=== PATIENT | female | born 1970 | race Caucasian/White ===

== ENCOUNTER 2019-11-29 13:25 | Outpatient (REF) | payer MEDICAID, SELFPAY ==
--- NOTE | 2019-11-29 | XR_ITS ---
EXAMINATION: XR LUMBAR SPINE, 5 VIEWS CLINICAL INFORMATION: Low back pain COMPARISON: None TECHNIQUE: 5 views of the lumbar spine FINDINGS: Moderate to severe degenerative disc disease at L5-S1. Normal alignment and lumbar lordosis. No fracture. No spondylolysis or spondylolisthesis. Mild degenerative disc disease is noted at the lower thoracic spine. IMPRESSION: Moderate to severe L5-S1 degenerative disc disease. Normal alignment. No fracture.
[2019-11-29 14:23] LABS: MANUAL DIFF FLAG NO
[2019-11-29 14:28] LABS: Basophils Percent Auto 0.5 % (0-2); Eosinophils Absolute Auto 0.1 X10*3/uL (0.0-0.4); Eosinophils Percent Auto 2.5 % (0-4); Hematocrit 39.8 % (37-47); Hemoglobin 13.4 g/dl (12.0-16.0); Imm Gran Abs Auto 0.01 X10*3/uL (0.00-0.03); Imm Gran Pct Auto 0.2 % (0.0-0.4); Lymphocytes Absolute Auto 1.7 X10*3/uL (1.2-4.9); Lymphocytes Percent Auto 30.6 % (20-40); Mean Corpuscular HGB Conc 33.7 g/dl (31.0-35.0); Mean Corpuscular Hemoglobin 28.5 pg (27.0-33.0); Mean Corpuscular Volume 84.7 fL (80-98); Mean Platelet Volume 10.5 fL (9.4-12.3); Monocytes Absolute Auto 0.4 X10*3/uL (0.1-1.2); Monocytes Percent Auto 6.7 % (2-11); Neutrophils Absolute Auto 3.4 X10*3/uL (2.0-8.3); Neutrophils Percent Auto 59.5 % (45-73); Platelet Count 208 X10*3/uL (160-400); Red Cell Distribution Width 14.5 % (11.0-16.0); White Blood Count 5.7 X10*3/uL (4.8-10.8)
[2019-11-29 14:57] LABS: Alanine Aminotransferase 14 U/L (0-31); Albumin Level 4.8 g/dL (3.5-5.0); Alkaline Phosphatase 59 U/L (39-117); Anion Gap 12 (12-20); Aspartate Amino Transferase 16 U/L (5-31); Bilirubin Direct < 0.2 mg/dL (0.0-0.5); Bilirubin Total 0.4 mg/dL (0.0-1.0); Blood Urea Nitrogen 9 mg/dL (9-16); Calcium 9.4 mg/dL (8.4-10.2); Carbon Dioxide 29 mmol/L (22-29); Chloride 104 mmol/L (96-108); Cholesterol 321 mg/dL; Estimated Glomerular Filt Rate > 60; Glucose Fasting 89 mg/dL (60-99); HDL Cholesterol 61 mg/dL; LDL Cholesterol Calculated 244 mg/dl; Potassium 3.7 mmol/l (3.3-5.1); Sodium 141 mmol/L (135-145); Total Protein 7.9 g/dL (6.5-8.0); Triglycerides 81 mg/dL
[2019-11-29 15:00] LABS: Estimated Average Glucose 103 mg/dL; Hemoglobin A1c % 5.2 %
[2019-11-29 15:22] LABS: Free T4 (Free Thyroxine) 1.04 ng/dL (0.71-1.85); Thyroid Stimulating Hormone 0.72 mIU/mL (0.32-4.0)
[2019-11-30 09:01] LABS: Syphilis Screen Nonreactive (Nonreactive)
[2019-11-30 11:27] LABS: HIV AB/AG Nonreactive (Nonreactive); HIV Num 1 0.17 S/CO (0.00-0.99)
[2019-11-30 11:36] LABS: Alpha Fetoprotein 2.8 ng/mL
== END 2019-11-29 13:26 | disposition home or self-care (01) ==
LOC: HO.LAB 13:25
PROVIDERS: PCP Family Medicine; Referring Provider Emergency Medicine; Visit Provider Family Medicine
DX: M54.5 Low back pain (principal); M51.37 Other intervertebral disc degeneration, lumbosacral region; M51.34 Other intervertebral disc degeneration, thoracic region; Z00.00 Encounter for general adult medical examination without abnormal findings; F11.99 Opioid use, unspecified with unspecified opioid-induced disorder; E78.5 Hyperlipidemia, unspecified; F32.9 Major depressive disorder, single episode, unspecified; K76.0 Fatty (change of) liver, not elsewhere classified
CPT/HCPCS: 36415; 72110; 80048; 80061; 80076; 82105; 82306; 83036; 84439; 84443; 85025; 86780; 87389

== ENCOUNTER 2019-12-11 12:50 | Inpatient (IN) | payer MEDICAID, SELFPAY ==
[2019-12-11] VITALS (10 sets, daily range): BP systolic 119–154; BP diastolic 64–88; PULSE 66–87; RESP 14–72; TEMP 37.1–37.7; O2SAT 88–99; BMI 36.6
--- NOTE | 2019-12-11 13:30 | ED.GENADULT ---
HPI - General Adult General Chief complaint: General Medical Stated complaint: POS FOR COVID 19 NOT FEELING WELL Time Seen by Provider: 12/11/19 13:17 Source: patient Mode of arrival: ambulatory Limitations: no limitations History of Present Illness HPI narrative: 49-year-old female here with weakness, dizziness with position changes and diarrhea for the last 2 days. She has also had chills with subjective fevers. No body aches, cough, vomiting. She is feeling nauseous. She was tested for COVID last week and found out today she is positive. Onset (ago): day(s) Related Data Allergies Allergy/AdvReac Type Severity Reaction Status Date / Time No Known Allergies Allergy Unverified 11/15/19 16:01 [No Known Allergies*] Review of Systems Review of Systems: Yes all other systems are reviewed and are negative Constitutional: Constitutional: Reports no additional constitutional complaints, Denies body ache(s), Reports chills, Reports fever(s) ( Subjective), Denies headache(s) and Reports weakness ( generalized) Eyes: Eyes: Reports no additional eye complaints and Denies change in vision ENT: Reports system reviewed and no additional complaints, except as documented, Reports dizziness ( with position changes), Denies headache(s), Denies nasal congestion, Denies nasal discharge and Denies neck pain Cardiovascular: Cardiovascular: Reports no additional cardiovascular complaints, Denies chest pain, Denies leg edema and Denies dyspnea Respiratory: Respiratory: Reports no additional respiratory complaints, Denies cough and Denies dyspnea Gastrointestinal: Gastrointestinal: Reports no additional gastrointestinal complaints, Denies abdominal pain, Reports diarrhea, Reports nausea and Denies vomiting Genitourinary: Genitourinary: Reports no additional female genitourinary complaints and Denies urinary incontinence Musculoskeletal: Musculoskeletal: Reports no additional musculoskeletal complaints, Denies back pain, Denies arthralgias, Denies joint swelling, Denies neck pain, Denies numbness and Denies tingling Integumentary/Breasts: Skin/Breast: Reports system reviewed and no additional complaints, except as docu and Denies rash Neurologic: Reports system reviewed and no additional complaints, except as documented, Denies Abnormal speech present, Reports dizziness ( with position changes), Denies headache(s), Denies numbness, Denies tingling and Reports weakness ( generalized) [facility] Past Medical History Attestation statement: The following information was validated with the patient. Source: nursing notes reviewed Medical History COVID-19 Social History Social History Alcohol intake: never Smoking Status: Never smoker Use of substances other than those prescribed or required for medical reasons: No Advance Directives: No Advance Directives Information Provided: No Physical Exam Vital Signs: Vital Signs: Vital Signs Temp Pulse Resp BP Pulse Ox 12/11/19 16:58 75 18 139/74 92 12/11/19 16:01 99.5 F 73 18 130/88 94 12/11/19 14:16 72 H 154/75 H 96 12/11/19 13:15 98.8 F 78 20 144/87 H 99 Body Mass Index 36.6 Const: General: cooperative, healthy appearing, comfortable and no acute distress Orientation/consciousness: patient oriented x3 Limitations: no limitations HENMT: Head: Yes normal to inspection Ears: hearing grossly normal bilaterally General nose exam: Normal external nose present Face and sinus: Yes normal facial exam Mouth: Normal oral and palatal mucosa present Throat: Yes posterior oropharynx normal Eyes: General: appearance normal, both eyes and all related structures Pupils: Equal, round and reactive pupils present Neck: Neck: Yes normal visual inspection Chest: Chest palpation & inspection: normal inspection of the chest Resp: Effort & Inspection: normal respiratory effort Auscultation: clear to auscultation bilaterally Cardio: Rate: regular rate Rhythm: regular rhythm Peripheral pulses: Peripheral pulses 2+ throughout GI: Inspection: Yes normal to inspection Palpation (GI): Soft to palpation and nontender Auscultation: normal bowel sounds Back/Spine/Pelvis: Thoracic/Lumbar Spine: thoracic and lumbar spine normal to inspection Skin: General skin exam: no rashes or lesions noted Neuro: General: patient oriented x3, no focal motor deficits and normal sensation to monofilament Cranial nerves: Yes Equal, round and reactive pupils present Cognition (Neuro): normal cognition Speech: No Abnormal speech present Gait exam (Neuro): Normal gait present Motor exam (neuro): 5/5 motor strength present throughout Extrem: General: Yes normal to inspection Course Course Course Narrative: patient here with complaints of feeling dizzy with position changes, generalized weakness, diarrhea and nausea with few days of subjective fevers and chills in the setting of a diagnosis COVID-19 today. On arrival well-appearing with stable vital signs. No focal abdominal pain. Will check labs, CXR and give normal saline bolus antiemetic and reassess. 0-Delay in labs. Labs reviewed now which show mild hypokalemia. Plan for K CLOR replacement. NSB and antiemetic being given now. Medical Decision Making MDM Narrative Medical decision making narrative: Considered electrolyte abnormality, dehydration, viral syndrome Lab Data Lab results reviewed: Yes I reviewed the patient's lab results. Result diagrams: 12/11/19 14:14 12/11/19 14:14 Labs: Lab Results 12/11/19 12/11/19 12/11/19 Range/Units 14:14 14:14 14:14 WBC 3.6 L (4.8-10.8) X10*3/uL RBC 4.38 (4.20-5.50) X10*6/uL Hgb 12.1 (12.0-16.0) g/dl Hct 37.0 (37-47) % MCV 84.5 (80-98) fL MCH 27.6 (27.0-33.0) pg MCHC 32.7 (31.0-35.0) g/dl RDW 14.3 (11.0-16.0) % Plt Count 147 L D (160-400) X10*3/uL MPV 10.6 (9.4-12.3) fL Immature Gran % (Auto) 0.6 H (0.0-0.4) % Neut % (Auto) 70.1 (45-73) % Lymph % (Auto) 22.8 (20-40) % [place] % (Auto) 6.2 (2-11) % Eos % (Auto) 0.0 (0-4) % Baso % (Auto) 0.3 (0-2) % Lymph # (Auto) 0.8 L (1.2-4.9) X10*3/uL [place] # (Auto) 0.2 (0.1-1.2) X10*3/uL Eos # (Auto) 0.0 (0.0-0.4) X10*3/uL Baso # (Auto) 0.0 (0.0-0.2) X10*3/uL Abs Immat Gran (auto) 0.02 (0.00-0.03) X10*3/uL Absolute Neuts (auto) 2.5 (2.0-8.3) X10*3/uL Absolute Nucleated RBC 0.000 (0.0-0.012) X10*3/uL Nucleated RBC % (auto) 0.0 (0.0-0.2) /100WBC Hold Blue Top SEE NOTE Sodium 140 (135-145) mmol/L Potassium 3.0 L (3.3-5.1) mmol/l Chloride 99 (96-108) mmol/L Carbon Dioxide 32 H (22-29) mmol/L Anion Gap 12 (12-20) BUN 9 (9-16) mg/dL Creatinine 0.78 (0.5-1.4) mg/dL Estim Creat Clear Calc 93.3 Estimated GFR > 60 Random Glucose 96 (60-115) mg/dL Calcium 8.2 L (8.4-10.2) mg/dL Magnesium 1.5 L (1.6-2.6) mg/dL Total Bilirubin 0.5 (0.0-1.0) mg/dL Direct Bilirubin 0.2 (0.0-0.5) mg/dL AST 68 H (5-31) U/L ALT 98 H (0-31) U/L Alkaline Phosphatase 51 (39-117) U/L Total Protein 6.8 (6.5-8.0) g/dL Albumin 3.9 (3.5-5.0) g/dL Discharge Plan Discharge Clinical Impression: COVID-19 Patient Disposition: Home, Self-Care Instructions: COVID-19 (Coronavirus Disease 2019) (ED)
--- NOTE | 2019-12-11 16:02 | PC.NURSE ---
First contact with patient. skin pwd. c/o headache, body aches, sob, change in taste/smell, diarrhea. ls slightly course RLL. [employer] AWAITING LAB RESULTS
[2019-12-11 16:13] LABS: MANUAL DIFF FLAG NO
[2019-12-11 16:14] LABS: Basophils Percent Auto 0.3 % (0-2); Hemoglobin 12.1 g/dl (12.0-16.0); Imm Gran Abs Auto 0.02 X10*3/uL (0.00-0.03); Imm Gran Pct Auto 0.6 % (0.0-0.4); Lymphocytes Absolute Auto 0.8 X10*3/uL (1.2-4.9); Lymphocytes Percent Auto 22.8 % (20-40); Mean Corpuscular HGB Conc 32.7 g/dl (31.0-35.0); Mean Corpuscular Hemoglobin 27.6 pg (27.0-33.0); Mean Corpuscular Volume 84.5 fL (80-98); Mean Platelet Volume 10.6 fL (9.4-12.3); Monocytes Absolute Auto 0.2 X10*3/uL (0.1-1.2); Monocytes Percent Auto 6.2 % (2-11); Neutrophils Absolute Auto 2.5 X10*3/uL (2.0-8.3); Neutrophils Percent Auto 70.1 % (45-73); Platelet Count 147 X10*3/uL (160-400); Red Blood Count 4.38 X10*6/uL (4.20-5.50); Red Cell Distribution Width 14.3 % (11.0-16.0); White Blood Count 3.6 X10*3/uL (4.8-10.8)
[2019-12-11 16:33] LABS: Alanine Aminotransferase 98 U/L (0-31); Albumin Level 3.9 g/dL (3.5-5.0); Alkaline Phosphatase 51 U/L (39-117); Anion Gap 12 (12-20); Aspartate Amino Transferase 68 U/L (5-31); Bilirubin Direct 0.2 mg/dL (0.0-0.5); Bilirubin Total 0.5 mg/dL (0.0-1.0); Blood Urea Nitrogen 9 mg/dL (9-16); Calcium 8.2 mg/dL (8.4-10.2); Carbon Dioxide 32 mmol/L (22-29); Chloride 99 mmol/L (96-108); Creatinine Clr Calc Pharmacy 93.3; Estimated Glomerular Filt Rate > 60; Glucose Random 96 mg/dL (60-115); Magnesium 1.5 mg/dL (1.6-2.6); Sodium 140 mmol/L (135-145); Total Protein 6.8 g/dL (6.5-8.0)
--- NOTE | 2019-12-11 16:52 | XR_ITS ---
EXAMINATION: XR CHEST CLINICAL INFORMATION: Hypoxia. COVID infection COMPARISON: 01/03/2011 TECHNIQUE: Frontal view of the chest was obtained. FINDINGS: Lung volumes are low. There are patchy ill-defined interstitial and airspace opacities bilaterally consistent with viral pneumonitis. No dense lobar consolidation. Normal heart size. No pleural effusion or pneumothorax. Normal pulmonary vascularity. IMPRESSION: Multifocal patchy ill-defined interstitial and airspace opacities are seen, consistent with viral pneumonitis. No dense lobar focal consolidation.
[2019-12-11] MEDS: Potassium Chloride ER 20 MEQ TAB.ER.PRT 60 MEQ PO (16:56)
[2019-12-11] MEDS: ondansetron HCL 4 MG/2 ML VIAL IVPUSH (16:56)
[2019-12-11] MEDS: 0.9 % Sodium Chloride 1,000 ML 999 ML IV (16:56)
--- NOTE | 2019-12-11 17:55 | PC.NURSE ---
Pt desat to 88% w/ mild exertion. pt c/o headache, provider aware. 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
[2019-12-11] MEDS: Acetaminophen 325 MG TABLET 650 MG PO (18:03)
[2019-12-11] MEDS: Magnesium Sulfate/H2O 2 GM/50 ML PIGGYBACK IV (18:03)
--- NOTE | 2019-12-11 19:22 | P.HPIM_ITS ---
History of Present Illness Date of Service: 12/11/19 <Raquel Guevara NP - Last Filed: 12/11/19 19:41> Chief Complaint: Shortness of breath <Raquel Guevara NP - Last Filed: 12/11/19 19:41> 49-year-old woman presenting to the ER with complaints of worsening shortness of breath and body aches. She reports approximately 1 week ago she was helping 2 people out with moving. She found out that they had tested positive for coronavirus. She reported soon after that she began to develop symptoms including body aches, fever and cough. She reports that she went to the urgent care clinic to get tested in received a result today that was positive. She reports that she continued to feel unwell decided to come to the ER to be evaluated. She was noted to be hypoxic initially with oxygen saturation of 80% on room air. Chest x-ray in the ER showed multifocal patchy ill-defined interstitial and airspace opacities. She was noted to have low- grade fever of 100. other abnormal labs include potassium of 3.0, magnesium 1.5, AST 68, ALT 98. she was given a dose of Zofran, 1 L of IV fluid, oral potassium, Tylenol, IV magnesium. She will be admitted for further management and treatment of COVID pneumonia. <Raquel Guevara NP - Last Filed: 12/11/19 19:41> Review of Systems Review of Systems: Reports recent fever, chills respiratory see HPI cardiovascular no chest pain, edema gastrointestinal reported nausea, no diarrhea. genitourinary denies any dysuria frequency or hematuria musculoskeletal Reported body aches neuropsych denies any weakness or seizures all other systems reviewed are negative <Raquel Guevara NP - Last Filed: 12/11/19 19:41> Constitutional: Constitutional: Denies headache(s) and Reports weakness ( gen eralized) <Raquel Guevara NP - Last Filed: 12/11/19 19:41> ENT: Reports dizziness ( with position changes) and Denies headache(s) <Raquel Guevara NP - Last Filed: 12/11/19 19:41> Musculoskeletal: Musculoskeletal: Denies numbness and Denies tingling <Raquel Guevara NP - Last Filed: 12/11/19 19:41> Neurologic: Reports system reviewed and no additional complaints, except as documented, Denies Abnormal speech present, Reports dizziness ( with position changes), Denies headache(s), Denies numbness, Denies tingling and Reports weakn ess ( generalized) <Raquel Guevara NP - Last Filed: 12/11/19 19:41> [facility] Medical History: Medical History (Updated 12/21/19 @ 08:55 by Aurelio Fox MD) Depression NAFL (nonalcoholic fatty liver) Transaminitis <Raquel Guevara NP - Last Filed: 12/11/19 19:41> Pertinent family history: denies cardiac disease <Raquel Guevara NP - Last Filed: 12/11/19 19:41> Surgical History: Surgical History H/O tubal ligation H/O: hysterectomy History of endometrial ablation History of salpingectomy Hx laparoscopic cholecystectomy Previous section <Raquel Guevara NP - Last Filed: 12/11/19 19:41> Social History: Social History Household Members: Children Housing: Apartment Alcohol intake: never Smoking Status: Never smoker service: No Current occupational status: employed <Raquel Guevara NP - Last Filed: 12/11/19 19:41> Meds Allergies/Adverse reactions: Allergies Allergy/AdvReac Type Severity Reaction Status Date / Time No Known Allergies Allergy Unverified 11/15/19 16:01 [No Known Allergies*] <Raquel Guevara NP - Last Filed: 12/11/19 19:41> Home medications: Home Medications Medication Instructions Recorded Confirmed Type baclofen 10 mg PO TID PRN 12/11/19 12/11/19 History bupropion HCl 300 mg PO QAM 12/11/19 12/11/19 History cholecalciferol (vitamin D3) 50 mcg PO DAILY 12/11/19 12/11/19 History [Vitamin D3] fluticasone propionate 2 spray INTRANASAL DAILY PRN 12/11/19 12/11/19 History hydrochlorothiazide 25 mg PO DAILY 12/11/19 12/11/19 History loratadine 10 mg PO DAILY PRN 12/11/19 12/11/19 History naproxen 500 mg PO BID PRN 12/11/19 12/11/19 History omeprazole 20 mg PO BID 12/11/19 12/11/19 History polyethylene glycol 3350 [Miralax] 17 g PO DAILY PRN 12/11/19 12/11/19 History sertraline 150 mg PO DAILY 12/11/19 12/11/19 History zolpidem [Ambien] 10 mg PO BEDTIME PRN 12/11/19 12/11/19 History <Raquel Guevara NP - Last Filed: 12/11/19 19:41> Physical Exam Vital Signs and Narrative: Vital Signs: Last Vital Signs Temp 100 F 12/11/19 18:59 Pulse 75 12/11/19 18:59 Resp 20 12/11/19 18:59 BP 119/65 12/11/19 18:59 Pulse Ox 98 12/11/19 18:59 Body Mass Index 36.6 <Raquel Guevara NP - Last Filed: 12/11/19 19:41> Appearing tired, pale head is normocephalic atraumatic eyes pupils are PERRLA sclera is anicteric mouth throat mucous membranes are intact and moist neck is supple no lymphadenopathy, no JVD noted lung sounds normal expansion heart regular rate rhythm, clear S1, S2 abdomen nontender neuro patient is alert x3, no focal deficits <Raquel Guevara NP - Last Filed: 12/11/19 19:41> Neuro: Speech: No Abnormal speech present <Raquel Guevara NP - Last Filed: 12/11/19 19:41> Results Labs Labs: Laboratory Tests 12/11/19 12/11/19 12/11/19 14:14 14:14 14:14 WBC 3.6 L RBC 4.38 Hgb 12.1 Hct 37.0 MCV 84.5 MCH 27.6 MCHC 32.7 RDW 14.3 Plt Count 147 L D MPV 10.6 Immature Gran % (Auto) 0.6 H Neut % (Auto) 70.1 Lymph % (Auto) 22.8 [place] % (Auto) 6.2 Eos % (Auto) 0.0 Baso % (Auto) 0.3 Lymph # (Auto) 0.8 L [place] # (Auto) 0.2 Eos # (Auto) 0.0 Baso # (Auto) 0.0 Abs Immat Gran (auto) 0.02 Absolute Neuts (auto) 2.5 Absolute Nucleated RBC 0.000 Nucleated RBC % (auto) 0.0 Hold Blue Top SEE NOTE Sodium 140 Potassium 3.0 L Chloride 99 Carbon Dioxide 32 H Anion Gap 12 BUN 9 Creatinine 0.78 Estim Creat Clear Calc 93.3 Estimated GFR > 60 Random Glucose 96 Calcium 8.2 L Magnesium 1.5 L Total Bilirubin 0.5 Direct Bilirubin 0.2 AST 68 H ALT 98 H Alkaline Phosphatase 51 Total Protein 6.8 Albumin 3.9 <Raquel Guevara NP - Last Filed: 12/11/19 19:41> Assessment and Plan (1) COVID-19: Status: Acute <Raquel Guevara NP - Last Filed: 12/11/19 19:41> (2) Acute respiratory failure with hypoxia: Problem details: She is well into COVID illness and may have antibodies already She may have post COVID MISC-A or opportunistic infection but may just end of COVID <Raquel Guevara NP - Last Filed: 12/11/19 19:41> Status: Acute <Raquel Guevara NP - Last Filed: 12/11/19 19:41> (3) Hypokalemia: Status: Resolved <Raquel Guevara NP - Last Filed: 12/11/19 19:41> (4) Hypomagnesemia: Status: Resolved <Raquel Guevara NP - Last Filed: 12/11/19 19:41> (5) Transaminitis: 49-year-old woman admitted with acute respiratory failure with hypoxia related to COVID-19 pneumonia. Acute respiratory failure with hypoxia. Will treat COVID symptoms. Monitor closely for worsening of respiratory status , consider transfer to higher level of care if significant deterioration in respiratory status noted. COVID-19. Previous positive test from urgent care at [facility]. Will treat with dexamethasone 6 mg for 6 days. Consider Remdesivir, ID consultation, supplemental oxygen, Rocephin, azithromycin, place on isolation. COVID labs pending. Hypokalemia. Repleted in the ER. Follow BMP closely. Hypomagnesemia. Repleted in the ER. Follow magnesium tomorrow. Transaminitis. May be related to infection. Recheck LFTs in the morning. DVT prophylaxis with Lovenox Discussed with Dr. Ibrahim Full code <Raquel Guevara NP - Last Filed: 12/11/19 19:41>
[2019-12-11 19:28] LABS: Lactic Acid 0.7 mmol/L (0.5-2.0)
[2019-12-11 19:32] LABS: Lactate Dehydrogenase 316 U/L (122-220)
[2019-12-11 19:52] LABS: Procalcitonin 0.07 ng/mL
[2019-12-11 19:55] LABS: Ferritin 156 ng/mL (10-250)
[2019-12-11 20:19] LABS: SARS COV2 PCR INHOUSE POSITIVE (Negative)
[2019-12-11] MEDS: dexAMETHasone 6 MG TABLET PO (23:14)
--- NOTE | 2019-12-11 23:35 | PC.NURSE ---
RN TO RN WITH MODESTO
[2019-12-12 01:02] VITALS: BP 156/89; PULSE 80; RESP 19; TEMP 36.2; O2SAT 98
[2019-12-12] MEDS: cefTRIAXone sodium 1 GM in 0.9 % Sodium Chloride 50 ML IV (02:31)
[2019-12-12] MEDS: Enoxaparin Sodium 40 MG/0.4 ML SYRINGE SUBCUT (02:32)
[2019-12-12] MEDS: 0.9 % Sodium Chloride Flush 3 ML SYRINGE IVFLUSH ×4 (02:33→23:40)
[2019-12-12] MEDS: Azithromycin 500 MG in 0.9 % Sodium Chloride 250 ML 250 MG IV (03:08)
[2019-12-12] MEDS: Acetaminophen 325 MG TABLET 650 MG PO ×3 (03:09→21:17)
[2019-12-12 03:26] VITALS: BP 140/77; PULSE 66; RESP 19; TEMP 35.9; O2SAT 100
[2019-12-12 06:50] LABS: Hematocrit 37.2 % (37-47); Lymphocytes Absolute Auto 0.7 X10*3/uL (1.2-4.9); Lymphocytes Percent Auto 18.7 % (20-40); MANUAL DIFF FLAG SCAN; Mean Corpuscular HGB Conc 32.3 g/dl (31.0-35.0); Mean Corpuscular Hemoglobin 27.5 pg (27.0-33.0); Mean Corpuscular Volume 85.1 fL (80-98); Monocytes Absolute Auto 0.2 X10*3/uL (0.1-1.2); Monocytes Percent Auto 4.9 % (2-11); Neutrophils Absolute Auto 2.7 X10*3/uL (2.0-8.3); Neutrophils Percent Auto 76.4 % (45-73); Platelet Count 154 X10*3/uL (160-400); Red Blood Count 4.37 X10*6/uL (4.20-5.50); Red Cell Distribution Width 14.5 % (11.0-16.0); SCAN SMEAR FLAG 1; White Blood Count 3.5 X10*3/uL (4.8-10.8)
[2019-12-12 06:57] LABS: Alanine Aminotransferase 98 U/L (0-31); Albumin Level 3.8 g/dL (3.5-5.0); Alkaline Phosphatase 54 U/L (39-117); Anion Gap 11 (12-20); Aspartate Amino Transferase 75 U/L (5-31); Bilirubin Direct 0.2 mg/dL (0.0-0.5); Bilirubin Total 0.5 mg/dL (0.0-1.0); Blood Urea Nitrogen 8 mg/dL (9-16); Calcium 8.1 mg/dL (8.4-10.2); Carbon Dioxide 31 mmol/L (22-29); Chloride 104 mmol/L (96-108); Creatinine Clr Calc Pharmacy 101.2; Estimated Glomerular Filt Rate > 60; Glucose Random 138 mg/dL (60-115); Potassium 3.9 mmol/l (3.3-5.1); Sodium 142 mmol/L (135-145); Total Protein 6.8 g/dL (6.5-8.0)
[2019-12-12 07:39] VITALS: BP 130/73; PULSE 69; RESP 18; TEMP 36.7; O2SAT 99
[2019-12-12 07:50] LABS: SLIDE REVIEW VERIFIED
[2019-12-12] MEDS: dexAMETHasone 6 MG TABLET PO (08:34)
--- NOTE | 2019-12-12 09:26 | MHC.CM.PN ---
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 Does not have a HCP and declines filling one out today. Discussed discharge plan, home no services. Family will provide transport but may also need assistance. CM will continue to follow patient for discharge needs.
--- NOTE | 2019-12-12 09:33 | MHC.CDI.CONC ---
CDI Concurrent Query Service Date: 12/12/19 Documentation Clarification: Please clarify if you are treating a probable/suspected/likely or confirmed: Viral Sepsis due to Covid-19 Pneumonia with Acute respiratory failure with hypoxia POA Covid-19 Pneumonia Please specify if known PLEASE DO NOT DELETE/MODIFY EXISTING CONTENT Additional information is needed in order to code to the highest accuracy and appropriate Severity of Illness (SOI). Please clarify the information noted below in your progress notes and discharge summary. Risk Factors/Clinical Indicators/Treatments Subjective fevers, chills, nausea, diarrhea, weakness, positive covid 19 test results. Temp 100.0 HR 140 RR 20 WBC 3.5 Azithromycin, Rocephin, Oxygen, IV fluids, placed in Isolation. Cxr - Viral pneumonia. ID Consult requested. CDS: Dyan Rausch [facility], CDIS Contact Number: [phone] Please Review the information above and exercise your independent professional judgment in responding to the query. If you concur, pleas document in the PROGRESS NOTES and DISCHARGE SUMMARY. If you do not agree with the query, please document in the query above. THIS QUERY IS PART OF THE PERMANENT MEDICAL RECORD
[2019-12-12 12:00] VITALS: BP 120/68; PULSE 62; RESP 20; TEMP 37.2; O2SAT 95
--- NOTE | 2019-12-12 13:14 | HO.PM.IMPN ---
Subjective Subjective Date of Service: 12/12/19 Interval History: Seen in follow up for covid related resp failure. Overall still doesn't feel better Review of Systems Card: no chest pain resp: feel sob GI: No n/v Physical Exam Vital Signs: Vital Signs: Vital Signs Temp Pulse Resp BP Pulse Ox 12/12/19 12:00 98.9 F 62 20 120/68 95 12/12/19 07:39 98.0 F 69 18 130/73 99 12/12/19 03:26 96.7 F L 66 19 140/77 H 100 12/12/19 01:02 97.2 F 80 19 156/89 H 98 12/11/19 23:15 99.3 F 75 18 138/64 98 12/11/19 21:28 99.6 F 72 20 146/83 H 98 12/11/19 19:53 66 14 126/68 98 12/11/19 18:59 100 F 75 20 119/65 98 12/11/19 18:06 98.7 F 87 20 135/75 95 12/11/19 17:54 88 L 12/11/19 16:58 75 18 139/74 92 12/11/19 16:01 99.5 F 73 18 130/88 94 12/11/19 14:16 72 H 154/75 H 96 12/11/19 13:15 98.8 F 78 20 144/87 H 99 Body Mass Index 36.6 Appearing tired, pale head is normocephalic atraumatic eyes pupils are PERRLA sclera is anicteric mouth throat mucous membranes are intact and moist neck is supple no lymphadenopathy, no JVD noted lung sounds normal expansion heart regular rate rhythm, clear S1, S2 abdomen nontender neuro patient is alert x3, no focal deficits Objective Data Current Medications Generic Name Dose Route Start Last Admin Trade Name Freq PRN Reason Stop Dose Admin Acetaminophen 650 mg 12/12/19 01:45 12/12/19 10:14 Acetaminophen 325 Mg Tablet PO 650 mg Q6H PRN Administration Pain, Mild (Pain Scale 1-3) Dexamethasone 6 mg 12/11/19 19:20 12/12/19 08:34 Dexamethasone 6 Mg Tablet PO 6 mg DAILY ADRIANA Administration Enoxaparin Sodium 40 mg 12/12/19 01:45 12/12/19 02:32 Enoxaparin Sodium 40 Mg/0.4 Ml Syringe SUBCUT 40 mg Q24H ADRIANA Administration Azithromycin 500 mg/ Sodium 250 mls @ 250 mls/hr 12/12/19 02:00 12/12/19 06:41 Chloride IV Infused Q24H ADRIANA Infusion Ceftriaxone Sodium 1 gm/ 50 mls @ 100 mls/hr 12/12/19 03:00 12/12/19 07:18 Sodium Chloride IV Infused Q24H ADRIANA Infusion Ondansetron HCl 4 mg 12/12/19 01:45 Ondansetron Hcl 4 Mg/2 Ml Vial IVPUSH Q8H PRN Nausea and Vomiting Pharmacy Consult 1 each 12/11/19 18:12 Consult Rx Perform Med Rec MISCELLANE ONCE PRN Consult order Sodium Chloride 3 ml 12/12/19 01:45 12/12/19 08:35 0.9 % Sodium Chloride Flush 3 Ml Syringe IVFLUSH 3 ml QSHIFT ADRIANA Administration Labs CBC & Chem 7: 12/12/19 06:02 12/12/19 06:02 Assessment and Plan (1) COVID-19: Status: Acute (2) Acute respiratory failure with hypoxia: Status: Acute (3) Hypokalemia: Status: Acute (4) Hypomagnesemia: Status: Acute (5) Transaminitis: Status: Acute Assessment and Plan: 49-year-old woman admitted with acute respiratory failure with hypoxia related to COVID-19 pneumonia. Acute respiratory failure with hypoxia. Will treat COVID symptoms. Monitor closely for worsening of respiratory status , consider transfer to higher level of care if significant deterioration in respiratory status noted. COVID-19. Previous positive test from urgent care at [facility]. Will treat with dexamethasone 6 mg for 6 days. Consider Remdesivir, ID consultation, supplemental oxygen, Rocephin, azithromycin, place on isolation. COVID labs pending. Hypokalemia. corrected Hypomagnesemia. corrected, now 2 Transaminitis. May be related to infection. Recheck LFTs in the morning.
[2019-12-12 14:06] VITALS: BMI 36.6
[2019-12-12 15:35] VITALS: BP 149/68; PULSE 63; RESP 18; TEMP 36.2; O2SAT 100
[2019-12-12 19:57] VITALS: BP 140/71; PULSE 67; RESP 18; TEMP 36.1; O2SAT 99
--- NOTE | 2019-12-12 21:07 | P.CNID_ITS ---
History of Present Illness Data of Consult Service Date: 12/12/19 [facility] Primary Care Provider: DO MARCI Rodriguez Reason for consult: shortness of breath She presents to hospital with shortness of breath She is on 3 liters oxygen now and had low grade temperature on admission She started with symptoms of cough and fatigue on 11/29 On 12/03 she was tested positive for SARS-2 Review of Systems Constitutional: Constitutional: Denies headache(s) and Reports weakness ( generalized) ENT: Reports dizziness ( with position changes) and Denies headache(s) Musculoskeletal: Musculoskeletal: Denies numbness and Denies tingling Neurologic: Reports system reviewed and no additional complaints, except as documented, Denies Abnormal speech present, Reports dizziness ( with position changes), Denies headache(s), Denies numbness, Denies tingling and Reports weakness ( generalized) PMFSH Past Medical History Medical History Depression Surgical History Surgical History H/O tubal ligation H/O: hysterectomy History of endometrial ablation History of salpingectomy Hx laparoscopic cholecystectomy Previous section Social History Social History Household Members: Children Housing: Apartment Do you presently have visiting nurse or other home services: No Alcohol intake: never Smoking Status: Never smoker Use of substances other than those prescribed or required for medical reasons: No Currently Displaying Signs/Symptoms of Drug Intoxication Withdrawal: No Any prior treatment program specific to substance use: No Have you been hit, kicked, punched, or otherwise hurt by someone within the past year? If so, by whom?: No Do you feel safe in your current relationship?: No Current Relationship Is there a partner from a previous relationship who is making you feel unsafe now?: No Are you made to feel afraid or neglected: No Advance Directives: No Advance Directives Information Provided: No Do you have thoughts of harming others: None Do you have a plan to hurt others: No Plan Recently lost weight without trying: No service: No Current occupational status: employed Meds Allergies Allergy/AdvReac Type Severity Reaction Status Date / Time No Known Allergies Allergy Unverified 11/15/19 16:01 [No Known Allergies*] Home Medications Medication Instructions Recorded Confirmed Type baclofen 10 mg PO TID PRN 12/11/19 12/11/19 History bupropion HCl 300 mg PO QAM 12/11/19 12/11/19 History cholecalciferol (vitamin D3) 50 mcg PO DAILY 12/11/19 12/11/19 History [Vitamin D3] fluticasone propionate 2 spray INTRANASAL DAILY PRN 12/11/19 12/11/19 History hydrochlorothiazide 25 mg PO DAILY 12/11/19 12/11/19 History loratadine 10 mg PO DAILY PRN 12/11/19 12/11/19 History naproxen 500 mg PO BID PRN 12/11/19 12/11/19 History omeprazole 20 mg PO BID 12/11/19 12/11/19 History polyethylene glycol 3350 [Miralax] 17 g PO DAILY PRN 12/11/19 12/11/19 History sertraline 150 mg PO DAILY 12/11/19 12/11/19 History vitamin E 180 unit PO 12/11/19 History zolpidem [Ambien] 10 mg PO BEDTIME PRN 12/11/19 12/11/19 History Physical Exam Vital Signs: Vital Signs: Vital Signs Temp Pulse Resp BP Pulse Ox 12/12/19 19:57 97 F 67 18 140/71 H 99 12/12/19 15:35 97.2 F 63 18 149/68 H 100 12/12/19 12:00 98.9 F 62 20 120/68 95 12/12/19 07:39 98.0 F 69 18 130/73 99 12/12/19 03:26 96.7 F L 66 19 140/77 H 100 12/12/19 01:02 97.2 F 80 19 156/89 H 98 12/11/19 23:15 99.3 F 75 18 138/64 98 12/11/19 21:28 99.6 F 72 20 146/83 H 98 Body Mass Index 36.6 Const: General: anxious and ill appearing Orientation/consciousness: oriented to person, oriented to place and oriented to time HENMT: Head: Yes normal to inspection Throat: Yes posterior oropharynx normal Resp: Effort & Inspection: normal respiratory effort and able to speak in complete sentences Cardio: Rate: regular rate Rhythm: regular rhythm GI: Inspection: Yes normal to inspection Skin: General skin exam: no rashes or lesions noted Neuro: General: oriented to person, oriented to place and oriented to time Speech: No Abnormal speech present Extrem: General: Yes normal to inspection Assessment and Plan (1) Acute respiratory failure with hypoxia: Problem details: She is well into COVID illness and may have antibodies already She may have post COVID MISC-A or opportunistic infection but may just end of COVID Status: Acute Check antibodies,may indicate if positive resolved COVID and possible a typical pneumonia Dexamethasone daily,6 mg IV and then po 8 mg finish 10 days (2) COVID-19: Status: Acute Results Labs CBC & Chem 7: 12/12/19 06:02 12/12/19 06:02 Labs: Short CBC 12/12/19 Range/Units 06:02 WBC 3.5 L (4.8-10.8) X10*3/uL Hgb 12.0 (12.0-16.0) g/dl Hct 37.2 (37-47) % Plt Count 154 L (160-400) X10*3/uL BMP 12/12/19 06:02 Sodium 142 Potassium 3.9 D Chloride 104 Carbon Dioxide 31 H BUN 8 L Creatinine 0.72 Calcium 8.1 L Liver Function 12/12/19 Range/Units 06:02 Total Bilirubin 0.5 (0.0-1.0) mg/dL Direct Bilirubin 0.2 (0.0-0.5) mg/dL AST 75 H (5-31) U/L ALT 98 H (0-31) U/L Alkaline Phosphatase 54 (39-117) U/L Albumin 3.8 (3.5-5.0) g/dL
[2019-12-13] VITALS: BP 146/87; PULSE 58; RESP 20; TEMP 36.7; O2SAT 98
[2019-12-13] MEDS: Enoxaparin Sodium 40 MG/0.4 ML SYRINGE SUBCUT (02:27)
[2019-12-13] MEDS: cefTRIAXone sodium 1 GM in 0.9 % Sodium Chloride 50 ML IV (02:29)
[2019-12-13] MEDS: Azithromycin 500 MG in 0.9 % Sodium Chloride 250 ML 250 MG IV (02:30)
[2019-12-13 04:00] VITALS: BP 142/88; PULSE 60; RESP 18; TEMP 36.7; O2SAT 98
[2019-12-13 07:52] VITALS: BP 144/80; PULSE 69; RESP 18; TEMP 36.4; O2SAT 95
[2019-12-13] MEDS: dexAMETHasone 6 MG TABLET PO (07:54)
[2019-12-13] MEDS: 0.9 % Sodium Chloride Flush 3 ML SYRINGE IVFLUSH ×2 (07:54→15:10)
[2019-12-13 09:00] VITALS: O2SAT 93
[2019-12-13 11:02] VITALS: BP 135/87; PULSE 66; RESP 16; TEMP 36.5; O2SAT 96
--- NOTE | 2019-12-13 15:02 | P.DS_ITS ---
DS: Providers Provider Date of admission: 12/11/19 22:48 Primary care physician: Vera Da Silva DO Consults: 12/12/19 01:45 Consult to Physician Routine Consulting Provider: Jo Salinas Reason for consultation: COVID-19, HYPOXIA Has provider been notified: No DS: Diagnosis Discharge Diagnosis (1) Acute respiratory failure with hypoxia: Status: Acute Problem details: She is well into COVID illness and may have antibodies already She may have post COVID MISC-A or opportunistic infection but may just end of COVID (2) COVID-19: Status: Acute DS: Summary Hospital Course Hospital Course: 49 year female with presented with SOB. Her syptoms started with cough, sob and fatigue around 11/29. She tested positive for tenorio virus on 12/03 and manged as outpatient. She presented on 12/10 and found to have infiltrate on CXR consistent with viral PNA and she was hypoxic. She was admitted and treated with IV Ceftriaxone, Azithro and Dexamethasone. Over the course of hospitalization she has improved. She has been weaned off oxygen. She is afebrile. Oxygen saturation is maintained post ambulation. She will be discharged with Azithromycin and Dexamethasone for total of 10 days. She need isolation for Time Spent with Patient Time attestation: Total time spent providing and/or coordinating discharge services: Physical Exam Vital Signs: Vital Signs: Vital Signs Temp Pulse Resp BP Pulse Ox 12/13/19 11:02 97.7 F 66 16 135/87 96 12/13/19 09:00 93 12/13/19 07:52 97.6 F 69 18 144/80 H 95 12/13/19 04:00 98.1 F 60 18 142/88 H 98 12/13/19 00:00 98.0 F 58 20 146/87 H 98 12/12/19 19:57 97 F 67 18 140/71 H 99 12/12/19 15:35 97.2 F 63 18 149/68 H 100 Body Mass Index 36.6 DS: Data Data Completed and Pending Labs on day of discharge: Labs from last 24 hours 12/12/19 21:22 SARS-CoV-2 IgG Ab Pending Discharge Plan Discharge Patient Disposition: Home, Self-Care Referrals: Vera Da Silva DO [Primary Care Provider] - Discharge Medications: New azithromycin 500 mg tablet 500 mg PO DAILY 3 Days Qty: 5 RF: 0 dexamethasone 6 mg Tablet 6 mg PO DAILY Qty: 7 RF: 0 Continued loratadine 10 mg Tablet 10 mg PO DAILY PRN (Reason: Allergy Symptoms) RF: 0 cholecalciferol (vitamin D3) [Vitamin D3] 50 mcg (2,000 unit) Tablet 50 mcg PO DAILY RF: 0 fluticasone propionate 50 mcg/actuation [place],Suspension 2 spray INTRANASAL DAILY PRN (Reason: Congestion) RF: 0 naproxen 500 mg Tablet 500 mg PO BID PRN (Reason: Pain (Scale Score 1-3)) RF: 0 polyethylene glycol 3350 [Miralax] 17 gram/dose Powder 17 g PO DAILY PRN (Reason: Constipation) RF: 0 baclofen 10 mg Tablet 10 mg PO TID PRN (Reason: Muscle Spasm) RF: 0 hydrochlorothiazide 25 mg Tablet 25 mg PO DAILY RF: 0 zolpidem [Ambien] 10 mg Tablet 10 mg PO BEDTIME PRN (Reason: Sleep) RF: 0 vitamin E 100 unit Tablet 180 unit PO RF: 0 omeprazole 20 mg Capsule,Delayed Release(Dr/Ec) 20 mg PO BID RF: 0 sertraline 100 mg Tablet 150 mg PO DAILY RF: 0 bupropion HCl 300 mg Tablet Extended Release 24 Hr 300 mg PO QAM RF: 0 Discharge Orders: Discharge Order (Routine); Ordered 12/13/19 Ordered By: Sammy Llanes Activity on Discharge: As tolerated Patient Instructions: COVID-19 (Coronavirus Disease 2019) (ED) Discharge Date/Time: 12/13/19 17:48 Visit Report Forms: Patient Portal Discharge page Care Plan Goals: Resolution of all covid symptoms Health Concerns: complications of covid 19 Plan of Treatment: Take Dexamathasone and Azithromycin as recommended and follow up with your Doctor in a week. Follow up with your Doctor in a week, call for appointment call 911 or come to hospital if your symptoms gert worse. CDC Guidelines for home isolation: - Stay away from others - Limit contact with pets and animals: If you must care for a pet, wash your hands before and after interacting with them - Wear a mask if you are sick - Cover your mouth and nose with a tissue when you cough or sneeze. Dispose of tissues in a lined trash can and wash your hands immediately with soap and water for at least 20 seconds. If soap and water are not available, clean hands with alcohol-based hand railroad shop inspector that contains at least 60% alcohol. - Clean your hands often with soap and water for at least 20 seconds - Avoid touching your eyes, nose and mouth with unwashed hands - Do not share dishes, drinking glasses, cups, eating utensils, towels, or bedding with other people in your home. After using these items, wash them thoroughly with soap and water or put in the outside contractor sales. - Clean high-touch surfaces in your isolation area ( sick room and bathroom) every day; let a caregiver clean and disinfect high-touch surfaces in other areas of the home. Clean the area or item with soap and water or another detergent if it is dirty. Then, use a household disinfectant. Seek medical attention, but call first: - Seek medical care right away if your illness is worsening (for example, if you have difficulty breathing). - Call your doctor before going in: Before going to the doctor's office or emergency room, call ahead and tell them your symptoms. They will tell you what to do. - If possible, put on a facemask before you enter the building. If you can't put on a facemask, try to keep a safe distance from other people (at least 6 feet away). This will help protect the people in the office or waiting room. - Follow care instructions from your healthcare provider and local health department: Your local health authorities will give instructions on checking your symptoms and reporting information. Emergency warning signs for COVID-19: - Difficulty breathing or shortness of breath - Persistent pain or pressure in the chest - New confusion or inability to arouse - Bluish lips or face Additional Instructions: - []
--- NOTE | 2019-12-13 15:10 | MHC.CM.PN ---
DC to Home no services, Friend providing transportation
[2019-12-13 15:22] LABS: SARS COV2 IgG Positive (Negative)
[2019-12-13 15:47] VITALS: BP 166/83; PULSE 60; RESP 18; TEMP 36; O2SAT 96
== END 2019-12-13 17:48 | disposition home or self-care (01) | DRG 137 ==
LOC: HO.ED 22:47 → HO.IMC 23:16
PROVIDERS: Internal Medicine; Nurse Practitioner Acute Care; Nurse Practitioner Family; Admitting Provider Internal Medicine; Emergency Provider Emergency Medicine; PCP Family Medicine; Visit Provider Internal Medicine
DX: U07.1 COVID-19 (principal); J96.01 Acute respiratory failure with hypoxia; J12.89 Other viral pneumonia; F32.9 Major depressive disorder, single episode, unspecified; E87.6 Hypokalemia; E83.42 Hypomagnesemia; R74.01 Elevation of levels of liver transaminase levels; Z79.1 Long term (current) use of non-steroidal anti-inflammatories (NSAID); Z79.51 Long term (current) use of inhaled steroids; Z79.899 Other long term (current) drug therapy
CPT/HCPCS: 36415; 71045; 80048; 80076; 82728; 83605; 83615; 83735; 84145; 85025; 86769; 87635; 96361; 96374; 99284; 99285; J1650; J2405; J3475; J8540

== ENCOUNTER 2020-03-14 10:11 | Outpatient (REF) | payer MEDICAID, SELFPAY ==
--- NOTE | 2020-03-14 10:17 | MM_ITS ---
EXAMINATION: MM SCREENING DIGITAL BREAST TOMOSYNTHESIS, BILATERAL CLINICAL INFORMATION: Screening. Asymptomatic. The lifetime risk of breast cancer based on the Tyrer-Cuzick Model is 7%. COMPARISON: Mammography: 05/18/2018, 03/18/2017, 07/23/2015 TECHNIQUE: Digital breast tomosynthesis is performed in both the craniocaudal and mediolateral oblique views along with computer-aided detection (CAD). Synthesized 2D images are generated from the tomosynthesis. FINDINGS: There are scattered areas of fibroglandular density (ACR BI-RADS breast composition Category b). Scattered bilateral asymmetries are stable from prior exams. There is no interval mass or architectural abnormality or abnormal calcifications. The axilla and skin contours are unremarkable. MM/MM tomosynthesis screening BI IMPRESSION: No significant changes from prior exams. ASSESSMENT: BI-RADS 2: Benign RECOMMENDATION: Routine annual mammography screening. This patient's information was entered into a reminder system with a target due date for their next mammogram.
== END 2020-03-14 10:12 | disposition home or self-care (01) ==
LOC: HO.MAMMO 10:11
PROVIDERS: Visit Provider Family Medicine
DX: Z12.31 Encounter for screening mammogram for malignant neoplasm of breast (principal)
CPT/HCPCS: 77063; 77067

== ENCOUNTER 2020-03-21 09:50 | Outpatient (REF) | payer MEDICAID, SELFPAY ==
[2020-03-22 11:45] LABS: BV Int Neg Control Negative (Negative); BV Int Pos Control Positive (Positive)
[2020-03-26 07:38] LABS: HPV mRNA E6/E7 Detected (Not Detected)
[2020-04-02 10:26] LABS: HPV 16 RNA NOT DETECTED
== END 2020-03-21 09:51 | disposition home or self-care (01) ==
LOC: HO.LAB 09:50
PROVIDERS: PCP Family Medicine; Visit Provider Obstetrics & Gynecology
DX: Z01.419 Encounter for gynecological examination (general) (routine) without abnormal findings (principal); N89.8 Other specified noninflammatory disorders of vagina; Z12.11 Encounter for screening for malignant neoplasm of colon; Z20.2 Contact with and (suspected) exposure to infections with a predominantly sexual mode of transmission
CPT/HCPCS: 36415; 87480; 87510; 87624; 87625; 87660; 88141; 88142

== ENCOUNTER 2020-04-09 13:09 | Outpatient (REF) | payer MEDICAID, SELFPAY ==
[2020-04-09 14:13] LABS: MANUAL DIFF FLAG NO
[2020-04-09 14:23] LABS: Estimated Average Glucose 103 mg/dL; Hemoglobin A1c % 5.2 %
[2020-04-09 14:31] LABS: Basophils Percent Auto 0.5 % (0-2); Eosinophils Percent Auto 0.3 % (0-4); Hematocrit 39.1 % (37-47); Hemoglobin 12.7 g/dl (12.0-16.0); Imm Gran Abs Auto 0.01 X10*3/uL (0.00-0.03); Imm Gran Pct Auto 0.2 % (0.0-0.4); Lymphocytes Absolute Auto 1.7 X10*3/uL (1.2-4.9); Lymphocytes Percent Auto 29.8 % (20-40); Mean Corpuscular HGB Conc 32.5 g/dl (31.0-35.0); Mean Corpuscular Hemoglobin 27.5 pg (27.0-33.0); Mean Corpuscular Volume 84.8 fL (80-98); Mean Platelet Volume 10.1 fL (9.4-12.3); Monocytes Absolute Auto 0.3 X10*3/uL (0.1-1.2); Monocytes Percent Auto 5.7 % (2-11); Neutrophils Absolute Auto 3.6 X10*3/uL (2.0-8.3); Neutrophils Percent Auto 63.5 % (45-73); Platelet Count 240 X10*3/uL (160-400); Red Blood Count 4.61 X10*6/uL (4.20-5.50); Red Cell Distribution Width 13.6 % (11.0-16.0); White Blood Count 5.7 X10*3/uL (4.8-10.8)
[2020-04-09 14:40] LABS: Alanine Aminotransferase 36 U/L (0-31); Albumin Level 4.2 g/dL (3.5-5.0); Alkaline Phosphatase 56 U/L (39-117); Anion Gap 14 (12-20); Aspartate Amino Transferase 28 U/L (5-31); Bilirubin Direct < 0.2 mg/dL (0.0-0.5); Bilirubin Total 0.4 mg/dL (0.0-1.0); Blood Urea Nitrogen 16 mg/dL (9-16); Calcium 9.8 mg/dL (8.4-10.2); Carbon Dioxide 28 mmol/L (22-29); Chloride 103 mmol/L (96-108); Cholesterol 292 mg/dL; Estimated Glomerular Filt Rate > 60; Glucose Random 78 mg/dL (60-115); HDL Cholesterol 62 mg/dL; LDL Cholesterol Calculated 192 mg/dl; Potassium 4.2 mmol/L (3.3-5.1); Sodium 141 mmol/L (135-145); Total Protein 7.4 g/dL (6.5-8.0); Triglycerides 190 mg/dL
[2020-04-09 14:59] LABS: Syphilis Screen Nonreactive (Nonreactive)
[2020-04-09 15:02] LABS: Free T4 (Free Thyroxine) 0.93 ng/dL (0.71-1.85); Thyroid Stimulating Hormone 0.81 uIU/mL (0.32-4.0)
[2020-04-10 04:08] LABS: HIV AB/AG Nonreactive (Nonreactive); HIV Num 1 0.18 S/CO (0.00-0.99); ~HepC Num1 0.15 S/CO (0.00-0.79); ~Hepatitis C Antibody Nonreactive (Nonreactive)
[2020-04-10 12:27] LABS: Alpha Fetoprotein 3.2 ng/mL
== END 2020-04-09 13:10 | disposition home or self-care (01) ==
LOC: HO.LAB 13:09
PROVIDERS: PCP Family Medicine; Visit Provider Family Medicine
DX: R87.612 Low grade squamous intraepithelial lesion on cytologic smear of cervix (LGSIL) (principal); R87.810 Cervical high risk human papillomavirus (HPV) DNA test positive; E78.5 Hyperlipidemia, unspecified; K76.0 Fatty (change of) liver, not elsewhere classified
CPT/HCPCS: 36415; 57454; 80048; 80061; 80076; 82105; 82306; 83036; 84439; 84443; 85025; 86780; 86803; 87389; 88341; 88342

== ENCOUNTER 2020-04-09 15:24 | Outpatient (REF) | payer MEDICAID, SELFPAY | END 2020-04-09 15:25 | disposition home or self-care (01) | LOC: HO.LNP 15:24 | PROVIDERS: Visit Provider Obstetrics & Gynecology | DX: R87.612 Low grade squamous intraepithelial lesion on cytologic smear of cervix (LGSIL) (principal); R87.810 Cervical high risk human papillomavirus (HPV) DNA test positive | CPT/HCPCS: 88300; 88305; 88341; 88342; 88360 ==

== ENCOUNTER 2020-04-16 10:05 | Outpatient (REF) | payer MEDICAID, SELFPAY ==
--- NOTE | 2020-04-16 10:30 | EMG_ITS ---
HISTORY OF PRESENT ILLNESS: This is a 49-year-old woman with a 9-month history of bilateral upper extremity pain and numbness with the left being worse than the right. She has a history of depression and hypertension and GERD. CURRENT MEDICATIONS: Include bupropion, Seroquel, Ambien p.r.n., omeprazole, vitamin D and E, and blood pressure medicine. PHYSICAL EXAMINATION: On examination, she is alert and oriented with normal intellectual functions. Cranial nerves II through XII are normal. Muscle tone and strength are normal in all 4 extremities. Deep tendon reflexes symmetrical, 2+. Plantar response are flexor. IMPRESSION: Rule out carpal tunnel syndrome. Nerve conduction EMG study: Normal motor and sensory nerve conduction velocities of the upper extremities. Normal EMG of the C5-T1 innervated muscles bilaterally. MD MANN El/QAMAR / [id number]
== END 2020-04-16 10:06 | disposition home or self-care (01) ==
LOC: HO.NEURO 10:05
PROVIDERS: PCP Family Medicine; Visit Provider Family Medicine
DX: R20.0 Anesthesia of skin (principal)
CPT/HCPCS: 95885; 95913

== ENCOUNTER → 2020-05-02 11:41 | Outpatient (BNVA) | payer MEDICAID, SELFPAY | PROVIDERS: PCP Family Medicine; Visit Provider Obstetrics & Gynecology ==

== ENCOUNTER → 2020-05-12 09:16 | Outpatient (BNVA) | payer MEDICAID, SELFPAY | PROVIDERS: PCP Family Medicine; Visit Provider Internal Medicine Gastroenterology ==

== ENCOUNTER → 2020-07-09 10:12 | Outpatient (BNVA) | payer MEDICAID, SELFPAY | PROVIDERS: PCP Family Medicine; Referring Provider Family Medicine; Visit Provider Student in an Organized Health Care Education/Training Program | DX: M25.522 Pain in left elbow (principal) | CPT/HCPCS: 99212 ==

== ENCOUNTER 2020-07-16 10:30 | Outpatient (REF) | payer MEDICAID, SELFPAY ==
--- NOTE | ~2020-07-16 | XR_ITS ---
EXAMINATION: XR CERVICAL SPINE CLINICAL INFORMATION: Pain cervical spine COMPARISON: None TECHNIQUE: The cervical spine is imaged in 5 views: AP, odontoid, lateral, and bilateral oblique. FINDINGS: The vertebral bodies are normal in height and there is normal cervical lordosis. There is borderline leftward tilting on the frontal view. The odontoid appears intact. There is no cervical vertebral compression, spondylolisthesis, or destructive process. No prevertebral soft tissue swelling. There are degenerative disc changes at C6-C7 with disc narrowing and vertebral spurring. Anterior vertebral spurring also present at C4-C5 without disc narrowing. There is no cervical rib. Oblique views show no osseous narrowing of the neural foramina. XR/XR cervical spine min 6V IMPRESSION: 1. Degenerative disc changes C6-C7. 2. Anterior spurring C4-C5 without disc narrowing. 3. No vertebral compression or spondylolisthesis.
--- NOTE | ~2020-07-16 | CT_ITS ---
EXAMINATION: CT HEAD WITHOUT CONTRAST CLINICAL INFORMATION: 50-year-old with forgetfulness COMPARISON: None TECHNIQUE: Contiguous axial CT imaging of the brain was performed from the skull base to vertex without intravenous administration of contrast. This CT examination was performed using dose optimization techniques as appropriate, variously including the following: *Automated exposure control *Adjustment of mA and/or kV according to patient size (this includes techniques or standardized protocols for targeted exams where dose is matched to indication/reason for exam; i.e. extremities or head) *Use of iterative reconstruction technique DLP: 807.00 mGy-cm FINDINGS: The brain is normal in morphology and attenuation. Norris-white matter interface appears well maintained. No extra-axial fluid collections, hemorrhage, space-occupying process or mass effect. The ventricles are normal in size. There is no abnormal attenuation within the brain parenchyma. The osseous structures and soft tissues are normal. The mastoid air cells and visualized portions of the paranasal sinuses are well aerated. CT/CT head/brain wo con IMPRESSION: Normal noncontrast CT of the brain.
--- NOTE | ~2020-07-16 | XR_ITS ---
EXAMINATION: XR WRIST, LEFT CLINICAL INFORMATION: Pain. COMPARISON: Radiographs left hand 11/14/2018 TECHNIQUE: The left wrist is imaged in 4 views including a navicular view. FINDINGS: There is no acute or healing fracture, dislocation, or destructive process. The ulnar variance is neutral. There is no joint narrowing or erosive change or chondrocalcinosis. Bony mineralization appears normal. Visualized soft tissues are unremarkable. XR/XR wrist LT w scaphoid IMPRESSION: Normal study.
== END 2020-07-16 10:31 | disposition home or self-care (01) ==
LOC: HO.CT 10:30
PROVIDERS: PCP Family Medicine; Visit Provider Family Medicine
DX: M79.602 Pain in left arm (principal); R41.3 Other amnesia; R68.89 Other general symptoms and signs; M54.2 Cervicalgia
CPT/HCPCS: 70450; 72052; 73110

== ENCOUNTER 2020-09-16 13:44 | Outpatient (REF) | payer MEDICAID, SELFPAY ==
--- NOTE | ~2020-09-16 | XR_ITS ---
EXAMINATION: XR ELBOW, LEFT XR FOREARM, LEFT CLINICAL INFORMATION: Left elbow and left forearm pain. COMPARISON: Left wrist radiographs dated 07/16/2020. TECHNIQUE: AP, oblique, and lateral views of the left elbow. AP and lateral views of the left forearm. FINDINGS: Left Elbow: No acute fracture or dislocation. No joint space narrowing or marginal osteophytes. No osseous erosion. No abnormal soft tissue calcification. No significant joint effusion. Left Forearm: No acute fracture or dislocation. No joint space narrowing or marginal osteophytes. No osseous erosion. No abnormal soft tissue calcification. XR/XR forearm LT 2V IMPRESSION: Left Elbow: Unremarkable examination. Left Forearm: Unremarkable examination.
--- NOTE | ~2020-09-16 | XR_ITS ---
EXAMINATION: XR ELBOW, LEFT XR FOREARM, LEFT CLINICAL INFORMATION: Left elbow and left forearm pain. COMPARISON: Left wrist radiographs dated 07/16/2020. TECHNIQUE: AP, oblique, and lateral views of the left elbow. AP and lateral views of the left forearm. FINDINGS: Left Elbow: No acute fracture or dislocation. No joint space narrowing or marginal osteophytes. No osseous erosion. No abnormal soft tissue calcification. No significant joint effusion. Left Forearm: No acute fracture or dislocation. No joint space narrowing or marginal osteophytes. No osseous erosion. No abnormal soft tissue calcification. XR/XR elbow LT 2V IMPRESSION: Left Elbow: Unremarkable examination. Left Forearm: Unremarkable examination.
== END 2020-09-16 13:45 | disposition home or self-care (01) ==
LOC: HO.XRAY 13:44
PROVIDERS: Absent Provider Family Medicine; PCP Family Medicine; Visit Provider Nurse Practitioner Family
DX: M25.522 Pain in left elbow (principal); M79.602 Pain in left arm
CPT/HCPCS: 73070; 73090

== ENCOUNTER 2020-10-07 11:30 | Outpatient (RCR) | payer MEDICAID, SELFPAY ==
--- NOTE | 2020-08-28 14:20 | MHC.OT.OEV ---
[address] [phone] F: [phone] Occupational Therapy Evaluation Diagnosis: LEFT ELBOW PAIN Date of Onset: 03/31/20 Attending Provider: Cammy Reeves Prescribed Treatment: EVAL AND TREAT History of Current Condition: MISBAH REPORTS ABOUT A FOUR TO FIVE MONTH HISTORY OF PAIN IN HER LEFT ELBOW. THE PAIN RADIATES DOWN HER ARM INTO THE HAND. SHE REPORTS [facility] PAIN WELL. 04/16/20 Nerve conduction EMG study: Normal motor and sensory nerve conduction velocities of the upper extremities. Normal EMG of the C5-T1 innervated muscles bilaterally. 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 Sleep: MODERATE DIFFICULTIES SLEEPING ON LEFT SIDE Driving: NOT CURRENTLY DRIVING Vision: Balance: Pain Assessment Pain Score: 7-10/10 Pain Scale Used: Numeric (0 - 10) Pain Location and Description: LEFT LATERAL ELBOW MCP AND IPs LEFT > RIGHT HAND Aggravating Factors: GRIPPING, TWISTING, CARRYING HEAVY OBJECTS Alleviating Factors: USING ICE, TEMPORARY RELIEF WITH USE OF BENGAY CREAM, OCCASIONAL USE OF TYLENOL/ IBUPROPHEN SOME RELIEF WITH NEWLY PURCHASED CFB YET INCONSISTENT WITH WEARING Skin and Soft Tissue Assessment Skin and Soft Tissue: Swelling Comments: MILD LEFT ELBOW EDEMA Sensory Assessment Comments: REPORTS PARASTHESIA IN B/L HANDS UPON WAKING IN AM Dexterity Assessment Dexterity: WFL Comments: DENIES DIFFICULTIES WITH FINE MOTOR TASKS FOR ADLs OR IADLs Special Tests Comments: (+) COZENS TEST AROM(PROM) Strength Elbow Flexion: L 135 Extension: L 0 Pronation: Supination: Comments: Flexion: Extension: Pronation: Supination: Comments: Digits Index MCP: PIP: DIP: Long MCP: PIP: DIP: Ring MCP: PIP: DIP: Small MCP: PIP: DIP: Comments: Gross Grasp: L 15, R 40 Lateral Pinch: L 6, R 15 Two-Point Pinch: L 5, R 8 Three-Jaw Shar: L 5, R 10 Comments: PAIN WITH ELBOW EXT TESTING Patient Education Primary Language: Taiwanese Bench Worker Binding Required: No Current Knowledge: Understands information with skills for self-management Teaching Method: Demonstration Handouts Verbal Education Needs Identified on Evaluation: ADL's Disease Information Equipment Use Exercise Pain Safety How did patient/family demonstrate learning? Patient demonstrates Patient verbalizes Barriers to Learning: None Readiness for Learning: Accepting Who was educated? Patient Comments: Plan of Care Assessment: MISBAH PRESENTS TO OT WITH A FOUR TO FIVE MONTH HISTORY OF LEFT LATERAL ELBOW PAIN. SHE WAS ENCOURAGED TO PURCHASE A CFB FROM HER REFERRING DOCTOR, AND REPORTS INCONSISTENT WEAR AND MINIMAL IMPROVEMENTS. Pt IS REPORTING DIFFICULTIES WITH OPENING TIGHT JARS, TURNING DOOR KNOBS AND CARRYING A GALLON OF MILK OR HEAVIER OBJECTS. A 50% LIMITATION IS REPORTED PER THE QUICK DASH ASSESSMENT. SHE WOULD CONTINUE TO BENEFIT FROM SKILLED OT TO ACHIEVE OPTIMAL FUNCTIONAL LEVEL AND IMPROVE QOL. STG Duration: 2 WEEKS Short Term Goals: IND HEP IND ORTHOSIS WEAR IND JOINT PROTECTION STRATEGIES IND USE OF HEAT/ ICE REPORT <4/10 PAIN WITH LIGHT IADLs LTG Duration: 4 WEEKS Correction Goals: QUICK DASH <35% IND SELF MANAGEMENT OF OA AND CTS SYMPTOMS L GRASP > 25 POUNDS TOLERATE LIFTING >10 POUNDS WITH <2/10 PAIN Frequency and Duration: The patient will be seen 2X/WEEK FOR 4 WEEKS Treatment Plan: Therapeutic Exercise Therapeutic Activity Home Exercise Program Splinting Neuro Re-ed Patient Education Desensitization/Sensory Re-ed Edema Control ADL Training Ultrasound NMES Iontophoresis Paraffin Fluidotherapy MHP Cold Packs Joint Mobilization Soft Tissue Mobilization Kinesiotaping Electronically Signed By: MARILY CHOI/Eduardo Reviewed/agree with student documentation: N/A Therapist: Please sign and return to therapist, Thank you for your referral.
--- NOTE | 2020-10-22 08:00 | MHC.OT.DC ---
[address] [phone] F: [phone] Occupational Therapy Discharge Note Provider: Cammy Reeves Diagnosis: LEFT ELBOW PAIN Date of Evaluation: 08/28/20 Date of Discharge: 10/22/20 Treatments to Date: 6 Cancellations to Date: 2 Discharge Status: Improved Function Independent with HEP Patient Elected to Stop Recommend MD Follow-up Discharge Summary: MS MONTALVO WAS SEEN AND TREATED FOR OT SERVICES 1X/WEEK DUE TO DIFFICULTIES WITH TRANSPORTATION. SHE CONTINUED TO REPORT MODERATE TO HIGH PAIN TO THE LATERAL ASPECT OF HER LEFT ELBOW. SHE WAS PROVIDED WITH A COUNTERFORCE BRACE AND WAS INCONSISTENT WITH USE. EXTENSIVE EDUCATION WAS PROVIDED ON JOINT PROTECTION AND ACTIVITY MODIFICATION FOR IADLs AT HOME. SHE WAS IND WITH HER HEP. PATIENT ELECTED TO DISCONTINUE OUTPATIENT OT SERVICES. WOULD RECOMMEND ADDITIONAL F/U WITH MD AT THIS. Electronically Signed By: MINOO DIAZ OTR/L Reviewed/agree with student documentation: N/A Therapist: Please Sign and return to therapist, thank you for your referral.
== END 2020-10-22 08:00 | disposition home or self-care (01) ==
LOC: HO.OT 11:30
PROVIDERS: PCP Family Medicine; Visit Provider Student in an Organized Health Care Education/Training Program
DX: M25.522 Pain in left elbow (principal)
CPT/HCPCS: 29125; 97033; 97035; 97110; 97140; 97166; 97760

== ENCOUNTER → 2020-11-17 13:55 | Outpatient (BNVA) | payer MEDICAID, SELFPAY | PROVIDERS: PCP Family Medicine; Visit Provider Internal Medicine Gastroenterology | DX: K21.9 Gastro-esophageal reflux disease without esophagitis (principal); K76.0 Fatty (change of) liver, not elsewhere classified; Z79.899 Other long term (current) drug therapy | CPT/HCPCS: 99212 ==

== ENCOUNTER 2021-03-05 10:20 | Outpatient (REF) | payer MEDICAID, SELFPAY ==
--- NOTE | ~2021-03-05 | US_ITS ---
EXAMINATION: US ABDOMEN COMPLETE CLINICAL INFORMATION: Fatty liver. COMPARISON: Ultrasound abdomen 10/03/2017 and 05/14/2015. X-ray abdomen KUB 01/29/2011. TECHNIQUE: Real-time imaging of the abdominal viscera. FINDINGS: PANCREAS: Normal. ABDOMINAL AORTA: The proximal, mid, and distal segments are normal in caliber. INFERIOR VENA CAVA: Visualized portions are normal. LIVER: The liver is normal in size. The liver contour is normal. There is diffuse increased liver parenchymal echogenicity, consistent with hepatic steatosis. No focal hepatic lesion. There is no intrahepatic biliary duct dilatation seen. With color Doppler imaging, normal hepatopetal flow within the main portal vein is demonstrated. GALLBLADDER: Surgically absent. COMMON BILE DUCT: Normal in caliber measuring 0.3 cm in diameter. RIGHT KIDNEY: Normal. No hydronephrosis. No renal calculi or focal parenchymal lesions. The kidney measures 10.1 cm in maximum dimension. LEFT KIDNEY: Normal. No hydronephrosis. No renal calculi or focal parenchymal lesions. The kidney measures 10.0 cm in maximum dimension. SPLEEN: Normal. The spleen measures 9.3 cm in maximum dimension. FREE FLUID: None. US/US abdomen complete IMPRESSION: 1. Diffuse hepatic steatosis. 2. Status post cholecystectomy. 3. Otherwise unremarkable exam.
== END 2021-03-05 10:21 | disposition home or self-care (01) ==
LOC: HO.US 10:20
PROVIDERS: Visit Provider Family Medicine
DX: K76.0 Fatty (change of) liver, not elsewhere classified (principal); Z90.49 Acquired absence of other specified parts of digestive tract
CPT/HCPCS: 76700

== ENCOUNTER 2021-03-23 10:00 | Outpatient (REF) | payer MEDICAID, SELFPAY ==
[2021-03-23 14:10] LABS: CT PCR NOT DETECTED (Not Detect.); NG PCR NOT DETECTED (Not Detect.)
[2021-03-26 22:02] LABS: HPV 16 RNA NOT DETECTED (NOT DETECTED); HPV mRNA E6/E7 rflx Detected (Not Detected)
== END 2021-03-23 10:01 | disposition home or self-care (01) ==
LOC: HO.LAB 10:00
PROVIDERS: PCP Family Medicine; Visit Provider Advanced Practice Midwife
DX: Z01.419 Encounter for gynecological examination (general) (routine) without abnormal findings (principal); N87.0 Mild cervical dysplasia; R23.2 Flushing; E66.01 Morbid (severe) obesity due to excess calories; Z11.3 Encounter for screening for infections with a predominantly sexual mode of transmission; Z11.8 Encounter for screening for other infectious and parasitic diseases; Z11.51 Encounter for screening for human papillomavirus (HPV); Z68.41 Body mass index [BMI] 40.0-44.9, adult; Z98.51 Tubal ligation status; Z90.79 Acquired absence of other genital organ(s)
CPT/HCPCS: 87491; 87591; 87624; 87625; 88142

== ENCOUNTER 2021-03-24 10:28 | Outpatient (REF) | payer MEDICAID, SELFPAY ==
--- NOTE | ~2021-03-24 | MM_ITS ---
EXAMINATION: MM SCREENING DIGITAL BREAST TOMOSYNTHESIS, BILATERAL CLINICAL INFORMATION: Screening. Asymptomatic. The lifetime risk of breast cancer based on the Tyrer-Cuzick Model is 7%. COMPARISON: Mammography: 03/14/2020, 05/18/2018, 08/16/2017 TECHNIQUE: Digital breast tomosynthesis is performed in both the craniocaudal and mediolateral oblique views along with computer-aided detection (CAD). Synthesized 2D images are generated from the tomosynthesis. Additional right CC and right MLO views are obtained. FINDINGS: There are scattered areas of fibroglandular density (ACR BI-RADS breast composition Category b). There are no significant masses, abnormal calcifications, or other abnormalities. Scattered minor parenchymal asymmetries are stable from prior studies. There are no significant interval changes. No developing density or architectural abnormality. MM/MM tomosynthesis screening BI IMPRESSION: No mammographic evidence of malignancy. ASSESSMENT: BI-RADS 2: Benign RECOMMENDATION: Routine annual mammography screening. This patient's information was entered into a reminder system with a target due date for their next mammogram.
== END 2021-03-24 10:29 | disposition home or self-care (01) ==
LOC: HO.MAMMO 10:28
PROVIDERS: PCP Family Medicine; Visit Provider Family Medicine
DX: Z12.31 Encounter for screening mammogram for malignant neoplasm of breast (principal)
CPT/HCPCS: 77063; 77067

== ENCOUNTER 2021-04-30 11:15 | Outpatient (REF) | payer MEDICAID, SELFPAY | END 2021-04-30 11:16 | disposition home or self-care (01) | LOC: HO.LAB 11:15 | PROVIDERS: Visit Provider Obstetrics & Gynecology | DX: N87.0 Mild cervical dysplasia (principal) | CPT/HCPCS: 57454; 88305 ==

== ENCOUNTER → 2021-05-15 13:28 | Outpatient (BNVA) | payer MEDICAID, SELFPAY | PROVIDERS: Visit Provider Obstetrics & Gynecology | DX: N87.0 Mild cervical dysplasia (principal) | CPT/HCPCS: Q3014 ==

== ENCOUNTER → 2021-06-09 10:19 | Outpatient (BNVA) | payer MEDICAID, SELFPAY | PROVIDERS: PCP Family Medicine; Visit Provider Obstetrics & Gynecology | DX: Z01.818 Encounter for other preprocedural examination (principal); N87.0 Mild cervical dysplasia | CPT/HCPCS: 99212 ==

== ENCOUNTER → 2021-07-06 09:36 | Outpatient (BNVA) | payer MEDICAID, SELFPAY | PROVIDERS: Visit Provider Obstetrics & Gynecology | DX: N87.0 Mild cervical dysplasia (principal) | CPT/HCPCS: 99212 ==

== ENCOUNTER 2021-07-10 08:58 | Day surgery (SDC) | payer MEDICAID, SELFPAY ==
--- NOTE | 2021-07-09 09:20 | HO.ANESPROP2 ---
Documented by User: Airadne Basurto NP 07/09/21 09:22 HPI - Anesthesia Eval Consult details Narrative: 51yo F for Cone LEEP with ECC [facility] Active Problems Active Problems: All Active Problems (Updated 06/05/21 @ 15:11 by Jada Almanzar RN) Acute respiratory failure with hypoxia (Acute) COVID-19 (Acute) GERD (gastroesophageal reflux disease) (Acute) Colon cancer screening (Acute) Left elbow pain (Acute) LGSIL on Pap smear of cervix (Acute) Cervical intraepithelial neoplasia grade 1 (Acute) NAFL (nonalcoholic fatty liver) (Acute) Past Medical History Medical History Depression Morbid obesity with BMI of 40.0-44.9, adult NAFL (nonalcoholic fatty liver) Personal history of COVID-19 Transaminitis Family History Family History Maternal Grandmother Bone cancer Surgical History Surgical History H/O tubal ligation History of endometrial ablation History of salpingectomy Hx laparoscopic cholecystectomy Previous section Social History Social History Household Members: Children Housing: Apartment Do you presently have visiting nurse or other home services: No Alcohol intake: never Patient Tobacco Use Status: Never used Tobacco Are you DNR?: No Advance Directives: No Advance Directives Information Provided: Yes Recently lost weight without trying: No Patient : No service: No Current occupational status: unemployed Meds Allergies Allergy/AdvReac Type Severity Reaction Status Date / Time No Known Allergies Allergy Verified 06/08/21 11:48 [No Known Allergies*] Home Medications Medication Instructions Recorded Confirmed Last Taken Type baclofen 10 mg tablet 10 mg PO TID PRN 12/11/19 06/08/21 Unknown History bupropion HCl 300 mg 24 hr tablet, 300 mg PO QAM 12/11/19 06/08/21 Unknown History extended release cholecalciferol (vitamin D3) 50 50 mcg PO DAILY 12/11/19 06/08/21 Unknown History mcg (2,000 unit) tablet (Vitamin D3) fluticasone propionate 50 2 spray INTRANASAL DAILY PRN 12/11/19 06/08/21 Unknown History mcg/actuation nasal spray,suspension hydrochlorothiazide 25 mg tablet 25 mg PO DAILY 12/11/19 06/08/21 Unknown History loratadine 10 mg tablet 10 mg PO DAILY PRN 12/11/19 06/08/21 Unknown History naproxen 500 mg tablet 500 mg PO BID PRN 12/11/19 06/08/21 Unknown History polyethylene glycol 3350 17 17 g PO DAILY PRN 12/11/19 06/08/21 Unknown History gram/dose oral powder (Miralax) sertraline 100 mg tablet 150 mg PO DAILY 12/11/19 06/08/21 Unknown History zolpidem 10 mg tablet (Ambien) 10 mg PO BEDTIME PRN 12/11/19 06/08/21 Unknown History atorvastatin 10 mg tablet 10 mg PO DAILY 05/12/20 06/08/21 Unknown History Exam Exam Date and Time: July 09, 2021 0920 Assessment and Plan Assessment Anesthesia Assessment: Chart Reviewed Documented by User: Deanna Silveira MD 07/10/21 10:26 [facility] Past Medical History Medical History Depression Morbid obesity with BMI of 40.0-44.9, adult NAFL (nonalcoholic fatty liver) Personal history of COVID-19 Transaminitis Family History Family History Maternal Grandmother Bone cancer Family history of problems with anesthesia: No Surgical History Surgical History H/O tubal ligation History of endometrial ablation History of salpingectomy Hx laparoscopic cholecystectomy Previous section History of Problems with Anesthesia: No Social History Social History Household Members: Children Housing: Apartment Do you presently have visiting nurse or other home services: No Alcohol intake: never Patient Tobacco Use Status: Never used Tobacco Are you DNR?: No Advance Directives: No Advance Directives Information Provided: Yes Recently lost weight without trying: No Patient : No service: No Current occupational status: unemployed Meds Allergies Allergy/AdvReac Type Severity Reaction Status Date / Time No Known Allergies Allergy Verified 06/08/21 11:48 [No Known Allergies*] Home Medications Medication Instructions Recorded Confirmed Last Taken Type baclofen 10 mg tablet 10 mg PO TID PRN 12/11/19 06/08/21 Unknown History bupropion HCl 300 mg 24 hr tablet, 300 mg PO QAM 12/11/19 06/08/21 Unknown History extended release cholecalciferol (vitamin D3) 50 50 mcg PO DAILY 12/11/19 06/08/21 Unknown History mcg (2,000 unit) tablet (Vitamin D3) fluticasone propionate 50 2 spray INTRANASAL DAILY PRN 12/11/19 06/08/21 Unknown History mcg/actuation nasal spray,suspension hydrochlorothiazide 25 mg tablet 25 mg PO DAILY 12/11/19 06/08/21 Unknown History loratadine 10 mg tablet 10 mg PO DAILY PRN 12/11/19 06/08/21 Unknown History naproxen 500 mg tablet 500 mg PO BID PRN 12/11/19 06/08/21 Unknown History polyethylene glycol 3350 17 17 g PO DAILY PRN 12/11/19 06/08/21 Unknown History gram/dose oral powder (Miralax) sertraline 100 mg tablet 150 mg PO DAILY 12/11/19 06/08/21 Unknown History zolpidem 10 mg tablet (Ambien) 10 mg PO BEDTIME PRN 12/11/19 06/08/21 Unknown History atorvastatin 10 mg tablet 10 mg PO DAILY 05/12/20 06/08/21 Unknown History Exam Airway Mallampati Class: II TM Dist: >3cm Neck ROM: Full Assessment and Plan Assessment Anesthesia Assessment: Anesthesia Plan Discussed Final Anesthetic Review Family History of Problems with Anesthesia: No History of Problems with Anesthesia: No NPO: Yes ASA Class: III Final Preanesthetic Review: No Changes in Pt Med Stat, Meds/Allgs Chart Reviewed, Consent Obtained/Reviewed and Anes Risks/Benef Reviewed Patient Risk: Intermediate Procedure Risk: Low Anesthetic Plan Anesthetic Plan: GA Disposition: Standard PACU
[2021-07-10 06:57] VITALS: BMI 40.2
[2021-07-10 09:13] VITALS: BP 141/77; PULSE 77; RESP 17; TEMP 36.2; O2SAT 98
[2021-07-10 09:25] LABS: UPreg QC Valid YES; Urine Pregnancy NEGATIVE (NEGATIVE)
[2021-07-10] MEDS: Lactated Ringers 1,000 ML 100 ML IVCONT (09:32)
--- NOTE | 2021-07-10 10:19 | MHC.SHP ---
Pre-Procedural Eval Section A Date of Service: 07/10/21 The patient is an INPATIENT: No Changes since office visit: No Cold of Flu in the past 2 weeks, No New Medical Problems, No Changes in Medication and No Patient answered all questions The History & Physical has been completed within 30 days and I have reviewed it.: Yes Section B Chief Complaint: Mild cervical dysplasia Allergies: Allergies Allergy/AdvReac Type Severity Reaction Status Date / Time No Known Allergies Allergy Verified 06/08/21 11:48 [No Known Allergies*] Plan Diagnosis/Plan: Unchanged I have reviewed the history and physical and performed a pertinent physical examination on my patient. No changes have occurred unless specified.
--- NOTE | 2021-07-10 11:51 | PM.OP ---
Brief Operative Note Date of Service: 07/10/21 Pre-op diagnosis: Persistent LUIS 1 with positive ECC Post-op diagnosis: same Procedure: LEEP CONE with post CONE ECC Surgeon: Yaron Das MD Anesthesia: local and other (Paracervical block) Was an Astronautical Engineer used for this Procedure?: No Estimated blood loss (mL): 0 Pathology: other (Ant+post Cerv lip, Endocx, Post cone ECC) Condition: stable Disposition: other (Home)
--- NOTE | 2021-07-10 11:52 | W.PM.OPN ---
Operative Note Operative Note Date of Service: 07/10/21 Narrative: Preop diagnosis: Persistent LUIS 1 with + ECC Operation: LEEP Cone with post cone ECC Post op diagnosis: same Anesthesia: paracervical block/MAC Complications: none Pathology: Anterior and Posterior cervical lip with endocervix & post cone ECC QBL: minimal Procedure: The patient was put in the dorsal lithotomy position, was prepped and draped in the usual sterile fashion. A sterile speculum was inserted inside the patient vagina. Using Lugol solution the cervix with Dyed with Lugol solution to identifiy the abnormal demarcating line. 10 cc of Marcaine 0.5% with epinephrine were given at 2,4 , 8, and 10 o'clock. Using a medium-size loop wire, the anterior cervical lip was excised followed by the posterior cervical lip and endocervix, post cone ECC was done afterwards. Hemostasis was assured using cautery and Monsel solution. All instruments were taken out of the patient's vaginal cavity. the patient tolerated the procedure well and was discharged home with the following instructions: call if temperature is above 100.4, vaginal bleeding, abdominal pain or nausea or vomiting. Follow-up in the office in 2 weeks for postop visit
[2021-07-10 12:05] VITALS: BP 131/70; PULSE 92; RESP 16; TEMP 36.3; O2SAT 92
[2021-07-10 12:10] VITALS: BP 125/73; PULSE 82; RESP 16; O2SAT 95
[2021-07-10 12:15] VITALS: BP 128/72; PULSE 78; RESP 16; O2SAT 96
[2021-07-10 12:20] VITALS: BP 119/73; PULSE 78; RESP 16; TEMP 36.1; O2SAT 94
[2021-07-10 12:35] VITALS: BP 125/74; PULSE 74; RESP 16; TEMP 36.6; O2SAT 95
== END 2021-07-10 13:46 | disposition home or self-care (01) ==
PROVIDERS: Visit Provider Obstetrics & Gynecology
PROC: 0UBC7ZZ Excision of Cervix, Via Natural or Artificial Opening (ICD-10-PCS; CPT 57522; principal; 2021-07-10 12:20)
DX: N87.0 Mild cervical dysplasia (principal); Z98.51 Tubal ligation status; F32.9 Major depressive disorder, single episode, unspecified; K76.0 Fatty (change of) liver, not elsewhere classified; R74.01 Elevation of levels of liver transaminase levels; E66.01 Morbid (severe) obesity due to excess calories; Z68.41 Body mass index [BMI] 40.0-44.9, adult; Z86.16 Personal history of COVID-19
CPT/HCPCS: 57522; 81025; 88305; 88307; J1100; J2250; J2405; J3010

== ENCOUNTER → 2021-07-23 13:30 | Outpatient (BNVA) | payer MEDICAID, SELFPAY | PROVIDERS: Visit Provider Obstetrics & Gynecology | DX: Z13.89 Encounter for screening for other disorder (principal) ==

== ENCOUNTER → 2021-11-10 11:11 | Outpatient (REF) | payer MEDICAID, SELFPAY | LOC: HO.SL 11:11 | PROVIDERS: PCP Family Medicine; Visit Provider Family Medicine | DX: G47.30 Sleep apnea, unspecified (principal); R06.83 Snoring | CPT/HCPCS: 95806 ==

== ENCOUNTER 2022-05-07 12:12 | Outpatient (REF) | payer MEDICAID, SELFPAY ==
--- NOTE | ~2022-05-07 | MM_ITS ---
EXAMINATION: MM SCREENING DIGITAL BREAST TOMOSYNTHESIS, BILATERAL CLINICAL INFORMATION: Screening. Asymptomatic. The lifetime risk of breast cancer based on the Tyrer-Cuzick Model is 6%. COMPARISON: Mammography: 03/24/2021, 03/14/2020, 05/18/2018 TECHNIQUE: Digital breast tomosynthesis is performed in both the craniocaudal and mediolateral oblique views along with computer-aided detection (CAD). Synthesized 2D images are generated from the tomosynthesis. Additional right MLO view is provided. FINDINGS: There are scattered areas of fibroglandular density (ACR BI-RADS breast composition Category b). There are scattered stable minor bilateral asymmetries similar to prior studies. No developing density or architectural abnormality. There are no significant masses, abnormal calcifications, or other abnormalities. The axilla and skin contours are unremarkable. MM/MM tomosynthesis screening BI IMPRESSION: No mammographic evidence of malignancy. ASSESSMENT: BI-RADS 2: Benign RECOMMENDATION: Routine annual mammography screening. This patient's information was entered into a reminder system with a target due date for their next mammogram.
== END 2022-05-07 12:13 | disposition home or self-care (01) ==
LOC: HO.MAMMO 12:12
PROVIDERS: PCP Family Medicine; Visit Provider Family Medicine
DX: Z12.31 Encounter for screening mammogram for malignant neoplasm of breast (principal)
CPT/HCPCS: 77063; 77067

== ENCOUNTER 2022-05-25 10:12 | Outpatient (REF) | payer MEDICAID, SELFPAY ==
[2022-05-28 09:28] LABS: HPV mRNA E6/E7 rflx Not Detected (Not Detected)
== END 2022-05-25 10:13 | disposition home or self-care (01) ==
LOC: HO.LNP 10:12
PROVIDERS: PCP Family Medicine; Visit Provider Obstetrics & Gynecology
DX: Z01.419 Encounter for gynecological examination (general) (routine) without abnormal findings (principal); Z11.51 Encounter for screening for human papillomavirus (HPV)
CPT/HCPCS: 87624; 88142

== ENCOUNTER 2022-08-13 14:18 | Outpatient (REF) | payer MEDICAID, SELFPAY ==
--- NOTE | ~2022-08-13 | XR_ITS ---
EXAMINATION: XR LUMBOSACRAL SPINE CLINICAL INFORMATION: Low back pain COMPARISON: November 2020 TECHNIQUE: Three views of the lumbosacral spine. FINDINGS: There is lumbarization of S1 vertebral body with L5-S1 disc space narrowing stable since previous study. There is marginal spurring. There is grade 1 anterior listhesis of L3 over L4. XR/XR lumbar spine 2-3V IMPRESSION: Mild degenerative changes with grade 1 anterolisthesis of L3 over L4.
== END 2022-08-13 14:19 | disposition home or self-care (01) ==
LOC: HO.HHCX 14:18
PROVIDERS: Visit Provider Nurse Practitioner Primary Care
DX: M54.42 Lumbago with sciatica, left side (principal)
CPT/HCPCS: 72100

== ENCOUNTER 2022-08-30 09:54 | Day surgery (SDC) | payer MEDICAID, SELFPAY ==
[2022-06-29 12:52] VITALS: BMI 41.9
--- NOTE | 2022-07-01 08:53 | HO.ANESPROP2 ---
HPI - Anesthesia Eval Consult details Narrative: 52yo F for Upper Endoscopy and Colonoscopy [facility] Active Problems Active Problems: All Active Problems (Updated 06/29/22 @ 12:54 by Jada Almanzar, RN) Acute respiratory failure with hypoxia (Acute) COVID-19 (Acute) GERD (gastroesophageal reflux disease) (Acute) Colon cancer screening (Acute) Left elbow pain (Acute) LGSIL on Pap smear of cervix (Acute) Well woman exam (Acute) NAFL (nonalcoholic fatty liver) (Acute) Past Medical History Medical History (Updated 06/29/22 @ 12:54 by Jada Almanzar, RN) Cervical intraepithelial neoplasia grade 1 Depression Fatty liver GERD (gastroesophageal reflux disease) Morbid obesity with BMI of 40.0-44.9, adult NAFL (nonalcoholic fatty liver) Personal history of COVID-19 Spasm of muscle of lower back Transaminitis Family History Family History Maternal Grandmother Bone cancer Family history of problems with anesthesia: No Surgical History Surgical History (Updated 06/29/22 @ 12:49 by Jada Almanzar RN) H/O tubal ligation History of endometrial ablation History of loop electrical excision procedure (LEEP) History of salpingectomy Hx laparoscopic cholecystectomy Previous section History of Problems with Anesthesia: No Social History Social History Household Members: Children Housing: Apartment Do you presently have visiting nurse or other home services: No Alcohol intake: never Patient Tobacco Use Status: Never used Tobacco service: No Current occupational status: unemployed Meds Allergies Allergy/AdvReac Type Severity Reaction Status Date / Time No Known Allergies Allergy Verified 06/29/22 12:49 [No Known Allergies*] Home Medications Medication Instructions Recorded Confirmed Last Taken Type baclofen 10 mg tablet 10 mg PO TID PRN Muscle Spasm 12/11/19 06/29/22 Unknown History bupropion HCl 300 mg 24 hr tablet, 300 mg PO QAM 12/11/19 06/29/22 Unknown History extended release cholecalciferol (vitamin D3) 50 50 mcg PO DAILY 12/11/19 06/29/22 Unknown History mcg (2,000 unit) tablet (Vitamin D3) fluticasone propionate 50 2 spray intranasal DAILY PRN 12/11/19 06/29/22 Unknown History mcg/actuation nasal Congestion spray,suspension hydrochlorothiazide 25 mg tablet 25 mg PO DAILY 12/11/19 06/29/22 Unknown History loratadine 10 mg tablet 10 mg PO DAILY PRN Allergy Symptoms 12/11/19 06/29/22 Unknown History naproxen 500 mg tablet 500 mg PO BID PRN Pain (Scale 12/11/19 06/29/22 Unknown History Score 1-3) sertraline 100 mg tablet 150 mg PO DAILY 12/11/19 06/29/22 Unknown History zolpidem 10 mg tablet (Ambien) 10 mg PO BEDTIME PRN Sleep 12/11/19 11/19/21 Unknown History atorvastatin 10 mg tablet 10 mg PO DAILY 05/12/20 06/29/22 Unknown History Exam Exam Date and Time: July 01, 2022 0853 Height,Weight and Vital Signs: Height 5 ft 2 in Weight 103.873 kg Assessment and Plan Assessment Anesthesia Assessment: Chart Reviewed Final Anesthetic Review Family History of Problems with Anesthesia: No History of Problems with Anesthesia: No
--- NOTE | 2022-08-27 09:10 | P.CONAN_ITS ---
Documented by User: Ariadne Basurto NP 08/27/22 09:10 HPI - Anesthesia Eval Consult details Narrative: 52yo F for Upper Endoscopy and Colonoscopy [facility] Active Problems Active Problems: All Active Problems (Updated 06/29/22 @ 12:54 by Jada Almanzar RN) Acute respiratory failure with hypoxia (Acute) COVID-19 (Acute) GERD (gastroesophageal reflux disease) (Acute) Colon cancer screening (Acute) Left elbow pain (Acute) LGSIL on Pap smear of cervix (Acute) Well woman exam (Acute) NAFL (nonalcoholic fatty liver) (Acute) Past Medical History Medical History Cervical intraepithelial neoplasia grade 1 Depression Fatty liver GERD (gastroesophageal reflux disease) Morbid obesity with BMI of 40.0-44.9, adult NAFL (nonalcoholic fatty liver) Personal history of COVID-19 Spasm of muscle of lower back Transaminitis Family History Family History Maternal Grandmother Bone cancer Family history of problems with anesthesia: No Surgical History Surgical History H/O tubal ligation History of endometrial ablation History of loop electrical excision procedure (LEEP) History of salpingectomy Hx laparoscopic cholecystectomy Previous section History of Problems with Anesthesia: No Social History Social History Household Members: Children Housing: Apartment Do you presently have visiting nurse or other home services: No Alcohol intake: never Patient Tobacco Use Status: Never used Tobacco Are you DNR?: No Advance Directives: No Advance Directives Information Provided: Yes service: No Current occupational status: unemployed Meds Allergies Allergy/AdvReac Type Severity Reaction Status Date / Time No Known Allergies Allergy Verified 06/29/22 12:49 [No Known Allergies*] Home Medications Medication Instructions Recorded Confirmed Last Taken Type bupropion HCl 300 mg 24 hr tablet, 300 mg PO QAM 12/11/19 06/29/22 08/30/22 History extended release cholecalciferol (vitamin D3) 50 50 mcg PO DAILY 12/11/19 06/29/22 Unknown History mcg (2,000 unit) tablet (Vitamin D3) fluticasone propionate 50 2 spray intranasal DAILY PRN 12/11/19 06/29/22 Unknown History mcg/actuation nasal Congestion spray,suspension hydrochlorothiazide 25 mg tablet 25 mg PO DAILY 12/11/19 06/29/22 08/30/22 History loratadine 10 mg tablet 10 mg PO DAILY PRN Allergy Symptoms 12/11/19 06/29/22 Unknown History sertraline 100 mg tablet 150 mg PO DAILY 12/11/19 06/29/22 08/30/22 History zolpidem 10 mg tablet (Ambien) 10 mg PO BEDTIME PRN Sleep 12/11/19 11/19/21 Unknown History atorvastatin 10 mg tablet 10 mg PO DAILY 05/12/20 06/29/22 Unknown History Exam Exam Date and Time: August 27, 2022 0910 Height,Weight and Vital Signs: Height 5 ft 2 in Weight 103.873 kg Assessment and Plan Assessment Anesthesia Assessment: Chart Reviewed Final Anesthetic Review Family History of Problems with Anesthesia: No History of Problems with Anesthesia: No Documented by User: Pauline Solomon MD 08/30/22 10:56 [facility] Past Medical History Medical History Cervical intraepithelial neoplasia grade 1 Depression Fatty liver GERD (gastroesophageal reflux disease) Morbid obesity with BMI of 40.0-44.9, adult NAFL (nonalcoholic fatty liver) Personal history of COVID-19 Spasm of muscle of lower back Transaminitis Family History Family History Maternal Grandmother Bone cancer Surgical History Surgical History H/O tubal ligation History of endometrial ablation History of loop electrical excision procedure (LEEP) History of salpingectomy Hx laparoscopic cholecystectomy Previous section Social History Social History Household Members: Children Housing: Apartment Do you presently have visiting nurse or other home services: No Alcohol intake: never Patient Tobacco Use Status: Never used Tobacco Are you DNR?: No Advance Directives: No Advance Directives Information Provided: Yes service: No Current occupational status: unemployed Meds Allergies Allergy/AdvReac Type Severity Reaction Status Date / Time No Known Allergies Allergy Verified 06/29/22 12:49 [No Known Allergies*] Home Medications Medication Instructions Recorded Confirmed Last Taken Type bupropion HCl 300 mg 24 hr tablet, 300 mg PO QAM 12/11/19 06/29/22 08/30/22 History extended release cholecalciferol (vitamin D3) 50 50 mcg PO DAILY 12/11/19 06/29/22 Unknown History mcg (2,000 unit) tablet (Vitamin D3) fluticasone propionate 50 2 spray intranasal DAILY PRN 12/11/19 06/29/22 Unknown History mcg/actuation nasal Congestion spray,suspension hydrochlorothiazide 25 mg tablet 25 mg PO DAILY 12/11/19 06/29/22 08/30/22 History loratadine 10 mg tablet 10 mg PO DAILY PRN Allergy Symptoms 12/11/19 06/29/22 Unknown History sertraline 100 mg tablet 150 mg PO DAILY 12/11/19 06/29/22 08/30/22 History zolpidem 10 mg tablet (Ambien) 10 mg PO BEDTIME PRN Sleep 12/11/19 11/19/21 Unknown History atorvastatin 10 mg tablet 10 mg PO DAILY 05/12/20 06/29/22 Unknown History Exam Airway Mallampati Class: II TM Dist: >3cm Neck ROM: Full Heart: rrr Lungs: cta Assessment and Plan Assessment Anesthesia Assessment: Anesthesia Plan Discussed Final Anesthetic Review NPO: Yes ASA Class: I and II Final Preanesthetic Review: No Changes in Pt Med Stat, Meds/Allgs Chart Reviewed, Consent Obtained/Reviewed, Anes Risks/Benef Reviewed and DNR Form (If Appl.) Patient Risk: Low Procedure Risk: Low Anesthetic Plan Anesthetic Plan: MAC: Disposition: Standard PACU
[2022-08-30 09:56] VITALS: BP 141/82; PULSE 79; RESP 20; TEMP 36.3; O2SAT 97
--- NOTE | 2022-08-30 10:07 | MHC.SHP ---
Pre-Procedural Eval Section A Date of Service: 08/30/22 The patient is an INPATIENT: No The History & Physical has been completed within 30 days and I have reviewed it.: No Section B Chief Complaint: Fatty (change of) liver,screening,reflux disease Relevant Family History (Specify if Yes): No Relevant Social History: None Present Medications: see Short Stay Collaborative assessment Medical History: Significant History (Depression Morbid obesity with BMI of 40.0-44.9, adult NAFL (nonalcoholic fatty liver) Personal history of COVID-19 Transaminitis) History of Previous Operations: Relevant previous surgery/procedure and date(s) (H/O tubal ligation History of endometrial ablation History of salpingectomy Hx laparoscopic cholecystectomy Previous section) Allergies: Allergies Allergy/AdvReac Type Severity Reaction Status Date / Time No Known Allergies Allergy Verified 06/29/22 12:49 [No Known Allergies*] Review of Systems Sugical H&P ROS: Negative: Constitution, Cardiovascular, Respiratory and Gastrointestinal Exam Surgical H&P Exam: Normal: Heart, Normal: Lungs, Normal: Extremities and Normal: Abdomen Plan Diagnosis/Plan: Unchanged I have reviewed the history and physical and performed a pertinent physical examination on my patient. No changes have occurred unless specified. Time Spent With Patient Time: Total time managing care of this patient today ____ minutes.
--- NOTE | 2022-08-30 10:58 | W.PM.OPN ---
Operative Note Operative Note Date of Service: 08/30/22 Narrative: FLEXIBLE TRANSORAL UPPER GASTROINTESTINAL ENDOSCOPY WITH BIOPSIES AND COLONOSCOPY TILL CECUM WITH SNARE POLYPECTOMY, SUBMUCOSAL INJECTION AND HEMOCLIP PLACEMENT Pre-op diagnosis: Screening (1st colonoscopy), GERD, upper abdominal pain Post-op diagnosis: Gastritis, gastric antral nodules, ? Endoscopist:? Aurelio Fox MD Anesthesia:?MAC UPPER ENDOSCOPY Consent: Indications for the procedure and potential complications of bleeding, perforation, reaction to medications and missed diagnosis were discussed with the patient and informed consent was obtained. Instrument: Olympus GIF H 190 mid size upper endoscope Monitoring: Vital signs and clinical assessment, continuous EKG monitoring, Pulse oximetry, Carbon Dioxide monitoring and blood pressure monitoring were done throughout the procedure. Procedure: The patient was placed in the left lateral decubitis position and pre-procedure medications were administered and a bite block was placed. The endoscope was inserted into the mouth and advanced under direct vision to the third part of duodenum. A careful inspection was made as the upper endoscope was withdrawn including a retroflexed examination of the proximal stomach; Findings and interventions are described below. Findings: Esophagus: GE junction at 36 cms. No esophagitis or Pike's. Stomach: Moderate gastric antral erythema. Biopsies were obtained. Multiple 5 to 8 mm benign appearing nodules in the antrum with central erosions - biopsied. Grade 2 flap valve on retroflexed examination of the cardia. Duodenum: Normal bulb and descending duodenum. Biopsies were obtained from 3rd part of duodenum to check for celiac sprue. Intervention: Biopsies as noted above COLONOSCOPY PROCEDURE NOTE Consent: Indications for the procedure and potential complications of bleeding, perforation, reaction to medications and missed diagnosis were discussed with the patient and informed consent was obtained. Instrument: Olympus PCF H 190 L variable stiffness pediatric colonoscope Monitoring: Vital signs and clinical assessment, intermittent blood pressure monitoring, continuous EKG monitoring, Pulse oximetry and Carbon Dioxide monitoring were done throughout the procedure. Colon withdrawl time was 35 minutes. Procedure: The patient was placed in the left lateral decubitis position and pre-procedure medications were administered. After a digital rectal examination of the ano-rectum, the video colonoscope was inserted into the rectum and advanced through the colon to the cecum. The colonoscope was slowly withdrawn in a retrograde panoramic fashion and the colon mucosa was carefully examined including a retroflexed view of the rectum. Findings and interventions are described below. Procedure Difficulty: : Without difficulty Findings: Terminal Ileum: Not evaluated Cecum: Normal Ascending Colon: A 2.5 cms sessile polyp in the distal AC - removed with a hot snare. A 2 cms flat polyp in the distal AC at 80 cms. Polyp was raised with 6 cc of Eleview and removed with a hot snare. Polypectomy site was closed with 2 hemoclips and marked by Merle Ink Transverse Colon: Normal Descending Colon: Moderate diverticulosis Sigmoid Colon: A 2 cms sessile polyp - removed with a hot snare. A 2.5 cms sessile polyp - removed with a hot snare. Moderate diverticulosis Rectum: Normal Ano-rectum: Moderate internal hemorrhoids Colon preparation: Good after copious irrigation Impression and Post Procedure Diagnosis: Endoscopy Findings: STOMACH: Moderate gastric antral erythema. Biopsies were obtained. Multiple 5 to 8 mm benign appearing nodules in the antrum with central erosions - biopsied. DUODENUM: Normal - biopsied to check for celiac sprue Colonoscopy Findings: Four medium to large sized polyps removed Moderate diverticulosis seen in the left colon Moderate hemorrhoids on retroflexed exam. Plan: Await pathology results Patient has an appointment on 10/14/22 in the GI Clinic with Aurelio Fox M.D. Repeat Colonoscopy interval based on path results - in 2 years if polyps are adenomatous and 10 years if polyps are hyperplastic. Above findings were reviewed with the patient and colon polyps and diverticulosis handouts were given in the discharge area
[2022-08-30 12:10] VITALS: BP 114/64; PULSE 84; RESP 17; TEMP 36.3; O2SAT 97
[2022-08-30 12:24] VITALS: BP 133/83; PULSE 73; RESP 20; TEMP 36.6; O2SAT 97
== END 2022-08-30 12:48 | disposition home or self-care (01) ==
PROVIDERS: PCP Family Medicine; Visit Provider Internal Medicine Gastroenterology
PROC: (CPT 45385; principal; 2022-08-30 11:30)
DX: Z12.11 Encounter for screening for malignant neoplasm of colon (principal); D12.2 Benign neoplasm of ascending colon; D12.5 Benign neoplasm of sigmoid colon; K63.5 Polyp of colon; K57.30 Diverticulosis of large intestine without perforation or abscess without bleeding; K64.8 Other hemorrhoids; K21.9 Gastro-esophageal reflux disease without esophagitis; K29.70 Gastritis, unspecified, without bleeding; K31.89 Other diseases of stomach and duodenum; K76.0 Fatty (change of) liver, not elsewhere classified; Z79.899 Other long term (current) drug therapy
CPT/HCPCS: 45385; 45381; 43239; 88305; 88342; J2250

== ENCOUNTER 2023-01-06 11:59 | Outpatient (AMB) | payer MEDICAID, SELFPAY ==
--- NOTE | 2023-01-06 12:01 | A.OFFVIS_ITS ---
Vital Signs 01/06/23 12:04 Height 5 ft 2 in Weight 213 lb BMI 39.0 BP 120/64 Blood Pressure Location Lt brachial Position Sitting Pulse 78 Intake Visit Reasons: S/P double; Dr. Fox Intake Note: Patient follow up fpr EGD/Colonoscopy results. Patient cc: abdominal bloating on and off, acid reflex, between diarrhea and constipation. Web Architect Required: No Accompanied by: Self / Same As Patient Allergies No Known Allergies [No Known Allergies*] Allergy (Verified 06/01/23 09:25) Medication List - Last Reconciled 01/06/23 by Aurelio Fox MD atorvastatin 10 mg PO DAILY bupropion HCl 300 mg PO QAM cholecalciferol (vitamin D3) (Vitamin D3) 50 mcg PO DAILY fluticasone propionate 50 mcg/actuation 2 sprays intranasal DAILY PRN hydrochlorothiazide 25 mg PO DAILY loratadine 10 mg PO DAILY PRN miscellaneous medical supply 1 ea miscellaneous DAILY omeprazole 20 mg PO BID 30 days sertraline 150 mg PO DAILY zolpidem (Ambien) 10 mg PO BEDTIME PRN HPI HPI S/P double; Dr. Fox: Details: GI CLINIC VISIT FOR THIS 52-YEAR-OLD FEMALE FOR FU of GERD, UPPER ABDOMINAL PAIN, CONSTIPATION, FATTY LIVER RELATED TO OBESITY ? CHRONIC ILLNESSES:?OBESITY, CONSTIPATION, FATTY LIVER, GERD, Vitamin D deficiency, Spasm of muscle of lower back ?[facility] REVIEWED. 02/13/2019 NORMAL CBC WITH PLATELET OF 221, ESR 29, NORMAL CHEM PANEL WITH NORMAL LFTS, HEPATITIS A AND B SEROLOGIES REVEALED IMMUNITY TO HEPATITIS A ? AND B. HEPATITIS C ANTIBODY WAS NEGATIVE, CORAL SCREEN WAS POSITIVE IN A TITER OF 1 IN 160 IN A HOMOGENEOUS PATTERN ? (patient has an appointment with rheumatology in February 2019) ?IMAGING STUDIES:?02/2021 ABD US SHOWED: 1. Diffuse hepatic steatosis. 2. Status post cholecystectomy. 3. Otherwise unremarkable exam. ENDOSCOPIC STUDIES: 08/2022 EGD AND COLON SHOWED: STOMACH: Moderate gastric antral erythema. Biopsies were obtained. Multiple 5 to 8 mm benign appearing nodules in the antrum with central erosions - biopsied. DUODENUM: Normal - biopsied to check for celiac sprue Colonoscopy Findings: Four medium to large sized polyps removed Moderate diverticulosis seen in the left colon Moderate hemorrhoids on retroflexed exam. Plan: Repeat Colonoscopy interval based on path results - in 2 years if polyps are adenomatous and 10 years if polyps are hyperplas ?TODAY'S VISIT Patient cc: abdominal bloating on and off, acid reflex, between diarrhea and constipation. EGD and colon results were reviewed. Noted some lower abdominal pain for a few days after the procedure Notes intermittent bloating associated with certain foods - sliced pepperoni, pasta with spaghetti sauce PAST VISIT: Doing OK - taking one day at a time Scheduled to see her PCP - has arthritis and numbness in her hands GERD well controlled with medications Had COVID vaccine in June and July 2020. ? ? ? Has recovered from COVID pneumonia. ? Still feels a little tired (COVID infection in 12/17) ? ? ? has memory problems. ? Feeling better than she was ? Lab results reviewed. ? Heartburn well controlled. ? Weighs 210 LBS - lost wt when she had COVID and regained it back. ? Prefers to wait till she is 52 to have a colonoscopy. ? Taking Omeprazole daily ? Has not noted recurrent abd pain. ? Has been waking up with acid reflux associated with coughing and denies choking or SOB. ? Hurts to walk and had cortisone shots in the past. ? Taking Senna 2 tablets a day with adequate relief of constipation. ? Woke up with episodes of acid reflux with burning of throat and coughing - 3 episodes over the past month. ? Had a couple of episodes of waking up with upper abdominal pain which do not last very long - two episodes. ? Not eating before bedtime - usually eats dinner at 4:30 or 5 pm, goes to bed at 1 am. ? Does not eat at night time. ? Taking Senna daily for Constipation is ok and having a BM daily to every other day. ? Patient denies black stools or rectal bleeding ? Only takes Omeprazole prn since end of May and was advised to resume taking it daily ? WEighs 213 lbs - going up and down with her weight. ? Having back pain and pain in her feet (due to bunions). ? Has not been able to see the foot doctor due to lack of transportation ? Left hand hurting due to CTS. ? Having her tubes tied on 10/18/19 at [facility] ?PAST GI HISTORY BY REVIEW OF MEDICAL RECORDS: ?PATIENT WAS SEEN BY RHEUMATOLOGY ON 03/20/2019: ? Discussed with patient that at this time, I do not see any evidence of an autoimmune disease causing her symptoms. There may be some component of underlying fibromyalgia causing some of her symptoms. Regardless, will continue to monitor patient on a yearly basis for her positive CORAL. She will follow-up with me in 1 year. ?Pt was seen by the Shell Trim Operator in 02/2017: ? Assessments ? 1. Severe obesity - E66.01 (Primary), BMI at 35.91 on 12/29/17 ? Pt has nutrition related knowledge deficit concerning food portions and its relationship to obesity evidenced BMI at 35.91 on 12/29/17. ? Est kcal needs as per [place] [employer] Jeor: 1581 (40% carb, 30% fat, 30% prot) ? Est fluid needs as per 25 ml/k ml/d. ? Treatment ? 1. Severe obesity ? Clinical Notes: Pt was educated on food portion sizes. ? 1600 katie meal plan was provided and discussed for now ? Dec on empty katie foods/empty katie beverages ? goal wt loss 1-2 lbs/wk ? f/u topic: exercise, discuss simple vs complex carbs ? Length of education: spent 60 min > 90% of the time educating patient. ? Follow Up ? 1 Month (Reason: obesity PFSH Medical History Spasm of muscle of lower back Fatty liver GERD (gastroesophageal reflux disease) Personal history of COVID-19 Cervical intraepithelial neoplasia grade 1 Morbid obesity with BMI of 40.0-44.9, adult NAFL (nonalcoholic fatty liver) Depression Transaminitis Surgical History History of esophagogastroduodenoscopy (EGD) Hx of colonoscopy History of loop electrical excision procedure (LEEP) History of salpingectomy History of endometrial ablation Hx laparoscopic cholecystectomy H/O tubal ligation Previous section Family History Maternal Grandmother Bone cancer Social History Household Members: Children Housing: Apartment Do you presently have visiting nurse or other home services: No Alcohol intake: never Patient Tobacco Use Status: Never used Tobacco service: No Current occupational status: unemployed Female Reproductive History Menstrual Age of Menarche: 15 Review of Systems Const All systems reviewed & are unremarkable except as noted in HPI and below Physical Exam Vital Signs: Last Vital Signs Pulse 78 01/06/23 12:04 BP 120/64 01/06/23 12:04 BMI result Body Mass Index 39.0 Const General: healthy appearing and no acute distress Nutritional Appearance: obese Orientation/consciousness: patient oriented x3 Limitations: no limitations HEENT Head: Yes normal to inspection Ears: hearing grossly normal bilaterally Eyes Sclerae: sclerae normal Pupils: Equal, round and reactive pupils present Neck Neck: Yes normal visual inspection Chest Chest palpation & inspection: normal inspection of the chest Resp Effort & Inspection: normal respiratory effort Auscultation: clear to auscultation bilaterally Cardio Palpation: normal PMI Rate: regular rate Rhythm: regular rhythm Heart sounds: S1 normal heart sound present, S2 normal heart sound present and no murmurs GI Palpation (GI): Soft to palpation, nontender and No hepatosplenomegaly present Auscultation: normal bowel sounds Rectal Exam - Female: deferred Skin General skin exam: no rashes or lesions noted Neuro General: patient oriented x3, gait normal and moves all extremities Cranial nerves: Yes Equal, round and reactive pupils present Psych Appearance: grossly normal Mental Status: mental status grossly normal Assessment & Plan Assessment & Plan (1) GERD (gastroesophageal reflux disease): Comment: Continue omeprazole 20 mg twice daily Code(s): K21.9 - Gastro-esophageal reflux disease without esophagitis Category: Medical (2) NAFL (nonalcoholic fatty liver): Comment: OK to stop Vitamin E if LFTs are normal Code(s): K76.0 - Fatty (change of) liver, not elsewhere classified Category: Medical (3) History of colon polyps: Comment: 08/2022 colonoscopy showed: Four medium to large sized polyps removed (3 were adenomatous, one polyp was hyperplastic) Moderate diverticulosis seen in the left colon Moderate hemorrhoids on retroflexed exam. Plan: Repeat Colonoscopy interval based on path results - in 2 years (due 08/2024) Code(s): Z86.010 - Personal history of colonic polyps Category: Medical Plan 52 YF with OBESITY, CONSTIPATION, FATTY LIVER, GERD, Vitamin D deficiency, Spasm of muscle of lower back seen for FU of GERD, upper abdominal pain, constipation and fatty liver. Abd pain is possibly related to gas and constipation. Patient was advised to continue to monitor her symptoms and contact my office if she noted an increase in frequency or intensity of abdominal pain. Patient was advised to continue omeprazole to 20 mg twice daily for GERD. Colon cancer screening was discussed with the patient.? She denies known family history of colon polyps or colon cancer. 08/2022 EGD and colonoscopy were performed and findings as noted above. Follow-up appointment in 6 months Coding Level of Care Code Est Pt Level 4 (31320) Diagnoses GERD (gastroesophageal reflux disease) K21.9 NAFL (nonalcoholic fatty liver) K76.0 History of colon polyps Z86.010 Time Spent (min) 17
[2023-01-06 12:04] VITALS: BP 120/64; PULSE 78; BMI 39.0
== END 2023-01-06 12:28 | disposition home or self-care (01) ==
PROVIDERS: Visit Provider Internal Medicine Gastroenterology
DX: K21.9 Gastro-esophageal reflux disease without esophagitis (principal); K76.0 Fatty (change of) liver, not elsewhere classified; Z86.010 Personal history of colon polyps
CPT/HCPCS: 99499

== ENCOUNTER → 2023-01-06 11:59 | Outpatient (BNVA) | payer MEDICAID, SELFPAY | PROVIDERS: Visit Provider Internal Medicine Gastroenterology ==

== ENCOUNTER 2023-01-14 10:46 | Outpatient (REF) | payer MEDICAID, SELFPAY ==
[2023-01-14 13:44] LABS: MANUAL DIFF FLAG NO
[2023-01-14 13:48] LABS: Basophils Percent Auto 0.8 % (0-2); Eosinophils Absolute Auto 0.1 X10*3/uL (0.0-0.4); Eosinophils Percent Auto 1.3 % (0-4); Hematocrit 41.5 % (37.0-47.0); Hemoglobin 13.7 g/dl (12.0-16.0); Imm Gran Abs Auto 0.01 X10*3/uL (0.00-0.03); Imm Gran Pct Auto 0.2 % (0.0-0.4); Lymphocytes Absolute Auto 2.1 X10*3/uL (1.2-4.9); Lymphocytes Percent Auto 39.2 % (20-40); Mean Corpuscular Hemoglobin 29.4 pg (27.0-33.0); Mean Corpuscular Volume 89.1 fL (80.0-98.0); Mean Platelet Volume 10.9 fL (9.4-12.3); Monocytes Absolute Auto 0.3 X10*3/uL (0.1-1.2); Monocytes Percent Auto 5.6 % (2-11); Neutrophils Absolute Auto 2.8 x10*3/uL (2.0-8.3); Neutrophils Percent Auto 52.9 % (45-73); Platelet Count 198 X10*3/uL (160-400); Red Blood Count 4.66 X10*6/uL (4.20-5.50); Red Cell Distribution Width 13.6 % (11.0-16.0); White Blood Count 5.3 X10*3/uL (4.8-10.8)
[2023-01-14 14:07] LABS: Alanine Aminotransferase 20 U/L (0-31); Albumin Level 4.5 g/dL (3.5-5.0); Alkaline Phosphatase 57 U/L (39-117); Anion Gap 10 (12-20); Aspartate Amino Transferase 18 U/L (5-31); Bilirubin Direct 0.2 mg/dL (0.0-0.5); Bilirubin Total 0.4 mg/dL (0.0-1.0); Blood Urea Nitrogen 14 mg/dL (9-16); Calcium 9.8 mg/dL (8.4-10.2); Carbon Dioxide 30 mmol/L (22-29); Chloride 106 mmol/L (96-108); Cholesterol 229 mg/dL (<200); Estimated Glomerular Filt Rate > 60; Glucose Random 97 mg/dL (60-115); HDL Cholesterol 64 mg/dL (>40); LDL Cholesterol Calculated 133 mg/dL (<100); Potassium 3.4 mmol/L (3.3-5.1); Sodium 143 mmol/L (135-145); Total Protein 7.9 g/dL (6.5-8.0); Triglycerides 160 mg/dL (<150)
[2023-01-14 14:15] LABS: Estimated Average Glucose 100 mg/dL; Hemoglobin A1c % 5.1 % (<6.0)
[2023-01-14 14:21] LABS: Syphilis Screen Nonreactive (Nonreactive)
[2023-01-14 14:22] LABS: Free T4 (Free Thyroxine) 0.98 ng/dL (0.71-1.85); Thyroid Stimulating Hormone 1.33 uIU/mL (0.32-4.0); Vitamin D 25-OH Total 54.5 ng/mL (>30)
[2023-01-14 16:31] LABS: CT PCR NOT DETECTED (Not Detect.); NG PCR NOT DETECTED (Not Detect.)
[2023-01-15 03:32] LABS: HIV AB/AG Nonreactive (Nonreactive); HIV Num 1 0.05 S/CO (0.00-0.99)
[2023-01-15 03:33] LABS: HBS Num1 262.25 mIU/mL (0-7.99); HBsAGNum1 0.26 S/CO (0.00-0.99); Hepatitis B Surface Antigen Negative (Negative); ~HepC Num1 0.13 S/CO (0.00-0.79); ~Hepatitis B Surface Antibody REACTIVE (Nonreactive); ~Hepatitis C Antibody Nonreactive (Nonreactive)
== END 2023-01-14 10:47 | disposition home or self-care (01) ==
LOC: HO.HHCL 10:46
PROVIDERS: Visit Provider Family Medicine
DX: Z11.4 Encounter for screening for human immunodeficiency virus [HIV] (principal); Z11.3 Encounter for screening for infections with a predominantly sexual mode of transmission; I10 Essential (primary) hypertension; K76.0 Fatty (change of) liver, not elsewhere classified
CPT/HCPCS: 0353U; 36415; 80048; 80061; 80076; 82105; 82306; 83036; 84439; 84443; 85025; 86706; 86780; 86803; 87340; 87389

== ENCOUNTER 2023-05-13 11:56 | Outpatient (REF) | payer MEDICAID, SELFPAY | END 2023-05-13 11:57 | disposition home or self-care (01) | LOC: HO.MAMMO 11:56 | PROVIDERS: PCP Family Medicine; Visit Provider Family Medicine | DX: Z12.31 Encounter for screening mammogram for malignant neoplasm of breast (principal) | CPT/HCPCS: 77063; 77067 ==

== ENCOUNTER → 2023-05-13 12:45 | Outpatient (BNV) | payer MEDICAID, SELFPAY | PROVIDERS: PCP Family Medicine; Visit Provider Radiology Diagnostic Radiology | DX: Z12.31 Encounter for screening mammogram for malignant neoplasm of breast (principal) | CPT/HCPCS: 77063; 77067 ==

== ENCOUNTER 2023-06-01 09:06 | Outpatient (AMB) | payer MEDICAID, SELFPAY ==
--- NOTE | 2023-06-01 09:16 | MHC.OFFVIS ---
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 No complaints. Last Pap/HPV was negative in 05/20 Last Mammogram was done in 05/21, the results are still pending Last Colonoscopy was done in 09/19, the recommendation was to repeat in 2 years [facility] Medical History Spasm of muscle of lower back Fatty liver GERD (gastroesophageal reflux disease) Personal history of COVID-19 Cervical intraepithelial neoplasia grade 1 Morbid obesity with BMI of 40.0-44.9, adult NAFL (nonalcoholic fatty liver) Depression Transaminitis Surgical History History of esophagogastroduodenoscopy (EGD) Hx of colonoscopy History of loop electrical excision procedure (LEEP) History of salpingectomy History of endometrial ablation Hx laparoscopic cholecystectomy H/O tubal ligation Previous section Family History Maternal Grandmother Bone cancer Social History Household Members: Children Housing: Apartment Do you presently have visiting nurse or other home services: No Alcohol intake: never Patient Tobacco Use Status: Never used Tobacco service: No Current occupational status: unemployed Female Reproductive History Menstrual Age of Menarche: 15 Menopause type: natural Total pregnancies: 2 Full term: 2 Number of Living Children: 2 Date of last pap smear: 05/25/22 Date of Mammogram: 05/13/23 Review of Systems Const All systems reviewed & are unremarkable except as noted in HPI and below Card Reports as per HPI Resp Reports as per HPI GI Reports as per HPI and Reports no additional complaints Reports as per HPI Physical Exam Vital Signs: Last Vital Signs BP 122/70 06/01/23 09:17 BMI result Body Mass Index 38.6 Const General: cooperative, healthy appearing and comfortable Chest Chest palpation & inspection: normal inspection of the chest and normal palpation of entire chest wall Breast/axilla inspection: normal inspection of the breasts and normal inspection of the axillae Breast/axilla palpation: normal palpation of the breasts, normal palpation of the axillae and no axillary lymphadenopathy Resp Effort & Inspection: normal respiratory effort Auscultation: clear to auscultation bilaterally Percussion: percussion normal Cardio Palpation: normal PMI Rate: regular rate Rhythm: regular rhythm Heart sounds: no murmurs and no rubs Peripheral pulses: Peripheral pulses 2+ throughout GI Inspection: Yes normal to inspection Palpation (GI): Soft to palpation, nontender, no guarding, not rigid and No hepatosplenomegaly present Percussion: Yes normal to percussion Auscultation: normal bowel sounds Rectal Exam - Female: deferred General: Yes bladder normal to palpation External Female Exam: No lesion Speculum Exam - Vagina: normal appearance of the vagina, normal palpation, normal vaginal discharge and not erythematous Speculum Exam - Cervix: normal appearance of the cervix and normal palpation Bimanual exam- vagina & uterus: normal bimanual exam, normal palpation, uterine size normal, bladder normal to palpation, consistency normal and normal palpation Bimanual Exam- Adnexa, other: normal adnexae, no masses and no tenderness Assessment & Plan Assessment & Plan (1) Well woman exam: Code(s): Z01.419 - Encounter for gynecological examination (general) (routine) without abnormal findings Plan: Co testing not indicated this year. Counseled the patient about the recommended dietary allowance of 1200 mg of Calcium & 600 IU of vitamin D. Instructions given to patient to schedule next screening Mammogram in 05/22. The patient was instructed to perform monthly self-breast exams and schedule annual exam in a year. All questions answered and the patient verbalized understanding. Coding Level of Care Code Est Pt Prev Care 40-64y(33923) Diagnoses Well woman exam Z01.419
[2023-06-01 09:17] VITALS: BP 122/70; BMI 38.6
== END 2023-06-01 09:43 | disposition home or self-care (01) ==
PROVIDERS: Visit Provider Obstetrics & Gynecology
DX: Z01.419 Encounter for gynecological examination (general) (routine) without abnormal findings (principal)
CPT/HCPCS: 99396

== ENCOUNTER → 2023-06-01 09:06 | Outpatient (BNVA) | payer MEDICAID, SELFPAY | PROVIDERS: Visit Provider Obstetrics & Gynecology | DX: Z01.419 Encounter for gynecological examination (general) (routine) without abnormal findings (principal); Z78.0 Asymptomatic menopausal state; Z90.79 Acquired absence of other genital organ(s); Z98.51 Tubal ligation status | CPT/HCPCS: 99396 ==

== ENCOUNTER 2023-08-16 09:59 | Outpatient (REF) | payer MEDICAID, SELFPAY ==
--- NOTE | 2023-08-16 10:03 | EMG_ITS ---
STUDY: EMG nerve conduction study. Bilateral median and ulnar motor and sensory studies were obtained. Bilateral radial sensory study was obtained and paraspinal muscles were tested with a needle. IMPRESSION: Mild right median neuropathy across carpal tunnel. Otherwise no significant abnormality noted. MD MARIA Gutierrez/QAMAR / [phone]
== END 2023-08-16 10:00 | disposition home or self-care (01) ==
LOC: HO.NEURO 09:59
PROVIDERS: PCP Family Medicine; Visit Provider Family Medicine
DX: R20.0 Anesthesia of skin (principal)
CPT/HCPCS: 95886; 95911

== ENCOUNTER 2024-01-02 12:10 | Outpatient (REF) | payer MEDICAID, SELFPAY ==
[2024-01-02 13:49] LABS: Mean Corpuscular HGB Conc 33.3 g/dl (31.0-35.0); Mean Corpuscular Volume 86.9 fL (80.0-98.0); Mean Platelet Volume 10.5 fL (9.4-12.3); Platelet Count 180 X10*3/uL (160-400); Red Blood Count 4.49 X10*6/uL (4.20-5.50); Red Cell Distribution Width 12.8 % (11.0-16.0); White Blood Count 5.1 X10*3/uL (4.8-10.8)
[2024-01-02 13:55] LABS: Estimated Average Glucose 103 mg/dL; Hemoglobin A1C 110.3707 umol/L; Hemoglobin A1c % 5.2 % (<6.0); Total Hemoglobin (HGBA1C) 3278.6256 umol/L
[2024-01-02 14:31] LABS: Alanine Aminotransferase 22 U/L (0-31); Albumin Level 4.5 g/dL (3.5-5.0); Alkaline Phosphatase 59 U/L (39-117); Anion Gap 14 (12-20); Aspartate Amino Transferase 28 U/L (5-31); Bilirubin Direct 0.2 mg/dL (0.0-0.5); Bilirubin Total 0.6 mg/dL (0.0-1.0); Blood Urea Nitrogen 17 mg/dL (9-16); Calcium 10.2 mg/dL (8.4-10.2); Carbon Dioxide 30 mmol/L (22-29); Chloride 101 mmol/L (96-108); Cholesterol 188 mg/dL (<200); Estimated Glomerular Filt Rate > 60; Glucose Random 84 mg/dL (60-115); HDL Cholesterol 60 mg/dL (>40); LDL Cholesterol Calculated 110 mg/dL (<100); Potassium 3.4 mmol/L (3.3-5.1); Sodium 142 mmol/L (135-145); Total Protein 7.7 g/dL (6.5-8.0); Triglycerides 90 mg/dL (<150)
[2024-01-02 14:46] LABS: Free T4 (Free Thyroxine) 1.33 ng/dL (0.71-1.85); Thyroid Stimulating Hormone 0.76 uIU/mL (0.32-4.0); Vitamin D 25-OH Total 51.3 ng/mL (>30)
[2024-01-02 15:33] LABS: Creatinine Urine 175.63 mg/dL; Microalbumin Urine < 5.0 mg/L
[2024-01-02 17:21] LABS: CT PCR NOT DETECTED (Not Detect.); NG PCR NOT DETECTED (Not Detect.)
[2024-01-03 03:56] LABS: HIV AB/AG Nonreactive (Nonreactive); HIV Num 1 0.06 S/CO (0.00-0.99); ~HepC Num1 0.14 S/CO (0.00-0.79); ~Hepatitis C Antibody Nonreactive (Nonreactive)
[2024-01-04 11:04] LABS: Alpha Fetoprotein 2.5 ng/mL
[2024-01-04 13:13] LABS: RPR Rapid Plasma Reagin NON-REACTIVE (NON-REACTIVE)
== END 2024-01-02 12:11 | disposition home or self-care (01) ==
LOC: HO.HHCL 12:10
PROVIDERS: Visit Provider Family Medicine
DX: Z00.00 Encounter for general adult medical examination without abnormal findings (principal); I10 Essential (primary) hypertension; E78.49 Other hyperlipidemia; K76.0 Fatty (change of) liver, not elsewhere classified; F32.A Depression, unspecified; M25.50 Pain in unspecified joint; R20.0 Anesthesia of skin; M65.4 Radial styloid tenosynovitis [de Quervain]
CPT/HCPCS: 80048; 80061; 80076; 82043; 82105; 82306; 82570; 83036; 84439; 84443; 85027; 86592; 86803; 87389; 87491; 87591

== ENCOUNTER 2024-03-01 10:48 | Outpatient (AMB) | payer MEDICAID, SELFPAY ==
--- NOTE | 2024-03-01 10:59 | MHC.OFFVIS ---
Vital Signs 03/01/24 11:00 Height 5 ft 2 in Weight 221 lb BMI 40.4 BP 124/58 L Blood Pressure Location Lt brachial Position Sitting Pulse 73 Intake Visit Reasons: 6 month follow up GERD Intake Note: Patient yearly follow up for GERD. Patient cc: abdominal bloating and denies any other GI issues. Driver Guard Required: No Accompanied by: Self / Same As Patient Allergies No Known Allergies [No Known Allergies*] Allergy (Verified 03/01/24 10:59) Medication List - Last Reconciled 03/01/24 by Aurelio Fox MD atorvastatin 10 mg PO DAILY bupropion HCl XL 300 mg PO QAM cholecalciferol (vitamin D3) (Vitamin D3) 50 mcg PO DAILY fluticasone propionate 50 mcg/actuation 2 sprays intranasal DAILY PRN hydrochlorothiazide 25 mg PO DAILY loratadine 10 mg PO DAILY PRN miscellaneous medical supply 1 ea miscellaneous DAILY omeprazole 20 mg PO BID 30 days sertraline 150 mg PO DAILY zolpidem (Ambien) 10 mg PO BEDTIME PRN HPI HPI 6 month follow up GERD: Details: GI CLINIC VISIT FOR THIS 53-YEAR-OLD FEMALE FOR FU of GERD, UPPER ABDOMINAL PAIN, CONSTIPATION, FATTY LIVER RELATED TO OBESITY ?CHRONIC ILLNESSES:?OBESITY, CONSTIPATION, FATTY LIVER, GERD, Vitamin D deficiency, Spasm of muscle of lower back ?TODAY'S VISIT Patient cc: abdominal bloating on and off, Had some bloating after Thanksgiving which has resolved Holidays were quite Doing PT for pain in her joints. Has CTS and fibromyalgia PAST VISIT: EGD and colon results were reviewed. Noted some lower abdominal pain for a few days after the procedure Notes intermittent bloating associated with certain foods - sliced pepperoni, pasta with spaghetti sauce Doing OK - taking one day at a time Scheduled to see her PCP - has arthritis and numbness in her hands GERD well controlled with medications Had COVID vaccine in June and July 2020. ? ? ? Has recovered from COVID pneumonia. ? Still feels a little tired (COVID infection in 12/17) ? ? ? has memory problems. ? Feeling better than she was ? Lab results reviewed. ? Heartburn well controlled. ? Weighs 210 LBS - lost wt when she had COVID and regained it back. ? Prefers to wait till she is 52 to have a colonoscopy. ? Taking Omeprazole daily ? Has not noted recurrent abd pain. ? Has been waking up with acid reflux associated with coughing and denies choking or SOB. ? Hurts to walk and had cortisone shots in the past. ? Taking Senna 2 tablets a day with adequate relief of constipation. ? Woke up with episodes of acid reflux with burning of throat and coughing - 3 episodes over the past month. ? Had a couple of episodes of waking up with upper abdominal pain which do not last very long - two episodes. ? Not eating before bedtime - usually eats dinner at 4:30 or 5 pm, goes to bed at 1 am. ? Does not eat at night time. ? Taking Senna daily for Constipation is ok and having a BM daily to every other day. ? Patient denies black stools or rectal bleeding ? Only takes Omeprazole prn since end of May and was advised to resume taking it daily ? WEighs 213 lbs - going up and down with her weight. ? Having back pain and pain in her feet (due to bunions). ? Has not been able to see the foot doctor due to lack of transportation ? Left hand hurting due to CTS. ? Having her tubes tied on 10/18/19 at [facility] IN [facility]:?MAR, 2021 REVIEWED. 02/13/2019 NORMAL CBC WITH PLATELET OF 221, ESR 29, NORMAL CHEM PANEL WITH NORMAL LFTS, HEPATITIS A AND B SEROLOGIES REVEALED IMMUNITY TO HEPATITIS A ? AND B. HEPATITIS C ANTIBODY WAS NEGATIVE, CORAL SCREEN WAS POSITIVE IN A TITER OF 1 IN 160 IN A HOMOGENEOUS PATTERN ? (patient has an appointment with rheumatology in February 2019) ?IMAGING STUDIES:?02/2021 ABD US SHOWED: 1. Diffuse hepatic steatosis. 2. Status post cholecystectomy. 3. Otherwise unremarkable exam. ENDOSCOPIC STUDIES: 08/2022 EGD AND COLON SHOWED: STOMACH: Moderate gastric antral erythema. Biopsies were obtained. Multiple 5 to 8 mm benign appearing nodules in the antrum with central erosions - biopsied. DUODENUM: Normal - biopsied to check for celiac sprue Colonoscopy Findings: Four medium to large sized polyps removed Moderate diverticulosis seen in the left colon Moderate hemorrhoids on retroflexed exam. Plan: Repeat Colonoscopy interval based on path results - in 2 years if polyps are adenomatous and 10 years if polyps are hyperplastic ?PAST GI HISTORY BY REVIEW OF MEDICAL RECORDS: ?PATIENT WAS SEEN BY RHEUMATOLOGY ON 03/20/2019: ? Discussed with patient that at this time, I do not see any evidence of an autoimmune disease causing her symptoms. There may be some component of underlying fibromyalgia causing some of her symptoms. Regardless, will continue to monitor patient on a yearly basis for her positive CORLA. She will follow-up with me in 1 year. ?Pt was seen by the [facility] in 02/2017: ? Assessments ? 1. Severe obesity - E66.01 (Primary), BMI at 35.91 on 12/29/17 ? Pt has nutrition related knowledge deficit concerning food portions and its relationship to obesity evidenced BMI at 35.91 on 12/29/17. ? Est kcal needs as per [place] [address] Jeor: 1581 (40% carb, 30% fat, 30% prot) ? Est fluid needs as per 25 ml/k ml/d. ? Treatment ? 1. Severe obesity ? Clinical Notes: Pt was educated on food portion sizes. ? 1600 katie meal plan was provided and discussed for now ? Dec on empty katie foods/empty katie beverages ? goal wt loss 1-2 lbs/wk ? f/u topic: exercise, discuss simple vs complex carbs ? Length of education: spent 60 min > 90% of the time educating patient. ? Follow Up ? 1 Month (Reason: obesity PFSH Medical History Spasm of muscle of lower back Fatty liver GERD (gastroesophageal reflux disease) Personal history of COVID-19 Cervical intraepithelial neoplasia grade 1 Morbid obesity with BMI of 40.0-44.9, adult NAFL (nonalcoholic fatty liver) Depression Transaminitis Surgical History History of esophagogastroduodenoscopy (EGD) Hx of colonoscopy History of loop electrical excision procedure (LEEP) History of salpingectomy History of endometrial ablation Hx laparoscopic cholecystectomy H/O tubal ligation Previous section Family History Maternal Grandmother Bone cancer Social History Household Members: Children Housing: Apartment Do you presently have visiting nurse or other home services: No Alcohol intake: never Patient Tobacco Use Status: Never used Tobacco service: No Current occupational status: unemployed Female Reproductive History Menstrual Age of Menarche: 15 Review of Systems Const Denies fever(s), Denies headache(s) and Denies weight loss Eyes Denies eye discharge and Denies irritation ENT Reports Normal hearing present, Denies dysphagia, Denies dizziness and Denies headache(s) Card Denies chest pain, Denies leg edema and Denies dyspnea on exertion Resp Denies cough, Denies dyspnea on exertion and Denies wheezing GI Denies abdominal pain, Denies change in bowel habits, Reports constipation (Intermittent constipation), Denies dysphagia and Denies heartburn Denies difficulty voiding and Denies dysuria Musc Denies back pain, Reports arthralgias and Reports other (Arthritis) Skin/Breast Denies pruritus, Denies rash and Denies jaundice Neuro Reports Normal hearing present, Denies Abnormal speech present, Denies dizziness, Denies headache(s) and Denies seizure-like activity Psych Reports anxiety, Reports depression and Denies panic attacks Endo Denies cold intolerance, Denies flushing and Denies heat intolerance Gene/Lymph Denies easy bleeding and Denies easy bruising Aller/Immun Denies wheezing Physical Exam Vital Signs: Last Vital Signs Pulse 73 03/01/24 11:00 BP 124/58 L 03/01/24 11:00 BMI result Body Mass Index 40.4 Const General: no acute distress Nutritional Appearance: obese Orientation/consciousness: patient oriented x3 Limitations: no limitations HEENT Head: Yes normal to inspection Ears: hearing grossly normal bilaterally Mouth: Normal oral and palatal mucosa present Eyes Sclerae: sclerae normal Pupils: Equal, round and reactive pupils present Neck Neck: Yes normal visual inspection Chest Chest palpation & inspection: normal inspection of the chest Resp Effort & Inspection: normal respiratory effort Auscultation: clear to auscultation bilaterally Cardio Palpation: normal PMI Rate: regular rate Rhythm: regular rhythm Heart sounds: S1 normal heart sound present, S2 normal heart sound present and no murmurs GI Palpation (GI): Soft to palpation, nontender and No hepatosplenomegaly present Auscultation: normal bowel sounds Rectal Exam - Female: deferred Skin General skin exam: no rashes or lesions noted Neuro General: patient oriented x3, gait normal and moves all extremities Cranial nerves: Yes Equal, round and reactive pupils present and Yes Normal hearing present Speech: No Abnormal speech present Psych Appearance: grossly normal Mental Status: mental status grossly normal Assessment & Plan Assessment & Plan (1) NAFL (nonalcoholic fatty liver): Comment: OK to stop Vitamin E if LFTs are normal Code(s): K76.0 - Fatty (change of) liver, not elsewhere classified Category: Medical (2) GERD (gastroesophageal reflux disease): Comment: Continue omeprazole 20 mg twice daily Code(s): K21.9 - Gastro-esophageal reflux disease without esophagitis Category: Medical (3) History of colon polyps: Comment: 08/2022 colonoscopy showed: Four medium to large sized polyps removed (3 were adenomatous, one polyp was hyperplastic) Moderate diverticulosis seen in the left colon Moderate hemorrhoids on retroflexed exam. Plan: Repeat Colonoscopy interval based on path results - in 2 years (due 08/2024) Code(s): Z86.010 - Personal history of colon polyps Category: Medical Plan 53 YF with obesity, constipation, fatty liver, GERD, Vitamin D deficiency, Spasm of muscle of lower back seen for FU of GERD, upper abdominal pain, constipation and fatty liver. Abd pain is possibly related to gas and constipation. Patient was advised to continue to monitor her symptoms and contact my office if she noted an increase in frequency or intensity of abdominal pain. Patient was advised to continue omeprazole to 20 mg twice daily for GERD. Colon cancer screening was discussed with the patient.? She denies known family history of colon polyps or colon cancer. 08/2022 EGD and colonoscopy were performed and findings as noted above. 03/01/24 Had some bloating after Thanksgiving which has resolved Patient advised to schedule a colonoscopy for surveillance for colon polyps (due August,) Follow-up appointment in 6 month Medications: New bisacodyl (Dulcolax (bisacodyl)) Take 2 tablets daily at 12 pm starting 5 days before colonoscopy appointment 10 mg (2 x 5 mg) PO ONCE 5 days 10 tabs 0RF Colon prep polyethylene glycol 3350 (Miralax) Mix Miralax with 64 oz(8 cups) of Crystal light. Take 2 tablets of Dulcolax qt 12 pm. Wait to have your 1st bowel movement, then begin drinking Miralax. Drink a glass of Miralax every 10-15 minutes until you are finished. You will drink at least another 4 cups of clear liquid of your choice over the next 2 hours. Please drink as many clear liquids as possible You may have clear liquids up to four hours before your procedure 17 grams PO DAILY 1 day 238 grams 0RF Colon prep Coding Level of Care Code Est Pt Level 4 (64096) Diagnoses NAFL (nonalcoholic fatty liver) K76.0 GERD (gastroesophageal reflux disease) K21.9 History of colon polyps Z86.010 Time Spent (min) 23
[2024-03-01 11:00] VITALS: BP 124/58; PULSE 73; BMI 40.4
== END 2024-03-01 12:41 | disposition home or self-care (01) ==
PROVIDERS: PCP Family Medicine; Visit Provider Internal Medicine Gastroenterology
DX: K76.0 Fatty (change of) liver, not elsewhere classified (principal); K21.9 Gastro-esophageal reflux disease without esophagitis; Z86.0100 Personal history of colon polyps, unspecified
CPT/HCPCS: 99214

== ENCOUNTER → 2024-03-01 10:48 | Outpatient (BNVA) | payer MEDICAID, SELFPAY | PROVIDERS: PCP Family Medicine; Visit Provider Internal Medicine Gastroenterology | DX: K21.9 Gastro-esophageal reflux disease without esophagitis (principal); K76.0 Fatty (change of) liver, not elsewhere classified; Z86.0100 Personal history of colon polyps, unspecified | CPT/HCPCS: 99212 ==

== ENCOUNTER 2024-03-01 12:32 | Outpatient (RCR) | payer MEDICAID, SELFPAY ==
--- NOTE | 2024-02-01 14:45 | MHC.OT.EP ---
[address] [phone] Occupational Therapy Plan of Care Patient Name: Nelly Paredes Date of Evaluation: 02/01/24 Diagnosis: B hand numbness and pain Pain Location: volar side of B hands and digits Pain Score: 7 Pain Scale Used: Numeric (0 - 10) Aggravating Factors: Alleviating Factors: night bracing ; prescription Tylenol, naproxen Assessment: Pt is a 53 yr old R hand dominant female who reports pain and numbness in B hand and all 5 digits. She reports the pain has been going on for over 5 yrs. she has history of carpal tunnel sx, OA, and Fibromyalgia. She reports having a x-ray over a yr ago which was negative for fractures but positive for OA. She also reports an EMG last July which was positive for R mild CTS. She does wear braces to bed at night which she reports help, but not a great deal. She is currently not working but is applying for disability. She lives w/ her 19 yr. old son in an apartment in [place]. She has been referred to skilled OT therapy to address her pain and increase the strength and functional use of her B hands. 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 Thank you once again for your referral.
== END 2024-03-01 13:33 | disposition home or self-care (01) ==
LOC: HO.OT 12:32
PROVIDERS: PCP Family Medicine; Visit Provider Family Medicine
DX: R20.0 Anesthesia of skin (principal)
CPT/HCPCS: 29130; 97018; 97035; 97110; 97140; 97166; 97535; 97760

== ENCOUNTER 2024-03-13 12:30 | Outpatient (AMB) | payer MEDICAID, SELFPAY ==
[2024-03-13 12:55] VITALS: BP 120/72; PULSE 80; O2SAT 97; BMI 41.0
--- NOTE | 2024-03-13 12:55 | MHC.OFFVIS ---
Vital Signs 03/13/24 12:55 Height 5 ft 2 in Weight 224 lb 2 oz BMI 41.0 BP 120/72 Blood Pressure Location Lt brachial Position Sitting Pulse 80 Pulse Source Pulse Oximeter Pulse Oximetry (%) 97 Oxygen Delivery Method Room Air Intake Visit Reasons: CTS/MR RECIEVED Intake Note: Patient presents for follow up on arthritis and carpal tunnel syndrome. Allergies No Known Allergies [No Known Allergies*] Allergy (Verified 03/13/24 13:26) HPI HPI CTS/MR RECIEVED: Details: She is on naproxen 500mg BID. Completed PT for elbow and hand pain. Intermittent paresthesia in hands. Left hand paraesthesia is worse than right hand. She has received benefit with cortisone injection for carpal tunnel left side in the past. Cortisone injection for left do Quervain's tenosynovitis resolved pain initially but it has reoccurred. Chronic back pain with right radiculopathy>left radiculopathy with numbness in toes, self-limited. Started November 2023. No fall or trauma. Movement aggravates pain. Rest relieves pain. [facility] Medical History Spasm of muscle of lower back Fatty liver GERD (gastroesophageal reflux disease) Personal history of COVID-19 Cervical intraepithelial neoplasia grade 1 Morbid obesity with BMI of 40.0-44.9, adult NAFL (nonalcoholic fatty liver) Depression Transaminitis Surgical History History of esophagogastroduodenoscopy (EGD) Hx of colonoscopy History of loop electrical excision procedure (LEEP) History of salpingectomy History of endometrial ablation Hx laparoscopic cholecystectomy H/O tubal ligation Previous section Family History Maternal Grandmother Bone cancer Social History Household Members: Children Housing: Apartment Do you presently have visiting nurse or other home services: No Alcohol intake: never Patient Tobacco Use Status: Never used Tobacco service: No Current occupational status: unemployed Female Reproductive History Menstrual Age of Menarche: 15 Review of Systems Const All systems reviewed & are unremarkable except as noted in HPI and below Physical Exam Vital Signs: Last Vital Signs Pulse 80 03/13/24 12:55 BP 120/72 01/14/25 12:55 Pulse Ox 97 03/13/24 12:55 Oxygen Delivery Method Room Air 03/13/24 12:55 BMI result Body Mass Index 41.0 Const Other: General: Comfortable Skin: No lesions seen MSK: Tender to palpate lumbar spinous process and left paraspinal muscles. Negative straight leg raising test. Good lumbar flexion. Tender 1st extensor compartment of left wrists. She has hyperpigmentation (circular area) along 1st extensor compartment of wrists. Positive Lawrence test. No synovitis. Good range of motion of wrists and hands. 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 Office Procedures AMB Joint Injection/Aspiration Joint Injection/Aspiration Details: Left carpal tunnel Prep: site was prepped using aseptic technique Injected: 20 mg of, Kenalog, with 0.5 mL of and 1% plain lidocaine Procedure: The patient tolerated the procedure well. Postprocedure protocol was discussed with patient. CPT code carpal tunnel CPT code carpal tunnel Coding Additional procedure code (CPT) needed (52185) Office Meds lidocaine (PF) 10 mg/mL (1 %) injection solution Performing Provider: Moreno Freeman MD Performing Location[place] [facility] Administered by: Moreno Freeman MD on 03/13/24 14:07 Dose Route Admin Location Dispensed Lot Number Expiration Date [facility] [place] Billing Services Manager 5 mg Infiltration 2 mL [id number] [facility] Kenalog 40 mg/mL suspension for injection Performing Provider: Moreno Freeman MD Performing Location: [facility] Administered by: Moreno Freeman MD on 03/13/24 14:07 Dose Route Admin Location Dispensed Lot Number Expiration Date [facility] [place] Billing Services Manager 20 mg Tendon Sheath Inj. 1 mL AP [id number] [employer] Assessment & Plan Assessment & Plan (1) Carpal tunnel syndrome: Comment: Clinical diagnosis left side with confirmed right carpal tunnel syndrome on recent EMG 08/18/2023. She has greater symptoms on the left side compared to the right. In the past she has received 2 cortisone injection to the left carpal tunnel 01/17/2022 and 06/17/2022 with benefit. She has had reoccurrence of symptoms. I will treat clinical symptoms with cortisone injection. We discussed considering surgical opinion due to recurrence of symptoms. 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 Code(s): G56.00 - Carpal tunnel syndrome, unspecified upper limb Category: Medical Qualifiers: Laterality: bilateral Qualified Code(s): G56.03 - Carpal tunnel syndrome, bilateral upper limbs Plan: Patient received cortisone injection left carpal tunnel this visit Hand surgery referral placed We discussed the importance of regular exercise routine. I recommended daily exercises learned from occupational therapy to improve hand strength. Return to clinic in 3 months (2) De Quervain's tenosynovitis, left: Comment: Recurrent symptoms. She received cortisone injection 12/17/2022 and 05/18/2023 with initial benefit. She has also has hypopigmentation due to steroid injection side effect. I recommend considering surgical opinion. Code(s): M65.4 - Radial styloid tenosynovitis [de Quervain] Category: Medical Plan: Hand surgery referral placed Return to clinic in 3 months (3) Low back pain: Comment: With bilateral radiculopathy. Paraspinal muscle strain is contributing to her back pain but it would not explain radicular symptoms. 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: Comment: Chronic NSAID Code(s): Z79.899 - Other termite control technician (current) drug therapy Category: Medical Plan: See above Orders: Orders Alanine Aminotransferase Today Z79.899 - Other shelter (current) drug therapy Aspartate Amino Transferase Today Z79.899 - Other termite control technician (current) drug therapy XR lumbar spine 2-3V Today M54.50 - Low back pain, unspecified AMB Joint Injection/Aspiration Today G56.00 - Carpal tunnel syndrome, unspecified upper limb Creatinine Today Z79.899 - Other termite control technician (current) drug therapy PT Evaluation and Treatment Today M54.50 - Low back pain, unspecified Referrals Hand Surgery Referral G56.00 - Carpal tunnel syndrome, unspecified upper limb, M65.4 - Radial styloid tenosynovitis [de Quervain] Medications: New meloxicam Replace naproxen 15 mg PO DAILY 30 tabs 2RF Coding Level of Care Code Est Pt Level 4 (85873) Complex EM visit Add On G2211 Diagnoses Bilateral carpal tunnel syndrome G56.03 Laterality: bilateral De Quervain's tenosynovitis, left M65.4 Low back pain M54.50 Other shelter (current) drug therapy Z79.899
== END 2024-03-13 14:09 | disposition home or self-care (01) ==
PROVIDERS: PCP Family Medicine; Visit Provider Internal Medicine Rheumatology
DX: G56.03 Carpal tunnel syndrome, bilateral upper limbs (principal); M65.4 Radial styloid tenosynovitis [de Quervain]; M54.50 Low back pain, unspecified; Z79.899 Other long term (current) drug therapy; G56.00 Carpal tunnel syndrome, unspecified upper limb
CPT/HCPCS: 99214

== ENCOUNTER → 2024-03-13 12:30 | Outpatient (BNVA) | payer MEDICAID, SELFPAY | PROVIDERS: PCP Family Medicine; Visit Provider Internal Medicine Rheumatology | DX: G56.03 Carpal tunnel syndrome, bilateral upper limbs (principal); M65.4 Radial styloid tenosynovitis [de Quervain]; M54.50 Low back pain, unspecified; Z79.899 Other long term (current) drug therapy | CPT/HCPCS: 99212; J2003; J3300 ==

== ENCOUNTER 2024-04-13 12:28 | Outpatient (AMB) | payer MEDICAID, SELFPAY ==
--- NOTE | 2024-04-13 12:46 | A.OFFVIS_ITS ---
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 Patient reports ongoing numbness for a few years. She states she has just been dealing with it and getting cortisone injections. She said they usually help however her symptoms return once this wears off. She says she had a reaction to her last injection and pointed to a white spot on the radial aspect of the left wrist. She reports she has numbness and tingling in her 1st and 2nd left digits and occasionally her 3rd digit catches and locks on her. Reports difficulty with pinching, gripping, grasping. She takes meloxicam for pain however it gives her mild relief. 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 Patient also complains of significant radial sided left wrist pain, for which she has received injections in the past, to minimal effect. Patient reports ongoing numbness for a few years. She states she has just been dealing with it and getting cortisone injections. She said they usually help however her symptoms return once this wears off. She says she had a reaction to her last injection and pointed to a white spot on the radial aspect of the left wrist. She reports she has numbness and tingling in her 1st and 2nd left digits and occasionally her 3rd digit catches and locks on her. Reports difficulty with pinching, gripping, grasping. She takes meloxicam for pain however it gives her mild rel ief. EMG on 08/16/23 [facility] Medical History Spasm of muscle of lower back Fatty liver GERD (gastroesophageal reflux disease) Personal history of COVID-19 Cervical intraepithelial neoplasia grade 1 Morbid obesity with BMI of 40.0-44.9, adult NAFL (nonalcoholic fatty liver) Depression Transaminitis Surgical History History of esophagogastroduodenoscopy (EGD) Hx of colonoscopy History of loop electrical excision procedure (LEEP) History of salpingectomy History of endometrial ablation Hx laparoscopic cholecystectomy H/O tubal ligation Previous section Family History Maternal Grandmother Bone cancer Social History Household Members: Children Housing: Apartment Do you presently have visiting nurse or other home services: No Alcohol intake: never Patient Tobacco Use Status: Never used Tobacco service: No Current occupational status: unemployed Female Reproductive History Menstrual Age of Menarche: 15 Review of Systems Const All systems reviewed & are unremarkable except as noted in HPI and below Physical Exam Extrem Other: Neuro: Diminished sensation in the median nerve distribution of the left hand in the office today Normal sensation of the tips of all other digits bilateral hands No thenar or intrinsic wasting. Good APB muscle firing and good finger cross. Vascular: Capillary refill brisk. ROM: Patient can make a fist and extend all their digits. Pain: Positive Lawrence test on the left Significant tenderness to palpation of the radial styloid of the left hand noted Skin: No lacerations or abrasions noted. General: No ecchymosis. No erythema or evidence of infection. Results Reviewed Results Reviewed: IMPRESSION: Mild right median neuropathy across carpal tunnel. Otherwise no significant abnormality noted. MD MARIA Gutierrez/QAMAR Assessment & Plan Assessment & Plan (1) Carpal tunnel syndrome: Comment: Clinical diagnosis left side with confirmed right carpal tunnel syndrome on recent EMG 08/18/2023. She has greater symptoms on the left side compared to the right. In the past she has received 2 cortisone injection to the left carpal tunnel 01/17/2022 and 06/17/2022 with benefit. She has had reoccurrence of symptoms. I will treat clinical symptoms with cortisone injection. We discussed considering surgical opinion due to recurrence of symptoms. 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 Code(s): G56.00 - Carpal tunnel syndrome, unspecified upper limb Category: Medical Qualifiers: Laterality: bilateral Qualified Code(s): G56.03 - Carpal tunnel syndrome, bilateral upper limbs (2) De Quervain's tenosynovitis, left: Comment: Recurrent symptoms. She received cortisone injection 12/17/2022 and 05/18/2023 with initial benefit. She has also has hypopigmentation due to steroid injection side effect. I recommend considering surgical opinion. Code(s): M65.4 - Radial styloid tenosynovitis [de Quervain] Category: Medical Plan 1. Left carpal tunnel syndrome 2. De Quervain tenosynovitis, left I educated the patient about the condition. I discussed both operative and nonoperative treatment options. The patient would like to proceed with surgery. The risks and benefits of operative treatment were discussed with the patient and the patient wishes to proceed with surgery. These risks include, but are not limited to, risk of damage to blood vessels, nerves, tendons, infection, recurrence, incomplete relief of preoperative symptoms, persistent pain, possible need for further surgery, and the risks associated with regional blocks and/or anesthesia. Plan is to take the patient to the operating room at some point in the next few weeks for the following procedures: 1. Left carpal tunnel release under local anesthesia 2. Left 1st dorsal compartment release under local anesthesia All of the preoperative paperwork including the consent was discussed today. All of the patient's questions were answered in the clinic today. The patient understands that they will be in contact with our surgical supervisor to discuss scheduling their procedure. Patient denies diabetes, blood thinners, asthma, heart issues, lung issues, kidney issues, or current smoking. Coding Level of Care Code New Pt Level 4 (76633) Diagnoses Bilateral carpal tunnel syndrome G56.03 Laterality: bilateral De Quervain's tenosynovitis, left M65.4
--- OUTSIDE RECORDS SUMMARY | 2024-04-13 12:55 | XMS_ITS | Clinical Summary ---
Author Organization [employer] Address [address] [place] [address] [address] [place] [address] Care Team Providers Care Supervisor Machine Workers Name Role Phone RekhaGeorgetteVera Primary Care Provider Allergies No known active allergies Medications buPROPion XL (Wellbutrin XL) 300 MG 24 hr tablet Take 300 mg by mouth in the morning. 06/11/19 23 Active sertraline (Zoloft) 100 MG tablet Take 200 mg by mouth in the morning. 08/03/19 23 Active zolpidem (Ambien) 10 MG tablet Take 10 mg by mouth if needed at bedtime. 06/15/19 23 Active atorvastatin (Lipitor) 20 MG tablet Take 1 tablet (20 mg) by mouth Once per day. 90 tablet 3 06/22/19 24 2024 Active fluticasone (Flonase) 50 MCG/ACT nasal sprayIndication s:Seasonal allergic rhinitis, unspecified trigger SPRAY 2 SPRAYS INTO EACH NOSTRIL EVERY DAY 48 mL 1 10/04/19 24 Active cholecalciferol (Vitamin D-3) 50 MCG (1999 UT) tablet TAKE 1 TABLET BY MOUTH EVERY DAY 90 tablet 1 11/07/19 24 Active naproxen (Naprosyn) 500 MG tabletIndicatio ns:Acute left-sided low back pain with left-sided sciatica TAKE 1 TABLET BY MOUTH TWICE A DAY FOR 7 DAYS THEN NEEDED FOR PAIN.TAKE WITH FOOD 60 tablet 11/08/19 24 Active hydroCHLOROthia zide (HYDRODiuril) 25 MG tabletIndicatio ns:Essential hypertension TAKE 1 TABLET BY MOUTH EVERY DAY IN THE MORNING 90 tablet 1 11/22/19 Active omeprazole (PriLOSEC) [address] capsule TAKE 1 CAPSULE BY MOUTH BEFORE BREAKFAST AND BEFORE EVENING MEAL 180 capsule 1 02/01/20 Active Senna-Time 8.6 MG tablet TAKE 2 TABLETS BY MOUTH EVERY DAY NEEDED FOR CONSTIPATION 180 tablet 1 04/11/19 Active Senna-Time 8.6 MG tablet TAKE 2 TABLETS BY MOUTH EVERY DAY NEEDED FOR CONSTIPATION 180 tablet 1 11/07/19 24 2024 Discontinued Active Problems Problem Noted Date Diagnosed Date Carpal tunnel syndrome 01/02/2024 De Quervain's tenosynovitis, left 06/24/2023 Depressive disorder 06/22/2023 Assessment & Plan (06/22/2023 2:25 PM EDT): -she denies any SI/HI -she has the number for crisis and contacts for safety -cont current med regimen as per psychiatry, encouraged d/w psychiatry re: tx with cymbalta -f/u with therapist and psychiatrist as scheduled Polyarthralgia 06/22/2023 Assessment & Plan (06/22/2023 2:26 PM EDT): Probable FM -hand XR nml OCT 2018 -foot XR with mild DJD OCT 2018 -CORAL positive with mildly elevated ESR -strongly encouraged trial acupuncture -f/u with rheum as scheduled, due JUL 2023 Healthcare maintenance 06/22/2023 History of abnormal cervical Pap smear 3 12/30/2022 History of COVID-19 08/20/2022 Fatty liver 08/20/2022 Essential hypertension 08/20/2022 Assessment & Plan (06/22/2023 2:09 PM EDT): BP controlled -cont HCTZ daily -Cr/GFR nml DEC 2022 and urine microalbumin nml OCT 2021 -optho eval next mos Chronic gastroesophageal reflux disease 08/19/19 16 Vitamin D deficiency 08/19/2015 Hyperlipidemia 05/13/2015 Assessment & Plan (06/22/2023 2:11 PM EDT): Slight bump in LDL DEC 2022 -increase lipitor to 20mg nightly BMI 40.0-44.9, adult 05/13/2015 Resolved Problems Problem Noted Date Diagnosed Date Resolved Date Acute respiratory failure with hypoxia 12/30/202212/30/2022 COVID-19 12/30/2022 12/30/2022 12/30/2022 Left elbow pain 12/30/2022 12/30/2022 12/30/2022 Fatty Liver 12/30/2022 12/30/2022 01/02/2024 Assessment & Plan (06/22/2023 2:25 PM EDT): -abd US with echogenic liver, no focal lesion FEB 2021 -LFTs and AFP wnl DEC 2022 -Hep A/B immune -cont Vit E daily as per GI -f/u with GI as scheduled, review next visit Well woman exam 12/30/2022 12/30/2022 12/30/2022 Steatosis of liver 05/13/2015 3 Encounters Date Type Department Care Team Description 04/09/[address] [facility] [address] [place] [address] Vera Da Silva DO 02/01/[address] [facility] [address] [place] [address] Vera Da Silva DO from Last 3 Months Immunizations Name Administration Dates Next Due Hep A, Adult 12/09/2016,08/19/2015 Hep B, adult 01/14/2010,09/12/2009,11/13/2007 Influenza injectable quadriv alent preservative free 12/10/2022,11/20/2021,01/02/2021,2019,12/12/2018,02/08/2018,12/09/2016 Influenza, IIV3, injectable 01/14/2010 Influenza, Split (incl. juventino fied surface antigen) 11/10/2011 Influenza, seasonal, injecta ble, preservative free 11/25/2023 Pneumococcal Conjugate PCV 20 12/30/2022 TD (adult), 2 Lf tetanus tox oid, preservative free, adsorbed 02/05/2021,11/13/2007 Tdap 07/01/2023,01/14/2010,01/13/2009 Varicella 11/13/2007 Zoster, Recombinant 09/30/2023,07/01/2023 Social History Tobacco Use Types Packs/Day Years Used Date Smoking Tobacco: Never Passive Smoke Exposure: Never Smokeless Tobacco: Never Tobacco Cessation:Counseling Given: Not Answered Alcohol Use Standard Drinks/Week Comments Not Currently 0 (1 standard drink = 0.6 oz pur e alcohol) Depression Answer Date Recorded Patient Health Questionnaire-9 Score 11 01/02/2024 Patient Health Questionnaire-9 Score 11 01/02/2024 Last PHQ-9: Questionnaire Data Not on file 1 03/03/2023 Housing Stability Answer Date Recorded What is your housing situation today? I have [place] 12/30/[address] you li ve. Do you have problems with any of the following? None of the above 12/30/2022 Food Insecurity Answer Date Recorded Within the past 12 months, y ou worried that your food would run out before you got money to buy more: Never True 12/30/2022 Within the past 12 months,th e food you bought just didn't last and you didn't have enough money to get more: Never True 03/2022 Transportation Answer Date Recorded In the past 12 months, has l ack of transportation kept you from medical appts, meetings, work or from getting things needed for daily living? No 12/30/2022 Utilities Answer Date Recorded In the past 12 months, has t he electric, gas, oil or water company threatened to shut off services in your home? No 12/30/2022 Depression Answer Date Recorded Patient Health Questionnaire-2 Score 4 01/02/2024 Internet Access Answer Date Recorded Internet Access Q1 Yes 12/22/2023 Internet Access Q2 Not on file 12/22/2023 Comments Unknown Sex and Gender Information Value Date Recorded Sex Assigned at Female 12/28/2021 10:18 AM EDT Legal Sex Female 10:18 AM EDT Gender Identity Female 12/28/2021 10:18 AM EDT Sexual Orientation Straight 12/28/2021 10 :18 AM EDT Last Filed Vital Signs Vital Sign Reading Time Taken Comments Blood Pressure 129/79 01/02/2024 11:09 AM EST Pulse 77 01/02/2024 11:09 AM EST Temperature 35.9 ??C (96.6 ??F) 01/02/2024 11:[address] Respiratory Rate 18 01/02/2024 11:09 AM EST Oxygen Saturation 98% 06/22/2023 11:25 AM EDT Inhaled Oxygen Concentration - - Weight 99.8 kg (220 lb) 01/02/2024 11:09 AM EST Height 154.9 cm (5' 1 ) 01/02/2024 11:09 AM EST Body Mass Index 41.57 01/02/2024 11:09 AM EST Plan of Treatment Health Maintenance Due Date Last Done Comments CT Colonography 1972 FIT DNA/Cologuard 1972 FIT 1972 FOBT 1972 Sigmoidoscopy 1972 Alcohol/Substance Use Screening 1984 Family Planning (PISQ) 1987 Cervical Cancer Screening 05/26/2023 HPV/Cotest 05/26/2023 05/25/2022, 03/01, 03/23/2021, Additional history exists Pap Smear 05/26/2023 05/25/2022, 03/23/2021 SDOH Screening 06/13/2024 06/14/2023 Depression Monitoring (PHQ-9) 07/01/2024 01/02/2024, 01/02/2024 Colonoscopy 08/30/2024 08/30/2022 Colorectal Cancer Screening 08/30/2024 Depression Screening 01/01/2025 01/02/2024, 01/02/20 Tobacco Screening 01/01/2025 01/02/2024 Mammogram 05/12/2025 05/13/2023, 04/28, 05/07/2022, Additional history exists Lipid Panel 01/01/2029 01/02/2024, 12/29, 11/20/2021, Additional history exists DTaP/Tdap/Td Vaccines (5 - Td or Tdap) 06/30/2033 07/01/2023, 02/05/2021, 01/14/2010, Additional history exists RSV Patients and Patients Aged 60 years or older (1 - 1-dose 75+ series) 2047 Hepatitis B Vaccines Completed 01/14/2010, 09/12/2009, 11/13/2007 Hepatitis A Vaccines Completed 12/09/2016, 08/19/19 16 Pneumococcal Vaccine: 50+ Years Completed 12/30/2022 Zoster Vaccines Completed 09/30/2023, 07/01/2023 COVID-19 Vaccine Completed 11/25/2023, , 12/31/2021, Additional history exists Influenza Vaccine Completed 11/25/2023, , 11/20/2021, Additional history exists HIV Screening Completed 01/02/2024, 12/29, 11/20/2021, Additional history exists Hepatitis C Screening Completed 01/02/2024 , 01/14/2023, 11/20/2021, Additional history exists HIB Vaccines Aged Out No longer eligi ble based on patient's age to complete this topic HPV Vaccines Aged Out No longer eligi ble based on patient's age to complete this topic IPV Vaccines Aged Out No longer eligi ble based on patient's age to complete this topic Meningococcal Vaccine Aged Out No renny aryan eligible based on patient's age to complete this topic RSV under 20 months Aged Out No longe r eligible based on patient's age to complete this topic Rotavirus Vaccines Aged Out No longer eligible based on patient's age to complete this topic Procedures Procedure Name Priority Date/Time Associated Diagnosis Comments HEPATITIS C AB W/REFL TO HCV RNA, QN, PCR Routine 01/02/2024 12:15 PM EST Essential hypertension Other hyperlipidemia Fatty liver Depressive disorder Polyarthralgia Bilateral hand numbness Healthcare maintenance HIV 1/2 ANTIGEN/ANTIBODY, FOURTH GENERATION W/RFL Routine 01/02/2024 12:15 PM EST Essential hypertension Other hyperlipidemia Fatty liver Depressive disorder Polyarthralgia Bilateral hand numbness Healthcare maintenance LIPID PANEL, STANDARD Routine 01/02/2024 12:15 PM EST Essential hypertension Other hyperlipidemia Fatty liver Depressive disorder Polyarthralgia Bilateral hand numbness Healthcare maintenance BI MAMMOGRAM SCREENING TOMOSYNTHESIS BILATERAL Routine 05/13/2023 12:40 PM EDT HM COLONOSCOPY Routine 08/30/2022 HPV MRNA E6/E7 REFLEX TO HPV 16, 18/45 Routine 05/25/2022 11:12 AM EDT PAP SMEAR Routine 05/25/2022 11:12 AM EDT from Last 3 Months or Most Recently Relevant to Health Maintenance Results * Hepatitis C Antibody with Reflex to HCV, RNA, Quantitative, Real-Time PCR (01/02/2024 12:15 PM EST) Hepatitis C Antibody Nonreactive Nonreactive [facility] Comment:Antibodies to HCV no t detected; does not exclude early acuteHCV infection. Blood Venous blood specimen / Unknown 01/02/2024 12:15 PM EST 01/02/2024 1:31 PM EST Vera Da Silva DO LAB BLOOD ORDERABLES Final R esult [facility] [address] [place] [phone] * HIV-1/2 Antigen and Antibodies, Fourth Generation, with Reflexes (01/02/2024 12:15 PM EST) HIV AB/AG Nonreactive Nonreactive [facility] Comment:HIV-1 p24 Ag and/or HIV-1/HIV-2 Ab not detected.A test result that is nonreactive does not exclude thepossibility of exposure to or infection with HIV-1 and/orHIV-2. Nonreactive results in this assay for individualswith prior exposure to HIV-1 and/or HIV-2 may be due toantigen and antibody levels that are below the limit ofdetection of this assay.The [employer] HIV Ag/Ab Combo assay result andsupplemental assay results should be interpreted inconjunction with the patient's clinical presentation,history and other laboratory results. If the results areinconsistent with clinical evidence, additional testing issuggested to confirm the result. Blood Venous blood specimen / Unknown 01/02/2024 12:15 PM EST 01/02/2024 1:31 PM EST Vera Da Silva DO LAB BLOOD ORDERABLES Final R esult Performing Organization Address City/[facility]/ZIP Co de Phone Number [facility] [address] [place] [address] [phone] * (ABNORMAL) Lipid Panel, Standard (01/02/2024 12:15 PM EST) Triglycerides 90 <150 mg/dL [facility] Comment:Desirable Triglyceri de: less than 150 mg/dLBorderline High Triglyceride 150-199 mg/dLHigh Triglyceride: 200-499 mg/dLVery High Triglyceride: greater than or equal to 5OO mg/dL Cholesterol 188 <200 mg/dL [facility] Comment:Desirable Cholestero l: less than 200 mg/dLBorderline High Cholesterol: 200-239 mg/dLHigh Cholesterol: greater than 239 mg/dL LDL Cholesterol Calculated 110(H) <100 mg/dL [facility] Comment:Desirable LDL: less than 100 mg/dLNear Optimal/Above Optimal LDL: 110- 129 mg/dLBorderline High LDL: 130-159 mg/dLHigh LDL: 160-189 mg/dLVery High LDL: greater than or equal to 190 mg/dL HDL Cholesterol 60 >40 mg/dL [facility] Comment:Desirable HDL: great er than 40 mg/dL Note: This HDL assay may give artificially low results in patients with liver disease. Blood Venous blood specimen / Unknown 01/02/2024 12:15 PM EST 01/02/2024 1:31 PM EST Vera Da Silva DO LAB BLOOD ORDERABLES Final R esult Performing Organization Address City/[facility]/ZIP Co de Phone Number [facility] [address] [place] [phone] * BI Mammogram Screening Tomosynthesis Bilateral (05/13/2023 12:40 PM EDT) Anatomical Region Laterality Modality Breast Bilateral Mammography 05/13/2023 12:4 0 PM EDT Narrative 06/04/2023 3:01 PM EDT ? [facility] ? [address] ?[place] [address] ? Mammography Report ? Signed ? Patient: Woodis,Nelly ?MR#: [id number] ? : 1970 ?Acct:[id number] ? Age/Sex: 53 / F ?ADM Date: 05/13/23 ? Loc: HO.MAMMO ? Attending Dr: Vera Da Silva DO ? Ordering Physician: Vera Da Silva DO ?Results: 1N ?? egative ? Date of Service: 05/13/23 ?Follow Up: 1 Year From Orig ?? inal Mammogram ? Procedure(s): MM tomosynthesis screening BI ?? Accession Number(s): [id number] ? cc: Vera Da Silva DO ? EXAMINATION: ?? MM SCREENING DIGITAL BREAST TOMOSYNTHESIS, BILATERAL ? CLINICAL INFORMATION: ? Screening. Asymptomatic. ? COMPARISON: ?? Mammography: This study is compared with prior exams dating back to ?? 2019. ? TECHNIQUE: ?? Digital breast tomosynthesis is performed in both the craniocaudal and ?? mediolateral oblique views along with computer-aided detection (CAD). ?? Synthesized 2D images are generated from the tomosynthesis. ? FINDINGS: ?? There are scattered areas of fibroglandular density (ACR BI-RADS breast ?? composition Category b). ? There are no significant masses, abnormal calcifications, or other ?? abnormalities. ? MM/MM tomosynthesis screening BI ?? IMPRESSION: ?? No mammographic evidence of malignancy. ? ASSESSMENT: ? BI-RADS BI-RADS 1 - Negative ? RECOMMENDATION: ?? Routine annual mammography screening. ? 1 year F/U ? This examination should not preclude the clinical evaluation of a ?? suspicious palpable abnormality. ? This patient's information was entered into a reminder system with a ?? target due date for their next mammogram. ? Dictated By: ?Aicha Mcnair MD ? Signed By: ?<Electronically signed by Aicha Mcnair MD in OV> ? 06/04/23 145 ? DD/ 1240 ? TD/TT: ? Educational Sign Language Interpreter: ? Procedure Note Jyo Love - 06/04/2023 [facility] [address] [place], [place] [address] Mammography Report Signed Patient: Olga Paredes#: [id number] : 1970Acct:[id number] Age/Sex: 53 / FADM Date: 05/13/23 Loc: HO.MAMMO Attending Dr: Vera Da Silva DO Ordering Physician: Vera Da Silvaults: 1N egative Date of Service: 05/13/23Follow Up: 1 Year From Orig inal Mammogram Procedure(s): MM tomosynthesis screening BI Accession Number(s): [id number] cc: Vera Da Silva DO EXAMINATION: MM SCREENING DIGITAL BREAST TOMOSYNTHESIS, BILATERAL CLINICAL INFORMATION: Screening. Asymptomatic. COMPARISON: Mammography: This study is compared with prior exams dating back to 2019. TECHNIQUE: Digital breast tomosynthesis is performed in both the craniocaudal and mediolateral oblique views along with computer-aided detection (CAD). Synthesized 2D images are generated from the tomosynthesis. FINDINGS: There are scattered areas of fibroglandular density (ACR BI-RADS breast composition Category b). There are no significant masses, abnormal calcifications, or other abnormalities. MM/MM tomosynthesis screening BI IMPRESSION: No mammographic evidence of malignancy. ASSESSMENT: BI-RADS BI-RADS 1 - Negative RECOMMENDATION: Routine annual mammography screening. 1 year F/U This examination should not preclude the clinical evaluation of a suspicious palpable abnormality. This patient's information was entered into a reminder system with a target due date for their next mammogram. Dictated By: Aicha Mcnair MD Signed By: <Electronically signed by Aicha Mcnair MD in OV> 06/04/23 1457 DD/ 1240 TD/TT: Educational Sign Language Interpreter: Vera Da Silva DO IMG BI PROCEDURES Final Resu lt * Hm Colonoscopy (08/30/2022) Colonoscopy Normal Normal Narrative Yadi Jinny - 08/30/2022 Recommended a 2 year follow up ( HM[facility] ) Historical Provider HEALTH MAINTENANCE Final Result * HPV mRNA E6/E7 w/Reflex to HPV Genotypes 16, 18/45 (05/25/2022 11:12 AM EDT) HPV nRNA E6/E7 Not Detected Not Detected [facility] Comment:Methodology: Transcr iption-Mediated AmplificationThis assay detects E6/E7 viral messenger RNA (mRNA) from 14high-risk HPV types (16,18,31,33,35,39,45,51,52,56,58,59,66,68).Cervical sources are required for HPV testing.If a vaginal source from a patient who has had atotal hysterectomy with removal of cervix wassubmitted, please contact the testing laboratoryfor alternative testing options.For additional information, please refer [email or web address]/[email or web address](This link if provided for information/educational purposes only.)THIS TEST WAS PERFORMED AT:[facility] [place] [phone] NG MD HPV mRNA E6/E7 TNP [facility] HPV 16 RNA TNP [facility] HPV 18/45 RNA TNP [facility] 05/25/2022 11:1 2 AM EDT 05/25/2022 4:30 PM EDT us [facility] External Provider LAB CYT OLOGY ORDERABLES Final Result [facility] [address] [place] [phone] * Pap Smear (05/25/2022 11:12 AM EDT) 05/25/2022 11:1 2 AM EDT 05/25/2022 4:30 PM EDT Narrative [facility] - 06/07/2022 7:16 AM EDT ----- ------- Name: [place] Paredes ? Age/Sex: 52/F ? : 1970 Unit#: [id number] ?? Attend Dr: Yaron Das MD ?Re05/25/22 ?Status: DEP REF ? Location: HO.LNP ?Disch: ? ----- ------- SPEC : [id number] ? RECD: 05/25/221630 ? STATUS: ??SOUT ? REQ NUM: [id number] ? KEKE: 05/25/22-1112 ? SUBM DR: Yaron Das MD ? ENTERED: ??05/25/22-1715 ?SP TYPE: Pap Smr ?OTHR DR: Vera Da Silva DO ? ORDERED: ??Pap Smear ? Interpretation ?? Satisfactory for evaluation. ?? Negative for intraepithelial lesion or malignancy. ? HPV mRNA E6/E7: ?NOT DETECTED ? This assay detects E6/E7 viral messenger RNA (mRNA) from 14 high-risk HPV types (16, 18, ?? 31, 33, 35, 39, 45, 51, 52, 56, 58, 59, 66, 68) ? HPV testing performed by [facility], [place], [place]. ??See reference laboratory ?? portion of the EMR for entire report. ?Clinical Information LMP: PM Previous PAP test: 2021, Abnormal Other history: CIN1, HPV+ ? Material Received ?? ThinPrep-Cervical Copies To: ?? Vera Da Silva DO ?? [address] ?? [place] [address] ? Yaron Das MD ?? [address] [place] [facility] ?? [place] [address] ?? [phone] ----- ------- Signed (signature on file) Caroline Vipin Lyle 06/07/22715 ? ----- ------- ? END OF REPORT ? [facility] External Provider LAB [facility] ORDERABLES Final Result [facility] [address] [facility] [place] [phone] from Last 3 Months or Most Recently Relevant to Health Maintenance [facility] Care Teams Supervisor Machine Workers Relationship Specialty Start Date End Date Vera Da Silva DO [address] [place] [phone] PCP - General Family Medicine 02/28/18
--- OUTSIDE RECORDS SUMMARY | 2024-04-13 12:55 | XMS_ITS | Encounter Summary ---
Author Organization [employer] Address [address] [place] [address] [address] [place] [address] Care Team Providers Care Dope Pourer Name Role Phone Vera Da Silva DO Primary Care Provider [phone] Encounter Details Date Type Department Care Team ([facility] st Contact Info) Description 03/19/2022 Orders Only [facility] [address] [place] [address] Vera Spangler LPN Social History Tobacco Use Types Packs/Day Years Used Date Smoking Tobacco: Never Assessed Comments Unknown Sex and Gender Information Value Date Recorded Sex Assigned at Female 12/28/2021 10:18 AM EDT Legal Sex Female 10:18 AM EDT Gender Identity Female 12/28/2021 10:18 AM EDT Sexual Orientation Straight 12/28/2021 10 :18 AM EDT documented as of this encounter Plan of Treatment Not on file documented as of this encounter Visit Diagnoses Not on filedocumented in this encounter Care Teams Dope Pourer Relationship Specialty Start Date End Date Vera Da Silva DO [address] [place] [address] PCP - General Family Medicine 02/28/18 documented as of this encounter
--- OUTSIDE RECORDS SUMMARY | 2024-04-13 12:55 | XMS_ITS | Encounter Summary ---
Author Organization [employer] Address [address] [place] [address] [address] [place] [address] Care Team Providers Care Sales And Marketing Associate Name Role Phone Vera Da Silva DO Primary Care Provider [phone] Reason for Visit * Reason Comments Med Refill Encounter Details Date Type Department Care Team (Late st Contact Info) Description 09/09/2022 Refill [facility] [address] [place] [address] Akilah Brannon, ANP [address] [place] [address] Acute left-sided low back pain with left-sided sciatica Social History Tobacco Use Types Packs/Day Years Used Date Smoking Tobacco: Never Passive Smoke Exposure: Never Smokeless Tobacco: Never Alcohol Use Standard Drinks/Week Comments Not Currently 0 (1 standard drink = 0.6 oz pur e alcohol) Depression Answer Date Recorded Patient Health Questionnaire-9 Score 13 08/20/2022 Depression Answer Date Recorded Patient Health Questionnaire-2 Score 2 08/20/2022 Comments Unknown Sex and Gender Information Value Date Recorded Sex Assigned at Female 12/28/2021 10:18 AM EDT Legal Sex Female 10:18 AM EDT Gender Identity Female 12/28/2021 10:18 AM EDT Sexual Orientation Straight 12/28/2021 10 :18 AM EDT COVID-19 Exposure Response Date Recorded In the last 10 days, have yo u been in contact with someone who was confirmed or suspected to have Coronavirus/COVID-19? No / Unsure 08/13/2022 9:22 AM EDT documented as of this encounter Plan of Treatment Not on file documented as of this encounter Visit Diagnoses Diagnosis Acute left-sided low back pain with left-sided sciatica documented in this encounter Additional Health Concerns Assessment Noted Time PHQ-9 Depression Total Score: 13 023 11:13 AM EDT documented as of this encounter Care Teams Sales And Marketing Associate Relationship Specialty Start Date End Date Vera Da Silva DO [address] [place] [address] PCP - General Family Medicine 02/28/18 documented as of this encounter
--- OUTSIDE RECORDS SUMMARY | 2024-04-13 12:55 | XMS_ITS | Encounter Summary ---
Author Organization [employer] Address [address] [place] [address] 7 [place] [address] Care Team Providers Care Neurology Stroke Physician Name Role Phone Vera Da Silva DO Primary Care Provider +1- [phone] Encounter Details Date Type Department Care Team ([facility] st Contact Info) Description 09/21/[address] [facility] MEDICINE 230 [place], [place] [phone] Vera Da Silva DO 230 [place] [address] Social History Tobacco Use Types Packs/Day Years [...] on file documented as of this encounter Procedures Procedure Name Priority Date/Time Associated Diagnosis Comments COLONOSCOPY Routine 08/30/2022 documented in this encounter Results * Colonoscopy (08/30/2022) Colonoscopy Normal Normal Narrative Jinny Grullon - 08/30/2022 Recommended a 2 year follow up ( [facility] ) us Historical Provider MD HEALTH MAINTENANCE Final Result documented in this encounter Visit Diagnoses Not on filedocumented in this encounter Additional Health Concerns Assessment Noted Time PHQ-9 Depression Total Score: 13 023 11:13 AM EDT documented as of this encounter Care Teams Neurology Stroke Physician Relationship Specialty Start Date End Date Vera Da Silva DO [address] [place] [address] PCP - General Family Medicine 02/28/18 documented as of this encounter
--- OUTSIDE RECORDS SUMMARY | 2024-04-13 12:55 | XMS_ITS | Encounter Summary ---
Author Organization [employer] Address [address] [place] [address] 7t [place] [address] Care Team Providers Care Picture Framer Name Role Phone Vera Da Silva DO Primary Care Provider +1- [phone] Encounter Details Date Type Department Care Team (Latest Contact Info) Description 05/16/2018 Abstract [facility] Dental, Provider, DDS Social History Tobacco Use Types Packs/Day Years [...] on filedocumented in this encounter Care Teams Picture Framer Relationship Specialty Start Date End Date Vera Da Silva DO [address] [place] [address] PCP - General Family Medicine 02/28/18 documented as of this encounter
--- OUTSIDE RECORDS SUMMARY | 2024-04-13 12:55 | XMS_ITS | Encounter Summary ---
Author Organization [employer] Address [address] [facility] 7 [place] [address] Care Team Providers Care Demo Event Specialist Name Role Phone Vera Da Silva DO Primary Care Provider +1 [phone] Reason for Visit * Reason Onset Date Comments Appointment Request 04/22/2023 Encounter Details Date Type Department Care Team ([facility] st Contact Info) Description 04/22/[address] [facility] MEDICINE 230 [place], [place] [phone] Vera Da Silva DO 230 [place] [address] Appointment Request Social History Tobacco Use Types Packs/Day Years Used Date Smoking Tobacco: Never Passive Smoke Exposure: Never Smokeless Tobacco: Never Alcohol Use Standard Drinks/Week Comments Not Currently 0 (1 standard drink = 0.6 oz pur e alcohol) Depression Answer Date Recorded Patient Health Questionnaire-9 Score 13 08/20/2022 Housing Stability Answer Date Recorded What is [...] AM EDT documented as of this encounter Miscellaneous Notes * Telephone Encounter - Vinay Noonan - 04/22/2023 2:24 PM EST Tc from pt requesting an appt with PCP. Newsc[employer] Producer tried booking due to recall but Dr. Da Silva Scheduled not available. Please contact pt @ [phone] documented in this encounter Plan of Treatment Not on file documented as of this encounter Visit Diagnoses Not on filedocumented in this encounter Additional Health Concerns Assessment Noted Time PHQ-9 Depression Total Score: 13 023 11:13 AM EDT documented as of this encounter Care Teams Demo Event Specialist Relationship Specialty Start Date End Date Vera Da Silva DO 230 [place] [address] PCP - General Family Medicine 02/28/18 documented as of this encounter
--- OUTSIDE RECORDS SUMMARY | 2024-04-13 12:55 | XMS_ITS | Encounter Summary ---
Author Organization [employer] Address [address] [place] [address] 7t [place] [address] Care Team Providers Care Epic Cupid Analyst Name Role Phone Rekha Vera Primary Care Provider +1 [phone] Encounter Details Date Type Department Care Team ([facility] st Contact Info) Description 12/03/2022 Abstract [facility] MEDICINE 230 [place], [place] [phone] Jinny Grullon Social History Tobacco Use Types Packs/Day Years [...] Procedure Name Priority Date/Time Associated Diagnosis Comments BIOPSY CERVIX Routine 07/10/2021 COLPOSCOPY Routine 04/30/2021 HM PAP/HPV Routine 03/23/2021 COLPOSCOPY Routine 04/09/2020 documented in this encounter Results * Biopsy cervix (07/10/2021) Historical Provider IN CLINIC/BEDSIDE ORDERAB LES Final Result * Colposcopy (04/30/2021) [facility] Provider IN CLINIC/BEDSIDE ORDERAB LES Final Result * (ABNORMAL) Hm Pap Smear (03/23/2021) Pap Epithelial cell abnormality(A ) Negative for intraephithelial lesion or malignancy, Other Comment:LSIL HPV Detected Result [facility] Provider HEALTH MAINTENANCE Final Result * Colposcopy (04/09/2020) Result [facility] Provider IN CLINIC/BEDSIDE ORDERAB LES Final Result documented in this encounter Visit Diagnoses Not on filedocumented in this encounter Additional Health Concerns Assessment Noted Time PHQ-9 Depression Total Score: 13 023 11:13 AM EDT documented as of this encounter Care Teams Epic Cupid Analyst Relationship Specialty Start Date End Date Vera Da Silva DO 230 [place] [address] PCP - General Family Medicine 02/28/18 documented as of this encounter
--- OUTSIDE RECORDS SUMMARY | 2024-04-13 12:55 | XMS_ITS | Encounter Summary ---
Author Organization [employer] Address [address] [place] [address] 7 [place] [address] Care Team Providers Care Dance Hall Host/Hostess Name Role Phone Vera Da Silva DO Primary Care Provider +[phone] Reason for Visit * Reason Comments Med Refill Encounter Details Date Type Department Care Team (Late st Contact Info) Description 04/09/2024 Refill [facility] MEDICINE 230 [place], [place] [phone] Vera Da Silva DO 230 [place], [place] [phone] Social History Tobacco Use Types Packs/Day Years [...] Assessment Noted Time PHQ-9 Depression Total Score: 11 024 11:12 AM EST documented as of this encounter Care Teams Dance Hall Host/Hostess Relationship Specialty Start Date End Date Vera Da Silva DO [address] [place] [address] PCP - General Family Medicine 02/28/18 documented as of this encounter
== END 2024-04-13 13:21 | disposition home or self-care (01) ==
PROVIDERS: PCP Family Medicine
DX: G56.03 Carpal tunnel syndrome, bilateral upper limbs (principal); M65.4 Radial styloid tenosynovitis [de Quervain]
CPT/HCPCS: 99204

== ENCOUNTER → 2024-04-13 12:28 | Outpatient (BNVA) | payer MEDICAID, SELFPAY | PROVIDERS: PCP Family Medicine | DX: G56.03 Carpal tunnel syndrome, bilateral upper limbs (principal); M65.4 Radial styloid tenosynovitis [de Quervain] | CPT/HCPCS: 99212 ==

== ENCOUNTER 2024-04-23 09:28 | Outpatient (REF) | payer MEDICAID, SELFPAY ==
--- NOTE | ~2024-04-23 | XR_ITS ---
EXAMINATION: XR LUMBOSACRAL SPINE CLINICAL INFORMATION: M54.50 - Low back pain, unspecified COMPARISON: August 13, 2022. TECHNIQUE: Three views of the lumbosacral spine. FINDINGS: Absent ribs at T12 versus sacralization vertebra. Labeled nonrib T12. Grade 1 anterolisthesis at L3-4.. Endplate sclerosis and marginal osteophyte formation at the sacralized vertebra, L5-S1. Vascular clips right upper quadrant abdomen. 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 Spondylosis L5-S1. Grade 1 anterolisthesis L3-4. Electronically signed by: Braydon Cazares MD 04/24/2024 11:23 AM DAYANARA
--- OUTSIDE RECORDS SUMMARY | 2024-04-23 10:16 | XMS_ITS | Encounter Summary ---
Author Organization [employer] Address [address] [place] [address] 7 [place] [address] Care Team Providers Care Ball Sorter Name Role Phone Vera Da Silva DO Primary Care Provider +1- [phone] Encounter Details Date Type Department Care Team ([facility] st Contact Info) Description 09/21/2022 Abstract [facility] MEDICINE 230 [place], [place] [phone] Vera Da Silva DO 230 [place] [address] Social History Tobacco Use Types Packs/Day Years [...] documented as of this encounter Care Teams Ball Sorter Relationship Specialty Start Date End Date Vera Da Silva DO [address] [place] [address] PCP - General Family Medicine 02/28/18 documented as of this encounter
--- OUTSIDE RECORDS SUMMARY | 2024-04-23 10:16 | XMS_ITS | Encounter Summary ---
Author Organization [employer] Address [address] [place] [address] 7t [place] [address] Care Team Providers Care Medical Billing Service Name Role Phone Vera Da Silva DO Primary Care Provider [phone]- [phone] Encounter Details Date Type Department Care Team ([facility] st Contact Info) Description 03/19/2022 Orders Only [facility] [address] [place] [address] Vera Spangler LPN Social History Tobacco Use [...] on filedocumented in this encounter Care Teams Medical Billing Service Relationship Specialty Start Date End Date Vera Da Silva DO 230 [place] [address] PCP - General Family Medicine 02/28/18 documented as of this encounter
--- OUTSIDE RECORDS SUMMARY | 2024-04-23 10:16 | XMS_ITS | Encounter Summary ---
Author Organization [employer] Address [address] [facility] 7 [place] [address] Care Team Providers Care Feather Sawyer Name Role Phone Vera Da Silva DO Primary Care Provider +[phone] Reason for Visit * Reason Onset Date Comments Appointment Request 04/22/2023 Encounter Details Date Type Department Care Team ([facility] st Contact Info) Description 04/22/2023 Telephone [facility] MEDICINE 230 [place], [place] [phone] Vera Da Silva DO 230 [place] [address] Appointment Request Social History Tobacco Use Types [...] from pt requesting an appt with PCP. Cake Icer tried booking due to recall but Dr. Da Silva Scheduled not available. Please contact pt @ [phone] documented in this encounter Plan of Treatment Not on file documented as of this encounter Visit Diagnoses Not on filedocumented in this encounter Additional Health Concerns Assessment Noted Time PHQ-9 Depression Total Score: 13 023 11:13 AM EDT documented as of this encounter Care Teams Feather Sawyer Relationship Specialty Start Date End Date Vera Da Silva DO 230 [place] [address] PCP - General Family Medicine 02/28/18 documented as of this encounter
--- OUTSIDE RECORDS SUMMARY | 2024-04-23 10:16 | XMS_ITS | Encounter Summary ---
Author Organization [employer] Address [address] [place] [address] 7t [place] [address] Care Team Providers Care Appeals Board Referee Name Role Phone Rekha Vera Primary Care Provider +1 [phone] Encounter Details Date Type Department Care Team ([facility] st Contact Info) Description 12/03/2022 Abstract [facility] MEDICINE 230 [place], [place] [phone] Jinny Grullon Social History Tobacco Use Types [...] ORDERAB LES Final Result * Colposcopy (04/30/2021) [facility] Provider IN CLINIC/BEDSIDE ORDERAB LES Final Result * (ABNORMAL) Hm Pap Smear (03/23/2021) Pap Epithelial cell abnormality(A ) Negative for intraephithelial lesion or malignancy, Other Comment:LSIL HPV Detected Result [facility] Provider HEALTH MAINTENANCE Final Result * Colposcopy (04/09/2020) Result [facility] Provider IN CLINIC/BEDSIDE ORDERAB LES Final Result documented in this encounter Visit Diagnoses Not on filedocumented in this encounter Additional Health Concerns Assessment Noted Time PHQ-9 Depression Total Score: 13 023 11:13 AM EDT documented as of this encounter Care Teams Appeals Board Referee Relationship Specialty Start Date End Date Vera Da Silva DO 230 [place] [address] PCP - General Family Medicine 02/28/18 documented as of this encounter
--- OUTSIDE RECORDS SUMMARY | 2024-04-23 10:16 | XMS_ITS | Encounter Summary ---
Author Organization [employer] Address [address] [place] [address] 7t [place] [address] Care Team Providers Care Plsql Developer Name Role Phone Vera Da Silva DO Primary Care Provider +1- [phone] Encounter Details Date Type Department Care Team [...] on filedocumented in this encounter Care Teams Plsql Developer Relationship Specialty Start Date End Date Vera Da Silva DO [address] [place] [address] PCP - General Family Medicine 02/28/18 documented as of this encounter
--- OUTSIDE RECORDS SUMMARY | 2024-04-23 10:16 | XMS_ITS | Clinical Summary ---
Author Organization [employer] Address [address] [place] [address] 7t [place] [address] Care Team Providers Care Negative Spotter Name Role Phone RekhaGeorgetteVera Primary Care Provider [...] Type Department Care Team Description 04/09/2024 Refill [facility] MED[facility]INE 230 [place] [address] Vera Da Silva DO 02/01/2024 Refill [facility] [address] [place] [address] Vera Da Silva DO from Last 3 Months Immunizations Name Administration Dates Next Due Hep A, Adult 12/09/2016,08/19/2015 Hep B, adult 01/14/2010,09/12/2009,11/13/2007 Influenza injectable quadriv alent preservative free 12/10/2022,11/20/2021,01/02/2021,2019,12/12/2018,02/08/2018,12/09/2016 Influenza, IIV3, injectable 01/14/2010 Influenza, Split (incl. ujventino fied surface antigen) 11/10/2011 Influenza, seasonal, injecta [...] PM EST) Hepatitis C Antibody Nonreactive Nonreactive [facility] Comment:Antibodies to HCV no t detected; does not exclude early acuteHCV infection. Blood Venous blood specimen / Unknown 01/02/2024 12:15 PM EST 01/02/2024 1:31 PM EST Vera Da Silva DO LAB BLOOD ORDERABLES Final R esult [facility] [address] [place] [phone] * HIV-1/2 Antigen and Antibodies, Fourth Generation, with Reflexes (01/02/2024 12:15 PM EST) HIV AB/AG Nonreactive Nonreactive [facility] Comment:HIV-1 p24 Ag and/or HIV-1/HIV-2 Ab not detected.A test result that is nonreactive does not exclude thepossibility of exposure to or infection with HIV-1 and/orHIV-2. Nonreactive results in this assay for individualswith prior exposure to HIV-1 and/or HIV-2 may be due toantigen and antibody levels that are below the limit ofdetection of this assay.The [employer] HIV Ag/Ab Combo assay result andsupplemental assay results should be interpreted inconjunction with the patient's clinical presentation,history and other laboratory results. If the results areinconsistent with clinical evidence, additional testing issuggested to confirm the result. Blood Venous blood specimen / Unknown 01/02/2024 12:15 PM EST 01/02/2024 1:31 PM EST Vera Da Silva DO LAB BLOOD ORDERABLES Final R esult Performing Organization Address City/[facility]/ZIP Co de Phone Number [facility] [address] [place] [phone] * (ABNORMAL) Lipid Panel, Standard (01/02/2024 12:15 PM EST) Triglycerides 90 <150 mg/dL [facility] Comment:Desirable Triglyceri de: less than 150 mg/dLBorderline High Triglyceride 150-199 mg/dLHigh Triglyceride: 200-499 mg/dLVery High Triglyceride: greater than or equal to 5OO mg/dL Cholesterol 188 <200 mg/dL [facility] Comment:Desirable Cholestero l: less than 200 mg/dLBorderline High Cholesterol: 200-239 mg/dLHigh Cholesterol: greater than 239 mg/dL LDL Cholesterol Calculated 110(H) <100 mg/dL [facility] Comment:Desirable LDL: less than 100 mg/dLNear Optimal/Above Optimal LDL: 110- 129 mg/dLBorderline High LDL: 130-159 mg/dLHigh LDL: 160-189 mg/dLVery High LDL: greater than or equal to 190 mg/dL HDL Cholesterol 60 >40 mg/dL [facility] Comment:Desirable HDL: great er than 40 mg/dL Note: This HDL assay may give artificially low results in patients with liver disease. Blood Venous blood specimen / Unknown 01/02/2024 12:15 PM EST 01/02/2024 1:31 PM EST Vera Da Silva DO LAB BLOOD ORDERABLES Final R esult Performing Organization Address City/[facility]/ZIP Co de Phone Number [facility] [address] [place] [phone] * BI Mammogram Screening Tomosynthesis Bilateral (05/13/2023 12:40 PM EDT) Anatomical Region Laterality Modality Breast Bilateral Mammography 05/13/2023 12:4 0 PM EDT Narrative 06/04/2023 3:01 PM EDT ? [facility] ? [address] ?[place] [address] ? Mammography Report ? Signed ? Patient: Woodis,Nelly ?MR#: [id number] ? : 1970 ?Acct:[id number] ? Age/Sex: 53 / F ?ADM Date: 05/13/23 ? Loc: HO.MAMMO ? Attending Dr: Vera Da Silva DO ? Ordering Physician: Vera Da Silva DO ?Results: 1N ?? egative ? Date of Service: 05/13/23 ?Follow Up: 1 Year From Orig ?? inal Mammogram ? Procedure(s): MM tomosynthesis screening BI ?? Accession Number(s): [id number] ? cc: Vera Da Silva DO ? [...] 145 ? DD/ 1240 ? TD/TT: ? Beekeeper: ? Procedure Note Joy Love - 06/04/2023 [facility] [address] [place], [place] [address] Mammography Report Signed Patient: Olga Paredes#: [id number] : 1970Acct:[id number] Age/Sex: 53 / FADM Date: 05/13/23 Loc: HO.MAMMO Attending Dr: Vera Da Silva DO Ordering Physician: Vera Da Silvaults: 1N egative Date of Service: 05/13/23Follow Up: 1 Year From Orig inal Mammogram Procedure(s): MM tomosynthesis screening BI Accession Number(s): [id number] cc: Vera Da Silva DO EXAMINATION: MM [...] in OV> 06/04/23 1457 DD/ 1240 TD/TT: Beekeeper: Vera Da Silva DO IMG BI PROCEDURES Final Resu lt * Hm Colonoscopy (08/30/2022) Colonoscopy Normal Normal Narrative Yadi Jinny - 08/30/2022 Recommended a 2 year follow up ( [facility] ) Historical Provider HEALTH MAINTENANCE Final Result * HPV mRNA E6/E7 w/Reflex to HPV Genotypes 16, 18/45 (05/25/2022 11:12 AM EDT) HPV nRNA E6/E7 Not Detected Not Detected [facility] Comment:Methodology: Transcr iption-Mediated AmplificationThis assay detects E6/E7 viral messenger RNA (mRNA) from 14high-risk HPV types (16,18,31,33,35,39,45,51,52,56,58,59,66,68).Cervical sources are required for HPV testing.If a vaginal source from a patient who has had atotal hysterectomy with removal of cervix wassubmitted, please contact the testing laboratoryfor alternative testing options.For additional information, please refer tohttp://education.[employer]/faq/ZPW868e4(This link if provided for information/educational purposes only.)THIS TEST WAS PERFORMED AT:[employer] [place] [id number] NG MD HPV mRNA E6/E7 TNP [facility] HPV 16 RNA TNP [facility] HPV 18/45 RNA TNP [facility] 05/25/2022 11:1 2 AM EDT 05/25/2022 4:30 PM EDT us [facility] External Provider LAB CYT OLOGY ORDERABLES Final Result [facility] [address] [place] [address] [phone] * Pap Smear (05/25/2022 11:12 AM EDT) 05/25/2022 11:1 2 AM EDT 05/25/2022 4:30 PM EDT Narrative [facility] - 06/07/2022 7:16 AM EDT ----- ------- Name: Nelly Paredes ? Age/Sex: 52/F ? : 1970 Unit#: [id number] ?? Attend Dr: Yaron Das MD ?Re05/25/22 ?Status: DEP REF ? Location: HO.LNP ?Disch: ? ----- ------- SPEC : [id number] ? RECD: 05/25/221630 ? STATUS: ??SOUT ? REQ NUM: [id number] ? KEKE: 05/25/22-1112 ? SUBM DR: Yaron [...] 66, 68) ? HPV testing performed by [facility], [place], [place]. ??See reference laboratory ?? portion of the EMR for entire report. ?Clinical Information LMP: PM Previous PAP test: 2021, Abnormal Other history: CIN1, HPV+ ? Material Received ?? ThinPrep-Cervical Copies To: ?? Vera Da Silva DO ?? [address] ?? [place] [address] ? Yaron Das MD ?? [address] [facility] [address] [facility] ?? [place] [address] ?? [phone] ----- ------- Signed (signature on file) Caroline Vipin Lyle 06/07/22715 ? ----- ------- ? END OF REPORT ? [facility] External Provider LAB [facility] ORDERABLES Final Result [facility] [address] [facility] [place] [address] [phone] from Last 3 Months or Most Recently Relevant to Health Maintenance [facility] Care Teams Negative Spotter Relationship Specialty Start Date End Date Vera Da Silva DO [address] [place] [address] PCP - General Family Medicine 02/28/18
--- OUTSIDE RECORDS SUMMARY | 2024-04-23 10:16 | XMS_ITS | Encounter Summary ---
Author Organization [employer] Address [address] [place] [address] 7t [place] [address] Care Team Providers Care Wallpaperer Name Role Phone Vera Da Silva DO Primary Care Provider +1 [phone] Reason for Visit * Reason Comments Med Refill Encounter Details Date Type Department Care Team (Late st Contact Info) Description 09/09/2022 Refill [facility] 230 [place] [address] Akilah Brannon, ANP 230 [place] [address] Acute left-sided low back pain with left-sided [...] documented as of this encounter Care Teams Wallpaperer Relationship Specialty Start Date End Date Vera Da Silva DO [address] [place] [address] PCP - General Family Medicine 02/28/18 documented as of this encounter
--- OUTSIDE RECORDS SUMMARY | 2024-04-23 10:16 | XMS_ITS | Encounter Summary ---
Author Organization [employer] Address [address] [place] [address] 7 [place] [address] Care Team Providers Care Knot Picker Cloth Name Role Phone Vera Da Silva DO Primary Care Provider [phone] [phone] Reason for Visit * Reason Comments Med Refill Encounter Details Date Type Department Care Team (Late st Contact Info) Description 04/09/2024 Refill [facility] MEDICINE 230 [place], [place] [phone] Vera Da Silva DO 230 [place], [place] [phone] Social History Tobacco Use Types Packs/Day Years [...] documented as of this encounter Care Teams Knot Picker Cloth Relationship Specialty Start Date End Date Vera Da Silva DO [address] [place] [phone] PCP - General Family Medicine 02/28/18 documented as of this encounter
== END 2024-04-23 09:29 | disposition home or self-care (01) ==
LOC: HO.XRAY 09:28
PROVIDERS: PCP Family Medicine; Visit Provider Internal Medicine Rheumatology
DX: M54.50 Low back pain, unspecified (principal)
CPT/HCPCS: 72100

== ENCOUNTER → 2024-04-23 09:34 | Outpatient (BNV) | payer MEDICAID, SELFPAY | PROVIDERS: PCP Family Medicine; Visit Provider Radiology Diagnostic Radiology | DX: M47.816 Spondylosis without myelopathy or radiculopathy, lumbar region (principal); M43.16 Spondylolisthesis, lumbar region | CPT/HCPCS: 72100 ==

== ENCOUNTER 2024-05-14 11:58 | Outpatient (REF) | payer MEDICAID, SELFPAY ==
[2024-05-14 15:46] LABS: Alanine Aminotransferase 28 U/L (0-31); Aspartate Amino Transferase 28 U/L (5-31); Estimated Glomerular Filt Rate 54
== END 2024-05-14 11:59 | disposition home or self-care (01) ==
LOC: HO.LAB 11:58
PROVIDERS: PCP Family Medicine; Visit Provider Internal Medicine Rheumatology
DX: Z79.899 Other long term (current) drug therapy (principal)
CPT/HCPCS: 36415; 82565; 84450; 84460

== ENCOUNTER 2024-05-28 12:06 | Outpatient (REF) | payer MEDICAID, SELFPAY ==
[2024-05-28 13:24] LABS: Estimated Glomerular Filt Rate 56
--- OUTSIDE RECORDS SUMMARY | 2024-05-28 13:48 | XMS_ITS | Encounter Summary ---
Author Organization [employer] Address [address] [place] [address] 7t [place] [address] Care Team Providers Care Butcher Scullion Name Role Phone Vera Da Silva DO Primary Care Provider [phone] Encounter Details Date Type Department Care Team ([facility] st Contact Info) Description 03/19/2022 Orders Only [facility] MED & PEDS [address] [place] [address] Vera Spangler LPN Social History Tobacco Use [...] on filedocumented in this encounter Care Teams Butcher Scullion Relationship Specialty Start Date End Date Vera Da Silva DO [address] [place] [address] PCP - General Family Medicine 02/28/18 documented as of this encounter
--- OUTSIDE RECORDS SUMMARY | 2024-05-28 13:48 | XMS_ITS | Encounter Summary ---
Author Organization [employer] Address [address] [place] [address] 7 [place] [address] Care Team Providers Care Jewel Stripper Name Role Phone Vera Da Silva DO Primary Care Provider +[phone] Reason for Visit * Reason Comments Med Refill Encounter Details Date Type Department Care Team (Late st Contact Info) Description 05/24/2024 Refill [facility] MEDICINE [address] [place], [place] [phone] Vera Da Silva DO [address] [place], [place] [phone] Social History Tobacco Use Types Packs/Day Years [...] documented as of this encounter Care Teams Jewel Stripper Relationship Specialty Start Date End Date Vera Da Silva DO [address] [place] [address] PCP - General Family Medicine 02/28/18 documented as of this encounter
--- OUTSIDE RECORDS SUMMARY | 2024-05-28 13:48 | XMS_ITS | Clinical Summary ---
Author Organization [employer] Address [address] [place] [address] 7t [place] [address] Care Team Providers Care Health Teacher Name Role Phone RekhaVera Primary Care Provider Allergies No known active allergies Medications buPROPion XL (Wellbutrin XL) 300 MG 24 hr tablet Take 300 mg by mouth in the morning. 06/11/19 23 Active sertraline (Zoloft) 100 MG tablet Take 200 mg by mouth in the morning. 08/03/19 23 Active zolpidem (Ambien) 10 MG tablet Take 10 mg by mouth if needed at bedtime. 06/15/19 23 Active fluticasone (Flonase) 50 MCG/ACT nasal sprayIndication [...] IN THE MORNING 90 tablet 1 11/22/19 24 Active omeprazole (PriLOSEC) [address] capsule TAKE 1 CAPSULE BY MOUTH BEFORE BREAKFAST AND BEFORE EVENING MEAL 180 capsule 1 02/01/20 24 Active Senna-Time 8.6 MG tablet TAKE 2 TABLETS BY MOUTH EVERY DAY NEEDED FOR CONSTIPATION 180 tablet 1 04/11/19 25 Active atorvastatin (Lipitor) 20 MG tablet TAKE 1 TABLET BY MOUTH EVERY DAY 90 tablet 3 05/25/19 25 Active atorvastatin (Lipitor) 20 MG tablet Take 1 tablet (20 mg) by mouth Once per day. 90 tablet 3 06/22/19 24 2024 Discontinued Active Problems Problem Noted [...] Encounters Date Type Department Care Team Description 05/24/2024 Refill [facility] MEDICINE [address] [place] [address] Vera Da Silva DO 05/11/2024 Population Health Risk Score [facility] Department [address] [phone] Provider, Population Health Generic 05/03/2024 Telephone [facility] MEDICINE [address] [place] [address] Vera Da Silva DO Recall Letter (Recall Letter sent 05/03/24) 04/23/2024 Orders Only [facility] External Provider, [facility] 04/09/2024 Refill [facility] MEDICINE [address] [place] [address] Vera Da Silva DO from Last 3 [...] Tobacco Screening 01/01/2025 01/02/2024 Mammogram 05/12/2025 05/13/2023, 03, 05/07/2022, Additional history exists Lipid Panel 01/01/2029 [...] Procedure Name Priority Date/Time Associated Diagnosis Comments CREATININE, SERUM Routine 05/28/2024 12: 29 PM EDT ALT Routine 05/14/2024 12:08 PM EDT AST Routine 05/14/2024 12:08 PM EDT CREATININE, SERUM Routine 05/14/2024 12: 08 PM EDT XR LUMBAR SPINE 2-3 VIEWS Routine 04/23/2024 9:34 AM EST HEPATITIS C AB W/REFL TO HCV RNA, [...] Recently Relevant to Health Maintenance Results * Creatinine, Serum (05/28/2024 12:29 PM EDT) Only the most recent of2 resultswithin the time period is included. Creatinine, Serum 1.04 0.5 - 1.4 mg/dL [facility] Estimated Glomerular Filt Rate 56 [facility] Comment:Chronic Kidney Disea se: Estimated GFR < 60 mL/min/1.59f8Qkbdlr Kidney Disease: Estimated GFR < 15 mL/min/1.73m2 05/28/2024 12:2 9 PM EDT 05/28/2024 12:29 PM EDT us Generic External Data Provider LAB BLOOD ORDERAB LES Final Result Performing Organization Address [facility] de Phone Number [facility] [address] [place] [address] [phone] * ALT (05/14/2024 12:08 PM EDT) Alanine Aminotransferase 28 0 - 31 U/L [facility] 05/14/2024 12:0 8 PM EDT 05/14/2024 12:08 PM EDT us Generic External Data Provider LAB BLOOD ORDERAB LES Final Result Performing Organization Address [facility] de Phone Number [facility] [address] [place] [address] [phone] * AST (05/14/2024 12:08 PM EDT) Aspartate Amino Transferase 28 5 - 31 U/L [facility] 05/14/2024 12:0 8 PM EDT 05/14/2024 12:08 PM EDT us Generic External Data Provider LAB BLOOD ORDERAB LES Final Result Performing Organization Address [facility] de Phone Number [facility] [address] [place] [address] [phone] * XR Lumbar Spine 2-3 Views (04/23/2024 9:34 AM EST) Anatomical Region Laterality Modality Spine, L-spine Radiographic Sabi ging 04/23/2024 9:34 AM EST Narrative 04/24/2024 11:26 AM EST ? [facility] ?[address] ?[place] [address] ?XRay Report ? Signed ? Patient: Woodis,Nelly ?MR#: [id number] ? : 1970 ?Acct:[id number] ? Age/Sex: 54 / F ?ADM Date: 02/24/25 ? Loc: HO.XRAY ? Attending Dr: Moreno Freeman MD ? Ordering Physician: Moreno Freeman MD ?? Date of Service: 04/23/24 ?? Procedure(s): XR lumbar spine 2-3V ?? Accession Number(s): [id number] ? cc: Vera Da Silva DO; Moreno Freeman MD ? EXAMINATION: ?? XR LUMBOSACRAL SPINE ? CLINICAL INFORMATION: ?? M54.50 - Low back pain, unspecified ? COMPARISON: ?? August 13, 2022. ? TECHNIQUE: ?? Three views of the lumbosacral spine. ? FINDINGS: ?? Absent ribs at T12 versus sacralization vertebra. ?? Labeled nonrib T12. ?? Grade 1 anterolisthesis at L3-4.. ?? Endplate sclerosis and marginal osteophyte formation at the sacralized ?? vertebra, L5-S1. ?? Vascular clips right upper quadrant abdomen. ? XR/XR lumbar spine 2-3V ?? IMPRESSION: ?? Absent ribs at T12. ?? Spondylosis L5-S1. ?? Grade 1 anterolisthesis L3-4. ? Electronically signed by: ??Braydon Cazares MD ??04/24/2024 11:23 AM ?? EST RP ? Dictated By: ?Braydon Siu MD ? Signed By: ?<Electronically signed by Braydon Orellana MD in OV> ? 04/24/24 1123 ? DD/ 0934 ? TD/TT: 04/23/24 0958 ? Gypsum Block Setter: ? Procedure Note Joy Love - 04/24/[address] [address] XRay Report Signed Patient: Olga Paredes#: [id number] : 1970Acct:[id number] Age/Sex: 54 / FADM Date: 04/23/24 Loc: MICKEY Attending Dr: Moreno Freeman MD Ordering Physician: Moreno Freeman MD Date of Service: 04/23/24 Procedure(s): XR lumbar spine 2-3V Accession Number(s): [id number] cc: Vera Da Silva DO; Moreno Freeman MD EXAMINATION: XR LUMBOSACRAL SPINE CLINICAL INFORMATION: M54.50 - Low back pain, unspecified COMPARISON: August 13, 2022. TECHNIQUE: Three views of the lumbosacral spine. FINDINGS: Absent ribs at T12 versus sacralization vertebra. Labeled nonrib T12. Grade 1 anterolisthesis at L3-4.. Endplate sclerosis and marginal osteophyte formation at the sacralized vertebra, L5-S1. Vascular clips right upper quadrant abdomen. 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 Spondylosis L5-S1. Grade 1 anterolisthesis L3-4. Electronically signed by: Braydon Cazares MD 04/24/2024 11:23 AM EST Dictated By: Braydon Siu MD Signed By: <Electronically signed by Braydon Orellana MDin OV> 04/24/24 1123 DD/ 0934 TD/TT: 04/23/24 0958 Gypsum Block Setter: [facility] External Provider IMG XR PROCEDURES Final Result * Hepatitis C Antibody with Reflex to HCV, RNA, Quantitative, Real-Time PCR (01/02/2024 12:15 PM EST) Hepatitis C Antibody Nonreactive Nonreactive [facility] Comment:Antibodies to HCV no t detected; does not exclude early acuteHCV infection. Blood Venous blood specimen / Unknown 01/02/2024 12:15 PM EST 01/02/2024 1:31 PM EST Vera Da Silva DO LAB BLOOD ORDERABLES Final R esult [facility] [address] [place] [phone] * HIV-1/2 Antigen and Antibodies, Fourth Generation, with Reflexes (01/02/2024 12:15 PM EST) HIV AB/AG Nonreactive Nonreactive [facility] Comment:HIV-1 p24 Ag and/or HIV-1/HIV-2 Ab not detected.A test result that is nonreactive does not exclude thepossibility of exposure to or infection with HIV-1 and/orHIV-2. Nonreactive results in this assay for individualswith prior exposure to HIV-1 and/or HIV-2 may be due toantigen and antibody levels that are below the limit ofdetection of this assay.The [employer] HIV Ag/Ab Combo assay result andsupplemental assay results should be interpreted inconjunction with the patient's clinical presentation,history and other laboratory results. If the results areinconsistent with clinical evidence, additional testing issuggested to confirm the result. Blood Venous blood specimen / Unknown 01/02/2024 12:15 PM EST 01/02/2024 1:31 PM EST us Vera Da Silva DO LAB BLOOD ORDERABLES Final R esult [facility] [address] [place] [address] [phone] * (ABNORMAL) Lipid Panel, Standard (01/02/2024 12:15 PM EST) Triglycerides 90 <150 mg/dL [facility] Comment:Desirable Triglyceri de: less than 150 mg/dLBorderline High Triglyceride 150-199 mg/dLHigh Triglyceride: 200-499 mg/dLVery High Triglyceride: greater than or equal to 5OO mg/dL Cholesterol 188 <200 mg/dL [facility] Comment:Desirable Cholestero l: less than 200 mg/dLBorderline High Cholesterol: 200-239 mg/dLHigh Cholesterol: greater than 239 mg/dL LDL Cholesterol Calculated 110(H) <100 mg/dL [facility] Comment:Desirable LDL: less than 100 mg/dLNear Optimal/Above Optimal LDL: 110- 129 mg/dLBorderline High LDL: 130-159 mg/dLHigh LDL: 160-189 mg/dLVery High LDL: greater than or equal to 190 mg/dL HDL Cholesterol 60 >40 mg/dL [facility] Comment:Desirable HDL: great er than 40 mg/dL Note: This HDL assay may give artificially low results in patients with liver disease. Blood Venous blood specimen / Unknown 01/02/2024 12:15 PM EST 01/02/2024 1:31 PM EST us Vera Patelruth DO LAB BLOOD ORDERABLES Final R esult [facility] [address] [place] [address] [phone] * BI Mammogram Screening Tomosynthesis Bilateral (05/13/2023 12:40 PM EDT) Anatomical Region Laterality Modality Breast Bilateral Mammography 05/13/2023 12:4 0 PM EDT Narrative 06/04/2023 3:01 PM EDT ? [facility] [place] ? [address] ?[place] [address] ? Mammography Report ? Signed ? Patient: LenaNelly ?MR#: [id number] ? : 1970 ?Acct:[id number] ? Age/Sex: 53 / F ?ADM Date: /15/24 ? Loc: HO.MAMMO ? Attending Dr: Vera Da Silva DO ? Ordering Physician: Vera Da Silva DO ?Results: 1N ?? egative ? Date of Service: /15/24 ?Follow Up: 1 Year From Orig ?? inal Mammogram ? Procedure(s): MM tomosynthesis screening BI ?? Accession Number(s): [id number] ? cc: Vera Da Silva DO ? EXAMINATION: ?? MM SCREENING DIGITAL BREAST TOMOSYNTHESIS, BILATERAL ? CLINICAL INFORMATION: ? Screening. Asymptomatic. ? COMPARISON: ?? Mammography: This study is compared with prior exams dating back to ?? 2018. ? TECHNIQUE: ?? Digital breast tomosynthesis is [...] Aicha Mcnair MD in OV> ? 06/04/23 1457 ? DD/ 1240 ? TD/TT: ? Gypsum Block Setter: ? Procedure Note Joy Love - 06/04/2023 [facility] [address] [place] [address] Dr. [place], [place] [address] Mammography Report Signed Patient: Olga Paredes#: [id number] : 1970Acct:[id number] Age/Sex: 53 / FADM Date: 05/13/23 Loc: HO.MAMMO Attending Dr: Vera Da Silva DO Ordering Physician: Vera Da Silvaults: 1N egative Date of Service: 05/13/23Follow Up: 1 Year From Orig inal Mammogram Procedure(s): MM tomosynthesis screening BI Accession Number(s): [id number] cc: Vera Da Silva DO EXAMINATION: MM [...] in OV> 06/04/23 1457 DD/ 1240 TD/TT: Gypsum Block Setter: Vera Da Silva DO IMG BI PROCEDURES Final Resu lt * Hm Colonoscopy (08/30/2022) Colonoscopy Normal Normal Narrative Jinny Grullon - 08/30/2022 Recommended a 2 year follow up ( [facility] ) Historical Provider HEALTH MAINTENANCE Final Result * HPV mRNA E6/E7 w/Reflex to HPV Genotypes 16, 18/45 (05/25/2022 11:12 AM EDT) HPV nRNA E6/E7 Not Detected Not Detected [facility] Comment:Methodology: Transcr iption-Mediated AmplificationThis assay detects E6/E7 viral messenger RNA (mRNA) from 14high-risk HPV types (16,18,31,33,35,39,45,51,52,56,58,59,66,68).Cervical sources are required for HPV testing.If a vaginal source from a patient who has had atotal hysterectomy with removal of cervix wassubmitted, please contact the testing laboratoryfor alternative testing options.For additional information, please refer tohttp://education.WebEvents/faq/UWU015u7(This link if provided for information/educational purposes only.)THIS TEST WAS PERFORMED AT:[facility] [place] [id number] NG MD HPV mRNA E6/E7 [facility] HPV 16 RNA [facility] HPV 18/45 RNA [facility] 05/25/2022 11:1 2 AM EDT 05/25/2022 4:30 PM EDT [facility] External Provider LAB CYT OLOGY ORDERABLES Final Result [facility] [address] [place] [address] [phone] * Pap Smear (05/25/2022 11:12 AM EDT) 05/25/2022 11:1 2 AM EDT 05/25/2022 4:30 PM EDT Narrative [facility] - 06/07/2022 7:16 AM EDT ----- ------- Name: Nelly Paredes ? Age/Sex: 52/F ? : 1970 Unit#: [id number] ?? Attend Dr: Yaron Das MD ?Re05/25/22 ?Status: DEP REF ? Location: HO.LNP ?Disch: ? ----- ------- SPEC : [id number] ? RECD: 05/25/22-1630 ? STATUS: ??SOUT ? REQ NUM: [id number] ? KEKE: 05/25/22-1112 ? SUBM DR: Yaron Das MD ? ENTERED: ??05/25/22-1776 ?SP TYPE: Pap Smr ?OTHR DR: Vera [...] 66, 68) ? HPV testing performed by [facility], [place], [place]. ??See reference laboratory ?? portion of the EMR for entire report. ?Clinical Information LMP: PM Previous PAP test: 2021, Abnormal Other history: CIN1, HPV+ ? Material Received ?? ThinPrep-Cervical Copies To: ?? Vera Da Silva DO ?? [address] [facility] ?? [place] [address] ? Yaron Das MD ?? [address] [place] [address] [facility] ?? [place] [address] ?? [phone] ----- ------- Signed (signature on file) Caroline Lew Dariela 06/07/22715 ? ----- ------- ? END OF REPORT ? us [facility] External Provider LAB CYT OLOGY ORDERABLES Final Result [facility] [address] [place] [address] [phone] from Last 3 Months or Most Recently Relevant to Health Maintenance [facility] Care Teams Health Teacher Relationship Specialty Start Date End Date Vera Da Silva DO [address] [place] [address] PCP - General Family Medicine 02/28/18
--- OUTSIDE RECORDS SUMMARY | 2024-05-28 13:48 | XMS_ITS | Encounter Summary ---
Author Organization [employer] Address [address] [place] [address] 7 [place] [address] Care Team Providers Care Soda Tester Name Role Phone Vera Da Silva DO Primary Care Provider [phone] Encounter Details Date Type Department Care Team ([facility] st Contact Info) Description 09/21/[address] [facility] MEDICINE [address] [place], [place] [phone] Vera Da Silva DO [address] [place] [address] Social History Tobacco Use Types Packs/Day Years [...] in this encounter Results * Colonoscopy (08/30/2022) [facility] Signature Colonoscopy Normal Normal Narrative Jinny Grullon - 08/30/2022 Recommended a 2 year follow up ( [facility] ) us Historical Provider MD HEALTH MAINTENANCE Final Result documented in this encounter Visit Diagnoses Not on filedocumented in this encounter Additional Health Concerns Assessment Noted Time PHQ-9 Depression Total Score: 13 023 11:13 AM EDT documented as of this encounter Care Teams Soda Tester Relationship Specialty Start Date End Date Vera Da Silva DO [address] [place] [address] PCP - General Family Medicine 02/28/18 documented as of this encounter
--- OUTSIDE RECORDS SUMMARY | 2024-05-28 13:48 | XMS_ITS | Encounter Summary ---
Author Organization [employer] Address [address] [place] [address] [address]t [place] [address] Care Team Providers Care Shoe Caser Name Role Phone Vera Da Silva DO Primary Care Provider [phone] Encounter Details Date Type Department Care Team (Latest Contact Info) Description 05/16/2018 Abstract [facility], Provider, DDS Social History Tobacco [...] on filedocumented in this encounter Care Teams Shoe Caser Relationship Specialty Start Date End Date Vera Da Silva DO [address] [place] [address] PCP - General Family Medicine 02/28/18 documented as of this encounter
--- OUTSIDE RECORDS SUMMARY | 2024-05-28 13:48 | XMS_ITS | Encounter Summary ---
Author Organization [employer] Address [address] [place] [address] 7t [place] [address] Care Team Providers Care Supply Specialist Name Role Phone Vera Da Silva DO Primary Care Provider [phone] Reason for Visit * Reason Comments Med Refill Encounter Details Date Type Department Care Team (Late st Contact Info) Description 09/09/2022 Refill [facility] [address] [place] [address] Akilah Brnanon, ANP [address] [place] [address] Acute left-sided low back pain with left-sided [...] documented as of this encounter Care Teams Supply Specialist Relationship Specialty Start Date End Date Vera Da Silva DO [address] [place] [address] PCP - General Family Medicine 02/28/18 documented as of this encounter
--- OUTSIDE RECORDS SUMMARY | 2024-05-28 13:48 | XMS_ITS | Encounter Summary ---
Author Organization [employer] Address [address] [place] [address] 7t [place] [address] Care Team Providers Care Plant Quality Manager Name Role Phone Rekha Vera Primary Care Provider [phone] Encounter Details Date Type Department Care Team ([facility] st Contact Info) Description 12/03/2022 Abstract [facility] MEDICINE [address] [place], [place] [phone] Jinny Grullon Social History Tobacco Use Types [...] LES Final Result * Colposcopy (04/30/2021) [facility] Provider IN CLINIC/BEDSIDE ORDERAB LES Final Result * (ABNORMAL) Hm Pap Smear (03/23/2021) Pap Epithelial cell abnormality(A ) Negative for intraephithelial lesion or malignancy, Other Comment:LSIL HPV Detected Result [facility] Provider HEALTH MAINTENANCE Final Result * Colposcopy (04/09/2020) Result [facility] Provider IN CLINIC/BEDSIDE ORDERAB LES Final Result documented in this encounter Visit Diagnoses Not on filedocumented in this encounter Additional Health Concerns Assessment Noted Time PHQ-9 Depression Total Score: 13 023 11:13 AM EDT documented as of this encounter Care Teams Plant Quality Manager Relationship Specialty Start Date End Date Vera Da Silva DO [address] [place] [address] PCP - General Family Medicine 02/28/18 documented as of this encounter
--- OUTSIDE RECORDS SUMMARY | 2024-05-28 13:48 | XMS_ITS | Encounter Summary ---
Author Organization [employer] Address [address] [place] [address] 7 [place] [address] Care Team Providers Care Home Health Cna Name Role Phone Vera Da Silva DO Primary Care Provider [phone] Reason for Visit * Reason Onset Date Comments Appointment Request 04/22/2023 Encounter Details Date Type Department Care Team ([facility] st Contact Info) Description 04/22/2023 Telephone [facility] MEDICINE [address] [place], [place] [phone] Vera Da Silva DO [address] [place] [address] Appointment Request Social History Tobacco Use Types [...] from pt requesting an appt with PCP. Licensed Chemical Spray Technician tried booking due to recall but Dr. Da Silva Scheduled not available. Please contact pt @ [phone] documented in this encounter Plan of Treatment Not on file documented as of this encounter Visit Diagnoses Not on filedocumented in this encounter Additional Health Concerns Assessment Noted Time PHQ-9 Depression Total Score: 13 023 11:13 AM EDT documented as of this encounter Care Teams Home Health Cna Relationship Specialty Start Date End Date Vera Da Silva DO [address] [place] [address] PCP - General Family Medicine 02/28/18 documented as of this encounter
== END 2024-05-28 12:07 | disposition home or self-care (01) ==
LOC: HO.LAB 12:06
PROVIDERS: PCP Family Medicine; Visit Provider Internal Medicine Rheumatology
DX: Z79.899 Other long term (current) drug therapy (principal)
CPT/HCPCS: 36415; 82565

== ENCOUNTER 2024-05-30 10:22 | Outpatient (RCR) | payer MEDICAID, SELFPAY ==
[2024-04-23 11:02] VITALS: BP 119/59; PULSE 74
--- NOTE | 2024-04-23 11:46 | MHC.PT.EP ---
[facility] [place] [facility] [place] [facility] [place] [facility] [address] Anastasia Hernandez [address] [phone] F: [phone] F: [phone] F: [phone] F: [phone] Physical Therapy Plan of Care Date of Evaluation: 04/23/24 Date of Surgery: NA Diagnosis: Low back pain Assessment: Nelly is a 54 year old female who is referred to PT for low back pain . She reports of having pain in her lower back for several years however it has gotten worse with time. She denies any trauma or falls. On PT examination she presented with TTP along lumbar paraspinals and spinous process, 8/10 pain with walking and standing for more than 20 minutes, repeated bending and sitting for more than 1 hour, decreased lumbar ROM, decreased muscle strength, altered posture and gait. She is independent with all ADLS but has pain with them and needs to take frequent seated rest breaks. She would benefit from skilled PT to address the aforementioned impairments and improve tolerance to functional activities. Frequency and Duration: The patient will be seen 2/week for 4 weeks Short Term Goals: 1. Pt will have 50% decrease in pain which will enable her to tolerate sitting for more than 1 hour in 2 weeks. 2. Pt will be able to move her trunk through all planes of motion without pain which will enable her to dress her lower body without pain in 3 weeks [facility] Goals: 1. Pt will demonstrate an increase in muscle strength by 1 grade which will enable her to stand and walk for an hour without pain in 5 weeks 2. Pt will be independent with all HEP for symptom management and maintenance following d/c in 5 weeks. Treatment Plan: Modalities to reduce pain, spasms and effusion. Manual therapy to restore motion and function. Therapeutic exercise to improve strength and flexibility. Neuromuscular re-education for posture and balance. Therapeutic activities to return to functional activities of daily living. Electronically signed by: Bailee Hernandez PT DPT Please sign and return to therapist. Thank you for your referral.
--- NOTE | 2024-07-19 08:06 | MHC.PT.DC ---
[facility] [place] Office [place] [facility] [place] Office [address] Anastasia Hernandez [address] [phone] F: [phone] F: [phone] F: [phone] F: [phone] Physical Therapy Discharge Report Diagnosis: Low back pain Date of Surgery: NA Date of Evaluation: 04/23/24 Date of Discharge: 07/19/24 Treatments to Date: 8 Cancellations to Date: 0 No Shows to Date: 0 Discharge Status: Achieved Goals Improved Function Independent with HEP Discharge Summary: Nelly arrived feeling good. She has completed 8 PT visits and has achieved all goals set for her. She is independent with all HEP as well. She is therefore being d/c from PT today. Nelly was in agreement with the plan. Electronically signed by: Bailee Hernandez, PT DPT Please sign and return to therapist. Thank you for your referral.
== END 2024-07-19 08:11 | disposition home or self-care (01) ==
LOC: HO.PT 10:22
PROVIDERS: PCP Family Medicine; Visit Provider Internal Medicine Rheumatology
DX: M54.50 Low back pain, unspecified (principal)
CPT/HCPCS: 97110; 97112; 97161

== ENCOUNTER 2024-06-05 10:19 | Outpatient (AMB) | payer MEDICAID, SELFPAY ==
--- NOTE | 2024-06-05 11:20 | A.OFFVIS_ITS ---
Vital Signs 06/05/24 11:21 Height 5 ft 2 in Weight 224 lb BMI 41.0 BP 124/82 Intake Visit Reasons: INSURANCE FOLLOW UP REPRESENTATIVE annual exam Internet Merchant Required: No Information Interpreted: non-clinical & clinical Insulation Supervisor: Insulation Supervisor Present (Stacy GARCÍA) Accompanied by: Self / Same As Patient Allergies No Known Allergies [No Known Allergies*] Allergy (Verified 06/05/24 11:26) Post menopausal: Yes HPI Comments Details: Presenting for annual exam. No complaints. Last Pap/HPV was negative in 05/20 Last Mammogram was BI-RADS 1 in 05/21 Last Colonoscopy was done in 09/19, the recommendation was to repeat in 2 years [facility] Medical History (Updated 06/05/24 @ 11:26 by Yaron Das MD) Spasm of muscle of lower back Fatty liver GERD (gastroesophageal reflux disease) Personal history of COVID-19 Cervical intraepithelial neoplasia grade 1 Morbid obesity with BMI of 40.0-44.9, adult NAFL (nonalcoholic fatty liver) Depression Transaminitis Surgical History History of esophagogastroduodenoscopy (EGD) Hx of colonoscopy History of loop electrical excision procedure (LEEP) History of salpingectomy History of endometrial ablation Hx laparoscopic cholecystectomy H/O tubal ligation Previous section Family History Maternal Grandmother Bone cancer Social History Household Members: Children Housing: Apartment Do you presently have visiting nurse or other home services: No Alcohol intake: never Patient Tobacco Use Status: Never used Tobacco service: No Current occupational status: unemployed Female Reproductive History Menstrual Age of Menarche: 15 Date of last pap smear: 05/25/22 Date of Mammogram: 05/13/23 Review of Systems Const All systems reviewed & are unremarkable except as noted in HPI and below Card Reports as per HPI Resp Reports as per HPI GI Reports as per HPI and Reports no additional complaints Reports as per HPI Physical Exam Const General: cooperative, healthy appearing and comfortable Chest Chest palpation & inspection: normal inspection of the chest and normal palpation of entire chest wall Breast/axilla inspection: normal inspection of the breasts and normal inspection of the axillae Breast/axilla palpation: normal palpation of the breasts, normal palpation of the axillae and no axillary lymphadenopathy Resp Effort & Inspection: normal respiratory effort Auscultation: clear to auscultation bilaterally Percussion: percussion normal Cardio Palpation: normal PMI Rate: regular rate Rhythm: regular rhythm Heart sounds: no murmurs and no rubs Peripheral pulses: Peripheral pulses 2+ throughout GI Inspection: Yes normal to inspection Palpation (GI): Soft to palpation, nontender, no guarding, not rigid and No hepatosplenomegaly present Percussion: Yes normal to percussion Auscultation: normal bowel sounds Rectal Exam - Female: deferred General: Yes bladder normal to palpation External Female Exam: No lesion Speculum Exam - Vagina: normal appearance of the vagina, normal palpation, normal vaginal discharge and not erythematous Speculum Exam - Cervix: normal appearance of the cervix and normal palpation Bimanual exam- vagina & uterus: normal bimanual exam, normal palpation, uterine size normal, bladder normal to palpation, consistency normal and normal palpation Bimanual Exam- Adnexa, other: normal adnexae, no masses and no tenderness Assessment & Plan Assessment & Plan (1) Well woman exam: Code(s): Z01.419 - Encounter for gynecological examination (general) (routine) without abnormal findings Category: Medical Plan: Co testing done. Counseled the patient about the recommended dietary allowance of 1200 mg of Calcium & 600 IU of vitamin D. Mammogram ordered. The patient was referred to GI for screening colonoscopy . The patient was instructed to perform monthly self-breast exams and schedule annual exam in a year. All questions answered and the patient verbalized understanding. Orders: Orders MM tomosynthesis screening BI Today Z12.31 - Encounter for screening mammogram for malignant neoplasm of breast Referrals Gastroenterology Referral Z12.11 - Encounter for screening for malignant neoplasm of colon Coding Level of Care Code Est Pt Prev Care 40-64y(00224) Diagnoses Well woman exam Z01.419
[2024-06-05 11:21] VITALS: BP 124/82; BMI 41.0
--- OUTSIDE RECORDS SUMMARY | 2024-06-05 12:13 | XMS_ITS | Encounter Summary ---
Author Organization [employer] Address [address] [place] [address] 7 [place] [address] Care Team Providers Care Assurance Senior Manager Name Role Phone Vera Da Silva DO Primary Care Provider [phone]- [phone] Encounter Details Date Type Department Care Team ([facility] st Contact Info) Description 09/21/[address] [facility] [address] [place], [place] [phone] Vera Da Silva DO [address] [place] [address] Social History Tobacco Use Types Packs/Day Years [...] documented as of this encounter Care Teams Assurance Senior Manager Relationship Specialty Start Date End Date Vera Da Silva DO [address] [place] [address] PCP - General Family Medicine 02/28/18 documented as of this encounter
--- OUTSIDE RECORDS SUMMARY | 2024-06-05 12:13 | XMS_ITS | Encounter Summary ---
Author Organization [employer] Address [address] [place] [address] 7t [place] [address] Care Team Providers Care Personal Driver Name Role Phone Vera Da Silva DO Primary Care Provider [phone]- [phone] Encounter Details Date Type Department Care Team ([facility] st Contact Info) Description 03/19/2022 Orders Only [facility] [address] [place] [address] Vera Spangler LPN Social History Tobacco Use [...] on filedocumented in this encounter Care Teams Personal Driver Relationship Specialty Start Date End Date Vera Da Silva DO [address] [place] [address] PCP - General Family Medicine 02/28/18 documented as of this encounter
--- OUTSIDE RECORDS SUMMARY | 2024-06-05 12:13 | XMS_ITS | Encounter Summary ---
Author Organization [employer] Address [address] [facility] 7 [place] [address] Care Team Providers Care Rehabilitation Teacher Name Role Phone Vera Da Silva DO Primary Care Provider [phone] Reason for Visit * Reason Onset Date Comments Appointment Request 04/22/2023 Encounter Details Date Type Department Care Team ([facility] st Contact Info) Description 04/22/2023 Telephone [facility] [address] [place] [address] Vera Da Silva DO [address] [place] [address] Appointment Request Social History Tobacco Use Types [...] from pt requesting an appt with PCP. Title Specialist tried booking due to recall but Dr. Da Silva Scheduled not available. Please contact pt @ [phone] documented in this encounter Plan of Treatment Not on file documented as of this encounter Visit Diagnoses Not on filedocumented in this encounter Additional Health Concerns Assessment Noted Time PHQ-9 Depression Total Score: 13 023 11:13 AM EDT documented as of this encounter Care Teams Rehabilitation Teacher Relationship Specialty Start Date End Date Vera Da Silva DO [address] [place] [address] PCP - General Family Medicine 02/28/18 documented as of this encounter
--- OUTSIDE RECORDS SUMMARY | 2024-06-05 12:13 | XMS_ITS | Encounter Summary ---
Author Organization [employer] Address [address] [place] [address] 7t [place] [address] Care Team Providers Care Biophysics Professor Name Role Phone Vera Da Silva DO Primary Care Provider [phone] Reason for Visit * Reason Comments Med Refill Encounter Details Date Type Department Care Team (Late st Contact Info) Description 09/09/2022 Refill [facility] [address] [place] [address] Akilah Brannon, ANP [address] [place] [address] Acute left-sided low back pain with left-sided [...] documented as of this encounter Care Teams Biophysics Professor Relationship Specialty Start Date End Date Vera Da Silva DO [address] [place] [address] PCP - General Family Medicine 02/28/18 documented as of this encounter
--- OUTSIDE RECORDS SUMMARY | 2024-06-05 12:13 | XMS_ITS | Clinical Summary ---
Author Organization [employer] Address [address] [place] [address] 7[address] [place] [address] Care Team Providers Care Yarn Finisher Name Role Phone RekhaVera Primary Care Provider [...] Type Department Care Team Description 05/24/2024 Refill [facility] [address] [place] [address] Vera Da Silva DO 05/11/2024 Population Health Risk Score [facility] Department [address] [phone] Provider, Population Health Generic 05/03/2024 Telephone [facility] [address] [place] [address] Vera Da Silva DO Recall Letter (Recall Letter sent 05/03/24) 04/23/2024 Orders Only [facility] External Provider, [facility] 04/09/2024 Refill [facility] [address] [place] [address] Vera Da Silva DO from Last 3 [...] Creatinine, Serum 1.04 0.5 - 1.4 mg/dL [facility] Estimated Glomerular Filt Rate 56 [facility] Comment:Chronic Kidney Disea se: Estimated GFR < 60 mL/min/1.04r6Obtfhf Kidney Disease: Estimated GFR < 15 mL/min/1.73m2 05/28/2024 12:2 9 PM EDT 05/28/2024 12:29 PM EDT us Generic External Data Provider LAB BLOOD ORDERAB LES Final Result Performing Organization Address [facility] de Phone Number [facility] [address] [place] [address] [phone] * ALT (05/14/2024 12:08 PM EDT) Alanine Aminotransferase 28 0 - 31 U/L [facility] 05/14/2024 12:0 8 PM EDT 05/14/2024 12:08 PM EDT us Generic External Data Provider LAB BLOOD ORDERAB LES Final Result Performing Organization Address [facility] de Phone Number [facility] [address] [place] [address] [phone] * AST (05/14/2024 12:08 PM EDT) Aspartate Amino Transferase 28 5 - 31 U/L [facility] 05/14/2024 12:0 8 PM EDT 05/14/2024 12:08 PM EDT us Generic External Data Provider LAB BLOOD ORDERAB LES Final Result Performing Organization Address [facility] de Phone Number [facility] [address] [place] [address] [phone] * XR Lumbar Spine 2-3 Views (04/23/2024 9:34 AM EST) Anatomical Region Laterality Modality Spine, L-spine Radiographic Sabi ging 04/23/2024 9:34 AM EST Narrative 04/24/2024 11:26 AM EST ? [facility] ?[address] ?[place] [address] ?XRay Report ? Signed ? Patient: Woodis,Nelly ?MR#: [id number] ? : 1970 ?Acct:[id number] ? Age/Sex: 54 / F ?ADM Date: 02/24/25 ? Loc: HO.XRAY ? Attending Dr: Moreno Freeman MD ? Ordering Physician: Moreno Freeman MD ?? Date of Service: 04/23/24 ?? Procedure(s): XR lumbar spine 2-3V ?? Accession Number(s): [id number] ? cc: Vera Da Silva DO; Moreno [...] 1 anterolisthesis L3-4. ? Electronically signed by: ??rBaydon Cazares MD ??04/24/2024 11:23 AM ?? EST RP ? Dictated By: ?Braydon Siu MD ? Signed By: ?<Electronically signed by Braydon Orellana MD in OV> ? 04/24/24 1123 ? DD/ 0934 ? TD/TT: 04/23/24 0958 ? Manager Merchandising: ? Procedure Note Joy Love - 04/24/[address] [address] XRay Report Signed Patient: Olga Paredes#: [id number] : 1970Acct:[id number] Age/Sex: 54 / FADM Date: 04/23/24 Loc: [facility] Attending Dr: Moreno Freeman MD Ordering Physician: Moreno Freeman MD Date of Service: 04/23/24 Procedure(s): XR lumbar spine 2-3V Accession Number(s): [id number] cc: Vera Da Silva DO; Moreno Freeman [...] 04/24/24 1123 DD/ 0934 TD/TT: 04/23/24 0958 Manager Merchandising: [facility] External Provider IMG XR PROCEDURES Final Result * Hepatitis C Antibody with Reflex to HCV, RNA, Quantitative, Real-Time PCR (01/02/2024 12:15 PM EST) Hepatitis C Antibody Nonreactive Nonreactive [facility] Comment:Antibodies to HCV no t detected; does not exclude early acuteHCV infection. Blood Venous blood specimen / Unknown 01/02/2024 12:15 PM EST 01/02/2024 1:31 PM EST Vera Da Silva DO LAB BLOOD ORDERABLES Final R esult [facility] [address] [place] [phone] * HIV-1/2 Antigen and Antibodies, Fourth Generation, with Reflexes (01/02/2024 12:15 PM EST) HIV AB/AG Nonreactive Nonreactive [facility] Comment:HIV-1 p24 Ag and/or HIV-1/HIV-2 Ab not detected.A test result that is nonreactive does not exclude thepossibility of exposure to or infection with HIV-1 and/orHIV-2. Nonreactive results in this assay for individualswith prior exposure to HIV-1 and/or HIV-2 may be due toantigen and antibody levels that are below the limit ofdetection of this assay.The [employer] HIV Ag/Ab Combo assay result andsupplemental assay results should be interpreted inconjunction with the patient's clinical presentation,history and other laboratory results. If the results areinconsistent with clinical evidence, additional testing issuggested to confirm the result. Blood Venous blood specimen / Unknown 01/02/2024 12:15 PM EST 01/02/2024 1:31 PM EST us Vera Da Silva DO LAB BLOOD ORDERABLES Final R esult [facility] [address] [place] [address] [phone] * (ABNORMAL) Lipid Panel, Standard (01/02/2024 12:15 PM EST) Triglycerides 90 <150 mg/dL [facility] Comment:Desirable Triglyceri de: less than 150 mg/dLBorderline High Triglyceride 150-199 mg/dLHigh Triglyceride: 200-499 mg/dLVery High Triglyceride: greater than or equal to 5OO mg/dL Cholesterol 188 <200 mg/dL [facility] Comment:Desirable Cholestero l: less than 200 mg/dLBorderline High Cholesterol: 200-239 mg/dLHigh Cholesterol: greater than 239 mg/dL LDL Cholesterol Calculated 110(H) <100 mg/dL [facility] Comment:Desirable LDL: less than 100 mg/dLNear Optimal/Above Optimal LDL: 110- 129 mg/dLBorderline High LDL: 130-159 mg/dLHigh LDL: 160-189 mg/dLVery High LDL: greater than or equal to 190 mg/dL HDL Cholesterol 60 >40 mg/dL [facility] Comment:Desirable HDL: great er than 40 mg/dL Note: This HDL assay may give artificially low results in patients with liver disease. Blood Venous blood specimen / Unknown 01/02/2024 12:15 PM EST 01/02/2024 1:31 PM EST us Vera Patelruth DO LAB BLOOD ORDERABLES Final R esult [facility] [address] [place] [address] [phone] * BI Mammogram Screening Tomosynthesis Bilateral (05/13/2023 12:40 PM EDT) Anatomical Region Laterality Modality Breast Bilateral Mammography 05/13/2023 12:4 0 PM EDT Narrative 06/04/2023 3:01 PM EDT ? [facility] ? [address] ?[place] [address] ? Mammography Report ? Signed ? Patient: LenaNelly ?MR#: [id number] ? : 1970 ?Acct:[id number] ? Age/Sex: 53 / F ?ADM Date: /15/24 ? Loc: HO.MAMMO ? Attending Dr: Vera Da Silva DO ? Ordering Physician: Vera Da Silva DO ?Results: 1N ?? egative ? Date of Service: /15/24 ?Follow Up: 1 Year From Orig ?? inal Mammogram ? Procedure(s): MM tomosynthesis screening BI ?? Accession Number(s): [id number] ? cc: Vera Da Silva DO ? [...] 1457 ? DD/ 1240 ? TD/TT: ? Manager Merchandising: ? Procedure Note Joy Love - 06/04/2023 [facility] [address] [place] [address] Dr. [place], [place] [address] Mammography Report Signed Patient: Olga Paredes#: [id number] : 1970Acct:[id number] Age/Sex: 53 / FADM Date: 05/13/23 Loc: HO.MAMMO Attending Dr: Vera Da Silva DO Ordering Physician: Vera Da Silvaults: 1N egative Date of Service: 05/13/23Follow Up: 1 Year From Orig inal Mammogram Procedure(s): MM tomosynthesis screening BI Accession Number(s): [id number] cc: Vera Da Silva DO EXAMINATION: MM [...] in OV> 06/04/23 1457 DD/ 1240 TD/TT: Manager Merchandising: Vera Da Silva DO IMG BI PROCEDURES Final Resu lt * Hm Colonoscopy (08/30/2022) Colonoscopy Normal Normal Narrative Jinny Grullon - 08/30/2022 Recommended a 2 year follow up ( [facility] ) Historical Provider HEALTH MAINTENANCE Final Result * HPV mRNA E6/E7 w/Reflex to HPV Genotypes 16, 18/45 (05/25/2022 11:12 AM EDT) HPV nRNA E6/E7 Not Detected Not Detected [facility] Comment:Methodology: Transcr iption-Mediated AmplificationThis assay detects E6/E7 viral messenger RNA (mRNA) from 14high-risk HPV types (16,18,31,33,35,39,45,51,52,56,58,59,66,68).Cervical sources are required for HPV testing.If a vaginal source from a patient who has had atotal hysterectomy with removal of cervix wassubmitted, please contact the testing laboratoryfor alternative testing options.For additional information, please refer tohttp://education.Intellikine/faq/UJI652f1(This link if provided for information/educational purposes only.)THIS TEST WAS PERFORMED AT:[facility] [facility] [place] [phone] NG MD HPV mRNA E6/E7 [facility] HPV 16 RNA [facility] HPV 18/45 RNA [facility] 05/25/2022 11:1 2 AM EDT 05/25/2022 4:30 PM EDT [facility] External Provider LAB CYT OLOGY ORDERABLES Final Result [facility] [address] [place] [address] [phone] * Pap Smear (05/25/2022 11:12 AM EDT) 05/25/2022 11:1 2 AM EDT 05/25/2022 4:30 PM EDT Narrative [facility] - 06/07/2022 7:16 AM EDT ----- ------- Name: Nelly Paredes ? Age/Sex: 52/F ? : 1970 Unit#: [id number] ?? Attend Dr: Yaron Das MD ?Re05/25/22 ?Status: DEP REF ? Location: HO.LNP ?Disch: ? ----- ------- SPEC : [id number] ? RECD: 05/25/22-1630 ? STATUS: ??SOUT ? REQ NUM: [id number] ? KEKE: 05/25/22-1112 ? SUBM DR: Yaron Das MD ? ENTERED: ??05/25/22-5066 ?SP TYPE: Pap Smr ?OTHR DR: Vera [...] 66, 68) ? HPV testing performed by [facility], [place], [place]. ??See reference laboratory ?? portion of the EMR for entire report. ?Clinical Information LMP: PM Previous PAP test: 2021, Abnormal Other history: CIN1, HPV+ ? Material Received ?? ThinPrep-Cervical Copies To: ?? Vera Da Silva DO ?? [address] [facility] ?? [place] [address] ? Yaron Das MD ?? [address] [place] [address] Dr. Robison [facility] ?? [place] [address] ?? [phone] ----- ------- Signed (signature on file) Caroline Lew Dariela 06/07/22715 ? ----- ------- ? END OF REPORT ? us [facility] External Provider LAB CYT OLOGY ORDERABLES Final Result [facility] [address] [place] [address] [phone] from Last 3 Months or Most Recently Relevant to Health Maintenance [facility] Care Teams Yarn Finisher Relationship Specialty Start Date End Date Vera Da Silva DO [address] [place] [phone] PCP - General Family Medicine 02/28/18
--- OUTSIDE RECORDS SUMMARY | 2024-06-05 12:13 | XMS_ITS | Encounter Summary ---
Author Organization [employer] Address [address] [place] [address] 7t [place] [address] Care Team Providers Care Wire Spring Relay Adjuster Name Role Phone Rekha Vera Primary Care Provider [phone] Encounter Details Date Type Department Care Team ([facility] st Contact Info) Description 12/03/2022 Abstract [facility] [address] [place], [place] [phone] Jinny Grullon Social History Tobacco Use Types [...] ORDERAB LES Final Result * Colposcopy (04/30/2021) [facility] Provider IN CLINIC/BEDSIDE ORDERAB LES Final Result * (ABNORMAL) Hm Pap Smear (03/23/2021) Pap Epithelial cell abnormality(A ) Negative for intraephithelial lesion or malignancy, Other Comment:LSIL HPV Detected Result [facility] Provider HEALTH MAINTENANCE Final Result * Colposcopy (04/09/2020) Result [facility] Provider IN CLINIC/BEDSIDE ORDERAB LES Final Result documented in this encounter Visit Diagnoses Not on filedocumented in this encounter Additional Health Concerns Assessment Noted Time PHQ-9 Depression Total Score: 13 023 11:13 AM EDT documented as of this encounter Care Teams Wire Spring Relay Adjuster Relationship Specialty Start Date End Date Vera Da Silva DO [address] [place] [address] PCP - General Family Medicine 02/28/18 documented as of this encounter
--- OUTSIDE RECORDS SUMMARY | 2024-06-05 12:13 | XMS_ITS | Encounter Summary ---
Author Organization [employer] Address [address] [place] [address] [address] [place] [address] Care Team Providers Care Client Representative Name Role Phone Vera Da Silva DO Primary Care Provider [phone] Encounter Details Date Type Department Care Team [...] on filedocumented in this encounter Care Teams Client Representative Relationship Specialty Start Date End Date Vera Da Silva DO [address] [place] [address] PCP - General Family Medicine 02/28/18 documented as of this encounter
== END 2024-06-05 11:42 | disposition home or self-care (01) ==
LOC: HO.HWS 10:19
PROVIDERS: PCP Family Medicine; Visit Provider Obstetrics & Gynecology
DX: Z01.419 Encounter for gynecological examination (general) (routine) without abnormal findings (principal)
CPT/HCPCS: 99396; 99459

== ENCOUNTER → 2024-06-05 10:19 | Outpatient (BNVA) | payer MEDICAID, SELFPAY | PROVIDERS: PCP Family Medicine; Visit Provider Obstetrics & Gynecology | DX: Z01.419 Encounter for gynecological examination (general) (routine) without abnormal findings (principal) | CPT/HCPCS: 99396; 99459 ==

== ENCOUNTER 2024-06-19 12:31 | Outpatient (AMB) | payer MEDICAID, SELFPAY ==
--- NOTE | 2024-06-19 12:46 | A.OFFVIS_ITS ---
Vital Signs 06/19/24 12:47 Height 5 ft 2 in Weight 226 lb 6.636 oz BMI 41.4 BP 130/80 Blood Pressure Location Lt brachial Position Sitting Pulse 85 Pulse Source Pulse Oximeter Pulse Oximetry (%) 96 Oxygen Delivery Method Room Air Intake Visit Reasons: Follow Up 3mo Intake Note: Patient presents for follow up on arthritis and carpal tunnel syndrome. Outside Repairer Special Required: No Accompanied by: Self / Same As Patient Allergies No Known Allergies [No Known Allergies*] Allergy (Verified 06/19/24 12:46) HPI HPI Follow Up 3mo: Details: Cortisone injection resolved numbness in her hands for 2 months. She is having surgery for left carpal tunnel and de Quervain tenosynovitis on July 05. She had 60% benefit with physical therapy and meloxicam. She continues to do exercises daily. Right elbow has been hurting for the last 2 months. She had tennis elbow of left elbow previously treated with physical therapy years ago. [facility] Medical History Spasm of muscle of lower back Fatty liver GERD (gastroesophageal reflux disease) Personal history of COVID-19 Cervical intraepithelial neoplasia grade 1 Morbid obesity with BMI of 40.0-44.9, adult NAFL (nonalcoholic fatty liver) Depression Transaminitis Surgical History History of esophagogastroduodenoscopy (EGD) Hx of colonoscopy History of loop electrical excision procedure (LEEP) History of salpingectomy History of endometrial ablation Hx laparoscopic cholecystectomy H/O tubal ligation Previous section Family History Maternal Grandmother Bone cancer Social History Household Members: Children Housing: Apartment Do you presently have visiting nurse or other home services: No Alcohol intake: never Patient Tobacco Use Status: Never used Tobacco service: No Current occupational status: unemployed Female Reproductive History Menstrual Age of Menarche: 15 Review of Systems Const All systems reviewed & are unremarkable except as noted in HPI and below Physical Exam Vital Signs: Last Vital Signs Pulse 85 06/19/24 12:47 BP 130/80 06/19/24 12:47 Pulse Ox 96 06/19/24 12:47 Oxygen Delivery Method Room Air 06/19/24 12:47 BMI result Body Mass Index 41.4 Const Other: General: Comfortable Skin: No lesions seen MSK: Tender to palpate lumbar spinous process. Normal lumbar flexion. Tender 1st extensor compartment of left wrist. No synovitis. Good range of motion of wrists and hands. Tender right lateral epicondyle with pain with resisted wrist extension. Assessment & Plan Assessment & Plan (1) Lateral epicondylitis, right elbow: Comment: Discussed diagnosis and management Code(s): M77.11 - Lateral epicondylitis, right elbow Category: Medical Plan: Right elbow support band prescribed PT ordered Return to clinic in 3 months (2) Lumbar spondylosis: Comment: Personally reviewed x-ray with patient. She completed PT. she is on meloxicam 15 mg daily. Improved pain. Labs revealed reduced GFR from greater than 60-54 on meloxicam. I recommend discontinuing meloxicam Code(s): M47.816 - Spondylosis without myelopathy or radiculopathy, lumbar region Category: Medical Plan: Discontinue meloxicam Continue PT exercises daily Recommend PCP discussion on weight loss with consideration of medical management of weight loss (3) Low back pain: Comment: With bilateral radiculopathy with paraspinal strain contributing. Improved with PT and meloxicam. She has grade 1 anterolisthesis, L5-S1 reduce disc space and multilevel vertebrae spurring contributing to her pain noted on x-ray Code(s): M54.50 - Low back pain, unspecified Category: Medical Qualifiers: Chronicity: chronic Plan: See above (4) Carpal tunnel syndrome: Comment: Clinical diagnosis left side with confirmed right carpal tunnel syndrome on recent EMG 08/18/2023. She has greater symptoms on the left side compared to the right. In the past she has received 2 cortisone injection to the left carpal tunnel 01/17/2022 and 06/17/2022 with benefit. Last cortisone injection only lasted her 2 months. She is planning surgery. Code(s): G56.00 - Carpal tunnel syndrome, unspecified upper limb Category: Medical Qualifiers: Laterality: bilateral Qualified Code(s): G56.03 - Carpal tunnel syndrome, bilateral upper limbs Plan: Follow-up with hand surgeon (5) De Quervain's tenosynovitis, left: Comment: Recurrent symptoms. She received cortisone injection 12/17/2022 and 05/18/2023 with initial benefit. She is planning surgery Code(s): M65.4 - Radial styloid tenosynovitis [de Quervain] Category: Medical Plan: Follow up with hand surgeon Orders: Orders PT Evaluation and Treatment Today M77.11 - Lateral epicondylitis, right elbow Medications: New arm brace As directed Elbow support band Dx: lateral epicondylitis 1 ea 0RF arm brace As directed right Elbow support band Dx: right lateral epicondylitis 1 ea 0RF Discontinued meloxicam Replace naproxen Discontinued Reason: Doctor's Order 15 mg PO DAILY 30 tabs 2RF Coding Level of Care Code Est Pt Level 4 (01445) Complex EM visit Add On G2211 Diagnoses Lateral epicondylitis, right elbow M77.11 Lumbar spondylosis M47.816 Low back pain M54.50 Chronicity: chronic Bilateral carpal tunnel syndrome G56.03 Laterality: bilateral De Quervain's tenosynovitis, left M65.4
[2024-06-19 12:47] VITALS: BP 130/80; PULSE 85; O2SAT 96; BMI 41.4
--- OUTSIDE RECORDS SUMMARY | 2024-06-19 14:49 | XMS_ITS | Clinical Summary ---
Author Organization [employer] Address [address] [place] [address] [address] [place] [address] Care Team Providers Care Gaming Manager Name Role Phone RekhaVera Primary Care Provider [...] Encounters Date Type Department Care Team Description 06/15/2024 Travel 06/07/2024 Refill [facility] [address] [place] [address] Vera Da Silva DO 05/24/2024 Refill [facility] [address] [place] [address] Vera Da Silva DO 05/11/2024 Population Health Risk Score [facility] ([facility] Department [address] [phone] Provider, Population Health Generic 05/03/2024 Telephone [facility] [address] [place] [address] Vera Da Silva DO Recall Letter (Recall Letter sent 05/03/24) 04/23/2024 Orders Only External Provider, [facility] 04/09/2024 Refill [facility] [address] [place] [address] Vera Da Silva DO from Last 3 [...] 01/02/2024 11:09 AM EST Plan of Treatment Upcoming Encounters Date Type Department Care Team (Late st Contact Info) Description 06/26/2024 11:30 AM EDT Office Visit [facility] [address] [place] [address] Vera Da Silva DO [address] [place] [address] Health Maintenance Due Date Last Done Comments CT Colonography 1972 FIT DNA/Cologuard 1972 FIT 1972 FOBT 1972 Sigmoidoscopy 1972 Alcohol/Substance Use Screening 1984 Family Planning (PISQ) 1987 Cervical Cancer Screening 05/26/2023 HPV/Cotest 05/26/2023 05/25/2022, 03/01, 03/23/2021, Additional history exists Pap Smear 05/26/2023 05/25/2022, 03/23/2021 SDOH Screening 06/13/2024 06/14/2023 Depression Monitoring 07/01/2024 01/02/2024, 024 Colonoscopy 08/30/2024 08/30/2022 Colorectal Cancer Screening 08/30/2024 Depression Screening 01/01/2025 01/02/2024, 01/02/20 24 Tobacco Screening 01/01/2025 01/02/2024 Mammogram 05/12/2025 05/13/2023, [...] Creatinine, Serum 1.04 0.5 - 1.4 mg/dL LABS Estimated Glomerular Filt Rate 56 LABS Comment:Chronic Kidney Disea se: Estimated GFR < 60 mL/min/1.72u4Bsgwqs Kidney Disease: Estimated GFR < 15 mL/min/1.73m2 05/28/2024 12:2 9 PM EDT 05/28/2024 12:29 PM EDT us Generic External Data Provider LAB BLOOD ORDERAB LES Final Result Performing Organization Address City/[facility]/ZIP Co de Phone Number LABS [address] [place] [phone] * ALT (05/14/2024 12:08 PM EDT) Alanine Aminotransferase 28 0 - 31 U/L LABS 05/14/2024 12:0 8 PM EDT 05/14/2024 12:08 PM EDT us Generic External Data Provider LAB BLOOD ORDERAB LES Final Result Performing Organization Address City/[facility]/ZIP Co de Phone Number LABS [address] [place] [phone] * AST (05/14/2024 12:08 PM EDT) Aspartate Amino Transferase 28 5 - 31 U/L LABS 05/14/2024 12:0 8 PM EDT 05/14/2024 12:08 PM EDT Generic External Data Provider LAB BLOOD ORDERAB LES Final Result Performing Organization Address City/[facility] Co de Phone Number LABS [address] [place] [phone] * XR Lumbar Spine 2-3 Views (04/23/2024 9:34 AM EST) Anatomical Region Laterality Modality Spine, L-spine Radiographic Sabi ging 04/23/2024 9:34 AM EST Narrative 04/24/2024 11:26 AM EST ? [facility] ?[address] ?[place] [address] ?XRay Report ? Signed ? Patient: Woodis,Nelly ?MR#: [id number] ? : 1970 ?Acct:[id number] ? Age/Sex: 54 / F ?ADM Date: 04/23/24 ? Loc: HO.XRAY ? Attending Dr: Moreno Freeman MD ? Ordering Physician: Moreno Freeman MD ?? Date of Service: 04/23/24 ?? Procedure(s): XR lumbar spine 2-3V ?? Accession Number(s): [id number] ? cc: Vera Da Silva DO; Moreno [...] DD/ 0934 ? TD/TT: 04/23/24 0958 ? Children'S Librarian: ? Procedure Note Kate, Joy - 04/24/[address] [place] [address] XRay Report Signed Patient: Nelly ParedesMR#: [id number] : 1970Acct:[id number] Age/Sex: 54 / FADM Date: 04/23/24 Loc: HO.XRAY Attending Dr: Moreno Freeman MD Ordering Physician: Moreno Freeman MD Date of Service: 04/23/24 Procedure(s): XR lumbar spine 2-3V Accession Number(s): [id number] cc: Vera Da Silva DO; Moreno Freeman [...] 04/24/24 1123 DD/ 0934 TD/TT: 04/23/24 0958 Children'S Librarian: [facility] External Provider IMG XR PROCEDURES Final Result * Hepatitis C Antibody with Reflex to HCV, RNA, Quantitative, Real-Time PCR (01/02/2024 12:15 PM EST) Hepatitis C Antibody Nonreactive Nonreactive LABS Comment:Antibodies to HCV no t detected; does not exclude early acuteHCV infection. Blood Venous blood specimen / Unknown 01/02/2024 12:15 PM EST 01/02/2024 1:31 PM EST Vera Da Silva DO LAB BLOOD ORDERABLES Final R esult Performing Organization Address City/[facility] Co de Phone Number LABS [address] [place] [phone] * HIV-1/2 Antigen and Antibodies, Fourth Generation, with Reflexes (01/02/2024 12:15 PM EST) Pathologist [facility] HIV AB/AG Nonreactive Nonreactive [facility] LABS Comment:HIV-1 p24 Ag and/or HIV-1/HIV-2 Ab not detected.A test result that is nonreactive does not exclude thepossibility of exposure to or infection with HIV-1 and/orHIV-2. Nonreactive results in this assay for individualswith prior exposure to HIV-1 and/or HIV-2 may be due toantigen and antibody levels that are below the limit ofdetection of this assay.The [employer] HIV Ag/Ab Combo assay result andsupplemental assay results should be interpreted inconjunction with the patient's clinical presentation,history and other laboratory results. If the results areinconsistent with clinical evidence, additional testing issuggested to confirm the result. Blood Venous blood specimen / Unknown 01/02/2024 12:15 PM EST 01/02/2024 1:31 PM EST Vera Rekha DO LAB BLOOD ORDERABLES Final R esult Performing Organization Address City/[facility]/ZIP Co de Phone Number LABS [address] [place] [phone] * (ABNORMAL) Lipid Panel, Standard (01/02/2024 12:15 PM EST) Triglycerides 90 <150 mg/dL [facility] LABS Comment:Desirable Triglyceri de: less than 150 mg/dLBorderline High Triglyceride 150-199 mg/dLHigh Triglyceride: 200-499 mg/dLVery High Triglyceride: greater than or equal to 5OO mg/dL Cholesterol 188 <200 mg/dL LABS Comment:Desirable Cholestero l: less than 200 mg/dLBorderline High Cholesterol: 200-239 mg/dLHigh Cholesterol: greater than 239 mg/dL LDL Cholesterol Calculated 110(H) <100 mg/dL LABS Comment:Desirable LDL: less than 100 mg/dLNear Optimal/Above Optimal LDL: 110- 129 mg/dLBorderline High LDL: 130-159 mg/dLHigh LDL: 160-189 mg/dLVery High LDL: greater than or equal to 190 mg/dL HDL Cholesterol 60 >40 mg/dL [facility] LABS Comment:Desirable HDL: great er than 40 mg/dL Note: This HDL assay may give artificially low results in patients with liver disease. Blood Venous blood specimen / Unknown 01/02/2024 12:15 PM EST 01/02/2024 1:31 PM EST Vera Da Silva DO LAB BLOOD ORDERABLES Final R esult LABS [address] [place] [phone] * BI Mammogram Screening Tomosynthesis Bilateral (05/13/2023 12:40 PM EDT) Anatomical Region Laterality Modality Breast Bilateral Mammography 05/13/2023 12:4 0 PM EDT Narrative 06/04/2023 3:01 PM EDT ? [facility] [place] ? [address] [facility] ?[place] [address] ? Mammography Report ? Signed ? Patient: Woodis,Nelly ?MR#: [id number] ? : 1970 ?Acct:[id number] ? Age/Sex: 53 / F ?ADM Date: 03/15/24 ? Loc: HO.MAMMO ? Attending Milton Da Silva DO ? Ordering Physician: Vera Da Silva DO ?Results: 1N ?? egative ? Date of Service: 05/13/23 ?Follow Up: 1 Year From Orig ?? inal Mammogram ? Procedure(s): MM tomosynthesis screening BI ?? Accession Number(s): [id number] ? cc: Vera Da Silva DO ? [...] by Aicha Mcnair MD in OV> ? 06/04/237 ? DD/ 1240 ? TD/TT: ? Children'S Librarian: ? Procedure Note Donotuseinterpreter, Image - 06/04/2023 [facility] [address] [place] [address] Mammography Report Signed Patient: Nelly ParedesMR#: [id number] : 1970Acct:[id number] Age/Sex: 53 / FADM Date: 05/13/23 Loc: HO.MAMMO Attending Dr: Vera Da Silva DO Ordering Physician: Vera Da Silvaults: 1N egative Date of Service: 05/13/23Follow Up: 1 Year From Orig inal Mammogram Procedure(s): MM tomosynthesis screening BI Accession Number(s): [id number] cc: Vera Da Silva DO EXAMINATION: MM [...] in OV> 06/04/23 1457 DD/ 1240 TD/TT: Children'S Librarian: Vera Da Silva DO IMG BI PROCEDURES Final Resu lt * Hm Colonoscopy (08/30/2022) Colonoscopy Normal Normal Narrative Jinny Grullon - 08/30/2022 Recommended a 2 year follow up ( [facility] ) Historical Provider HEALTH MAINTENANCE Final Result * HPV mRNA E6/E7 w/Reflex to HPV Genotypes 16, 18/45 (05/25/2022 11:12 AM EDT) HPV nRNA E6/E7 Not Detected Not Detected LABS Comment:Methodology: Transcr iption-Mediated AmplificationThis assay detects E6/E7 viral messenger RNA (mRNA) from 14high-risk HPV types (16,18,31,33,35,39,45,51,52,56,58,59,66,68).Cervical sources are required for HPV testing.If a vaginal source from a patient who has had atotal hysterectomy with removal of cervix wassubmitted, please contact the testing laboratoryfor alternative testing options.For additional information, please refer [email or web address]/faq/PEP909p1(This link if provided for information/educational purposes only.)THIS TEST WAS PERFORMED AT:[facility] [place] [phone] NG MD HPV mRNA E6/E7 [facility] HPV 16 RNA [facility] HPV 18/45 RNA [facility] LABS 05/25/2022 11:1 2 AM EDT 05/25/2022 4:30 PM EDT [facility] External Provider LAB CYT OLOGY ORDERABLES Final Result LABS [address] [place], [place] [phone] * Pap Smear (05/25/2022 11:12 AM EDT) 05/25/2022 11:1 2 AM EDT 05/25/2022 4:30 PM EDT Narrative LABS - 06/07/2022 7:16 AM EDT ----- ------- Name: Nelly Paredes ? Age/Sex: 52/F ? : 1970 Unit#: [id number] ?? Attend Dr: Yaron Das MD ?Re05/25/22 ?Status: DEP REF ? Location: HO.LNP ?Disch: ? ----- ------- SPEC : [id number] ? RECD: 05/25/22-1629 ? STATUS: ??SOUT ? REQ NUM: [id number] ? KEKE: 05/25/22-1112 ? SUBM DR: Yaron Das MD ? ENTERED: ??05/25/22-489 ?SP TYPE: Pap Smr ?OTHR DR: Vera [...] 66, 68) ? HPV testing performed by [facility], [place], [place]. ??See reference laboratory ?? portion of the EMR for entire report. ?Clinical Information LMP: PM Previous PAP test: 2021, Abnormal Other history: CIN1, HPV+ ? Material Received ?? ThinPrep-Cervical Copies To: ?? Vera Da Silva DO ?? [address] [facility] ?? [place] [address] ? Yaron Das MD ?? [address] [place] [address] [address] ?? [place] [address] ?? [phone] ----- ------- Signed (signature on file) Caroline Lew Dariela 06/07/22 0716 ? ----- ------- ? END OF REPORT ? us [facility] External Provider LAB CYT OLOGY ORDERABLES Final Result Performing Organization Address City/State/[facility] Co de Phone Number LABS [address] [place] [phone] from Last 3 Months or Most Recently Relevant to Health Maintenance [facility] Care Teams Gaming Manager Relationship Specialty Start Date End Date Vera Da Silva DO [address] [place] [phone] PCP - General Family Medicine 02/28/18
--- OUTSIDE RECORDS SUMMARY | 2024-06-19 14:49 | XMS_ITS | Encounter Summary ---
Author Organization [employer] Address [address] [place] [address] [address] [place] [address] Care Team Providers Care Stonework Supervisor Name Role Phone Vera Da Silva DO Primary Care Provider [phone] Encounter Details Date Type Department Care Team (Late st Contact Info) Description 09/21/2022 Abstract [facility] [address] [place] [address] Vera Da Silva DO [address] [place] [address] Social History Tobacco Use Types Packs/Day Years [...] as of this encounter Plan of Treatment Upcoming Encounters Date Type Department Care Team (Late st Contact Info) Description 06/26/2024 11:30 AM EDT Office Visit [facility] [address] [place] [address] Vera Da Silva DO [address] [place], [place] [phone] documented as of this encounter Procedures Procedure Name Priority Date/Time Associated Diagnosis Comments HM COLONOSCOPY Routine 08/30/2022 documented in this encounter Results * Hm Colonoscopy (08/30/2022) Colonoscopy Normal Normal Narrative Jinny Grullon - 08/30/2022 Recommended a 2 year follow up ( [facility] ) Historical Provider MD HEALTH MAINTENANCE Final Result documented in this encounter Visit Diagnoses Not on filedocumented in this encounter Additional Health Concerns Assessment Noted Time PHQ-9 Depression Total Score: 13 08/20/ 023 11:13 AM EDT documented as of this encounter Care Teams Stonework Supervisor Relationship Specialty Start Date End Date Vera Da Silva DO [address] [place] [address] PCP - General Family Medicine 02/28/18 documented as of this encounter
--- OUTSIDE RECORDS SUMMARY | 2024-06-19 14:49 | XMS_ITS | Encounter Summary ---
Author Organization [employer] Address [address] [place] [address] [address] [place] [address] Care Team Providers Care Sheet Ironworker Name Role Phone Vera Da Silva DO Primary Care Provider [phone] Reason for Visit * Reason Onset Date Comments Med Refill Recall Appt. 06/07/2024 Encounter Details Date Type Department Care Team (Late st Contact Info) Description 06/07/2024 Refill [facility] [address] [place] [address] Vera Da Silva DO [address] [place], [place] [phone] Social History Tobacco Use Types Packs/Day Years [...] encounter Miscellaneous Notes * Telephone Encounter - Halima Alexandre [place] - 06/15/2024 3:42 PM EDT Spoke with patient schedule follow up appt. 06/26/24 at 11:30am. documented in this encounter Plan of Treatment Upcoming Encounters Date Type Department Care Team (Late st Contact Info) Description 06/26/2024 11:30 AM EDT Office Visit [facility] [address] [place] [address] Vera Da Silva DO [address] [place] [address] documented as of this encounter Visit Diagnoses Not on filedocumented in this encounter Additional Health Concerns Assessment Noted Time PHQ-9 Depression Total Score: 11 024 11:12 AM EST documented as of this encounter Care Teams Sheet Ironworker Relationship Specialty Start Date End Date Vera Da Silva DO [address] [place] [address] PCP - General Family Medicine 02/28/18 documented as of this encounter
--- OUTSIDE RECORDS SUMMARY | 2024-06-19 14:49 | XMS_ITS | Encounter Summary ---
Author Organization [employer] Address [address] [place] [address] [address] [place] [address] Care Team Providers Care Machine Setter Supervisor Name Role Phone Vera Da Silva DO Primary Care Provider [phone] Encounter Details Date Type Department Care Team (Late st Contact Info) Description 12/03/[address] [facility] [address] [place] [address] Jinny Grullon Social History Tobacco Use Types [...] Description 06/26/2024 11:30 AM EDT Office [address] [facility] [address] [place] [address] Vera Da Silva DO [address] [place] [address] documented as of this encounter Procedures Procedure Name Priority Date/Time Associated Diagnosis Comments BIOPSY CERVIX Routine 07/10/2021 COLPOSCOPY Routine 04/30/2021 PAP/HPV Routine 03/23/2021 COLPOSCOPY Routine 04/09/2020 documented in this encounter Results * Biopsy cervix (07/10/2021) Historical Provider IN CLINIC/BEDSIDE ORDERAB LES Final Result * Colposcopy (04/30/2021) Historical Provider IN CLINIC/BEDSIDE ORDERAB LES Final Result * (ABNORMAL) Pap Smear (03/23/2021) Pap Epithelial cell abnormality(A ) Negative for intraephithelial lesion or malignancy, Other Comment:LSIL HPV Detected [facility] Provider HEALTH MAINTENANCE Final Result * Colposcopy (04/09/2020) [facility] Provider IN CLINIC/BEDSIDE ORDERAB LES Final Result documented in this encounter Visit Diagnoses Not on filedocumented in this encounter Additional Health Concerns Assessment Noted Time PHQ-9 Depression Total Score: 13 023 11:13 AM EDT documented as of this encounter Care Teams Machine Setter Supervisor Relationship Specialty Start Date End Date Vera Da Silva DO [address] [place] [address] PCP - General Family Medicine 02/28/18 documented as of this encounter
--- OUTSIDE RECORDS SUMMARY | 2024-06-19 14:49 | XMS_ITS | Encounter Summary ---
Author Organization [employer] Address [address] [place] [address] [address] [place] [address] Care Team Providers Care Fuel Efficient Aircraft Designer Name Role Phone Vera Da Silva DO Primary Care Provider [phone] Encounter Details Date Type Department Care Team (Late st Contact Info) Description 03/19/2022 Orders Only [facility] [address] [place] [address] Vera Spangler LPN Social History Tobacco Use [...] Description 06/26/2024 11:30 AM EDT Office Visit [facility] [address] [place] [address] Vera Da Silva DO [address] [place] [address] documented as of this encounter Visit Diagnoses Not on filedocumented in this encounter Care Teams Fuel Efficient Aircraft Designer Relationship Specialty Start Date End Date Vera Da Silva DO [address] [place] [address] PCP - General Family Medicine 1/1/19 documented as of this encounter
--- OUTSIDE RECORDS SUMMARY | 2024-06-19 14:49 | XMS_ITS | Encounter Summary ---
Author Organization [employer] Address [address] [place] [address] 7 [place] [address] Care Team Providers Care Ways Operator Name Role Phone Vera Da Silva DO Primary Care Provider [phone] Reason for Visit * Reason Onset Date Comments Appointment Request 04/22/2023 Encounter Details Date Type Department Care Team ([facility] st Contact Info) Description 04/22/2023 Telephone [facility] [address] [place], [place] [phone] Vera Da Silva DO [address] [place] [address] Appointment Request Social History Tobacco Use Types [...] from pt requesting an appt with PCP. Primary Grade Teacher tried booking due to recall but Dr. Da Silva Scheduled not available. Please contact pt @ [phone] documented in this encounter Plan of Treatment Upcoming Encounters Date Type Department Care Team (Late st Contact Info) Description 06/26/2024 11:30 AM EDT Office Visit [facility] [address] [place] [address] Vera Da Silva DO [address] [place] [address] documented as of this encounter Visit Diagnoses Not on filedocumented in this encounter Additional Health Concerns Assessment Noted Time PHQ-9 Depression Total Score: 13 023 11:13 AM EDT documented as of this encounter Care Teams Ways Operator Relationship Specialty Start Date End Date Vera Da Silva DO [address] [place] [address] PCP - General Family Medicine 02/28/18 documented as of this encounter
--- OUTSIDE RECORDS SUMMARY | 2024-06-19 14:49 | XMS_ITS | Encounter Summary ---
Author Organization [employer] Address [address] [facility] [address] [place] [address] Care Team Providers Care Agent Name Role Phone AmandaVera miranda Primary Care Provider [phone] Encounter Details Date Type Department Care Team (Latest Contact Info) Description 06/15/2024 Travel Social History Tobacco Use Types Packs/Day Years [...] Description 06/26/2024 11:30 AM EDT Office Visit [facility] [address] [place] [address] Vera Da Silva DO [address] [place] [address] documented as of this encounter Visit Diagnoses Not on filedocumented in this encounter Additional Health Concerns Assessment Noted Time PHQ-9 Depression Total Score: 11 024 11:12 AM EST documented as of this encounter Care Teams Agent Relationship Specialty Start Date End Date Vera Da Silva DO [address] [place] [id number] PCP - General Family Medicine 02/28/18 documented as of this encounter
--- OUTSIDE RECORDS SUMMARY | 2024-06-19 14:49 | XMS_ITS | Encounter Summary ---
Author Organization [employer] Address [address] [place] [address] 7[address] [place] [address] Care Team Providers Care Veterinary Laboratory Diagnostician Name Role Phone Vera Da Silva DO Primary Care Provider [phone] Reason for Visit * Reason Comments Med Refill Encounter Details Date Type Department Care Team (Late st Contact Info) Description 09/09/2022 Refill [facility] [address] [place] [address] Akilah Brannon, ANP [address] [place] [address] Acute left-sided low back pain with left-sided [...] Description 06/26/2024 11:30 AM EDT Office Visit [facility] [address] [place] [address] Vera Da Silva DO [address] [place] [address] documented as of this encounter Visit Diagnoses Diagnosis Acute left-sided low back pain with left-sided sciatica documented in this encounter Additional Health Concerns Assessment Noted Time PHQ-9 Depression Total Score: 13 023 11:13 AM EDT documented as of this encounter Care Teams Veterinary Laboratory Diagnostician Relationship Specialty Start Date End Date Vera Da Silva DO [address] [place] [address] PCP - General Family Medicine 02/28/18 documented as of this encounter
--- OUTSIDE RECORDS SUMMARY | 2024-06-19 14:49 | XMS_ITS | Encounter Summary ---
Author Organization [employer] Address [address] [place] [address] 7 [place] [address] Care Team Providers Care Ticket Maker Name Role Phone Vera Da Silva DO Primary Care Provider Encounter Details Date Type Department Care Team (Latest Contact Info) Description 05/16/2018 Abstract [facility] Dental, Provider, DDS Social History Tobacco [...] Description 06/26/2024 11:30 AM EDT Office Visit [facility] [address] [place] [address] Vera Da Silva DO [address] [place] [address] documented as of this encounter Visit Diagnoses Not on filedocumented in this encounter Care Teams Ticket Maker Relationship Specialty Start Date End Date Vera Da Silva DO [address] [place] [address] PCP - General Family Medicine 02/28/18 documented as of this encounter
== END 2024-06-19 13:28 | disposition home or self-care (01) ==
LOC: HO.RHES 12:32
PROVIDERS: PCP Family Medicine; Visit Provider Internal Medicine Rheumatology
DX: M77.11 Lateral epicondylitis, right elbow (principal); M47.816 Spondylosis without myelopathy or radiculopathy, lumbar region; M54.50 Low back pain, unspecified; G56.03 Carpal tunnel syndrome, bilateral upper limbs; M65.4 Radial styloid tenosynovitis [de Quervain]
CPT/HCPCS: 99214

== ENCOUNTER → 2024-06-19 12:31 | Outpatient (BNVA) | payer MEDICAID, SELFPAY | PROVIDERS: PCP Family Medicine; Visit Provider Internal Medicine Rheumatology | DX: M77.11 Lateral epicondylitis, right elbow (principal); M47.816 Spondylosis without myelopathy or radiculopathy, lumbar region; M54.50 Low back pain, unspecified; M65.4 Radial styloid tenosynovitis [de Quervain]; G56.03 Carpal tunnel syndrome, bilateral upper limbs | CPT/HCPCS: 99212 ==

== ENCOUNTER 2024-06-26 12:14 | Outpatient (REF) | payer MEDICAID, SELFPAY ==
[2024-06-26 13:36] LABS: Estimated Average Glucose 105 mg/dL; Hemoglobin A1C 120.2658 umol/L; Hemoglobin A1c % 5.3 % (<6.0); Total Hemoglobin (HGBA1C) 3459.5246 umol/L
[2024-06-26 13:56] LABS: Anion Gap 11 (12-20); Blood Urea Nitrogen 23 mg/dL (9-16); Carbon Dioxide 33 mmol/L (22-29); Chloride 103 mmol/L (96-108); Estimated Glomerular Filt Rate > 60; Glucose Random 95 mg/dL (60-115); Potassium 3.4 mmol/L (3.3-5.1); Sodium 144 mmol/L (135-145)
--- OUTSIDE RECORDS SUMMARY | 2024-06-26 14:15 | XMS_ITS | Encounter Summary ---
Author Organization [employer] Address [address] [place] [address] 7 [place] [address] Care Team Providers Care Yardage Control Operator Name Role Phone Vera Da Silva DO Primary Care Provider [phone] Reason for Visit * Reason Onset Date Comments Appointment Request 04/22/2023 Encounter Details Date Type Department Care Team ([facility] st Contact Info) Description 04/22/2023 Telephone [facility] [address] [place], [place] [phone] Vera Da Silva DO [address] [place] [address] Appointment Request Social History Tobacco Use Types [...] from pt requesting an appt with PCP. Radiator Cleaner tried booking due to recall but Dr. Da Silva Scheduled not available. Please contact pt @ [phone] documented in this encounter Plan of Treatment Not on file documented as of this encounter Visit Diagnoses Not on filedocumented in this encounter Additional Health Concerns Assessment Noted Time PHQ-9 Depression Total Score: 13 023 11:13 AM EDT documented as of this encounter Care Teams Yardage Control Operator Relationship Specialty Start Date End Date Vera Da Silva DO [address] [place] [address] PCP - General Family Medicine 02/28/18 documented as of this encounter
--- OUTSIDE RECORDS SUMMARY | 2024-06-26 14:15 | XMS_ITS | Clinical Summary ---
Author Organization [employer] Address [address] [place] [address] 7[address] [place] [address] Care Team Providers Care Manager Division Name Role Phone Rekha Vera Primary Care Provider Allergies No known active allergies Medications buPROPion XL (Wellbutrin XL) 300 MG 24 hr tablet Take 300 mg by mouth in the morning. 023 Active sertraline (Zoloft) 100 MG tablet Take 200 mg by mouth in the morning. 023 Active zolpidem (Ambien) 10 MG tablet Take 10 mg by mouth if needed at bedtime. 023 Active fluticasone (Flonase) 50 MCG/ACT nasal sprayIndication s:Seasonal allergic rhinitis, unspecified trigger SPRAY 2 SPRAYS INTO EACH NOSTRIL EVERY DAY 48 mL 1 024 Active cholecalciferol (Vitamin D-3) 50 MCG (1999 UT) tablet TAKE 1 TABLET BY MOUTH EVERY DAY 90 tablet 1 024 Active hydroCHLOROthia zide (HYDRODiuril) 25 MG tabletIndicatio ns:Essential hypertension TAKE 1 TABLET BY MOUTH EVERY DAY IN THE MORNING 90 tablet 1 024 Active omeprazole (PriLOSEC) [address] capsule TAKE 1 CAPSULE BY MOUTH BEFORE BREAKFAST AND BEFORE EVENING MEAL 180 capsule 1 024 Active Senna-Time 8.6 MG tablet TAKE 2 TABLETS BY MOUTH EVERY DAY NEEDED FOR CONSTIPATION 180 tablet 1 025 Active atorvastatin (Lipitor) 20 MG tablet TAKE 1 TABLET BY MOUTH EVERY DAY 90 tablet 3 025 Active LORazepam (Ativan) 0.5 MG tablet 03/01-1 TABLET BY MOUTH TWICE A DAY NEEDED FOR ANXIETY Active Tirzepatide-Stevo ght Management (Zepbound) 2.5 MG/0.5ML solution auto-injector Inject 0.5 mL (2.5 mg) under the skin 1 (one) time per week. 2 mL 3 Active naproxen (Naprosyn) 500 MG tabletIndicatio ns:Acute left-sided low back pain with left-sided sciatica Take 1 tablet (500 mg) by mouth if needed in the morning and at bedtime for mild pain. 40 tablet 1 Active baclofen (Lioresal) 10 MG tablet Take 1 tablet (10 mg) by mouth if needed in the morning, at noon, and at bedtime for muscle spasms. 60 tablet 1 025 2024 Active Diclofenac Sodium 1 % gel Apply 2 g topically if needed in the morning, at noon, in the evening, and at bedtime (pain). 150 g 3 Active acetaminophen (Tylenol 8 Hour) 650 MG ER tablet Take 1 tablet (650 mg) by mouth every 8 (eight) hours if needed for mild pain. Do not crush, chew, or split. 40 tablet 1 025 2024 Active naproxen (Naprosyn) 500 MG tabletIndicatio ns:Acute left-sided low back pain with left-sided sciatica TAKE 1 TABLET BY MOUTH TWICE A DAY FOR 7 DAYS THEN NEEDED FOR PAIN.TAKE WITH FOOD 60 tablet 024 2024 Discontinued(R eorder (will not trigger notification to Pharmacy)) Active Problems Problem Noted Date Diagnosed Date [...] 06/22/2023 History of abnormal cervical Pap smear 12/30/2022 History of COVID-19 08/20/2022 Fatty liver [...] 12/30/2022 12/30/2022 12/30/2022 Steatosis of liver 05/13/2015 Encounters Date Type Department Care Team Description 06/26/2024 11:30 AM EDT Office Visit [facility] [address] [place] [address] Vera Da Silva DO Essential hypertension (Primary Dx); Other hyperlipidemia; Fatty liver; Depressive disorder; Polyarthralgia; Chronic bilateral low back pain with bilateral sciatica; Right carpal tunnel syndrome; Obesity, morbid, BMI 40.0-49.9 (CMS/HCC); Healthcare maintenance; Acute left-sided low back pain with left-sided sciatica 06/26/2024 Travel 06/15/2024 Travel 06/07/2024 Refill [facility] [address] [place] [address] Vera Da Silva DO 05/24/2024 Refill [facility] [address] [place] [address] Vera Da Silva DO 05/11/2024 Population Health Risk Score [facility] ([facility]) Department [address] [phone] Provider, Population Health Generic 05/03/2024 Telephone [facility] [address] [place] [address] Vera Da Silva DO Recall Letter (Recall Letter sent 05/03/24) 04/23/2024 Orders Only [facility] External Provider, [facility] 04/09/2024 Refill [facility] [address] [place] [address] Vera Da Silva DO from Last 3 [...] Sign Reading Time Taken Comments Blood Pressure 129/80 06/26/2024 11:08 AM EDT Pulse 85 06/26/2024 11:08 AM EDT Temperature 36.9 ??C (98.4 ??F) 06/26/2024 11:08 AM E DT Respiratory Rate 20 06/26/2024 11:08 AM EDT Oxygen Saturation 96% 06/26/2024 11:08 AM EDT Inhaled Oxygen Concentration - - Weight 104 kg (230 lb) 06/26/2024 11:08 AM EDT Height 156.2 cm (5' 1.5 ) 06/26/2024 11:08 AM ED T Body Mass Index 42.75 06/26/2024 11:08 AM EDT Plan of Treatment Health Maintenance Due Date Last Done Comments CT Colonography 1972 FIT DNA/Cologuard 1972 FIT 1972 FOBT 1972 Sigmoidoscopy 1972 Family Planning (PISQ) 1987 Cervical Cancer Screening 05/26/2023 HPV/Cotest 05/26/2023 05/25/2022, 03/01, 03/23/2021, Additional history exists Pap Smear 05/26/2023 05/25/2022, 03/23/2021 SDOH Screening 06/13/2024 06/14/2023 Colonoscopy 08/30/2024 08/30/2022 Colorectal Cancer Screening 08/30/2024 Depression Screening 01/01/2025 01/02/2024, 01/02/20 24 Mammogram 05/12/2025 05/13/2023, 04/28, 05/07/2022, Additional history exists Alcohol/Substance Use Screening 06/26/2025 06/26/2024 Tobacco Screening 06/26/2025 06/26/2024 Lipid Panel 01/01/2029 01/02/2024, 12/29, 11/20/2021, Additional history exists DTaP/Tdap/Td Vaccines (5 - Td or Tdap) 06/30/2033 07/01/2023, 02/05/2021, 01/14/2010, Additional history exists RSV Patients and Patients Aged 60 years or older (1 - 1-dose 75+ series) 2047 Hepatitis B Vaccines Completed 01/14/2010, 09/12/2009, 11/13/2007 Hepatitis A Vaccines Completed 12/09/2016, 08/19/19 Pneumococcal Vaccine: 50+ Years Completed 12/30/2022 Zoster [...] Procedure Name Priority Date/Time Associated Diagnosis Comments HEMOGLOBIN A1C Routine 06/26/2024 12:15 PM EDT Essential hypertension Obesity, morbid, BMI 40.0-49.9 (CMS/HCC) BASIC METABOLIC PANEL Routine 06/26/2024 12:15 PM EDT Essential hypertension Obesity, morbid, BMI 40.0-49.9 (CMS/HCC) CREATININE, SERUM Routine 05/28/2024 12: 29 PM [...] Recently Relevant to Health Maintenance Results * Hemoglobin A1c (06/26/2024 12:15 PM EDT) Hemoglobin A1c 5.3 <6.0 % [facility] Comment:Hemoglobin A1C Refer ence Range Adults: 4.8 - 6.0 % Non diabetic: < 6.0 % Goal: < 7.0 %Additional Action Suggested: > 8.0 %Note: Hemoglobin A1c results are invalid for patients with abnormal amounts of HbF. Blood transfusions may impact the HbA1c concentration in the patient sample. Estimated Average Glucose 105 mg/dL [facility] Comment:eAG = Estimated ave rage glucose which is %A1C expressed asaverage glucose, using the formula of the O3M-YhccqgoGinlonc Glucose study (ADAG), Diabetes Care, Vol.31,#8,Sep. 2007 Blood Venous blood specimen / Unknown 06/26/2024 12:15 PM EDT 06/26/2024 1:10 PM EDT Vera Da Silva DO LAB BLOOD ORDERABLES Final R esult Performing Organization Address City/[facility] Co de Phone Number [facility] [address] [place] [phone] * (ABNORMAL) Basic Metabolic Panel (06/26/2024 12:15 PM EDT) Sodium 144 135 - 145 mmol/L [facility] Potassium 3.4 3.3 - 5.1 mmol/L [facility] Chloride 103 96 - 108 mmol/L [facility] Carbon Dioxide 33(H) 22 - 29 mmol/L [facility] Anion Gap 11(L) 12 - 20 [facility] Urea Nitrogen (BUN) 23(H) 9 - 16 mg/dL [facility] Creatinine, Serum 0.88 0.5 - 1.4 mg/dL [facility] Estimated Glomerular Filt Rate >60 [facility] Comment:Chronic Kidney Disea se: Estimated GFR < 60 mL/min/1.47c3Lcjwqq Kidney Disease: Estimated GFR < 15 mL/min/1.73m2 Glucose 95 60 - 115 mg/dL [facility] Calcium 10.0 8.4 - 10.2 mg/dL [facility] Blood Venous blood specimen / Unknown 06/26/2024 12:15 PM EDT 06/26/2024 1:10 PM EDT Vera Da Silva DO LAB BLOOD ORDERABLES Final R esult Performing Organization Address [facility]/ZIP Co de Phone Number [facility] [address] [place] [phone] * Creatinine, Serum (05/28/2024 12:29 PM EDT) Only the most recent of2 resultswithin the time period is included. Creatinine, Serum 1.04 0.5 - 1.4 mg/dL [facility] Estimated Glomerular Filt Rate 56 [facility] Comment:Chronic Kidney Disea se: Estimated GFR < 60 mL/min/1.79e5Fcdvbc Kidney Disease: Estimated GFR < 15 mL/min/1.73m2 05/28/2024 12:2 9 PM EDT 05/28/2024 12:29 PM EDT us Generic External Data Provider LAB BLOOD ORDERAB LES Final Result Performing Organization Address [facility]/ZIP Co de Phone Number [facility] [address] [place] [phone] * ALT (05/14/2024 12:08 PM EDT) Alanine Aminotransferase 28 0 - 31 U/L [facility] 05/14/2024 12:0 8 PM EDT 05/14/2024 12:08 PM EDT us Generic External Data Provider LAB BLOOD ORDERAB LES Final Result Performing Organization Address [facility] Co de Phone Number [facility] [address] [place] [phone] * AST (05/14/2024 12:08 PM EDT) Aspartate Amino Transferase 28 5 - 31 U/L [facility] 05/14/2024 12:0 8 PM EDT 05/14/2024 12:08 PM EDT Generic External Data Provider LAB BLOOD ORDERAB LES Final Result Performing Organization Address City/[facility]/ZIP Co de Phone Number [facility] [address] [place] [phone] * XR Lumbar Spine 2-3 Views (04/23/2024 9:34 AM EST) Anatomical Region Laterality Modality Spine, L-spine Radiographic Sabi ging 04/23/2024 9:34 AM EST Narrative 04/24/2024 11:26 AM EST ? [facility] ?[address] ?[place] [address] ?XRay Report ? Signed ? Patient: Woodis,Nelly ?MR#: [id number] ? : 1970 ?Acct:[id number] ? Age/Sex: 54 / F ?ADM Date: 04/23/24 ? Loc: HO.XRAY ? Attending Dr: Moreno Freeman MD ? Ordering Physician: Moreno Freeman MD ?? Date of Service: 04/23/24 ?? Procedure(s): XR lumbar spine 2-3V ?? Accession Number(s): [id number] ? cc: Vera Da Silva DO; Moreno [...] MD in OV> ? 04/24/24 1123 ? DD/DT: 04/23/ 0934 ? TD/TT: 04/23/24 0958 ? Internal Medicine Doctor: ? Procedure Note Donotuseinterpreter, Image - 04/24/[address] [address] XRay Report Signed Patient: Nelly ParedesMR#: [id number] : 1970Acct:[id number] Age/Sex: 54 / FADM Date: 04/23/24 Loc: HO.XRAY Attending Dr: Moreno Freeman MD Ordering Physician: Moreno Freeman MD Date of Service: 04/23/24 Procedure(s): XR lumbar spine 2-3V Accession Number(s): [id number] cc: Vera Da Silva DO; Moreno Freeman [...] 04/24/24 1123 DD/ 0934 TD/TT: 04/23/24 0958 Internal Medicine Doctor: [facility] External Provider IMG XR PROCEDURES Final Result * Hepatitis C Antibody with Reflex to HCV, RNA, Quantitative, Real-Time PCR (01/02/2024 12:15 PM EST) Hepatitis C Antibody Nonreactive Nonreactive [facility] Comment:Antibodies to HCV no t detected; does not exclude early acuteHCV infection. Blood Venous blood specimen / Unknown 01/02/2024 12:15 PM EST 01/02/2024 1:31 PM EST Vera Da Silva LAB BLOOD ORDERABLES Final R esult Performing Organization Address City/[facility]/ZIP Co de Phone Number [facility] [address] [place] [phone] * HIV-1/2 Antigen and Antibodies, Fourth Generation, with Reflexes (01/02/2024 12:15 PM EST) HIV AB/AG Nonreactive Nonreactive [facility] Comment:HIV-1 p24 Ag and/or HIV-1/HIV-2 Ab not detected.A test result that is nonreactive does not exclude thepossibility of exposure to or infection with HIV-1 and/orHIV-2. Nonreactive results in this assay for individualswith prior exposure to HIV-1 and/or HIV-2 may be due toantigen and antibody levels that are below the limit ofdetection of this assay.The [employer] (P) HIV Ag/Ab Combo assay result andsupplemental assay results should be interpreted inconjunction with the patient's clinical presentation,history and other laboratory results. If the results areinconsistent with clinical evidence, additional testing issuggested to confirm the result. Blood Venous blood specimen / Unknown 01/02/2024 12:15 PM EST 01/02/2024 1:31 PM EST us Vera Jurruth DO LAB BLOOD ORDERABLES Final R esult Performing Organization Address City/[facility]/ZIP Co de Phone Number [facility] [address] [place] [phone] [phone] * (ABNORMAL) Lipid Panel, Standard (01/02/2024 12:15 PM EST) Triglycerides 90 <150 mg/dL [facility] Comment:Desirable Triglyceri de: less than 150 mg/dLBorderline High Triglyceride 150-199 mg/dLHigh Triglyceride: 200-499 mg/dLVery High Triglyceride: greater than or equal to 5OO mg/dL Cholesterol 188 <200 mg/dL [facility] Comment:Desirable Cholestero l: less than 200 mg/dLBorderline High Cholesterol: 200-239 mg/dLHigh Cholesterol: greater than 239 mg/dL LDL Cholesterol Calculated 110(H) <100 mg/dL [facility] Comment:Desirable LDL: less than 100 mg/dLNear Optimal/Above Optimal LDL: 110- 129 mg/dLBorderline High LDL: 130-159 mg/dLHigh LDL: 160-189 mg/dLVery High LDL: greater than or equal to 190 mg/dL HDL Cholesterol 60 >40 mg/dL [facility] Comment:Desirable HDL: great er than 40 mg/dL Note: This HDL assay may give artificially low results in patients with liver disease. Blood Venous blood specimen / Unknown 01/02/2024 12:15 PM EST 01/02/2024 1:31 PM EST us Vera Da Silva DO LAB BLOOD ORDERABLES Final R esult [facility] [address] [place] [phone] * BI Mammogram Screening Tomosynthesis Bilateral (05/13/2023 12:40 PM EDT) Anatomical Region Laterality Modality Breast Bilateral Mammography 05/13/2023 12:4 0 PM EDT Narrative 06/04/2023 3:01 PM EDT ? [facility] ? [address] ?[place] [address] ? Mammography Report ? Signed ? Patient: Woodis,Nelly ?MR#: [id number] ? : 1970 ?Acct:[id number] ? Age/Sex: 53 / F ?ADM Date: 03/15/24 ? Loc: HO.MAMMO ? Attending Dr: Vera Da Silva DO ? Ordering Physician: Vera Da Silva DO ?Results: 1N ?? egative ? Date of Service: 05/13/23 ?Follow Up: 1 Year From Orig ?? inal Mammogram ? Procedure(s): MM tomosynthesis screening BI ?? Accession Number(s): [id number] ? cc: Vera Da Silva DO ? [...] 1457 ? DD/ 1240 ? TD/TT: ? Internal Medicine Doctor: ? Procedure Note Donotmarkinterpreter, Image - 06/04/2023 [facility] [address] [place] [address] Mammography Report Signed Patient: Olga Paredes#: [id number] : 1970Acct:[id number] Age/Sex: 53 / FADM Date: 05/13/23 Loc: HO.MAMMO Attending Dr: Vera Da Silva DO Ordering Physician: Vera Da Silvaults: 1N egative Date of Service: 05/13/23Follow Up: 1 Year From Orig inal Mammogram Procedure(s): MM tomosynthesis screening BI Accession Number(s): [id number] cc: Vera Da Silva DO EXAMINATION: MM [...] in OV> 06/04/23 1457 DD/ 1240 TD/TT: Internal Medicine Doctor: Vera Patelruth DO IMG BI PROCEDURES Final Resu lt * Hm Colonoscopy (08/30/2022) Colonoscopy Normal Normal Narrative Jinny Grullon - 08/30/2022 Recommended a 2 year follow up ( [facility] ) Historical Provider HEALTH MAINTENANCE Final Result * HPV mRNA E6/E7 w/Reflex to HPV Genotypes 16, 18/45 (05/25/2022 11:12 AM EDT) HPV nRNA E6/E7 Not Detected Not Detected [facility] Comment:Methodology: Transcr iption-Mediated AmplificationThis assay detects E6/E7 viral messenger RNA (mRNA) from 14high-risk HPV types (16,18,31,33,35,39,45,51,52,56,58,59,66,68).Cervical sources are required for HPV testing.If a vaginal source from a patient who has had atotal hysterectomy with removal of cervix wassubmitted, please contact the testing laboratoryfor alternative testing options.For additional information, please refer [email or web address]/faq/NWP908c3(This link if provided for information/educational purposes only.)THIS TEST WAS PERFORMED AT:[facility] [place] [phone] NG MD HPV mRNA E6/E7 TNP [facility] HPV 16 RNA [facility] HPV 18/45 RNA [facility] 05/25/2022 11:1 2 AM EDT 05/25/2022 4:30 PM EDT [facility] External Provider LAB CYT OLOGY ORDERABLES Final Result [facility] [address] [place] [phone] [phone] * Pap Smear (05/25/2022 11:12 AM EDT) 05/25/2022 11:1 2 AM EDT 05/25/2022 4:30 PM EDT [facility] - 06/07/2022 7:16 AM EDT ----- ------- Name: Nelly Paredes ? Age/Sex: 52/F ? : 1970 Unit#: [id number] ?? Attend Dr: Yaron Das MD ?Re05/25/22 ?Status: DEP REF ? Location: HO.LNP ?Disch: ? ----- ------- SPEC : [id number] ? RECD: 05/25/22-1629 ? STATUS: ??SOUT ? REQ NUM: [id number] ? KEKE: 05/25/22-1112 ? SUBM DR: Yaron Das MD ? ENTERED: ??05/25/22 ?SP TYPE: Pap Smr ?OTHR DR: Vera [...] 66, 68) ? HPV testing performed by [facility], [place], [place]. ??See reference laboratory ?? portion of the EMR for entire report. ?Clinical Information LMP: PM Previous PAP test: 2021, Abnormal Other history: CIN1, HPV+ ? Material Received ?? ThinPrep-Cervical Copies To: ?? Vera Da Silva DO ?? [address] [facility] ?? [place] [address] ? Yaron Das MD ?? [address] [place] [address] [address] ?? [place] [address] ?? [phone] ----- ------- Signed (signature on file) Caroline Lyle 06/07/22 0716 ? ----- ------- ? END OF REPORT ? [facility] External Provider LAB [facility] ORDER[facility] Final Result Performing Organization Address City/State/[facility] Co de Phone Number [facility] [address] [place] [phone] from Last 3 Months or Most Recently Relevant to Health Maintenance Insurance [facility] [address] [place] [address] Care Teams Manager Division Relationship Specialty Start Date End Date Vera Da Silva DO [address] [place] [phone] PCP - General Family Medicine 02/28/18
--- OUTSIDE RECORDS SUMMARY | 2024-06-26 14:15 | XMS_ITS | Encounter Summary ---
Author Organization [employer] Address [address] [place] [address] [address] [place] [address] Care Team Providers Care Clother In Name Role Phone Vera Da Silva DO Primary Care Provider [phone] Encounter Details Date Type Department Care Team ([facility] st Contact Info) Description 03/19/2022 Orders Only [facility] [address] [place] [address] Vera Spangler LPN Social History Tobacco Use [...] on filedocumented in this encounter Care Teams Clother In Relationship Specialty Start Date End Date Vera Da Silva DO [address] [place] [address] PCP - General Family Medicine 02/28/18 documented as of this encounter
--- OUTSIDE RECORDS SUMMARY | 2024-06-26 14:15 | XMS_ITS | Encounter Summary ---
Author Organization [employer] Address [address] [place] [address] [address] [place] [address] Care Team Providers Care Transport Specialist Name Role Phone Rekha Vera Primary Care Provider [phone] Encounter Details Date Type Department Care Team ([facility] st Contact Info) Description 12/03/2022 Abstract [facility] [address] [place], [place] [phone] Jinny Grullon Social History Tobacco Use Types [...] ORDERAB LES Final Result * Colposcopy (04/30/2021) [facility] Provider IN CLINIC/BEDSIDE ORDERAB LES Final [...] documented as of this encounter Care Teams Transport Specialist Relationship Specialty Start Date End Date Vera Da Silva DO [address] [place] [address] PCP - General Family Medicine 02/28/18 documented as of this encounter
--- OUTSIDE RECORDS SUMMARY | 2024-06-26 14:15 | XMS_ITS | Encounter Summary ---
Author Organization [employer] Address [address] [facility] [address] [place] [address] Care Team Providers Care [facility] Specialist Name Role Phone AmandaVera miranda Primary Care Provider [phone] Encounter Details Date Type Department Care Team (Latest Contact Info) Description 06/26/2024 Travel Social History Tobacco Use Types Packs/Day [...] documented as of this encounter Care Teams [facility] Specialist Relationship Specialty Start Date End Date Vera Da Silva DO [address] [place] [address] PCP - General Family Medicine 02/28/18 documented as of this encounter
--- OUTSIDE RECORDS SUMMARY | 2024-06-26 14:15 | XMS_ITS | Encounter Summary ---
Author Organization [employer] Address [address] [place] [address] 7 [place] [address] Care Team Providers Care Tool Worker Name Role Phone Vera Da Silva DO Primary Care Provider + [phone] Reason for Referral * Neurology (Routine) - Pending Review Specialty Diagnoses / Procedures Referred By Contac t Referred To Contact Diagnoses Chronic bilateral low back pain with bilateral sciatica Procedures Nerve conduction test Vera Da Silva DO [address] [place] [address] Phone: tel: fax: Referral ID Status Reason Start Date Expiration Date V isits Requested Visits Authorized [id number] Pending Review 06/26/2024 06/26/2025 1 1 * Neurology (Routine) - Pending Review Specialty Diagnoses / Procedures Referred By Contac t Referred To Contact Diagnoses Chronic bilateral low back pain with bilateral sciatica Procedures EMG Vera Da Silva DO [address] [place] [address] Phone: tel: fax: Referral ID Status Reason Start Date Expiration Date V isits Requested Visits Authorized [id number] Pending Review 06/26/2024 06/26/2025 1 1 * Imaging (Routine) - Authorized Specialty Diagnoses / Procedures Referred By Contac t Referred To Contact Radiology Diagnoses Fatty liver Procedures US Abdomen Comp w elastography Vera Da Silva DO [address] [place] [address] Phone: tel: fax: [address] Phone: tel: fax: Referral ID Status Reason Start Date Expiration Date V isits Requested Visits Authorized [id number] Authorized 06/26/2024 06/26/2025 1 1 Encounter Details Date Type Department Care Team (Late st Contact Info) Description 06/26/2024 11:30 AM EDT Office Visit [facility] [address] [place] [address] Vera Da Silva DO [address] [place] [address] Essential hypertension (Primary Dx); Other hyperlipidemia; Fatty [...] AM EDT documented as of this encounter Last Filed Vital Signs Vital Sign Reading [...] Mass Index 42.75 06/26/2024 11:08 AM EDT documented in this encounter Plan of Treatment Scheduled Orders Name Type Priority Associated Diagnoses Orde r Schedule US Abdomen Comp w elastography Imaging Routine Fatty liver Expected: 06/26/2024, Expires: 06/26/2025 EMG Neurology Routine Chronic bilateral low back pain with bilateral sciatica Expected: 06/26/2024 (Approximate), Expires: 06/26/2025 Nerve conduction test Neurology Routine Chronic bilateral low back pain with bilateral sciatica Expected: 06/26/2024 (Approximate), Expires: 06/26/2025 documented as of this encounter Procedures Procedure Name Priority Date/Time Associated Diagnosis Comments HEMOGLOBIN A1C Routine 06/26/2024 12:15 PM EDT Essential hypertension Obesity, morbid, BMI 40.0-49.9 ([facility]) BASIC METABOLIC PANEL Routine 06/26/2024 12:15 PM EDT Essential hypertension Obesity, morbid, BMI 40.0-49.9 ([facility]) documented in this encounter Results * Hemoglobin A1c (06/26/2024 12:15 PM EDT) Hemoglobin A1c 5.3 <6.0 % [facility] Comment:Hemoglobin A1C Refer ence Range Adults: 4.8 - 6.0 % Non diabetic: < 6.0 % Goal: < 7.0 %Additional Action Suggested: > 8.0 %Note: Hemoglobin A1c results are invalid for patients with abnormal amounts of HbF. Blood transfusions may impact the HbA1c concentration in the patient sample. Estimated Average Glucose 105 mg/dL [facility] Comment:eAG = Estimated ave rage glucose which is %A1C expressed asaverage glucose, using the formula of the J0T-JqrndvoFkkzvej Glucose study (ADAG), Diabetes Care, Vol.31,#8,Sep. 2007 Blood Venous blood specimen / Unknown 06/26/2024 12:15 PM EDT 06/26/2024 1:10 PM EDT us Vera Da Silva DO LAB BLOOD ORDERABLES Final R esult [facility] [address] [place] [address] [phone] * (ABNORMAL) Basic Metabolic Panel (06/26/2024 12:15 PM EDT) Sodium 144 135 - 145 mmol/L [facility] Potassium 3.4 3.3 - 5.1 mmol/L [facility] Chloride 103 96 - 108 mmol/L [facility] Carbon Dioxide 33(H) 22 - 29 mmol/L [facility] Anion Gap 11(L) 12 - 20 [facility] Urea Nitrogen (BUN) 23(H) 9 - 16 mg/dL [facility] Creatinine, Serum 0.88 0.5 - 1.4 mg/dL [facility] Estimated Glomerular Filt Rate >60 [facility] Comment:Chronic Kidney Disea se: Estimated GFR < 60 mL/min/1.30e1Zuvjar Kidney Disease: Estimated GFR < 15 mL/min/1.73m2 Glucose 95 60 - 115 mg/dL [facility] Calcium 10.0 8.4 - 10.2 mg/dL [facility] Blood Venous blood specimen / Unknown 06/26/2024 12:15 PM EDT 06/26/2024 1:10 PM EDT us Vera Da Silva DO LAB BLOOD ORDERABLES Final R esult Performing Organization Address City/State/[facility] Co de Phone Number [facility] [address] [place] [phone] documented in this encounter Visit Diagnoses Diagnosis Essential hypertension- Primary Unspecified essential hypertension Other hyperlipidemia Fatty liver Other chronic nonalcoholic liver disease Depressive disorder Depressive disorder, not elsewhere classified Polyarthralgia Pain in joint, multiple sites Chronic bilateral low back pain with bilateral sciatica Right carpal tunnel syndrome Carpal tunnel syndrome Obesity, morbid, BMI 40.0-49.9 (CMS/HCC) Healthcare maintenance Acute left-sided low back pain with left-sided sciatica documented in this encounter Additional Health Concerns Assessment Noted Time PHQ-9 Depression Total Score: 11 024 11:12 AM EST documented as of this encounter Care Teams Tool Worker Relationship Specialty Start Date End Date Vera Da Silva DO [address] [place] [address] PCP - General Family Medicine 02/28/18 documented as of this encounter
--- OUTSIDE RECORDS SUMMARY | 2024-06-26 14:15 | XMS_ITS | Encounter Summary ---
Author Organization [employer] Address [address] [place] [address] 7[address] [place] [address] Care Team Providers Care Deposit Clerk Name Role Phone Vera Da Silva DO Primary Care Provider [phone] Reason for Visit * Reason Comments Med Refill Encounter Details Date Type Department Care Team (Late st Contact Info) Description 09/09/2022 Refill [facility] [address] [place] [address] Akilah Brannon, ANP [address] [place] [address] Acute left-sided low back pain with left-sided [...] documented as of this encounter Care Teams Deposit Clerk Relationship Specialty Start Date End Date Vera Da Silva DO [address] [place] [address] PCP - General Family Medicine 02/28/18 documented as of this encounter
--- OUTSIDE RECORDS SUMMARY | 2024-06-26 14:15 | XMS_ITS | Encounter Summary ---
Author Organization [employer] Address [address] [place] [address] 7 [place] [address] Care Team Providers Care Senior Accounts Payable Specialist Name Role Phone Vera Da Silva DO Primary Care Provider [phone]- [phone] Encounter Details Date Type Department Care Team ([facility] st Contact Info) Description 09/21/2022 Abstract [facility] [address] [place], [place] [phone] Vera Da Silva DO [address] [place] [address] Social History Tobacco Use Types Packs/Day Years [...] documented as of this encounter Care Teams Senior Accounts Payable Specialist Relationship Specialty Start Date End Date Vera Da Silva DO [address] [place] [address] PCP - General Family Medicine 02/28/18 documented as of this encounter
--- OUTSIDE RECORDS SUMMARY | 2024-06-26 14:15 | XMS_ITS | Encounter Summary ---
Author Organization [employer] Address [address] [place] [address] 7[address] [place] [address] Care Team Providers Care Plate Straightener Name Role Phone Vera Da Silva DO Primary Care Provider [phone]- [phone] Encounter Details Date Type Department Care Team [...] on filedocumented in this encounter Care Teams Plate Straightener Relationship Specialty Start Date End Date Vera Da Silva DO [address] [place] [address] PCP - General Family Medicine 02/28/18 documented as of this encounter
== END 2024-06-26 12:15 | disposition home or self-care (01) ==
LOC: HO.HHCL 12:14
PROVIDERS: Visit Provider Family Medicine
DX: E66.01 Morbid (severe) obesity due to excess calories (principal); I10 Essential (primary) hypertension
CPT/HCPCS: 36415; 80048; 83036

== ENCOUNTER 2024-06-27 10:46 | Outpatient (AMB) | payer MEDICAID, SELFPAY ==
--- NOTE | 2024-06-27 11:28 | MHC.OFFVIS ---
Vital Signs 06/27/24 11:35 Height 5 ft 2 in Weight 226 lb BMI 41.3 Intake Visit Reasons: Pre-Lt PENITENTIARY Release, Lt CTR 07/05/24 Intake Note: Nelly 54 yr old female presents today for her pre op visit for her left hand PENITENTIARY Release and left CTR that is schedule for 07/05/[address] Bonilla. Allergies No Known Allergies [No Known Allergies*] Allergy (Verified 06/19/24 12:46) HPI HPI Pre-Lt PENITENTIARY Release, Lt CTR 07/05/24: Details: Nelly is a 54 year old right hand dominant woman who presents to discuss her left hand numbness & De Quervains tenosynovitis. She complains of numbness in her left median nerve distribution. Symptoms intermittent, but daily, worse at night. She says she has been dealing with numbness in her bilateral hands for years . She also complains of left radial sided wrist pain, worse with pinching & gripping activities. She has a Hx of relief from previous injections at an outside clinic, done 12/17/22 & 05/18/23 She has a Hx of relief from carpal tunnel injections in the past, done 01/17/22 & 06/17/22 at an outside clinic. She follows with Rheumatology and received a left carpal tunnel injection on 03/13/24, with ~2 months of relief of her numbness. She has confirmed right carpal tunnel syndrome, but no left carpal tunnel syndrome seen on her NCS. [facility] Medical History Spasm of muscle of lower back Fatty liver GERD (gastroesophageal reflux disease) Personal history of COVID-19 Cervical intraepithelial neoplasia grade 1 Morbid obesity with BMI of 40.0-44.9, adult NAFL (nonalcoholic fatty liver) Depression Transaminitis Surgical History History of esophagogastroduodenoscopy (EGD) Hx of colonoscopy History of loop electrical excision procedure (LEEP) History of salpingectomy History of endometrial ablation Hx laparoscopic cholecystectomy H/O tubal ligation Previous section Family History Maternal Grandmother Bone cancer Social History Household Members: Children Housing: Apartment Do you presently have visiting nurse or other home services: No Alcohol intake: never Patient Tobacco Use Status: Never used Tobacco service: No Current occupational status: unemployed Female Reproductive History Menstrual Age of Menarche: 15 Review of Systems Const All systems reviewed & are unremarkable except as noted in HPI and below Physical Exam Vital Signs: BMI result Body Mass Index 41.3 Const General: cooperative, healthy appearing and no acute distress Orientation/consciousness: patient oriented x3 HEENT Head: Yes normocephalic and Yes atraumatic Eyes EOM: EOMs intact bilaterally Resp Effort & Inspection: normal respiratory effort and able to speak in complete sentences Cardio Jugular venous distension: no JVD Skin General skin exam: turgor normal Rashes: no rashes Neuro General: patient oriented x3 Extrem Other: Evaluation of Left Upper Extremity: The patient is alert, oriented, and in no acute distress Neuro: Median, Ulnar, Radial nerves motor and sensory intact No thenar or intrinsic wasting Good APB muscle belly firing and good finger cross Vascular: Cap refill brisk ROM: She can make a fist and extend all her digits No locking or catching Skin: No lacerations or abrasions. General: No Ecchymosis. No Erythema or evidence of infection. Positive Lawrence test on the left Negative Lawrence test on the right Tender over the 1st dorsal compartment Nerve Conduction Study: Bilateral IMPRESSION: Mild right median neuropathy across carpal tunnel. Otherwise no significant abnormality noted. Placido Funes MD 08/16/2023 Psych Appearance: grossly normal Affect: normal affect Attitude: cooperative Assessment & Plan Assessment & Plan (1) De Quervain's tenosynovitis, left: Comment: Recurrent symptoms. She received cortisone injection 12/17/2022 and 05/18/2023 with initial benefit. She is planning surgery Code(s): M65.4 - Radial styloid tenosynovitis [de Quervain] Category: Medical (2) Numbness and tingling in left hand: Code(s): R20.0 - Anesthesia of skin; R20.2 - Paresthesia of skin Category: Medical (3) Carpal tunnel syndrome of right wrist: Code(s): G56.01 - Carpal tunnel syndrome, right upper limb Category: Medical Plan Assessment & Plan: 1. Left De Quervain's tenosynovitis Positive Lawrence test Hx of injections, done: 12/17/22, 05/18/23 I educated her about this condition I discussed operative and non-operative treatment options The patient would like to proceed with surgery The risks and benefits of operative treatment were discussed with the patient and the patient wishes to proceed with surgery. These risks include, but are not limited to risk of damage to blood vessels, nerves, tendons, infection, recurrence, incomplete relief of preoperative symptoms, persistent pain, possible need for further surgery and the risks associated with regional blocks and anesthesia. The plan is to take the patient to the operating room sometime on 07/05/24 for the following procedures: 1. Left 1st dorsal compartment release, under local All of the preoperative paperwork including the consent was reviewed today. All the patient's questions were answered. The patient understands that they will be contacted by our energy scheduler soon to schedule this procedure She denies Diabetes, blood thinners, asthma, heart, lung, kidney issues 2. Left hand numbness and tingling Symptoms intermittent, but daily, worse at night Primarily affecting the thumb & index fingers No carpal tunnel syndrome found on NCS from 08/16/23 & 04/16/20 Hx of multiple injections, done: 01/17/22, 06/17/22, 03/13/24 I ordered a new NCS to assess for peripheral nerve compression She will follow up when completed for review 3. Right carpal tunnel syndrome, mild No complaints today Scribed for Jayde Bonilla MD by All Mcbride, medical education specialist, on 06/27/24 at 11:45 AM, EST. Orders: Orders NE nerve conduction velocity Today R20.0 - Anesthesia of skin, R20.2 - Paresthesia of skin Coding Level of Care Code Est Pt Level 4 (35813) Diagnoses De Quervain's tenosynovitis, left M65.4 Numbness and tingling in left hand R20.0; R20.2 Carpal tunnel syndrome of right wrist G56.01
[2024-06-27 11:35] VITALS: BMI 41.3
--- OUTSIDE RECORDS SUMMARY | 2024-06-27 12:08 | XMS_ITS | Encounter Summary ---
Author Organization [employer] Address [address] [place] [address] 7 [place] [address] Care Team Providers Care Precinct Captain Name Role Phone Vera Da Silva DO Primary Care Provider [phone] Encounter Details Date Type Department Care Team ([facility] st Contact Info) Description 09/21/2022 Abstract [facility] [address] [place], [place] [phone] Vera Da Silva DO [address] [place], [place] [phone] Social History Tobacco Use Types Packs/Day Years [...] documented as of this encounter Care Teams Precinct Captain Relationship Specialty Start Date End Date Vera Da Silva DO [address] [place] [address] PCP - General Family Medicine 02/28/18 documented as of this encounter
--- OUTSIDE RECORDS SUMMARY | 2024-06-27 12:08 | XMS_ITS | Encounter Summary ---
Author Organization [employer] Address [address] [facility] 7t [place] [address] Care Team Providers Care Physical Science Professor Name Role Phone AmandaVera miranda Primary Care Provider [phone] Encounter Details Date Type Department Care Team [...] documented as of this encounter Care Teams Physical Science Professor Relationship Specialty Start Date End Date Vera Da Silva DO [address] [place] [address] PCP - General Family Medicine 02/28/18 documented as of this encounter
--- OUTSIDE RECORDS SUMMARY | 2024-06-27 12:08 | XMS_ITS | Encounter Summary ---
Author Organization [employer] Address [address] [place] [address] 7 [place] [address] Care Team Providers Care Control Tower Radio Operator Name Role Phone Vera Da Silva DO Primary Care Provider + [phone] Reason for Referral * Neurology (Routine) - Authorized Specialty Diagnoses / Procedures Referred By Contac t Referred To Contact Diagnoses Chronic bilateral low back pain with bilateral sciatica Procedures Nerve conduction test Vera Da Silva DO [address] [place], [place] Phone: tel: fax: [address] Phone: tel: fax: Referral ID Status Reason Start Date Expiration Date V isits Requested Visits Authorized [id number] Authorized 06/26/2024 06/26/2025 1 1 * Neurology (Routine) - Authorized Specialty Diagnoses / Procedures Referred By Contac t Referred To Contact Diagnoses Chronic bilateral low back pain with bilateral sciatica Procedures EMG Vera Da iSlva DO [address] [place], [place] Phone: tel: fax: [address] Phone: tel: fax: Referral ID Status Reason Start Date Expiration Date V isits Requested Visits Authorized [id number] Authorized 06/26/2024 06/26/2025 1 1 * Imaging (Routine) - Authorized Specialty Diagnoses / Procedures Referred By Richard t Referred To Contact Radiology Diagnoses Fatty liver Procedures US Abdomen Comp w elastography Vera Da Silva DO [address] [place] [address] Phone: tel: fax: [address] Phone: tel: fax: Referral ID Status Reason Start Date Expiration Date V isits Requested Visits Authorized [id number] Authorized 06/26/2024 06/26/2025 1 1 Encounter Details Date Type Department Care Team (Late st Contact Info) Description 06/26/2024 11:30 AM EDT Office Visit [facility] [address] [place] [address] Vera Da Silva DO [address] [place] [address] Essential hypertension (Primary Dx); Other hyperlipidemia; Fatty [...] EDT Essential hypertension Obesity, morbid, BMI 40.0-49.9 ([facility]/HCC) BASIC METABOLIC PANEL Routine 06/26/2024 12:15 PM EDT Essential hypertension Obesity, morbid, BMI 40.0-49.9 (CMS/HCC) documented in this encounter Results * Hemoglobin A1c (06/26/2024 12:15 PM EDT) Hemoglobin A1c 5.3 <6.0 % [facility] Comment:Hemoglobin A1C Refer ence Range Adults: 4.8 - 6.0 % Non diabetic: < 6.0 % Goal: < 7.0 %Additional Action Suggested: > 8.0 %Note: Hemoglobin A1c results are invalid for patients with abnormal amounts of HbF. Blood transfusions may impact the HbA1c concentration in the patient sample. Estimated Average Glucose 105 mg/dL [facility] Comment:eAG = Estimated ave rage glucose which is %A1C expressed asaverage glucose, using the formula of the G3G-IxqdfdpUdxcexg Glucose study (ADAG), Diabetes Care, Vol.31,#8,Sep. 2007 Blood Venous blood specimen / Unknown 06/26/2024 12:15 PM EDT 06/26/2024 1:10 PM EDT us Vera Da Silva DO LAB BLOOD ORDERABLES Final R esult [facility] [address] [place] [phone] * (ABNORMAL) Basic Metabolic Panel (06/26/2024 12:15 PM EDT) Sodium 144 135 - 145 mmol/L [facility] Potassium 3.4 3.3 - 5.1 mmol/L [facility] Chloride 103 96 - 108 mmol/L [facility] Carbon Dioxide 33(H) 22 - 29 mmol/L [facility] Anion Gap 11(L) 12 - 20 [facility] Urea Nitrogen (BUN) 23(H) 9 - 16 mg/dL [facility] Creatinine, Serum 0.88 0.5 - 1.4 mg/dL [facility] Estimated Glomerular Filt Rate >60 [facility] Comment:Chronic Kidney Disea se: Estimated GFR < 60 mL/min/1.12x4Zrnnnh Kidney Disease: Estimated GFR < 15 mL/min/1.73m2 Glucose 95 60 - 115 mg/dL [facility] Calcium 10.0 8.4 - 10.2 mg/dL [facility] Blood Venous blood specimen / Unknown 06/26/2024 12:15 PM EDT 06/26/2024 1:10 PM EDT us Vera Da Silva DO LAB BLOOD ORDERABLES Final R esult [facility] [address] [place] [address] [phone] documented in this encounter Visit Diagnoses [...] documented as of this encounter Care Teams Control Tower Radio Operator Relationship Specialty Start Date End Date Vera Da Silva DO [address] [place] [address] PCP - General Family Medicine 02/28/18 documented as of this encounter
--- OUTSIDE RECORDS SUMMARY | 2024-06-27 12:08 | XMS_ITS | Encounter Summary ---
Author Organization [employer] Address [address] [place] [address] 7t [place] [address] Care Team Providers Care Vehicle Body Maker Name Role Phone Vera Da Silva DO Primary Care Provider [phone] Reason for Visit * Reason Comments Med Refill Encounter Details Date Type Department Care Team (Late st Contact Info) Description 09/09/2022 Refill [facility] [address] [place] [address] Akilah Brannon, ANP [address] [place] [address] Acute left-sided low back pain with left-sided [...] documented as of this encounter Care Teams Vehicle Body Maker Relationship Specialty Start Date End Date Vera Da Silva DO [address] [place] [address] PCP - General Family Medicine 02/28/18 documented as of this encounter
--- OUTSIDE RECORDS SUMMARY | 2024-06-27 12:09 | XMS_ITS | Encounter Summary ---
Author Organization [employer] Address [address] [place] [address] 7t [place] [address] Care Team Providers Care Audio Production Manager Name Role Phone Rekha Vera Primary Care Provider [phone] Encounter Details Date Type Department Care Team ([facility] st Contact Info) Description 12/03/2022 Abstract [facility] [address] [place], [place] [phone] Jinny Grullon Social History Tobacco Use Types [...] ORDERAB LES Final Result * Colposcopy (04/30/2021) [facility] Provider IN CLINIC/BEDSIDE ORDERAB LES Final Result * (ABNORMAL) Hm Pap Smear (03/23/2021) Pap Epithelial cell abnormality(A ) Negative for intraephithelial lesion or malignancy, Other Comment:LSIL HPV Detected Result [facility] Provider HEALTH MAINTENANCE Final Result * Colposcopy (04/09/2020) Result [facility] Provider IN CLINIC/BEDSIDE ORDERAB LES Final Result documented in this encounter Visit Diagnoses Not on filedocumented in this encounter Additional Health Concerns Assessment Noted Time PHQ-9 Depression Total Score: 13 023 11:13 AM EDT documented as of this encounter Care Teams Audio Production Manager Relationship Specialty Start Date End Date Vera Da Silva DO [address] [place] [address] PCP - General Family Medicine 02/28/18 documented as of this encounter
--- OUTSIDE RECORDS SUMMARY | 2024-06-27 12:09 | XMS_ITS | Encounter Summary ---
Author Organization [employer] Address [address] [place] [address] 7t [place] [address] Care Team Providers Care Semiconductor Technician Name Role Phone Vera Da Silva DO Primary Care Provider [phone] Encounter Details Date Type Department Care Team [...] on filedocumented in this encounter Care Teams Semiconductor Technician Relationship Specialty Start Date End Date Vera Da Silva DO [address] [place] [address] PCP - General Family Medicine 02/28/18 documented as of this encounter
--- OUTSIDE RECORDS SUMMARY | 2024-06-27 12:09 | XMS_ITS | Clinical Summary ---
Author Organization [employer] Address [address] [place] [address] 7t [place] [address] Care Team Providers Care Tree Girdler Name Role Phone RekhaGeorgetteVera Primary Care Provider [phone] Allergies No known active allergies Medications buPROPion [...] 06/26/2024 11:30 AM EDT Office Visit [facility] [address] [place] [address] Vera Da Silva DO Essential hypertension (Primary Dx); Other hyperlipidemia; Fatty liver; Depressive disorder; Polyarthralgia; Chronic bilateral low back pain with bilateral sciatica; Right carpal tunnel syndrome; Obesity, morbid, BMI 40.0-49.9 (CMS/HCC); Healthcare maintenance; Acute left-sided low back pain with left-sided sciatica 06/26/2024 Travel 06/15/2024 Travel 06/07/[address] [facility] [address] [place] [address] Vera Da Silva DO 05/24/[address] [facility] [address] [place] [address] Vera Da Silva DO 05/11/2024 Population Health Risk Score Community [facility] (C3) Department [address] [phone] Provider, Population Health Generic 05/03/[address] [facility] [address] [place] [address] Vera Da Silva DO Recall Letter (Recall Letter sent 05/03/24) 04/23/2024 Orders Only [facility] External Provider, [facility] 04/09/[address] [facility] [address] [place] [address] Vera Da Silva DO from Last 3 [...] is your housing situation today? I have mraques hood 12/30/[address] you [...] PM EDT) Hemoglobin A1c 5.3 <6.0 % [facility] Comment:Hemoglobin A1C Refer ence Range Adults: 4.8 - 6.0 % Non diabetic: < 6.0 % Goal: < 7.0 %Additional Action Suggested: > 8.0 %Note: Hemoglobin A1c results are invalid for patients with abnormal amounts of HbF. Blood transfusions may impact the HbA1c concentration in the patient sample. Estimated Average Glucose 105 mg/dL [facility] Comment:eAG = Estimated ave rage glucose which is %A1C expressed asaverage glucose, using the formula of the J1C-KyqwpsySpnxbbq Glucose study (ADAG), Diabetes Care, Vol.31,#8,Sep. 2007 Blood Venous blood specimen / Unknown 06/26/2024 12:15 PM EDT 06/26/2024 1:10 PM EDT Vera Da Silva DO LAB BLOOD ORDERABLES Final R esult Performing Organization Address City/[facility] Co de Phone Number [facility] [address] [place] [phone] * (ABNORMAL) Basic Metabolic Panel (06/26/2024 12:15 PM EDT) Sodium 144 135 - 145 mmol/L [facility] Potassium 3.4 3.3 - 5.1 mmol/L [facility] Chloride 103 96 - 108 mmol/L [facility] Carbon Dioxide 33(H) 22 - 29 mmol/L [facility] Anion Gap 11(L) 12 - 20 [facility] Urea Nitrogen (BUN) 23(H) 9 - 16 mg/dL [facility] Creatinine, Serum 0.88 0.5 - 1.4 mg/dL [facility] Estimated Glomerular Filt Rate >60 [facility] Comment:Chronic Kidney Disea se: Estimated GFR < 60 mL/min/1.20i4Wwhrnd Kidney Disease: Estimated GFR < 15 mL/min/1.73m2 Glucose 95 60 - 115 mg/dL [facility] Calcium 10.0 8.4 - 10.2 mg/dL [facility] Blood Venous blood specimen / Unknown 06/26/2024 12:15 PM EDT 06/26/2024 1:10 PM EDT Vera Da Silva DO LAB BLOOD ORDERABLES Final R esult Performing Organization Address [facility]/ZIP Co de Phone Number [facility] [address] [place] [phone] * Creatinine, Serum (05/28/2024 12:29 PM EDT) Only the most recent of2 resultswithin the time period is included. Creatinine, Serum 1.04 0.5 - 1.4 mg/dL [facility] Estimated Glomerular Filt Rate 56 [facility] Comment:Chronic Kidney Disea se: Estimated GFR < 60 mL/min/1.85y3Jvkuyx Kidney Disease: Estimated GFR < 15 mL/min/1.73m2 05/28/2024 12:2 9 PM EDT 05/28/2024 12:29 PM EDT us Generic External Data Provider LAB BLOOD ORDERAB LES Final Result Performing Organization Address [facility]/ZIP Co de Phone Number [facility] [address] [place] [phone] * ALT (05/14/2024 12:08 PM EDT) Alanine Aminotransferase 28 0 - 31 U/L [facility] 05/14/2024 12:0 8 PM EDT 05/14/2024 12:08 PM EDT us Generic External Data Provider LAB BLOOD ORDERAB LES Final Result Performing Organization Address [facility] Co de Phone Number [facility] [address] [place] [phone] * AST (05/14/2024 12:08 PM EDT) Aspartate Amino Transferase 28 5 - 31 U/L [facility] 05/14/2024 12:0 8 PM EDT 05/14/2024 12:08 PM EDT Generic External Data Provider LAB BLOOD ORDERAB LES Final Result Performing Organization Address City/[facility]/ZIP Co de Phone Number [facility] [address] [place] [phone] * XR Lumbar Spine 2-3 Views (04/23/2024 9:34 AM EST) Anatomical Region Laterality Modality Spine, L-spine Radiographic Sabi ging 04/23/2024 9:34 AM EST Narrative 04/24/2024 11:26 AM EST ? [facility] ?[address] ?[place] [address] ?XRay Report ? Signed ? Patient: Woodis,Nelly ?MR#: [id number] ? : 1970 ?Acct:[id number] ? Age/Sex: 54 / F ?ADM Date: 04/23/24 ? Loc: HO.XRAY ? Attending Dr: Moreno Freeman MD ? Ordering Physician: Moreno Freeman MD ?? Date of Service: 04/23/24 ?? Procedure(s): XR lumbar spine 2-3V ?? Accession Number(s): [id number] ? cc: Vera Da Silva DO; Moreno [...] 04/23/ 0934 ? TD/TT: 04/23/24 0958 ? Speech Scientist: ? Procedure Note Donotuseinterpreter, Image - 04/24/[address] [address] XRay Report Signed Patient: Nelly ParedesMR#: [id number] : 1970Acct:[id number] Age/Sex: 54 / FADM Date: 04/23/24 Loc: HO.XRAY Attending Dr: Moreno Freeman MD Ordering Physician: Moreno Freeman MD Date of Service: 04/23/24 Procedure(s): XR lumbar spine 2-3V Accession Number(s): [id number] cc: Vera Da Silva DO; Moreno Freeman [...] 04/24/24 1123 DD/ 0934 TD/TT: 04/23/24 0958 Speech Scientist: [facility] External Provider IMG XR PROCEDURES Final Result * Hepatitis C Antibody with Reflex to HCV, RNA, Quantitative, Real-Time PCR (01/02/2024 12:15 PM EST) Hepatitis C Antibody Nonreactive Nonreactive [facility] Comment:Antibodies to HCV no t detected; does not exclude early acuteHCV infection. Blood Venous blood specimen / Unknown 01/02/2024 12:15 PM EST 01/02/2024 1:31 PM EST Vera Da Silva LAB BLOOD ORDERABLES Final R esult Performing Organization Address City/[facility]/ZIP Co de Phone Number [facility] [address] [place] [phone] * HIV-1/2 Antigen and Antibodies, Fourth Generation, with Reflexes (01/02/2024 12:15 PM EST) HIV AB/AG Nonreactive Nonreactive [facility] Comment:HIV-1 p24 Ag and/or HIV-1/HIV-2 Ab not detected.A test result that is nonreactive does not exclude thepossibility of exposure to or infection with HIV-1 and/orHIV-2. Nonreactive results in this assay for individualswith prior exposure to HIV-1 and/or HIV-2 may be due toantigen and antibody levels that are below the limit ofdetection of this assay.The [employer] HIV Ag/Ab Combo assay result andsupplemental assay results should be interpreted inconjunction with the patient's clinical presentation,history and other laboratory results. If the results areinconsistent with clinical evidence, additional testing issuggested to confirm the result. Blood Venous blood specimen / Unknown 01/02/2024 12:15 PM EST 01/02/2024 1:31 PM EST us Vera Jurruth DO LAB BLOOD ORDERABLES Final R esult Performing Organization Address City/[facility]/ZIP Co de Phone Number [facility] [address] [place] [phone] * (ABNORMAL) Lipid Panel, Standard (01/02/2024 12:15 PM EST) Triglycerides 90 <150 mg/dL [facility] Comment:Desirable Triglyceri de: less than 150 mg/dLBorderline High Triglyceride 150-199 mg/dLHigh Triglyceride: 200-499 mg/dLVery High Triglyceride: greater than or equal to 5OO mg/dL Cholesterol 188 <200 mg/dL [facility] Comment:Desirable Cholestero l: less than 200 mg/dLBorderline High Cholesterol: 200-239 mg/dLHigh Cholesterol: greater than 239 mg/dL LDL Cholesterol Calculated 110(H) <100 mg/dL [facility] Comment:Desirable LDL: less than 100 mg/dLNear Optimal/Above Optimal LDL: 110- 129 mg/dLBorderline High LDL: 130-159 mg/dLHigh LDL: 160-189 mg/dLVery High LDL: greater than or equal to 190 mg/dL HDL Cholesterol 60 >40 mg/dL [facility] Comment:Desirable HDL: great er than 40 mg/dL Note: This HDL assay may give artificially low results in patients with liver disease. Blood Venous blood specimen / Unknown 01/02/2024 12:15 PM EST 01/02/2024 1:31 PM EST us Vera Da Silva DO LAB BLOOD ORDERABLES Final R esult [facility] [address] [place] [phone] * BI Mammogram Screening Tomosynthesis Bilateral (05/13/2023 12:40 PM EDT) Anatomical Region Laterality Modality Breast Bilateral Mammography 05/13/2023 12:4 0 PM EDT Narrative 06/04/2023 3:01 PM EDT ? [facility] [place] ? [address] ?[place] [address] ? Mammography Report ? Signed ? Patient: Woodis,Nelly ?MR#: [id number] ? : 1970 ?Acct:[id number] ? Age/Sex: 53 / F ?ADM Date: 03/15/24 ? Loc: HO.MAMMO ? Attending Dr: Vera Da Silva DO ? Ordering Physician: Vera Da Silva DO ?Results: 1N ?? egative ? Date of Service: 05/13/23 ?Follow Up: 1 Year From Orig ?? inal Mammogram ? Procedure(s): MM tomosynthesis screening BI ?? Accession Number(s): [id number] ? cc: Vera Da Silva DO ? [...] 1457 ? DD/ 1240 ? TD/TT: ? Speech Scientist: ? Procedure Note Donotmarkinterpreter, Image - 06/04/2023 [facility] [address] [place] [address] Mammography Report Signed Patient: Olga Paredes#: [id number] : 1970Acct:[id number] Age/Sex: 53 / FADM Date: 05/13/23 Loc: HO.MAMMO Attending Dr: Vera Da Silva DO Ordering Physician: Vera Da Silvaults: 1N egative Date of Service: 05/13/23Follow Up: 1 Year From Orig inal Mammogram Procedure(s): MM tomosynthesis screening BI Accession Number(s): [id number] cc: Vera Da Silva DO EXAMINATION: MM [...] in OV> 06/04/23 1457 DD/ 1240 TD/TT: Speech Scientist: Vera Patelruth DO IMG BI PROCEDURES Final Resu lt * Hm Colonoscopy (08/30/2022) Colonoscopy Normal Normal Narrative Jinny Grullon - 08/30/2022 Recommended a 2 year follow up ( [facility] ) Historical Provider HEALTH MAINTENANCE Final Result * HPV mRNA E6/E7 w/Reflex to HPV Genotypes 16, 18/45 (05/25/2022 11:12 AM EDT) HPV nRNA E6/E7 Not Detected Not Detected [facility] Comment:Methodology: Transcr iption-Mediated AmplificationThis assay detects E6/E7 viral messenger RNA (mRNA) from 14high-risk HPV types (16,18,31,33,35,39,45,51,52,56,58,59,66,68).Cervical sources are required for HPV testing.If a vaginal source from a patient who has had atotal hysterectomy with removal of cervix wassubmitted, please contact the testing laboratoryfor alternative testing options.For additional information, please refer tohttp://education.ENEFpro/faq/TQG697u3(This link if provided for information/educational purposes only.)THIS TEST WAS PERFORMED AT:[facility] [place] [phone] NG MD HPV mRNA E6/E7 TNP [facility] HPV 16 RNA [facility] HPV 18/45 RNA [facility] 05/25/2022 11:1 2 AM EDT 05/25/2022 4:30 PM EDT [facility] External Provider LAB CYT OLOGY ORDERABLES Final Result [facility] [address] [place] [phone] * Pap Smear (05/25/2022 11:12 AM EDT) 05/25/2022 11:1 2 AM EDT 05/25/2022 4:30 PM EDT [facility] - 06/07/2022 7:16 AM EDT ----- ------- Name: Nelly Paredes ? Age/Sex: 52/F ? : 1970 Unit#: [id number] ?? Attend Dr: Yaron Das MD ?Re05/25/22 ?Status: DEP REF ? Location: HO.LNP ?Disch: ? ----- ------- SPEC : [id number] ? RECD: 05/25/22-1629 ? STATUS: ??SOUT ? REQ NUM: [id number] ? KEKE: 05/25/22-1112 ? SUBM DR: Yaron [...] 66, 68) ? HPV testing performed by [employer], [place], [place]. ??See reference laboratory ?? portion of the EMR for entire report. ?Clinical Information LMP: PM Previous PAP test: 2021, Abnormal Other history: CIN1, HPV+ ? Material Received ?? ThinPrep-Cervical Copies To: ?? Vera Da Silva DO ?? [address] [facility] ?? [place] [address] ? Yaron Das MD ?? [address] [place] [address] [address] ?? [place] [address] ?? [phone] ----- ------- Signed (signature on file) Caroline Lyle 06/07/22 0716 ? ----- ------- ? END OF REPORT ? [facility] External Provider LAB CYT [facility] ORDERABLES Final Result Performing Organization Address City/State/[facility] Co de Phone Number [facility] [address] [place] [phone] from Last 3 Months or Most Recently Relevant to Health Maintenance Insurance [facility] [employer] [address] [place] [address] Care Teams Tree Girdler Relationship Specialty Start Date End Date Vera Da Silva DO [address] [place] [phone] PCP - General Family Medicine 02/28/18
--- OUTSIDE RECORDS SUMMARY | 2024-06-27 12:09 | XMS_ITS | Encounter Summary ---
Author Organization [employer] Address [address] [place] [address] [address]t [place] [address] Care Team Providers Care Shaker Operator Name Role Phone Vera Da Silva DO Primary Care Provider [phone] Encounter Details Date Type Department Care Team ([facility] st Contact Info) Description 03/19/2022 Orders Only [facility] [address] [place] [address] Vera Spangler LPN Social History Tobacco Use [...] on filedocumented in this encounter Care Teams Shaker Operator Relationship Specialty Start Date End Date Vera Da Silva DO [address] [place] [address] PCP - General Family Medicine 02/28/18 documented as of this encounter
--- OUTSIDE RECORDS SUMMARY | 2024-06-27 12:09 | XMS_ITS | Encounter Summary ---
Author Organization [employer] Address [address] [facility] 7 [place] [address] Care Team Providers Care Parachutist/Combatant Diver Qualified Name Role Phone Vera Da Silva DO Primary Care Provider [phone] Reason for Visit * Reason Onset Date Comments Appointment Request 04/22/2023 Encounter Details Date Type Department Care Team ([facility] st Contact Info) Description 04/22/2023 Telephone [facility] [address] [place], [place] [phone] Vera Da Silva DO [address] [place] [address] Appointment Request Social History Tobacco Use Types [...] from pt requesting an appt with PCP. Lap Polisher tried booking due to recall but Dr. Da Silva Scheduled not available. Please contact pt @ [phone] documented in this encounter Plan of Treatment Not on file documented as of this encounter Visit Diagnoses Not on filedocumented in this encounter Additional Health Concerns Assessment Noted Time PHQ-9 Depression Total Score: 13 023 11:13 AM EDT documented as of this encounter Care Teams Parachutist/Combatant Diver Qualified Relationship Specialty Start Date End Date Vera Da Silva DO [address] [place] [address] PCP - General Family Medicine 02/28/18 documented as of this encounter
== END 2024-06-27 11:58 | disposition home or self-care (01) ==
LOC: HO.HOS 10:47
PROVIDERS: PCP Family Medicine; Visit Provider Orthopaedic Surgery
DX: M65.4 Radial styloid tenosynovitis [de Quervain] (principal); R20.0 Anesthesia of skin; R20.2 Paresthesia of skin; G56.01 Carpal tunnel syndrome, right upper limb
CPT/HCPCS: 99024

== ENCOUNTER 2024-06-27 12:14 | Outpatient (REF) | payer MEDICAID, SELFPAY ==
--- OUTSIDE RECORDS SUMMARY | 2024-06-27 13:38 | XMS_ITS | Encounter Summary ---
Author Organization [employer] Address [address] [facility] 7t [place] [address] Care Team Providers Care Asian Studies Program Chair Name Role Phone AmandaVera miranda Primary Care Provider [phone] Encounter Details Date Type Department Care Team [...] documented as of this encounter Care Teams Asian Studies Program Chair Relationship Specialty Start Date End Date Vera Da Silva DO [address] [place] [address] PCP - General Family Medicine 02/28/18 documented as of this encounter
--- OUTSIDE RECORDS SUMMARY | 2024-06-27 13:38 | XMS_ITS | Encounter Summary ---
Author Organization [employer] Address [address] [place] [address] 7t [place] [address] Care Team Providers Care Tumbler Tender Name Role Phone Rekha Vera Primary Care Provider [phone] Encounter Details Date Type Department Care Team ([facility] st Contact Info) Description 12/03/2022 Abstract [facility] [address] [place], [place] [phone] Jinny Grullon Social History Tobacco Use Types [...] ORDERAB LES Final Result * Colposcopy (04/30/2021) [facility] Provider IN CLINIC/BEDSIDE ORDERAB LES Final Result * (ABNORMAL) Hm Pap Smear (03/23/2021) Pap Epithelial cell abnormality(A ) Negative for intraephithelial lesion or malignancy, Other Comment:LSIL HPV Detected Result [facility] Provider HEALTH MAINTENANCE Final Result * Colposcopy (04/09/2020) Result [facility] Provider IN CLINIC/BEDSIDE ORDERAB LES Final Result documented in this encounter Visit Diagnoses Not on filedocumented in this encounter Additional Health Concerns Assessment Noted Time PHQ-9 Depression Total Score: 13 023 11:13 AM EDT documented as of this encounter Care Teams Tumbler Tender Relationship Specialty Start Date End Date Vera Da Silva DO [address] [place] [address] PCP - General Family Medicine 02/28/18 documented as of this encounter
--- OUTSIDE RECORDS SUMMARY | 2024-06-27 13:38 | XMS_ITS | Encounter Summary ---
Author Organization [employer] Address [address] [place] [address] 7 [place] [address] Care Team Providers Care Waiter/Waitress Dining Car Name Role Phone Vera Da Silva DO Primary Care Provider [phone] Encounter Details Date Type Department Care Team ([facility] st Contact Info) Description 09/21/[address] [facility] [address] [place], [place] [phone] Vera Da Silva DO [address] [place], [place] [phone] Social History Tobacco Use Types Packs/Day Years [...] documented as of this encounter Care Teams Waiter/Waitress Dining Car Relationship Specialty Start Date End Date Vera Da Silva DO [address] [place] [phone] PCP - General Family Medicine 02/28/18 documented as of this encounter
--- OUTSIDE RECORDS SUMMARY | 2024-06-27 13:38 | XMS_ITS | Clinical Summary ---
Author Organization [employer] Address [address] [place] [address] 7t [place] [address] Care Team Providers Care Television Announcer Name Role Phone RekhaGeorgetteVera Primary Care Provider [...] 06/26/2024 11:30 AM EDT Office Visit [facility] [address] [place] [address] Vera Da Silva DO Essential hypertension (Primary Dx); Other hyperlipidemia; Fatty liver; Depressive disorder; Polyarthralgia; Chronic bilateral low back pain with bilateral sciatica; Right carpal tunnel syndrome; Obesity, morbid, BMI 40.0-49.9 (CMS/HCC); Healthcare maintenance; Acute left-sided low back pain with left-sided sciatica 06/26/2024 Travel 06/15/2024 Travel 06/07/2024 Refill [facility] [address] [place] [address] Vera Da Silva DO 05/24/2024 Refill [facility] [address] [place] [address] Vera Da Silva DO 05/11/2024 Population Health Risk Score [facility] ([facility] Department [address] [phone] Provider, Population Health Generic 05/03/2024 Telephone [facility] [address] [place] [address] Vera Da Silva DO Recall Letter (Recall Letter sent 05/03/24) 04/23/2024 Orders Only [facility] External Provider, [facility] 04/09/2024 Refill [facility] [address] [place] [address] Vera Da Silva DO from Last 3 [...] PM EDT) Hemoglobin A1c 5.3 <6.0 % [facility] Comment:Hemoglobin A1C Refer ence Range Adults: 4.8 - 6.0 % Non diabetic: < 6.0 % Goal: < 7.0 %Additional Action Suggested: > 8.0 %Note: Hemoglobin A1c results are invalid for patients with abnormal amounts of HbF. Blood transfusions may impact the HbA1c concentration in the patient sample. Estimated Average Glucose 105 mg/dL [facility] Comment:eAG = Estimated ave rage glucose which is %A1C expressed asaverage glucose, using the formula of the N2W-MnqgttsDitfzdx Glucose study (ADAG), Diabetes Care, Vol.31,#8,Sep. 2007 Blood Venous blood specimen / Unknown 06/26/2024 12:15 PM EDT 06/26/2024 1:10 PM EDT Vera Da Silva DO LAB BLOOD ORDERABLES Final R esult Performing Organization Address [facility] Co de Phone Number [facility] [address] [place] [phone] * (ABNORMAL) Basic Metabolic Panel (06/26/2024 12:15 PM EDT) Sodium 144 135 - 145 mmol/L [facility] Potassium 3.4 3.3 - 5.1 mmol/L [facility] Chloride 103 96 - 108 mmol/L [facility] Carbon Dioxide 33(H) 22 - 29 mmol/L [facility] Anion Gap 11(L) 12 - 20 [facility] Urea Nitrogen (BUN) 23(H) 9 - 16 mg/dL [facility] Creatinine, Serum 0.88 0.5 - 1.4 mg/dL [facility] Estimated Glomerular Filt Rate >60 [facility] Comment:Chronic Kidney Disea se: Estimated GFR < 60 mL/min/1.03k5Decaos Kidney Disease: Estimated GFR < 15 mL/min/1.73m2 Glucose 95 60 - 115 mg/dL [facility] Calcium 10.0 8.4 - 10.2 mg/dL [facility] Blood Venous blood specimen / Unknown 06/26/2024 12:15 PM EDT 06/26/2024 1:10 PM EDT Vera Da Silva DO LAB BLOOD ORDERABLES Final R esult Performing Organization Address [facility]/ZIP Co de Phone Number [facility] [address] [place] [phone] * Creatinine, Serum (05/28/2024 12:29 PM EDT) Only the most recent of2 resultswithin the time period is included. Creatinine, Serum 1.04 0.5 - 1.4 mg/dL [facility] Estimated Glomerular Filt Rate 56 [facility] Comment:Chronic Kidney Disea se: Estimated GFR < 60 mL/min/1.31n2Asvwgk Kidney Disease: Estimated GFR < 15 mL/min/1.73m2 05/28/2024 12:2 9 PM EDT 05/28/2024 12:29 PM EDT us Generic External Data Provider LAB BLOOD ORDERAB LES Final Result Performing Organization Address [facility]/ZIP Co de Phone Number [facility] [address] [place] [phone] * ALT (05/14/2024 12:08 PM EDT) Alanine Aminotransferase 28 0 - 31 U/L [facility] 05/14/2024 12:0 8 PM EDT 05/14/2024 12:08 PM EDT us Generic External Data Provider LAB BLOOD ORDERAB LES Final Result Performing Organization Address [facility] Co de Phone Number [facility] [address] [place] [phone] * AST (05/14/2024 12:08 PM EDT) Aspartate Amino Transferase 28 5 - 31 U/L [facility] 05/14/2024 12:0 8 PM EDT 05/14/2024 12:08 PM EDT Generic External Data Provider LAB BLOOD ORDERAB LES Final Result Performing Organization Address [facility]/ZIP Co de Phone Number [facility] [address] [place] [phone] * XR Lumbar Spine 2-3 Views (04/23/2024 9:34 AM EST) Anatomical Region Laterality Modality Spine, L-spine Radiographic Sabi ging 04/23/2024 9:34 AM EST Narrative 04/24/2024 11:26 AM EST ? [facility] ?[address] ?[place] [address] ?XRay Report ? Signed ? Patient: Woodis,Nelly ?MR#: [id number] ? : 1970 ?Acct:[id number] ? Age/Sex: 54 / F ?ADM Date: 04/23/24 ? Loc: HO.XRAY ? Attending Dr: Moreno Freeman MD ? Ordering Physician: Moreno Freeman MD ?? Date of Service: 04/23/24 ?? Procedure(s): XR lumbar spine 2-3V ?? Accession Number(s): [id number] ? cc: Vera Da Silva DO; Moreno [...] 04/23/ 0934 ? TD/TT: 04/23/24 0958 ? Sports Photographer: ? Procedure Note Donotuseinterpreter, Image - 04/24/[address] [address] XRay Report Signed Patient: Nelly ParedesMR#: [id number] : 1970Acct:[id number] Age/Sex: 54 / FADM Date: 04/23/24 Loc: HO.XRAY Attending Dr: Moreno Freeman MD Ordering Physician: Moreno Freeman MD Date of Service: 04/23/24 Procedure(s): XR lumbar spine 2-3V Accession Number(s): [id number] cc: Vera Da Silva DO; Moreno Freeman [...] 04/24/24 1123 DD/ 0934 TD/TT: 04/23/24 0958 Sports Photographer: [facility] External Provider IMG XR PROCEDURES Final Result * Hepatitis C Antibody with Reflex to HCV, RNA, Quantitative, Real-Time PCR (01/02/2024 12:15 PM EST) Hepatitis C Antibody Nonreactive Nonreactive [facility] Comment:Antibodies to HCV no t detected; does not exclude early acuteHCV infection. Blood Venous blood specimen / Unknown 01/02/2024 12:15 PM EST 01/02/2024 1:31 PM EST Vera Da Silva LAB BLOOD ORDERABLES Final R esult Performing Organization Address [facility]/ZIP Co de Phone Number [facility] [address] [place] [phone] * HIV-1/2 Antigen and Antibodies, Fourth Generation, with Reflexes (01/02/2024 12:15 PM EST) HIV AB/AG Nonreactive Nonreactive [facility] Comment:HIV-1 p24 Ag and/or HIV-1/HIV-2 Ab not detected.A test result that is nonreactive does not exclude thepossibility of exposure to or infection with HIV-1 and/orHIV-2. Nonreactive results in this assay for individualswith prior exposure to HIV-1 and/or HIV-2 may be due toantigen and antibody levels that are below the limit ofdetection of this assay.The [employer] HIV Ag/Ab Combo assay result andsupplemental assay results should be interpreted inconjunction with the patient's clinical presentation,history and other laboratory results. If the results areinconsistent with clinical evidence, additional testing issuggested to confirm the result. Blood Venous blood specimen / Unknown 01/02/2024 12:15 PM EST 01/02/2024 1:31 PM EST us Vera Jurruth DO LAB BLOOD ORDERABLES Final R esult Performing Organization Address [facility]/ZIP Co de Phone Number [facility] [address] [place] [phone] * (ABNORMAL) Lipid Panel, Standard (01/02/2024 12:15 PM EST) Triglycerides 90 <150 mg/dL [facility] Comment:Desirable Triglyceri de: less than 150 mg/dLBorderline High Triglyceride 150-199 mg/dLHigh Triglyceride: 200-499 mg/dLVery High Triglyceride: greater than or equal to 5OO mg/dL Cholesterol 188 <200 mg/dL [facility] Comment:Desirable Cholestero l: less than 200 mg/dLBorderline High Cholesterol: 200-239 mg/dLHigh Cholesterol: greater than 239 mg/dL LDL Cholesterol Calculated 110(H) <100 mg/dL [facility] Comment:Desirable LDL: less than 100 mg/dLNear Optimal/Above Optimal LDL: 110- 129 mg/dLBorderline High LDL: 130-159 mg/dLHigh LDL: 160-189 mg/dLVery High LDL: greater than or equal to 190 mg/dL HDL Cholesterol 60 >40 mg/dL [facility] Comment:Desirable HDL: great er than 40 mg/dL Note: This HDL assay may give artificially low results in patients with liver disease. Blood Venous blood specimen / Unknown 01/02/2024 12:15 PM EST 01/02/2024 1:31 PM EST us Vera Da Silva DO LAB BLOOD ORDERABLES Final R esult [facility] [address] [place] [phone] * BI Mammogram Screening Tomosynthesis Bilateral (05/13/2023 12:40 PM EDT) Anatomical Region Laterality Modality Breast Bilateral Mammography 05/13/2023 12:4 0 PM EDT Narrative 06/04/2023 3:01 PM EDT ? [facility] ? [address] ?[place] [address] ? Mammography Report ? Signed ? Patient: Woodis,Nelly ?MR#: [id number] ? : 1970 ?Acct:[id number] ? Age/Sex: 53 / F ?ADM Date: 03/15/24 ? Loc: HO.MAMMO ? Attending Dr: Vera Da Silva DO ? Ordering Physician: Vera Da Silav DO ?Results: 1N ?? egative ? Date of Service: 05/13/23 ?Follow Up: 1 Year From Orig ?? inal Mammogram ? Procedure(s): MM tomosynthesis screening BI ?? Accession Number(s): [id number] ? cc: Vera Da Silva DO ? [...] 1457 ? DD/ 1240 ? TD/TT: ? Sports Photographer: ? Procedure Note Donotmarkinterpreter, Image - 06/04/2023 [facility] [address] [place] [address] Mammography Report Signed Patient: Olga Paredes#: [id number] : 1970Acct:[id number] Age/Sex: 53 / FADM Date: 05/13/23 Loc: HO.MAMMO Attending Dr: Vera Da Silva DO Ordering Physician: Vera Da Silvaults: 1N egative Date of Service: 05/13/23Follow Up: 1 Year From Orig inal Mammogram Procedure(s): MM tomosynthesis screening BI Accession Number(s): [id number] cc: Vera Da Silva DO EXAMINATION: MM [...] in OV> 06/04/23 1457 DD/ 1240 TD/TT: Sports Photographer: Vera Patelruth DO IMG BI PROCEDURES Final Resu lt * Hm Colonoscopy (08/30/2022) Colonoscopy Normal Normal Narrative Jinny Grullon - 08/30/2022 Recommended a 2 year follow up ( [facility] ) Historical Provider HEALTH MAINTENANCE Final Result * HPV mRNA E6/E7 w/Reflex to HPV Genotypes 16, 18/45 (05/25/2022 11:12 AM EDT) HPV nRNA E6/E7 Not Detected Not Detected [facility] Comment:Methodology: Transcr iption-Mediated AmplificationThis assay detects E6/E7 viral messenger RNA (mRNA) from 14high-risk HPV types (16,18,31,33,35,39,45,51,52,56,58,59,66,68).Cervical sources are required for HPV testing.If a vaginal source from a patient who has had atotal hysterectomy with removal of cervix wassubmitted, please contact the testing laboratoryfor alternative testing options.For additional information, please refer [email or web address].[email or web address]/[email or web address](This link if provided for information/educational purposes only.)THIS TEST WAS PERFORMED AT:[employer] [place] [phone] NG MD HPV mRNA E6/E7 TNP [facility] HPV 16 RNA [facility] HPV 18/45 RNA [facility] 05/25/2022 11:1 2 AM EDT 05/25/2022 4:30 PM EDT [facility] External Provider LAB CYT OLOGY ORDERABLES Final Result [facility] [address] [place] [phone] [phone] * Pap Smear (05/25/2022 11:12 AM EDT) 05/25/2022 11:1 2 AM EDT 05/25/2022 4:30 PM EDT [facility] - 06/07/2022 7:16 AM EDT ----- ------- Name: Nelly Paredes ? Age/Sex: 52/F ? : 1970 Unit#: [id number] ?? Attend Dr: Yaron Das MD ?Re05/25/22 ?Status: DEP REF ? Location: HO.LNP ?Disch: ? ----- ------- SPEC : [id number] ? RECD: 05/25/22-1629 ? STATUS: ??SOUT ? REQ NUM: [id number] ? KEKE: 05/25/22-1112 ? SUBM DR: Yaron [...] 66, 68) ? HPV testing performed by [facility], [place], [place]. ??See reference laboratory ?? portion of the EMR for entire report. ?Clinical Information LMP: PM Previous PAP test: 2021, Abnormal Other history: CIN1, HPV+ ? Material Received ?? ThinPrep-Cervical Copies To: ?? Vera Da Silva DO ?? [address] ?? [place] [address] ? Yaron Das MD ?? [address] [place] [address] [address] ?? [place] [address] ?? [phone] ----- ------- Signed (signature on file) Caroline Lyle 06/07/22 0716 ? ----- ------- ? END OF REPORT ? [facility] External Provider LAB CYT [facility] ORDERABLES Final Result Performing Organization Address City/State/[facility] Co de Phone Number [facility] [address] [place] [phone] from Last 3 Months or Most Recently Relevant to Health Maintenance Insurance [facility] [address] [place] [address] Care Teams Television Announcer Relationship Specialty Start Date End Date Vera Da Silva DO [address] [place] [phone] PCP - General Family Medicine 02/28/18
--- OUTSIDE RECORDS SUMMARY | 2024-06-27 13:38 | XMS_ITS | Encounter Summary ---
Author Organization [employer] Address [address] [place] [address] 7t [place] [address] Care Team Providers Care Mason Tender Name Role Phone Vera Da Silva DO Primary Care Provider [phone] Reason for Visit * Reason Comments Med Refill Encounter Details Date Type Department Care Team (Late st Contact Info) Description 09/09/[address] [facility] [address] [place] [address] Akilah Brannon, ANP [address] [place] [address] Acute left-sided low back pain with left-sided [...] documented as of this encounter Care Teams Mason Tender Relationship Specialty Start Date End Date Vera Da Silva DO [address] [place] [address] PCP - General Family Medicine 02/28/18 documented as of this encounter
--- OUTSIDE RECORDS SUMMARY | 2024-06-27 13:38 | XMS_ITS | Encounter Summary ---
Author Organization [employer] Address [address] [place] [address] 7 [place] [address] Care Team Providers Care Stationary Steam Engineer Name Role Phone Vera Da Silva DO Primary Care Provider + [phone] Reason for Referral * Neurology (Routine) - Authorized Specialty Diagnoses / Procedures Referred By Contac t Referred To Contact Diagnoses Chronic bilateral low back pain with bilateral sciatica Procedures Nerve conduction test Vera Da Silva DO [address] [place], [place] Phone: tel: fax: [address] Phone: tel: fax: Referral ID Status Reason Start Date Expiration Date V isits Requested Visits Authorized [id number] Authorized 06/26/2024 06/26/2025 1 1 * Neurology (Routine) - Authorized Specialty Diagnoses / Procedures Referred By Contac t Referred To Contact Diagnoses Chronic bilateral low back pain with bilateral sciatica Procedures EMG Vera Da Silva DO [address] [place], [place] Phone: tel: fax: [address] Phone: tel: fax: Referral ID Status Reason Start Date Expiration Date V isits Requested Visits Authorized [id number] Authorized 06/26/2024 06/26/2025 1 1 * Imaging (Routine) - Authorized Specialty Diagnoses / Procedures Referred By Richard t Referred To Contact Radiology Diagnoses Fatty liver Procedures US Abdomen Comp w elastography Vera Da Silva DO [address] [place] [address] Phone: tel: fax: [address] Phone: tel: fax: Referral ID Status Reason Start Date Expiration Date V isits Requested Visits Authorized [id number] Authorized 06/26/2024 06/26/2025 1 1 Encounter Details Date Type Department Care Team (Late st Contact Info) Description 06/26/2024 11:30 AM EDT Office Visit [facility] [address] [place] [address] Vera Da Silva DO [address] [place] [address] Essential hypertension (Primary Dx); Other hyperlipidemia; Fatty [...] EDT Essential hypertension Obesity, morbid, BMI 40.0-49.9 ([facility]/HCC) BASIC METABOLIC PANEL Routine 06/26/2024 12:15 PM EDT Essential hypertension Obesity, morbid, BMI 40.0-49.9 (CMS/HCC) documented in this encounter Results * Hemoglobin A1c (06/26/2024 12:15 PM EDT) Hemoglobin A1c 5.3 <6.0 % [facility] Comment:Hemoglobin A1C Refer ence Range Adults: 4.8 - 6.0 % Non diabetic: < 6.0 % Goal: < 7.0 %Additional Action Suggested: > 8.0 %Note: Hemoglobin A1c results are invalid for patients with abnormal amounts of HbF. Blood transfusions may impact the HbA1c concentration in the patient sample. Estimated Average Glucose 105 mg/dL [facility] Comment:eAG = Estimated ave rage glucose which is %A1C expressed asaverage glucose, using the formula of the J3X-NzmaitdUwlimej Glucose study (ADAG), Diabetes Care, Vol.31,#8,Sep. 2007 Blood Venous blood specimen / Unknown 06/26/2024 12:15 PM EDT 06/26/2024 1:10 PM EDT us Vera Da Silva DO LAB BLOOD ORDERABLES Final R esult [facility] [address] [place] [phone] * (ABNORMAL) Basic Metabolic Panel (06/26/2024 12:15 PM EDT) Sodium 144 135 - 145 mmol/L [facility] Potassium 3.4 3.3 - 5.1 mmol/L [facility] Chloride 103 96 - 108 mmol/L [facility] Carbon Dioxide 33(H) 22 - 29 mmol/L [facility] Anion Gap 11(L) 12 - 20 [facility] Urea Nitrogen (BUN) 23(H) 9 - 16 mg/dL [facility] Creatinine, Serum 0.88 0.5 - 1.4 mg/dL [facility] Estimated Glomerular Filt Rate >60 [facility] Comment:Chronic Kidney Disea se: Estimated GFR < 60 mL/min/1.54i9Uemgrd Kidney Disease: Estimated GFR < 15 mL/min/1.73m2 Glucose 95 60 - 115 mg/dL [facility] Calcium 10.0 8.4 - 10.2 mg/dL [facility] Blood Venous blood specimen / Unknown 06/26/2024 12:15 PM EDT 06/26/2024 1:10 PM EDT us Vera Da Silva DO LAB BLOOD ORDERABLES Final R esult [facility] [address] [place] [phone] [phone] documented in this encounter Visit Diagnoses [...] documented as of this encounter Care Teams Stationary Steam Engineer Relationship Specialty Start Date End Date Vera Da Silva DO [address] [place] [address] PCP - General Family Medicine 02/28/18 documented as of this encounter
--- OUTSIDE RECORDS SUMMARY | 2024-06-27 13:38 | XMS_ITS | Encounter Summary ---
Author Organization [employer] Address [address] [place] [address] 7t [place] [address] Care Team Providers Care Tire Center Manager Name Role Phone Vera Da Silva DO Primary Care Provider [phone] Encounter Details Date Type Department Care Team ([facility] st Contact Info) Description 03/19/2022 Orders Only [facility] [address] [place] [address] Vera Spangler LPN Social History Tobacco Use [...] on filedocumented in this encounter Care Teams Tire Center Manager Relationship Specialty Start Date End Date Vera Da Silva DO [address] [place] [address] PCP - General Family Medicine 02/28/18 documented as of this encounter
--- OUTSIDE RECORDS SUMMARY | 2024-06-27 13:38 | XMS_ITS | Encounter Summary ---
Author Organization [employer] Address [address] [place] [address] 7t [place] [address] Care Team Providers Care Charge Lpn Name Role Phone Vera Da Silva DO Primary Care Provider [phone] Encounter Details Date Type Department Care Team [...] on filedocumented in this encounter Care Teams Charge Lpn Relationship Specialty Start Date End Date Vera Da Silva DO [address] [place] [address] PCP - General Family Medicine 02/28/18 documented as of this encounter
--- OUTSIDE RECORDS SUMMARY | 2024-06-27 13:38 | XMS_ITS | Encounter Summary ---
Author Organization [employer] Address [address] [facility] 7 [place] [address] Care Team Providers Care Cutlery Grinder Name Role Phone Vera Da Silva DO Primary Care Provider [phone] Reason for Visit * Reason Onset Date Comments Appointment Request 04/22/2023 Encounter Details Date Type Department Care Team ([facility] st Contact Info) Description 04/22/2023 Telephone [facility] [address] [place], [place] [phone] Vera Da Silva DO [address] [place] [address] Appointment Request Social History Tobacco Use Types [...] from pt requesting an appt with PCP. Thermodynamicist tried booking due to recall but Dr. Da Silva Scheduled not available. Please contact pt @ [phone] documented in this encounter Plan of Treatment Not on file documented as of this encounter Visit Diagnoses Not on filedocumented in this encounter Additional Health Concerns Assessment Noted Time PHQ-9 Depression Total Score: 13 023 11:13 AM EDT documented as of this encounter Care Teams Cutlery Grinder Relationship Specialty Start Date End Date Vera Da Silva DO [address] [place] [address] PCP - General Family Medicine 02/28/18 documented as of this encounter
== END 2024-06-27 12:15 | disposition home or self-care (01) ==
LOC: HO.MAMMO 12:14
PROVIDERS: Absent Provider Obstetrics & Gynecology; PCP Family Medicine; Visit Provider Family Medicine
DX: Z12.31 Encounter for screening mammogram for malignant neoplasm of breast (principal)
CPT/HCPCS: 77063; 77067

== ENCOUNTER → 2024-06-27 13:15 | Outpatient (BNV) | payer MEDICAID, SELFPAY | PROVIDERS: Absent Provider Obstetrics & Gynecology; PCP Family Medicine; Visit Provider Internal Medicine | DX: Z12.31 Encounter for screening mammogram for malignant neoplasm of breast (principal) | CPT/HCPCS: 77063; 77067 ==

== ENCOUNTER 2024-07-05 10:37 | Day surgery (SDC) | payer MEDICAID, SELFPAY ==
[2024-07-05 10:49] VITALS: BP 101/43; PULSE 80; RESP 16; TEMP 36.6; O2SAT 93; BMI 41.3
--- NOTE | 2024-07-05 12:45 | MHC.SHP ---
Pre-Procedural Eval Section A - 24 Hr Update-Section A only Date of Service: 07/05/24 The patient is an INPATIENT: No Changes since office visit: No Cold of Flu in the past 2 weeks, No New Medical Problems, No Changes in Medication and No Patient answered all questions The patient has been examined within 24 hours of the surgical procedure. The History & Physical has been completed within 30 days and I have reviewed it.: Yes Section B - Complete if H&P > 30 days Chief Complaint: Radial styloid tenosynovitis [de Quervain]carpal Allergies: Allergies Allergy/AdvReac Type Severity Reaction Status Date / Time No Known Allergies Allergy Verified 06/19/24 12:46 [No Known Allergies*] Plan Diagnosis/Plan: Unchanged I have reviewed the history and physical and performed a pertinent physical examination on my patient. No changes have occurred unless specified. Time Spent With Patient Time: Total time managing care of this patient today ____ minutes.
--- NOTE | 2024-07-05 12:46 | P.OP_ITS ---
Operative Note Operative Note Date of Service: 07/05/24 Narrative: Operative Note Preop diagnosis: 1. Left DeQuervain's tenosynovitis Postop diagnosis: 1. Left DeQuervain's tenosynovitis Procedure: 1. Left 1st dorsal compartment release 2. Left abductor pollicis longus tenosynovectomy Surgeon: Jayde Bonilla MD Minister Of Religion: Dorian PABON Anesthesia: local block using 1% lidocaine with epinephrine Findings: Thickened 1st dorsal compartment. She had some inflammatory tenosynovium about the APL tendon EBL: Less than 5 mL Tourniquet time: None Specimens: None Complications: None Disposition: Brought to recovery room in stable condition Plan: Follow-up for 7-10 days for wound check and suture removal Indications: The patient is 54 years old, with left DeQuervain's tenosynovitis that has been unresponsive to nonoperative management. The risks and benefits of operative treatment including but not limited to risk of damage to blood vessels, nerves, tendons, infection, persistent pain, persistent symptoms, recurrence or possible need for additional surgery were discussed with the patient and the patient wishes to proceed with surgery. Procedure: Once consent was obtained a local block was performed in the preop area using a combination of 1% lidocaine with epinephrine. The patient was then brought back to the operating suite and placed on the operative table in supine position. The left upper extremity was prepped and draped in a standard surgical fashion. Once assured that we had a good block, a 1.5 cm longitudinal incision was made centered over the 1st dorsal compartment as it passed over the radial styloid of the left wrist. The incision was made through the skin to the subcutaneous tissues using a #15 blade. Careful dissection was made down to the level of the 1st dorsal compartment using tenotomy scissors, with care being taken to protect the nearby branches of the superficial radial nerve. Once the 1st dorsal compartment was exposed, A longitudinal incision was made in the 1st dorsal compartment 1st using a #15 blade, then using tenotomy scissors under direct visualization. The 1st dorsal compartment was noted to be thickened. She also had some inflammatory tenosynovium about the APL tendon. I performed a tenosynovectomy excising some of this inflamed tenosynovium using tenotomy and iris scissors. Following our release, we saw smooth gliding abductor pollicis longus and extensor pollicis brevis tendons. Once satisfied with our 1st dorsal compartment release the wound was copiously irrigated with normal saline and hemostasis was obtained with a brief period of local pressure. The subcutaneous layer was closed with some 4-0 Vicryl suture, and the skin edges were reapproximated with some 5.0 nylon suture material. A sterile dressing was applied. The patient appears to have tolerated the procedure well and with no complications. All digits were well vascularized at the conclusion of the case.
[2024-07-05 14:15] VITALS: BP 137/89; PULSE 79; RESP 18; O2SAT 96
[2024-07-05 14:30] VITALS: BP 143/74; PULSE 80; RESP 20; TEMP 37.1; O2SAT 95
[2024-07-05 15:14] LABS: Basophils Percent Auto 0.6 % (0-2); Eosinophils Absolute Auto 0.1 X10*3/uL (0.0-0.4); Eosinophils Percent Auto 1.1 % (0-4); Imm Gran Abs Auto 0.01 X10*3/uL (0.00-0.03); Imm Gran Pct Auto 0.2 % (0.0-0.4); Lymphocytes Absolute Auto 1.8 X10*3/uL (1.2-4.9); Lymphocytes Percent Auto 34.5 % (20-40); MANUAL DIFF FLAG NO; Mean Corpuscular HGB Conc 33.3 g/dl (31.0-35.0); Mean Corpuscular Volume 86.9 fL (80.0-98.0); Mean Platelet Volume 9.5 fL (9.4-12.3); Monocytes Absolute Auto 0.4 X10*3/uL (0.1-1.2); Monocytes Percent Auto 7.5 % (2-11); Neutrophils Percent Auto 56.1 % (45-73); Platelet Count 179 X10*3/uL (160-400); Red Blood Count 4.49 X10*6/uL (4.20-5.50); Red Cell Distribution Width 13.2 % (11.0-16.0); White Blood Count 5.3 X10*3/uL (4.8-10.8)
[2024-07-05 15:31] LABS: Alanine Aminotransferase 29 U/L (0-31); Albumin Level 4.3 g/dL (3.5-5.0); Aspartate Amino Transferase 36 U/L (5-31); Bilirubin Direct 0.1 mg/dL (0.0-0.5); Bilirubin Total 0.3 mg/dL (0.0-1.0); Creatinine Clr Calc Pharmacy 78.5; Estimated Glomerular Filt Rate > 60; Total Protein 7.2 g/dL (6.5-8.0)
[2024-07-05 15:56] LABS: HIV AB/AG Nonreactive (Nonreactive); HIV Num 1 0.05 S/CO (0.00-0.99)
[2024-07-05 16:08] LABS: Alkaline Phosphatase 62 U/L (39-117); Amylase 41 U/L (28-100)
[2024-07-06 08:04] LABS: HBc Num1 0.08 S/CO (0.00-0.79); HBsAGNum1 0.29 S/CO (0.00-0.99); Hepatitis B Core Antibody Nonreactive (Nonreactive); Hepatitis B Surface Antigen Negative (Negative); ~HepC Num1 0.14 S/CO (0.00-0.79); ~Hepatitis B Surface Antibody REACTIVE (Nonreactive)
[2024-07-06 08:07] LABS: Hepatitis C Ab Exposure Source NonReactive (Nonreactive)
== END 2024-07-05 14:55 | disposition home or self-care (01) ==
PROVIDERS: PCP Family Medicine; Visit Provider Orthopaedic Surgery
PROC: (CPT 25118; principal; 2024-07-05 14:50)
DX: M65.4 Radial styloid tenosynovitis [de Quervain] (principal); R20.0 Anesthesia of skin; M25.532 Pain in left wrist; K76.0 Fatty (change of) liver, not elsewhere classified; R74.01 Elevation of levels of liver transaminase levels; K21.9 Gastro-esophageal reflux disease without esophagitis; E66.01 Morbid (severe) obesity due to excess calories; Z68.41 Body mass index [BMI] 40.0-44.9, adult; F32.A Depression, unspecified; Z98.890 Other specified postprocedural states; Z56.0 Unemployment, unspecified
CPT/HCPCS: 25118; 25000; 36415; 80076; 82150; 82565; 85025; 86704; 86803; 87340; 87389; J0171; J2003; J2004

== ENCOUNTER → 2024-07-05 10:37 | Outpatient (BNV) | payer MEDICAID, SELFPAY | PROVIDERS: PCP Family Medicine; Visit Provider Orthopaedic Surgery | DX: M65.4 Radial styloid tenosynovitis [de Quervain] (principal) | CPT/HCPCS: 25000 ==

== ENCOUNTER 2024-07-17 10:14 | Outpatient (AMB) | payer MEDICAID, SELFPAY ==
--- NOTE | 2024-07-17 10:21 | MHC.OFFVIS ---
Vital Signs 07/17/24 10:23 Height 5 ft 2 in Weight 226 lb BMI 41.3 Intake Visit Reasons: PO LT SHELTER Release/CTR 07/05/24 AR Intake Note: Nelly is a 54 year old female who presents today post-operatively status post left 1st dorsal compartment release and left abductor pollicis longus tenosynovectomy, DOS: 07/05/[address] Bonilla. left CTR? not mentioned in OP note. Allergies No Known Allergies [No Known Allergies*] Allergy (Verified 07/17/24 10:24) PFSH Medical History Spasm of muscle of lower back Fatty liver GERD (gastroesophageal reflux disease) Personal history of COVID-19 Cervical intraepithelial neoplasia grade 1 Morbid obesity with BMI of 40.0-44.9, adult NAFL (nonalcoholic fatty liver) Depression Transaminitis Surgical History History of esophagogastroduodenoscopy (EGD) Hx of colonoscopy History of loop electrical excision procedure (LEEP) History of salpingectomy History of endometrial ablation Hx laparoscopic cholecystectomy H/O tubal ligation Previous section Family History Maternal Grandmother Bone cancer Social History Household Members: Children Housing: Apartment Do you presently have visiting nurse or other home services: No Alcohol intake: never Comment: counts correct Patient Tobacco Use Status: Never used Tobacco service: No Current occupational status: unemployed Female Reproductive History Menstrual Age of Menarche: 15 Physical Exam Vital Signs: BMI result Body Mass Index 41.3 Assessment & Plan Assessment & Plan (1) De Quervain's tenosynovitis, left: Comment: Recurrent symptoms. She received cortisone injection 12/17/2022 and 05/18/2023 with initial benefit. She is planning surgery Code(s): M65.4 - Radial styloid tenosynovitis [de Quervain] Category: Medical (2) Numbness and tingling in left hand: Code(s): R20.0 - Anesthesia of skin; R20.2 - Paresthesia of skin Category: Medical Plan History of Present Illness The patient is a 54-year-old female presenting with a post-operative follow-up for her left first dorsal compartment release due to De Quervain's tenosynovitis. She reports numbness and an electrical sensation in her hand, particularly running from the wrist up into the thumb. The patient describes intermittent sharp pain, which is less intense compared to pre-operative levels, and denies any new significant pain. Currently, her rehabilitation plan includes occupational therapy focused on range of motion and strengthening exercises. The patient has been previously treated for tendinitis in the opposite arm but requires further attention to this hand. Her management plan also includes arrangements for an EMG and nerve conduction study to confirm and explore the nerve involvement further. She has been given post-operative care instructions, including limited use of the affected hand and guidance on keeping the wound site dry until healing is verified. Review of Systems - Neurologic: Reports numbness and electrical sensation; Denies any additional numbness or tingling - Musculoskeletal: Reports intermittent sharp pain in hand; Denies any significant new pain Systems reviewed and are negative except as per HPI and below Physical Exam - Musculoskeletal- sutures in place Patient is alert, oriented, and in no acute distress. Neuro: Normal sensation of the tips of all digits of the left hand at this time Vascular: Cap refill brisk Pain: no tenderness to palpation about the incision site over the 1st dorsal compartment of the left wrist ROM: patient is able to make a closed fist and extend all digits of the left hand fully and without difficulty Skin:No lacerations or abrasions; well approximated and well healing incision site noted over the 1st dorsal compartment of the left wrist General: No ecchymosis, erythema, or evidence of infection. Psych:Appears grossly normal Affect normal Attitude cooperative Results - Diagnostics: EMG and nerve conduction study ordered - Imaging: X-rays reviewed, no displacement noted, fracture healing observed Procedure - Suture Removal: Obtained informed consent from the patient, explaining procedure risks and benefits. Removed sutures and applied sterile strips, advised to cover with light dressing for 4-5 days. Plan For post-operative management after first dorsal compartment release due to De Quervain's tenosynovitis, the patient is advised to continue occupational therapy targeting motion range and strengthening, while refraining from water immersion and heavy lifting for two weeks. An additional EMG and nerve conduction study were ordered following report discrepancies. Post-suture removal site care involves sterile adherence and a supportive brace to aid recovery. The patient will be reassessed in three to four weeks for progress evaluation and further treatment necessity. Patient was informed and verbally consented to the use of an ambient scribe for clinic note documentation during this visit. Discussion Notes During today's visit, I discussed with the patient her post-operative status following the first dorsal compartment release for De Quervain's tenosynovitis. We reviewed her current symptoms that include numbness, the described electrical sensation, and diminished sharp pain. I emphasized the importance of occupational therapy in her recovery process and reiterated activity restrictions to ensure proper healing. The decision to order another EMG and nerve conduction study was explained, addressing the need for accurate side confirmation and nerve involvement assessment. I provided instructions following suture removal and discussed protective measures using a brace. Follow-up was planned for three to four weeks to monitor healing progression. Patient Instructions - Continue occupational therapy as prescribed focusing on hand exercises. - Avoid putting your hand under water (hot tubs, baths, pools, dishes) for one more week. - Lift nothing heavier than a cell phone in your affected hand for two more weeks. - Keep the wound site dry and clean with light dressing for 4-5 days post-suture removal. - Wear the prescribed soft brace as needed during daytime activities to support your thumb and wrist. - follow-up after EMG and nerve conduction study for results review and discussion of further treatment options if indicated Orders: Orders OT Evaluation and Treatment Today M65.4 - Radial styloid tenosynovitis [de Quervain] NE electromyogram (EMG) Today R20.0 - Anesthesia of skin, R20.2 - Paresthesia of skin NE nerve conduction velocity Today R20.0 - Anesthesia of skin, R20.2 - Paresthesia of skin Coding Level of Care Code Global (38161) Diagnoses De Quervain's tenosynovitis, left M65.4 Numbness and tingling in left hand R20.0; R20.2
[2024-07-17 10:23] VITALS: BMI 41.3
--- OUTSIDE RECORDS SUMMARY | 2024-07-17 11:26 | XMS_ITS | Encounter Summary ---
Author Organization [facility] Address [address] [place] [address] 7 [place] [address] Care Team Providers Care Heat Treat Furnace Operator Name Role Phone Vera Da Silva DO Primary Care Provider [phone] Encounter Details Date Type Department Care Team (Late st Contact Info) Description 09/21/2022 Abstract [facility] MEDICINE [address] [place], [place] [phone] Vera Da Silva DO [address] [place], [place] [phone] Social History Tobacco Use Types Packs/Day Years [...] documented as of this encounter Care Teams Heat Treat Furnace Operator Relationship Specialty Start Date End Date Vera Da Silva DO [address] [place] [address] PCP - General Family Medicine 02/28/18 documented as of this encounter
--- OUTSIDE RECORDS SUMMARY | 2024-07-17 11:26 | XMS_ITS | Encounter Summary ---
Author Organization [employer] Address [address] [place] [address] [address] [place] [address] Care Team Providers Care Biomass Plant Technician Name Role Phone Kenyetta Da Silvafer Primary Care Provider [phone] Encounter Details Date Type Department Care Team ([facility] st Contact Info) Description 12/03/2022 Abstract [facility] MEDICINE [address] [place], [place] [phone] Jinny Grullon Social History Tobacco Use Types [...] this encounter Results * Biopsy cervix (07/10/2021) us Historical Provider MD IN CLINIC/BEDSIDE ORDERAB LES Final Result * Colposcopy (04/30/2021) [facility] Provider IN CLINIC/BEDSIDE ORDERAB LES Final Result * (ABNORMAL) Hm Pap Smear (03/23/2021) Pap Epithelial cell abnormality(A ) Negative for intraephithelial lesion or malignancy, Other Comment:LSIL HPV Detected [facility] Provider HEALTH MAINTENANCE Final Result * Colposcopy (04/09/2020) [facility] Provider IN CLINIC/BEDSIDE ORDERAB LES Final Result documented in this encounter Visit Diagnoses Not on filedocumented in this encounter Additional Health Concerns Assessment Noted Time PHQ-9 Depression Total Score: 13 023 11:13 AM EDT documented as of this encounter Care Teams Biomass Plant Technician Relationship Specialty Start Date End Date Vera Da Silva DO [address] [place] [address] PCP - General Family Medicine 02/28/18 documented as of this encounter
--- OUTSIDE RECORDS SUMMARY | 2024-07-17 11:26 | XMS_ITS | Encounter Summary ---
Author Organization [email or web address] Address [address] [place] [address] 7 [place] [address] Care Team Providers Care Winder Hand Name Role Phone Vera Da Silva DO Primary Care Provider + [phone] Reason for Visit * Reason Onset Date Comments PA 07/16/2024 Encounter Details Date Type Department Care Team ([facility] st Contact Info) Description 07/16/[address] [facility] MEDICINE [address] [place], [place] [phone] Vera Da Silva DO [address] [place], [place] [phone] PA Social History Tobacco Use Types Packs/Day Years [...] encounter Miscellaneous Notes * Telephone Encounter - Maricel Wei - 07/16/2024 3:38 PM EDT Tc from pt stating she needs PA for medication below - Tirzepatide-Weight Management (Zepbound) 2.5 MG/0.5ML solution auto-injector documented in this encounter Plan of Treatment Not on file documented as of this encounter Visit Diagnoses Not on filedocumented in this encounter Additional Health Concerns Assessment Noted Time PHQ-9 Depression Total Score: 11 024 11:12 AM EST documented as of this encounter Care Teams Winder Hand Relationship Specialty Start Date End Date Vera Da Silva DO [address] [place] [address] PCP - General Family Medicine 02/28/18 documented as of this encounter
--- OUTSIDE RECORDS SUMMARY | 2024-07-17 11:26 | XMS_ITS | Encounter Summary ---
Author Organization [employer] Address [address] [place] [address] [address] [place] [address] Care Team Providers Care Director Of Retention Name Role Phone Vera Da Silva DO Primary Care Provider [phone] Encounter Details Date Type Department Care Team ([facility] st Contact Info) Description 03/19/2022 Orders Only [facility] & PEDS [address] [place], [place] [phone] Vera Spangler LPN Social History Tobacco Use [...] on filedocumented in this encounter Care Teams Director Of Retention Relationship Specialty Start Date End Date Vera Da Silva DO [address] [place] [id number] PCP - General Family Medicine 02/28/18 documented as of this encounter
--- OUTSIDE RECORDS SUMMARY | 2024-07-17 11:26 | XMS_ITS | Encounter Summary ---
Author Organization [employer] Address [address] [place] [address] [address] [place] [address] Care Team Providers Care High Value Associate Name Role Phone Vera Da Silva DO Primary Care Provider [phone] Encounter Details Date Type Department Care Team [...] on filedocumented in this encounter Care Teams High Value Associate Relationship Specialty Start Date End Date Vera Da Silva DO [address] [place] [id number] PCP - General Family Medicine 02/28/18 documented as of this encounter
--- OUTSIDE RECORDS SUMMARY | 2024-07-17 11:26 | XMS_ITS | Encounter Summary ---
Author Organization [email or web address] Address [address] [place] [address] [address] [place] [address] Care Team Providers Care Administrative Analyst Name Role Phone Vera Da Silva DO Primary Care Provider [phone] Reason for Visit * Reason Comments Med Refill Encounter Details Date Type Department Care Team (Late st Contact Info) Description 09/09/2022 Refill [facility] [address] [place], [place] [phone] Akilah Brannon, ANP [address] [place] [address] Acute left-sided low back pain with left-sided [...] documented as of this encounter Care Teams Administrative Analyst Relationship Specialty Start Date End Date Vera Da Silva DO [address] [place] [address] PCP - General Family Medicine 02/28/18 documented as of this encounter
--- OUTSIDE RECORDS SUMMARY | 2024-07-17 11:26 | XMS_ITS | Encounter Summary ---
Author Organization [employer] Address [address] [place] [address] [address] [place] [address] Care Team Providers Care Taker Off Drying Kiln Name Role Phone Vera Da Silva DO Primary Care Provider [phone] Reason for Visit * Reason Onset Date Comments Appointment Request 04/22/2023 Encounter Details Date Type Department Care Team ([facility] st Contact Info) Description 04/22/2023 Telephone [facility] MEDICINE [address] [place], [place] [phone] Vera Da Silva DO [address] [place], [place] [phone] Appointment Request Social History Tobacco Use Types [...] from pt requesting an appt with PCP. Internal Auditor tried booking due to recall but Dr. Da Silva Scheduled not available. Please contact pt @ [phone] documented in this encounter Plan of Treatment Not on file documented as of this encounter Visit Diagnoses Not on filedocumented in this encounter Additional Health Concerns Assessment Noted Time PHQ-9 Depression Total Score: 13 023 11:13 AM EDT documented as of this encounter Care Teams Taker Off Drying Kiln Relationship Specialty Start Date End Date Vera Da Silva DO [address] [place] [address] PCP - General Family Medicine 02/28/18 documented as of this encounter
--- OUTSIDE RECORDS SUMMARY | 2024-07-17 11:27 | XMS_ITS | Clinical Summary ---
Author Organization [employer] Address [address] [place] [address] [address] [place] [address] Care Team Providers Care Belt Turner Name Role Phone Rekha Vera Primary Care Provider [phone] Allergies No known active allergies Medications buPROPion [...] THE MORNING 90 tablet 1 024 Active Senna-Time 8.6 MG tablet TAKE 2 TABLETS BY MOUTH EVERY DAY NEEDED FOR CONSTIPATION 180 tablet 1 025 Active atorvastatin (Lipitor) 20 MG tablet TAKE 1 TABLET BY MOUTH EVERY DAY 90 tablet 3 025 Active LORazepam (Ativan) 0.5 MG tablet /2-1 TABLET BY MOUTH TWICE A DAY NEEDED FOR ANXIETY 025 Active Tirzepatide-Stevo ght Management (Zepbound) 2.5 MG/0.5ML [...] split. 40 tablet 1 025 2024 Active omeprazole (PriLOSEC) [address] capsule TAKE 1 CAPSULE BY MOUTH BEFORE BREAKFAST AND BEFORE EVENING MEAL 180 capsule 1 Active naproxen (Naprosyn) 500 MG tabletIndicatio ns:Acute left-sided low back pain with left-sided sciatica TAKE 1 TABLET BY MOUTH TWICE A DAY FOR 7 DAYS THEN NEEDED FOR PAIN.TAKE WITH FOOD 60 tablet 024 2024 Discontinued(R eorder (will not trigger notification to Pharmacy)) omeprazole (PriLOSEC) [address] capsule TAKE 1 CAPSULE BY MOUTH BEFORE BREAKFAST AND BEFORE EVENING MEAL 180 capsule 1 024 2024 Discontinued Active Problems Problem Noted Date [...] Encounters Date Type Department Care Team Description 07/16/2024 Telephone [facility] [address] [place] [address] Vera Da Silva DO PA 07/07/2024 Refill [facility] [address] [place] [address] Vera Da Silva DO 07/05/2024 Orders Only GENERIC EXTERNAL DATA DEPARTMENT Provider, Generic External Data 06/29/2024 Telephone [facility] [address] [place] [address] Vera Da Silva DO Results 06/27/2024 Orders Only [facility] External Provider, [facility] 06/26/2024 11:30 AM EDT Office Visit [facility] [address] [place] [address] Vera Da Silva DO Essential hypertension (Primary Dx); Other hyperlipidemia; Fatty liver; Depressive disorder; Polyarthralgia; Chronic bilateral low back pain with bilateral sciatica; Right carpal tunnel syndrome; Obesity, morbid, BMI 40.0-49.9 (CMS/HCC); Healthcare maintenance; Acute left-sided low back pain with left-sided sciatica 06/26/2024 Travel 06/15/2024 Travel 06/07/2024 Refill [facility] [address] [place] [address] Vera Da Silva DO 05/24/2024 Refill [facility] [address] [place] [address] Vera Da Silva DO 05/11/2024 Population Health Risk Score [facility] [address] [place] [phone] Provider, Population Health Generic 05/03/2024 Telephone [facility] [address] [place] [address] Vera Da Silva DO Recall Letter (Recall Letter sent 05/03/24) 04/23/2024 Orders Only [facility] External Provider, [facility] from Last 3 Months Immunizations Immunization Administration Dates Next Due Hep A, Adult [...] 1972 FIT 1972 FOBT 1972 Sigmoidoscopy 1972 Disability Screening 1972 Family Planning (PISQ) 1987 Cervical Cancer Screening 05/26/2023 HPV/Cotest 05/26/2023 05/25/2022, 03/01, 03/23/2021, Additional history exists Pap Smear 05/26/2023 05/25/2022, 03/23/2021 SDOH Screening 06/13/2024 06/14/2023 Colonoscopy 08/30/2024 08/30/2022 Colorectal Cancer Screening 08/30/2024 Depression Screening 01/01/2025 01/02/2024, 01/02/20 Alcohol/Substance Use Screening 06/26/2025 06/26/2024 Tobacco Screening 06/26/2025 06/26/2024 Mammogram 06/27/2025 06/27/2024, 04/28, 05/07/2022, Additional history exists Lipid Panel [...] 11/20/2021, Additional history exists HIV Screening Completed 07/05/2024, 05/2023, 01/14/2023, Additional history exists Hepatitis C Screening Completed 07/05/2024 , 01/02/2024, 01/14/2023, Additional history exists HIB Vaccines Aged Out No longer eligi ble based on patient's age to complete this topic HPV Vaccines Aged Out No longer eligi ble based on patient's age to complete this topic IPV Vaccines Aged Out No longer eligi ble based on patient's age to complete this topic Meningococcal B Vaccine Aged Out No l onger eligible based on patient's age to complete [...] Name Priority Date/Time Associated Diagnosis Comments HEPATITIS EXPOSURE SOURCE Routine 07/05/2024 2:58 PM EDT HIV AB/AG EXPOSURE SOURCE Routine 07/05/2024 2:58 PM EDT AMYLASE Routine 07/05/2024 2:58 PM EDT CREATININE, SERUM Routine 07/05/2024 2:5 8 PM EDT HEPATIC FUNCTION PANEL Routine 2:58 PM EDT CBC WITH AUTO DIFFERENTIAL Routine 07/05/2024 2:58 PM EDT BI MAMMOGRAM SCREENING TOMOSYNTHESIS BILATERAL Routine 06/27/2024 1:15 PM EDT HEMOGLOBIN A1C Routine 06/26/2024 12:15 PM EDT [...] 2-3 VIEWS Routine 04/23/2024 9:34 AM EST LIPID PANEL, STANDARD Routine 01/02/2024 12:15 PM EST Essential hypertension Other hyperlipidemia Fatty liver Depressive disorder Polyarthralgia Bilateral hand numbness Healthcare maintenance HM COLONOSCOPY Routine 08/30/2022 HPV MRNA E6/E7 REFLEX TO HPV 16, 18/45 Routine 05/25/2022 11:12 AM EDT PAP SMEAR Routine 05/25/2022 11:12 AM EDT from Last 3 Months or Most Recently Relevant to Health Maintenance Results * Hepatitis Exposure Source (07/05/2024 2:58 PM EDT) ~Hepatitis B Surface Antibody REACTIVE Nonreactive [facility] Comment:REACTIVE: > 11.99 mI U/mL Hepatitis B Core Antibody Nonreactive Nonreactive [facility] Hepatitis C Ab NonReactive Nonreactive [facility] Hepatitis B Surface Ag Negative Negative [facility] 07/05/2024 2:58 PM EDT 07/05/2024 3:12 PM EDT us Generic External Data Provider LAB BLOOD ORDERAB LES Final Result [facility] [address] [place] [phone] * HIV Ab/Ag Exposure Source (07/05/2024 2:58 PM EDT) HIV AB/AG Nonreactive Nonreactive [facility] Comment:HIV-1 p24 Ag and/or HIV-1/HIV-2 Ab not detected.A test result that is nonreactive does not exclude thepossibility of exposure to or infection with HIV-1 and/orHIV-2. Nonreactive results in this assay for individualswith prior exposure to HIV-1 and/or HIV-2 may be due toantigen and antibody levels that are below the limit ofdetection of this assay.The [employer] HIV Ag/Ab Combo assay result andsupplemental assay results should be interpreted inconjunction with the patient's clinical presentation,history and other laboratory results. If the results areinconsistent with clinical evidence, additional testing issuggested to confirm the result. 07/05/2024 2:58 PM EDT 07/05/2024 3:12 PM EDT Generic External Data Provider LAB BLOOD ORDERAB LES Final Result Performing Organization Address [facility] Co de Phone Number [facility] [address] [place] [address] [phone] * Creatinine, Serum (07/05/2024 2:58 PM EDT) Only the most recent of3 resultswithin the time period is included. Creatinine, Serum 0.94 0.5 - 1.4 mg/dL [facility] Creatinine Clr Calc Pharmacy 78.5 [facility] Comment:Provided height and weight: 157.48 cm,102.512 kg.eGFR (calculated from the MDRD study equation) and eCrCl(calculated from the Cockcroft-Gault equation) are based ondifferent parameters and may not yield comparable results.If eCrCl result is absurd, please check patient'sheight/weight. Estimated Glomerular Filt Rate >60 [facility] Comment:Chronic Kidney Disea se: Estimated GFR < 60 mL/min/[id number] Kidney Disease: Estimated GFR < 15 mL/min/1.73m2 07/05/2024 2:58 PM EDT 07/05/2024 3:12 PM EDT Generic External Data Provider LAB BLOOD ORDERAB LES Final Result Performing Organization Address City/[facility] Co de Phone Number [facility] [address] [place] [address] [phone] * CBC auto differential (07/05/2024 2:58 PM EDT) White Blood Count 5.3 4.8 - 10.8 X10*3/uL [facility] Red Blood Count 4.49 4.20 - 5.50 X10*6/uL [facility] Hemoglobin 13.0 12.0 - 16.0 g/dl [facility] Hematocrit 39.0 37.0 - 47.0 % [facility] Mean Corpuscular Volume 86.9 80.0 - 98.0 fL [facility] Mean Corpuscular Hemoglobin 29.0 27.0 - 33.0 pg [facility] Mean Corpuscular HGB Conc 33.3 31.0 - 35.0 g/dl [facility] Red Cell Distribution Width 13.2 11.0 - 16.0 % [facility] Platelet Count 179 160 - 400 X10*3/uL [facility] Mean Platelet Volume 9.5 9.4 - 12.3 fL [facility] Neutrophils Percent Auto 56.1 45 - 73 % [facility] Imm Gran Pct Auto 0.2 0.0 - 0.4 % [facility] Lymphocytes Percent Auto 34.5 20 - 40 % [facility] Monocytes Percent Auto 7.5 2 - 11 % [facility] Eosinophils Percent Auto 1.1 0 - 4 % [facility] Basophils Percent Auto 0.6 0 - 2 % [facility] NRBC Pct Auto 0.0 0.0 - 0.2 /100WBC [facility] Neutrophils Absolute Auto 3.0 2.0 - 8.3 x10*3/uL [facility] Imm Gran Abs Auto 0.01 0.00 - 0.03 X10*3/uL [facility] Lymphocytes Absolute Auto 1.8 1.2 - 4.9 X10*3/uL [facility] Monocytes Absolute Auto 0.4 0.1 - 1.2 X10*3/uL [facility] Eosinophils Absolute Auto 0.1 0.0 - 0.4 X10*3/uL [facility] Basophils Absolute Auto 0.0 0.0 - 0.2 X10*3/uL [facility] NRBC Abs Auto 0.000 0.0 - 0.012 X10*3/uL [facility] 07/05/2024 2:5 8 PM EDT 07/05/2024 3:12 PM EDT us Generic External Data Provider LAB BLOOD ORDERAB LES Final Result Performing Organization Address [facility]/ZIP Co de Phone Number [facility] [address] [place] [phone] * Amylase (07/05/2024 2:58 PM EDT) Amylase 41 28 - 100 U/L [facility] 07/05/2024 2:58 PM EDT 07/05/2024 3:12 PM EDT Generic External Data Provider LAB BLOOD ORDERAB LES Final Result Performing Organization Address [facility] Co de Phone Number [facility] [address] [place] [phone] * (ABNORMAL) Hepatic Function Panel (07/05/2024 2:58 PM EDT) Bilirubin, Total 0.3 0.0 - 1.0 mg/dL [facility] Bilirubin, Direct 0.1 0.0 - 0.5 mg/dL [facility] Aspartate Amino Transferase 36(H) 5 - 31 U/L [facility] Alanine Aminotransferase 29 0 - 31 U/L [facility] Total Protein 7.2 6.5 - 8.0 g/dL [facility] Albumin Level 4.3 3.5 - 5.0 g/dL [facility] Alkaline Phosphatase 62 39 - 117 U/L [facility] 07/05/2024 2:58 PM EDT 07/05/2024 3:12 PM EDT Generic External Data Provider LAB BLOOD ORDERAB LES Final Result Performing Organization Address [facility] Co de Phone Number [facility] [address] [place] [phone] * BI Mammogram Screening Tomosynthesis Bilateral (06/27/2024 1:15 PM EDT) Anatomical Region Laterality Modality Breast Bilateral Mammography 06/27/2024 1:15 PM EDT Narrative 07/02/2024 5:39 PM EDT ? [facility] ? [address] ?[place], [place] [address] ?[phone] ? Mammography Report ? Signed ? Patient: Woodis,Nelly ?MR#: [id number] ? : 1970 ?Acct:[id number] ? Age/Sex: 54 / F ?ADM Date: 06/27/24 ? Loc: HO.MAMMO ? Attending Dr: Vera Da Silva DO ? Ordering Physician: Yaron Das MD ?Results: 1Negativ ?? e ? Date of Service: 06/27/24 ?Follow Up: 1 Year From Orig ?? inal Mammogram ? Procedure(s): MM tomosynthesis screening BI ?? Accession Number(s): [id number] ? cc: Vera Da Silva DO; Yaron Das MD ? EXAMINATION: ?? MM SCREENING DIGITAL BREAST TOMOSYNTHESIS, BILATERAL ? CLINICAL INFORMATION: ? Screening. Asymptomatic. ? COMPARISON: ?? Mammography: Comparison is made with available priors ? TECHNIQUE: ?? Digital breast mammography with tomosynthesis is performed in both the ?? craniocaudal and mediolateral oblique views along with computer-aided ?? detection (CAD). ? FINDINGS: ?? There are scattered areas [...] due date for their next mammogram. ? Electronically signed by: ??Tahira Villareal DO ??07/02/2024 05:36 PM EDT ?? RP ? Dictated By: ?Tahira Villareal DO ? Signed By: ?<Electronically signed by Tahira Villareal, DO in OV> ? 07/02/24 1736 ? DD/ 1315 ? TD/TT: 06/27/24 1340 ? Envelope Sealer: ? Procedure Note Kate, Image - 07/02/2024 [facility] [address] [place] [address] Mammography Report Signed Patient: Olga Paredes#: [id number] : 1970Acct:[id number] Age/Sex: 54 / FADM Date: 06/27/24 Loc: HO.MAMMO Attending Dr: Vera Da Silva DO Ordering Physician: Yaron Dasesults: 1Negativ e Date of Service: 06/27/24Follow Up: 1 Year From Orig inal Mammogram Procedure(s): MM tomosynthesis screening BI Accession Number(s): [id number] cc: Vera Da Silva DO; Yaron Das MD EXAMINATION: MM SCREENING DIGITAL BREAST TOMOSYNTHESIS, BILATERAL CLINICAL INFORMATION: Screening. Asymptomatic. COMPARISON: Mammography: Comparison is made with available priors TECHNIQUE: Digital breast mammography with tomosynthesis is performed in both the craniocaudal and mediolateral oblique views along with computer-aided detection (CAD). FINDINGS: There are scattered areas of fibroglandular [...] target due date for their next mammogram. Electronically signed by: Tahira Villareal DO 07/02/2024 05:36 PM EDT RP Dictated By: Tahira Villareal DO Signed By: <Electronically signed by Tahira Villareal DO in OV> 07/02/24 1736 DD/ 1315 TD/TT: 06/27/24 1340 Envelope Sealer: [facility] External Provider IMG BI PROCEDURES Final Result * Hemoglobin A1c (06/26/2024 12:15 PM EDT) Hemoglobin A1c 5.3 <6.0 % [facility] Comment:Hemoglobin A1C Refer ence Range Adults: 4.8 - 6.0 % Non diabetic: < 6.0 % Goal: < 7.0 %Additional Action Suggested: > 8.0 %Note: Hemoglobin A1c results are invalid for patients with abnormal amounts of HbF. Blood transfusions may impact the HbA1c concentration in the patient sample. Estimated Average Glucose 105 mg/dL [facility] Comment:eAG = Estimated ave rage glucose which is %A1C expressed asaverage glucose, using the formula of the H0J-AyvxfvzRrrunpr Glucose study (ADAG), Diabetes Care, Vol.31,#8,Sep. 2007 Blood Venous blood specimen / Unknown 06/26/2024 12:15 PM EDT 06/26/2024 1:10 PM EDT Vera Da Silva DO LAB BLOOD ORDERABLES Final R esult [facility] [address] [place] [phone] * (ABNORMAL) Basic Metabolic Panel (06/26/2024 12:15 PM EDT) Sodium 144 135 - 145 mmol/L [facility] Potassium 3.4 3.3 - 5.1 mmol/L [facility] Chloride 103 96 - 108 mmol/L [facility] Carbon Dioxide 33(H) 22 - 29 mmol/L [facility] Anion Gap 11(L) 12 - 20 [facility] Urea Nitrogen (BUN) 23(H) 9 - 16 mg/dL [facility] Creatinine, Serum 0.88 0.5 - 1.4 mg/dL [facility] Estimated Glomerular Filt Rate >60 [facility] Comment:Chronic Kidney Disea se: Estimated GFR < 60 mL/min/1.12j2Jfkclp Kidney Disease: Estimated GFR < 15 mL/min/1.73m2 Glucose 95 60 - 115 mg/dL [facility] Calcium 10.0 8.4 - 10.2 mg/dL [facility] Blood Venous blood specimen / Unknown 06/26/2024 12:15 PM EDT 06/26/2024 1:10 PM EDT us Vera Da Silva DO LAB BLOOD ORDERABLES Final R esult Performing Organization Address City/[facility]/ZIP Co de Phone Number [facility] [address] [place] [phone] * ALT (05/14/2024 12:08 PM EDT) Alanine Aminotransferase 28 0 - 31 U/L [facility] 05/14/2024 12:0 8 PM EDT 05/14/2024 12:08 PM EDT us Generic External Data Provider LAB BLOOD ORDERAB LES Final Result Performing Organization Address City/[facility]/ZIP Co de Phone Number [facility] [address] [place] [phone] * AST (05/14/2024 12:08 PM EDT) Aspartate Amino Transferase 28 5 - 31 U/L [facility] 05/14/2024 12:0 8 PM EDT 05/14/2024 12:08 PM EDT us Generic External Data Provider LAB BLOOD ORDERAB LES Final Result [facility] [address] [place] [phone] * XR Lumbar Spine 2-3 Views (04/23/2024 9:34 AM EST) Anatomical Region Laterality Modality Spine, L-spine Radiographic Sabi ging 04/23/2024 9:34 AM EST Narrative 04/24/2024 11:26 AM EST ? [facility] ?[address] ?[place] [address] ?XRay Report ? Signed ? Patient: Nelly Paredes ?MR#: [id number] ? : 1970 ?Acct:[id number] ? Age/Sex: 54 / F ?ADM Date: 04/23/24 ? Loc: HO.XRAY ? Attending Dr: Moreno Freeman MD ? Ordering Physician: Moreno Freeman MD ?? Date of Service: 04/23/24 ?? Procedure(s): XR lumbar spine 2-3V ?? Accession Number(s): [id number] ? cc: Vera Da Silva DO; Moreno [...] DD/ 0934 ? TD/TT: 04/23/24 0958 ? Envelope Sealer: ? Procedure Note Donotcarloster, Image - 04/24/2024 [place] [address] XRay Report Signed Patient: Nelly ParedesMR#: [id number] : 1970Acct:[id number] Age/Sex: 54 / FADM Date: 04/23/24 Loc: MICKEY Attending Dr: Moreno Freeman MD Ordering Physician: Moreno Freeman MD Date of Service: 04/23/24 Procedure(s): XR lumbar spine 2-3V Accession Number(s): [id number] cc: Vera Da Silva DO; Moreno Freeman [...] Braydon Cazares MD 04/24/2024 11:23 AM EST RP Dictated By: Braydon Siu MD Signed By: <Electronically signed by Braydon Orellana MDin OV> 04/24/24 1123 DD/ 0934 TD/TT: 04/23/24 0958 Envelope Sealer: us [facility] External Provider IMG XR PROCEDURES Final Result * (ABNORMAL) Lipid Panel, Standard (01/02/2024 12:15 PM EST) Triglycerides 90 <150 mg/dL [facility] Comment:Desirable Triglyceri de: less than 150 mg/dLBorderline High Triglyceride 150-199 mg/dLHigh Triglyceride: 200-499 mg/dLVery High Triglyceride: greater than or equal to 5OO mg/dL Cholesterol 188 <200 mg/dL [facility] Comment:Desirable Cholestero l: less than 200 mg/dLBorderline High Cholesterol: 200-239 mg/dLHigh Cholesterol: greater than 239 mg/dL LDL Cholesterol Calculated 110(H) <100 mg/dL [facility] Comment:Desirable LDL: less than 100 [...] DO LAB BLOOD ORDERABLES Final R esult [facility] [address] [place] [phone] * Hm Colonoscopy (08/30/2022) Colonoscopy Normal Normal Narrative Jinny Grullon - 08/30/2022 Recommended a 2 year follow up ( [facility] ) Historical Provider HEALTH MAINTENANCE Final Result * HPV mRNA E6/E7 w/Reflex to HPV Genotypes 16, 18/45 (05/25/2022 11:12 AM EDT) HPV nRNA E6/E7 Not Detected Not Detected [facility] Comment:Methodology: Transcr iption-Mediated AmplificationThis assay detects E6/E7 viral messenger RNA (mRNA) from 14high-risk HPV types (16,18,31,33,35,39,45,51,52,56,58,59,66,68).Cervical sources are required for HPV testing.If a vaginal source from a patient who has had atotal hysterectomy with removal of cervix wassubmitted, please contact the testing laboratoryfor alternative testing options.For additional information, please refer tohttp://education.Revetto/faq/ABO254f0(This link if provided for information/educational purposes only.)THIS TEST WAS PERFORMED AT:[employer] [place] [phone] NG MD HPV mRNA E6/E7 [facility] HPV 16 RNA [facility] HPV 18/45 RNA [facility] 05/25/2022 11:1 2 AM EDT 05/25/2022 4:30 PM EDT [facility] External Provider LAB CYT OLOGY ORDERABLES Final Result [facility] [address] [place] [phone] * Pap Smear (05/25/2022 11:12 AM EDT) 05/25/2022 11:1 2 AM EDT 05/25/2022 4:30 PM EDT Narrative [facility] - 06/07/2022 7:16 AM EDT ----- ------- Name: Nelly Paredes ? Age/Sex: 52/F ? : 1970 Unit#: [id number] ?? Attend Dr: Yaron Das MD ?Re05/25/22 ?Status: DEP REF ? Location: HO.LNP ?Disch: ? ----- ------- SPEC : [id number] ? RECD: 05/25/22-1629 ? STATUS: ??SOUT ? REQ NUM: [id number] ? KEKE: 05/25/22-1112 ? SUBM DR: Yaron [...] 66, 68) ? HPV testing performed by [employer], [place], [place]. ??See reference laboratory ?? portion of the EMR for entire report. ?Clinical Information LMP: PM Previous PAP test: 2021, Abnormal Other history: CIN1, HPV+ ? Material Received ?? ThinPrep-Cervical Copies To: ?? Vera Da Silva DO ?? [address] [facility] ?? [place] [address] ? Yaron Das MD ?? [address] [place] [address] Dr. [facility] ?? [place] [address] ?? [phone] ----- ------- Signed (signature on file) Caroline Lew Dariela 06/07/22 0716 ? ----- ------- ? END OF REPORT ? us [facility] External Provider LAB CYT OLOGY ORDERABLES Final Result [facility] [address] [place] [phone] from Last 3 Months or Most Recently Relevant to Health Maintenance [facility] Care Teams Belt Turner Relationship Specialty Start Date End Date Vera Da Silva DO [address] [place] [address] PCP - General Family Medicine 02/28/18
== END 2024-07-17 10:48 | disposition home or self-care (01) ==
LOC: HO.HOS 10:15
PROVIDERS: PCP Family Medicine
DX: M65.4 Radial styloid tenosynovitis [de Quervain] (principal); R20.0 Anesthesia of skin; R20.2 Paresthesia of skin
CPT/HCPCS: 99024

== ENCOUNTER → 2024-07-17 10:14 | Outpatient (BNVA) | payer MEDICAID, SELFPAY | PROVIDERS: PCP Family Medicine | DX: Z47.89 Encounter for other orthopedic aftercare (principal); M65.4 Radial styloid tenosynovitis [de Quervain]; R20.0 Anesthesia of skin; R20.2 Paresthesia of skin | CPT/HCPCS: 99212 ==

== ENCOUNTER 2024-07-19 12:56 | Outpatient (RCR) | payer MEDICAID, SELFPAY ==
--- NOTE | 2024-07-03 12:39 | MHC.OT.EP ---
[address] [phone] Occupational Therapy Plan of Care Patient Name: Nelly Paredes Date of Evaluation: 07/03/24 Diagnosis: Right lateral epicondylitis Pain Location: Right lateral elbow Pain Score: 5 Pain Scale Used: Numeric (0 - 10) Aggravating Factors: Carrying heavy items, forceful grasp Alleviating Factors: Tylenol, Ibuprofen Assessment: The patient is a 54-year-old female referred to occupational therapy with a >2-month history of right elbow pain, impacting her ability to perform daily activities. She reports a previous episode of left lateral epicondylitis which successfully resolved with therapy. In addition, she is scheduled for surgical intervention later this week for left carpal tunnel release and De Quervain?s tenosynovitis. Her QuickDASH score reflects a moderate to severe level of perceived functional impairment. Skilled OT is recommended for pain management, education, and strengthening to return to OF. Frequency and Duration: The patient will be seen 2x/wk for 4 weeks Short Term Goals: Decrease pain <3/10 IND w/ orthosis and/or kinesiology tape for pain management and support Site Director Goals: Pain free with ADL's/IADL's Improve R paring machine operator strength >40# Patient will complete functional tasks with minimal discomfort, improving QuickDASH score from 61.4% to =40% IND with progression of HEP Treatment Plan: Therapeutic Exercise Therapeutic Activity Home Exercise Program Patient Education Ultrasound MHP Soft Tissue Mobilization Kinesiotaping Electronically Signed By: Cheryl Flores MS OTR/L Please Sign and return to therapist. Thank you once again for your referral.
--- NOTE | 2024-07-19 15:13 | MHC.OT.DC ---
[address] [phone] F: [phone] Occupational Therapy Discharge Note Patient Name: Nelly Paredes Provider: Moreno Freeman Diagnosis: Right lateral epicondylitis Date of Evaluation: 07/03/24 Date of Discharge: 07/19/24 Treatments to Date: 2 Cancellations to Date: 1 No Shows to Date: 1 Discharge Status: Achieved Goals Improved Function Independent with HEP Discharge Summary: 07/19 - Pt has not been seen since initial eval, although she reports having DeQuervain's release surgery on L hand ~2 weeks ago. She states the right elbow is feeling much better and she has essentially been pain free. Her tape controlled machine stitcher strength improved on the right from 35# to 45# without pain. We reviewed all stretches and exercises for home program. At this time, pt. requesting to be discharged from OT services to focus on L hand healing. Thank you for this referral! Electronically Signed By: Cheryl Flores MS OTR/L Reviewed/agree with student documentation: Therapist: Please Sign and return to therapist, thank you for your referral.
== END 2024-07-19 15:14 | disposition home or self-care (01) ==
LOC: HO.OTS 12:56
PROVIDERS: PCP Family Medicine; Visit Provider Internal Medicine Rheumatology
DX: M77.11 Lateral epicondylitis, right elbow (principal)
CPT/HCPCS: 97035; 97110; 97165

== ENCOUNTER 2024-08-08 09:12 | Outpatient (REF) | payer MEDICAID, SELFPAY ==
--- NOTE | 2024-08-08 09:16 | EMG_ITS ---
Chief complaint: status post left 1st dorsal compartment release and left abductor pollicis longus tenosynovectomy 07/05/2024 complaining of numbness on left 1st and 2nd digits. Reason for referral: Evaluate for Left Carpal Tunnel Syndrome Referred by: Dorian PABON Procedure done: left upper extremity NCS/EMG Precautions and/or limitations: needle EMG deferred, recent wrist surgery, wrist/hand still slightly swollen The limb temperature was monitored continuously and remained between 32-36 degrees C during the performance of the NCS. Nerve Conduction Studies Anti Sensory Summary Table ?Stim Site NR Onset (ms) Norm Onset (ms) Peak (ms) Norm Peak (ms) O-P Amp (?V) Norm O-P Amp Site1 Site2 Delta-0 (ms) Dist (cm) Ace (m/s) Norm Ace (m/s) Left Median Anti Sensory (2nd Digit) Wrist ? 2.3 3.0 <3.6 53.8 >10 Wrist 2nd Digit 2.3 14.0 61 Left Ulnar Anti Sensory (5th Digit) Wrist ? 2.2 2.9 <3.7 20.1 >15.0 Wrist 5th Digit 2.2 14.0 64 Motor Summary Table ?Stim Site NR Onset (ms) Norm Onset (ms) O-P Amp (mV) Norm O-P Amp iAmp (mV) Amp (1st) (%) Site1 Site2 Delta-0 (ms) Dist (cm) Ace (m/s) Norm Ace (m/s) Left Median Motor (Abd Poll Brev) Wrist ? 3.4 <3.9 10.4 >4.5 12.8 100.0 Elbow Wrist 3.2 18.0 56 >45 Elbow ? 6.6 11.2 13.7 107.7 Left Ulnar Motor (Abd Dig Minimi) Wrist ? 2.5 <3.0 10.8 >5 12.6 100.0 B Elbow Wrist 2.9 17.0 59 >45 B Elbow ? 5.4 9.9 11.9 91.7 A Elbow B Elbow 1.4 10.0 71 >45 A Elbow ? 6.8 9.4 11.5 87.0 Comparison Summary Table ?Stim Site NR Peak (ms) Norm Peak (ms) P-T Amp (?V) Site1 Site2 Delta-P (ms) Norm Delta (ms) Left Median/Radial Dig I Comparison (Digit 1 - 10cm) Median ? 2.7 <2.9 73.3 Median Radial 0.3 Radial ? 2.4 <2.8 28.6 FINDINGS: All motor and sensory nerves tested showed normal latencies, amplitudes and conduction velocities. IMPRESSION: 1. This is a normal nerve conduction study. 2. There is no electrodiagnostic evidence for median neuropathy or ulnar neuropathy. Thank you for your kind referral. Karuna Michael MD, MARK ANTHONY Board Certified, [place] Board [employer] and Rehabilitation (ABPMR) Board Certified, [place] Board of Electrodiagnostic Medicine (ABEM) CODIN MTDD
--- OUTSIDE RECORDS SUMMARY | 2024-08-08 09:46 | XMS_ITS | Encounter Summary ---
Author Organization [employer] Address [address] [place] [address] [address] [place] [address] Care Team Providers Care Copping Machine Operator Name Role Phone Vera Da Silva DO Primary Care Provider [phone] Reason for Visit * Reason Comments Med Refill Encounter Details Date Type Department Care Team (Late st Contact Info) Description 09/09/2022 Refill [facility] [address] [place], [place] [phone] Akilah Brannon, ANP [address] [place] [address] Acute left-sided low back pain with left-sided [...] documented as of this encounter Care Teams Copping Machine Operator Relationship Specialty Start Date End Date Vear Da Silva DO [address] [place] [address] PCP - General Family Medicine 02/28/18 documented as of this encounter
== END 2024-08-08 09:13 | disposition home or self-care (01) ==
LOC: HO.NEURO 09:12
PROVIDERS: PCP Family Medicine; Visit Provider Orthopaedic Surgery
DX: R20.0 Anesthesia of skin (principal); R20.2 Paresthesia of skin; Z98.890 Other specified postprocedural states
CPT/HCPCS: 95909

== ENCOUNTER → 2024-08-08 09:16 | Outpatient (BNV) | payer MEDICAID, SELFPAY | PROVIDERS: PCP Family Medicine; Visit Provider Physical Medicine & Rehabilitation | DX: R20.0 Anesthesia of skin (principal); R20.2 Paresthesia of skin | CPT/HCPCS: 95909 ==

== ENCOUNTER 2024-08-14 10:24 | Outpatient (REF) | payer MEDICAID, SELFPAY ==
--- NOTE | ~2024-08-14 | US_ITS ---
EXAMINATION: US COMPLETE ABDOMEN WITH LIVER ELASTOGRAPHY CLINICAL INFORMATION: Follow-up fatty liver. COMPARISON: Abdomen US 03/05/2021. TECHNIQUE: Real-time imaging of the abdominal viscera. Noninvasive ultrasound liver fibrosis assessment is performed using Xiomara ElastPQ point quantification shear wave elastography (pSWE) with a C5-2 MHz transducer. Multiple elastography samples are obtained. FINDINGS: PANCREAS: The visualized pancreatic head and body are normal in appearance. The remainder of the pancreas is obscured from visualization by the overlying bowel gas. ABDOMINAL AORTA: No aortic aneurysm is seen. INFERIOR VENA CAVA: Visualized portions are normal. LIVER: Liver is normal in size, contour, with mildly increased parenchymal echogenicity. No focal lesion or intrahepatic biliary dilatation. The right lobe measures 13.8 cm in length. The left lobe measures 9.5 cm in length. Portal flow is towards the liver (hepatopetal). Shear wave liver elastography median stiffness is 1.96 m/s (reference: normal median stiffness is 1.3 m/s or less). IQR/median stiffness to assess sampling precision is 0.11 (reference: good quality data set is IQR/median stiffness of 0.15 or less). GALLBLADDER: The gallbladder is surgically absent. COMMON BILE DUCT: Normal in caliber measuring 0.3 cm in diameter. RIGHT KIDNEY: No hydronephrosis. No renal calculi or focal parenchymal lesions. The kidney measures 9.7 cm in maximum dimension. LEFT KIDNEY: No hydronephrosis. No renal calculi or focal parenchymal lesions. The kidney measures 10.1 cm in maximum dimension. SPLEEN: Unremarkable. The spleen measures 10.2 cm in maximum dimension. FREE FLUID: None seen. US/US abdomen comp w elastography IMPRESSION: 1. Mildly increased hepatic echogenicity. No focal lesion or intrahepatic biliary dilatation. 2. Liver elastography: Measurements are suggestive of compensated advanced chroniic liver disease but need further test for confirmation. 3. Cholecystectomy. 4. No biliary dilatation. REFERENCE: Society of Radiologists in Ultrasound Liver Stiffness Thresholds (2019): LIVER STIFFNESS THRESHOLDS: *Liver Stiffness equal or less than 1.3 m/s: High probability of being normal. *Liver Stiffness less than 1.7 m/s: In the absence of other known clinical signs, rules out compensated advanced chronic liver disease. *Liver Stiffness 1.7-2.1 m/s: Suggestive of compensated advanced chronic liver disease but need further test for confirmation. *Liver Stiffness over 2.1 m/s: Rules in compensated advanced chronic liver disease. *Liver Stiffness over 2.4 m/s: Suggestive of clinically significant portal hypertension. QUALITY OF DATA SET: *IQR/Median value equal or less than 0.15 implies a quality data set. *IQR/Median value over 0.15 implies a poor quality data set. SIGNIFICANT CHANGE FROM PRIOR EXAM: Significant change if liver stiffness measurement is 10% or greater from prior exam. OTHER CONSIDERATIONS: The stage of liver fibrosis may be overestimated in the setting of acute hepatitis, liver inflammation, elevated liver function tests, hepatic vascular congestion, obstructive cholestasis, non-fasting state, and infiltrative diseases such as amyloidosis and lymphoma. In some patients with NAFLD, the liver stiffness thresholds for compensated advanced chronic liver disease may be lower. In causes other than viral hepatitis and NAFLD, liver stiffness thresholds are not well established. Electronically signed by: Keny Herring MD 08/14/2024 11:13 AM EDT
--- OUTSIDE RECORDS SUMMARY | 2024-08-14 11:54 | XMS_ITS | Encounter Summary ---
Author Organization [employer] Address [address] [place] [address] 7[address] [place] [address] Care Team Providers Care Coater Associate Name Role Phone Vera Da Silva DO Primary Care Provider [phone] Reason for Visit * Reason Comments Med Refill Encounter Details Date Type Department Care Team (Late st Contact Info) Description 09/09/2022 Refill [facility] [address] [place], [place] [phone] Akilah Brannon, ANP [address] [place] [address] Acute left-sided low back pain with left-sided [...] documented as of this encounter Care Teams Coater Associate Relationship Specialty Start Date End Date Vera Da Silva DO [address] [place] [address] PCP - General Family Medicine 02/28/18 documented as of this encounter
== END 2024-08-14 10:25 | disposition home or self-care (01) ==
LOC: HO.US 10:24
PROVIDERS: PCP Family Medicine; Visit Provider Family Medicine
DX: K76.0 Fatty (change of) liver, not elsewhere classified (principal); R20.0 Anesthesia of skin; R20.2 Paresthesia of skin; M65.4 Radial styloid tenosynovitis [de Quervain]
CPT/HCPCS: 76700; 76981; 99212

== ENCOUNTER → 2024-08-14 10:25 | Outpatient (BNV) | payer MEDICAID, SELFPAY | PROVIDERS: PCP Family Medicine; Visit Provider Radiology Diagnostic Radiology | DX: K76.0 Fatty (change of) liver, not elsewhere classified (principal); Z90.49 Acquired absence of other specified parts of digestive tract | CPT/HCPCS: 76700; 76981 ==

== ENCOUNTER 2024-08-14 12:59 | Outpatient (AMB) | payer MEDICAID, SELFPAY ==
--- NOTE | 2024-08-14 13:59 | MHC.OFFVIS ---
Vital Signs 08/14/24 14:02 Height 5 ft 2 in Weight 222 lb 8 oz BMI 40.7 Handedness Right Intake Visit Reasons: OV EMG review LT [facility] Release/CTR 07/05/24 AR Intake Note: Nlely is a 54 year old right hand dominant female who presents today for EMG review. Hx of left 1st dorsal compartment release and left abductor pollicis longus tenosynovectomy, DOS: 07/05/[address] Jayde Bonilla. Patient reports she is in occupational therapy, her second visit is on 08/15/24. She expresses continued pain at the base of her left thumb. Numbness and tingling continues but this is slowly resolving. EMG/NCS done on 08/08/24 IMPRESSION: Mild right median neuropathy across carpal tunnel. Otherwise no significant abnormality noted. Allergies No Known Allergies (No Known Allergies*) Allergy (Verified 08/14/24 14:00) HPI HPI OV EMG review LT [facility] Release/CTR 07/05/24 AR: Details: Nelly is a 54 year old right hand dominant female who presents today for EMG review. Hx of left 1st dorsal compartment release and left abductor pollicis longus tenosynovectomy, DOS: 07/05/[address] Jayde Bonilla. Patient reports she is in occupational therapy, her second visit is on 08/15/24. She expresses continued pain at the base of her left thumb. Numbness and tingling continues but this is slowly resolving. EMG of left hand was negative PFSH Medical History Spasm of muscle of lower back Fatty liver GERD (gastroesophageal reflux disease) Personal history of COVID-19 Cervical intraepithelial neoplasia grade 1 Morbid obesity with BMI of 40.0-44.9, adult NAFL (nonalcoholic fatty liver) Depression Transaminitis Surgical History History of esophagogastroduodenoscopy (EGD) Hx of colonoscopy History of loop electrical excision procedure (LEEP) History of salpingectomy History of endometrial ablation Hx laparoscopic cholecystectomy H/O tubal ligation Previous section Family History Maternal Grandmother Bone cancer Social History Household Members: Children Housing: Apartment Do you presently have visiting nurse or other home services: No Alcohol intake: never Comment: counts correct Patient Tobacco Use Status: Never used Tobacco service: No Current occupational status: unemployed Female Reproductive History Menstrual Age of Menarche: 15 Review of Systems Const All systems reviewed & are unremarkable except as noted in HPI and below Physical Exam Vital Signs: BMI result Body Mass Index 40.7 Const General: cooperative, healthy appearing and no acute distress Orientation/consciousness: patient oriented x3 HEENT Head: Yes normocephalic and Yes atraumatic Eyes EOM: EOMs intact bilaterally Resp Effort & Inspection: normal respiratory effort and able to speak in complete sentences Cardio Jugular venous distension: no JVD Skin General skin exam: turgor normal Rashes: no rashes Neuro General: patient oriented x3 Extrem Other: Evaluation of Left Upper Extremity: The patient is alert, oriented, and in no acute distress Neuro: Median, Ulnar, Radial nerves motor and sensory intact No thenar or intrinsic wasting Good APB muscle belly firing and good finger cross Vascular: Cap refill brisk ROM: She can make a fist and extend all her digits No locking or catching Skin: No lacerations or abrasions. General: No Ecchymosis. No Erythema or evidence of infection. Negative Lawrence test on the left Negative Lawrence test on the right No longer Tender over the 1st dorsal compartment Psych Appearance: grossly normal Affect: normal affect Attitude: cooperative Assessment & Plan Assessment & Plan (1) Numbness and tingling in left hand: Code(s): R20.0 - Anesthesia of skin; R20.2 - Paresthesia of skin Category: Medical (2) De Quervain's tenosynovitis, left: Comment: Recurrent symptoms. She received cortisone injection 12/17/2022 and 05/18/2023 with initial benefit. She is planning surgery Code(s): M65.4 - Radial styloid tenosynovitis [de Quervain] Category: Medical Plan 1. Numbness and tingling of left hand 2. Status post left 1st dorsal compartment release Patient appears to be recovering well postoperatively Patient is educated about the typical recovery course At this time, patient is informed that with a negative EMG, there is no further acute treatment indicated for her condition Patient expresses understanding of this and is amenable to this plan Continue OT Follow-up as needed Coding Level of Care Code Est Pt Level 3 (32186) Diagnoses Numbness and tingling in left hand R20.0; R20.2 De Quervain's tenosynovitis, left M65.4
[2024-08-14 14:02] VITALS: BMI 40.7
== END 2024-08-14 14:13 | disposition home or self-care (01) ==
LOC: HO.HOS 13:00
PROVIDERS: PCP Family Medicine
DX: R20.0 Anesthesia of skin (principal); R20.2 Paresthesia of skin; M65.4 Radial styloid tenosynovitis [de Quervain]
CPT/HCPCS: 99024

== ENCOUNTER 2024-09-04 08:50 | Outpatient (REF) | payer MEDICAID, SELFPAY ==
--- NOTE | 2024-09-04 08:54 | EMG_ITS ---
Bilateral tibial and peroneal motor studies were performed. Bilateral superficial peroneal, sural, and median and lateral mixed plantar sensory studies were performed. Tibial H reflexes were obtained and paraspinal muscles were tested with needle. IMPRESSION: 1. Left lower lumbosacral radiculopathy. 2. 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 Please see the attached Neurophysiology data M MD MARIA Luna/ARLETTEL / [id number] MTDD
--- OUTSIDE RECORDS SUMMARY | 2024-09-04 09:08 | XMS_ITS | Encounter Summary ---
Author Organization [employer] Address [address] [place] [address] [address] [place] [address] Care Team Providers Care Yeast Tender Name Role Phone eVra Da Silva DO Primary Care Provider [phone] Reason for Visit * Reason Comments Med Refill Encounter Details Date Type Department Care Team (Late st Contact Info) Description 09/09/2022 Refill [facility] [address] [place], [place] [phone] Akilah Brannon, ANP [address] [place] [address] Acute left-sided low back pain with left-sided [...] documented as of this encounter Care Teams Yeast Tender Relationship Specialty Start Date End Date Vera Da Silva DO [address] [place] [address] PCP - General Family Medicine 02/28/18 documented as of this encounter
== END 2024-09-04 08:51 | disposition home or self-care (01) ==
LOC: HO.NEURO 08:50
PROVIDERS: PCP Family Medicine; Visit Provider Family Medicine
DX: M54.42 Lumbago with sciatica, left side (principal); M54.41 Lumbago with sciatica, right side; G89.29 Other chronic pain; G57.83 Other specified mononeuropathies of bilateral lower limbs
CPT/HCPCS: 95886; 95913

== ENCOUNTER → 2024-09-04 08:54 | Outpatient (BNV) | payer MEDICAID, SELFPAY | PROVIDERS: PCP Family Medicine; Visit Provider Psychiatry & Neurology Neurology | DX: M54.17 Radiculopathy, lumbosacral region (principal); G62.89 Other specified polyneuropathies | CPT/HCPCS: 95886; 95913 ==

== ENCOUNTER 2024-09-18 13:51 | Outpatient (AMB) | payer MEDICAID, SELFPAY ==
--- NOTE | 2024-09-18 13:57 | MHC.OFFVIS ---
Vital Signs 09/18/24 13:58 Height 5 ft 2 in Weight 214 lb 4 oz BMI 39.2 BP 120/80 Blood Pressure Location Rt brachial Position Sitting Pulse 84 Pulse Source Pulse Oximeter Pulse Oximetry (%) 97 Oxygen Delivery Method Room Air Intake Visit Reasons: 3 Months Intake Note: Patient presents for follow up on arthritis and carpal tunnel syndrome. Allergies No Known Allergies (No Known Allergies*) Allergy (Verified 09/18/24 14:03) HPI HPI 3 Months: Details: She had surgery for treatment of left de Quervain tenosynovitis failed conservative management in June. She continues to have numbness in her left hand. After surgery she takes naproxen and Tylenol. She also reports recurrent left radiculopathy in leg. PCP ordered nerve testing which she recently had done on her left leg. She has not received results of EMG of left lower extremity. She is now on Zepbound. [facility] Medical History Spasm of muscle of lower back Fatty liver GERD (gastroesophageal reflux disease) Personal history of COVID-19 Cervical intraepithelial neoplasia grade 1 Morbid obesity with BMI of 40.0-44.9, adult NAFL (nonalcoholic fatty liver) Depression Transaminitis Surgical History History of esophagogastroduodenoscopy (EGD) Hx of colonoscopy History of loop electrical excision procedure (LEEP) History of salpingectomy History of endometrial ablation Hx laparoscopic cholecystectomy H/O tubal ligation Previous section Family History Maternal Grandmother Bone cancer Social History Household Members: Children Housing: Apartment Do you presently have visiting nurse or other home services: No Alcohol intake: never Comment: counts correct Patient Tobacco Use Status: Never used Tobacco service: No Current occupational status: unemployed Female Reproductive History Menstrual Age of Menarche: 15 Physical Exam Vital Signs: Last Vital Signs Pulse 84 09/18/24 13:58 BP 120/80 09/18/24 13:58 Pulse Ox 97 09/18/24 13:58 Oxygen Delivery Method Room Air 09/18/24 13:58 BMI result Body Mass Index 39.2 Const Other: General: Comfortable Skin: No lesions seen MSK: She has scar along left 1st extensor compartment. No synovitis. Good range of motion of wrists and hands. No tenderness of elbows. Limited full flexion of knees and external rotation of hips. Results Reviewed Results Reviewed: 08/08/2024 Emg left upper extremity IMPRESSION: 1. This is a normal nerve conduction study. 2. There is no electrodiagnostic evidence for median neuropathy or ulnar neuropathy. Assessment & Plan Assessment & Plan (1) Lateral epicondylitis, right elbow: Comment: Intermittent. Improved frequency after PT. Code(s): M77.11 - Lateral epicondylitis, right elbow Category: Medical Plan: Continue to use right elbow support PRN Continue PT exercises Return to clinic in 3 months (2) Lumbar spondylosis: Comment: With left radiculopathy. She has grade 1 anterolisthesis, L5-S1 reduce disc space and multilevel vertebrae spurring contributing to her pain noted on x-ray. Failed PT. Meloxicam improved pain but her eGFR reduced and now it is back to >60 06/2024. She continues to have left radicular symptoms. PCP ordered EMG of left lower extremity. I could not locate result of EMG. We discussed medical management with gabapentin. She prefers gabapentin over cortisone injection due to fear of side effect of hyperpigmentation at injection site, which she has had in the past. Code(s): M47.816 - Spondylosis without myelopathy or radiculopathy, lumbar region Category: Medical Plan: Start gabapentin 300 mg q.h.s. for 1 week then increase to b.i.d.. Discussed side effects of increased somnolence. She will call office in 1 month if there is no benefit with gabapentin. I will then increase dose to 600 mg t.i.d. Continue PT exercises daily Continue weight loss (3) Carpal tunnel syndrome: Comment: Clinical diagnosis left side with confirmed right carpal tunnel syndrome on EMG 08/18/2023. She had empiric treatment with cortisone injection December 2021 and May 2022 with temporary benefit. Her most recent EMG of left hand 08/08/2024 was normal. Code(s): G56.00 - Carpal tunnel syndrome, unspecified upper limb Category: Medical Qualifiers: Laterality: bilateral Qualified Code(s): G56.03 - Carpal tunnel syndrome, bilateral upper limbs Plan: I recommend that she follow up with hand surgeon to consider surgery in setting of her continuing to have persistent clinical symptoms of paraesthesia of left hand with negative EMG of left upper extremity, which responded to cortisone injection for treatment of carpal tunnel syndrome but not intermediate project manager (4) De Quervain's tenosynovitis, left: Comment: She is recovering from hand surgery. She received cortisone injection 12/17/2022 and 05/18/2023 with initial benefit. Code(s): M65.4 - Radial styloid tenosynovitis [de Quervain] Category: Medical Plan: She will contact hand surgery office for recommendation of scar management Medications: New gabapentin Take 1 tablet qhs for 1 week then increase to BID 300 mg PO BID 60 caps 2RF Coding Level of Care Code Est Pt Level 4 (34438) Complex EM visit Add On G2211 Diagnoses Lateral epicondylitis, right elbow M77.11 Lumbar spondylosis M47.816 Bilateral carpal tunnel syndrome G56.03 Laterality: bilateral De Quervain's tenosynovitis, left M65.4
[2024-09-18 13:58] VITALS: BP 120/80; PULSE 84; O2SAT 97; BMI 39.2
== END 2024-09-18 14:33 | disposition home or self-care (01) ==
LOC: HO.RHES 13:52
PROVIDERS: PCP Family Medicine; Visit Provider Internal Medicine Rheumatology
DX: M77.11 Lateral epicondylitis, right elbow (principal); M47.816 Spondylosis without myelopathy or radiculopathy, lumbar region; G56.03 Carpal tunnel syndrome, bilateral upper limbs; M65.4 Radial styloid tenosynovitis [de Quervain]
CPT/HCPCS: 99214

== ENCOUNTER → 2024-09-18 13:51 | Outpatient (BNVA) | payer MEDICAID, SELFPAY | PROVIDERS: PCP Family Medicine; Visit Provider Internal Medicine Rheumatology | DX: M17.11 Unilateral primary osteoarthritis, right knee (principal); M47.816 Spondylosis without myelopathy or radiculopathy, lumbar region; G56.03 Carpal tunnel syndrome, bilateral upper limbs; M65.4 Radial styloid tenosynovitis [de Quervain] | CPT/HCPCS: 99212 ==

== ENCOUNTER 2024-09-20 10:24 | Outpatient (RCR) | payer MEDICAID, SELFPAY ==
--- NOTE | 2024-08-07 13:13 | MHC.OT.EP ---
[address] [phone] Occupational Therapy Plan of Care Patient Name: Nelly Paredes Date of Evaluation: 08/07/24 Diagnosis: s/p left ALF release and left APL tenosynovectomy Pain Location: Left thumb/radial wrist Current: 5/10 Worst: 9/10 Pain Score: 5 Aggravating Factors: Grasping, pinching, lifting Alleviating Factors: Rest, ibuprofen Assessment: Pt is a 54 y/o right hand dominant female referred to OT s/p left ALF release on 07/05/[address] Bonilla. She reports continued pain and numbness in left thumb since the surgery. Pt is having EMG on 08/08/24 to assess for CTS. Pt reports pain is less than pre-op levels, although still around 5/10 with functional use. Quick DASH score is 75% indicating severe difficulty using left hand functionally. Pt would benefit from skilled OT services for pain management, improved ROM, and normalizing hand function. Frequency and Duration: The patient will be seen 2x/wk for 6 weeks Short Term Goals: Decrease left thumb pain <3/10 IND with scar massage and thermal modalities for pain mgt Improve CMC flexion by 10 degrees Senior Care Goals: Pain free with ADL's/IADL's Improve L purification operator strength to >25# Improve L thumb ROM to WNL's Quick DASH <45% Treatment Plan: Therapeutic Exercise Therapeutic Activity Home Exercise Program Patient Education Desensitization/Sensory Re-ed Ultrasound MHP Cold Packs Soft Tissue Mobilization Kinesiotaping Electronically Signed By: Cheryl Flores MS OTR/L Please Sign and return to therapist. Thank you once again for your referral.
== END 2024-09-20 10:58 | disposition home or self-care (01) ==
LOC: HO.OTS 10:24
DX: M65.4 Radial styloid tenosynovitis [de Quervain] (principal)
CPT/HCPCS: 97035; 97110; 97165

== ENCOUNTER 2024-10-05 09:46 | Day surgery (SDC) | payer MEDICAID, SELFPAY ==
--- OUTSIDE RECORDS SUMMARY | 2024-09-18 14:31 | XMS_ITS | Encounter Summary ---
Author Organization [employer] Address [address] [place] [address] [address] [place] [address] Care Team Providers Care Tip Mender Name Role Phone Vera Da Silva DO Primary Care Provider [phone] Reason for Visit * Reason Comments Med Refill Encounter Details Date Type Department Care Team (Late st Contact Info) Description 09/09/2022 Refill [facility] [address] [place], [place] [phone] Akilah Brannon, ANP [address] [place] [address] Acute left-sided low back pain with left-sided [...] documented as of this encounter Care Teams Tip Mender Relationship Specialty Start Date End Date Vera Da Silva DO [address] [place] [address] PCP - General Family Medicine 02/28/18 documented as of this encounter
[2024-10-03 08:36] VITALS: BMI 40.4
--- NOTE | 2024-10-04 10:20 | HO.ANESPROP2 ---
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 (Acute) History of colon polyps (Acute) Acute respiratory failure with hypoxia (Acute) COVID-19 (Acute) GERD (gastroesophageal reflux disease) (Acute) Colon cancer screening (Acute) Left elbow pain (Acute) LGSIL on Pap smear of cervix (Acute) Well woman exam (Acute) NAFL (nonalcoholic fatty liver) (Acute) Past Medical History Medical History (Updated 10/05/24 @ 10:45 by Priya Matthews RN) Elevated cholesterol HTN (hypertension) Spasm of muscle of lower back Fatty liver GERD (gastroesophageal reflux disease) Personal history of COVID-19 Cervical intraepithelial neoplasia grade 1 Morbid obesity with BMI of 40.0-44.9, adult NAFL (nonalcoholic fatty liver) Depression Transaminitis Family History Family History Maternal Grandmother Bone cancer Family history of problems with anesthesia: No Surgical History Surgical History (Updated 10/05/24 @ 10:51 by rPiya Matthews RN) Hx of hand surgery History of esophagogastroduodenoscopy (EGD) Hx of colonoscopy History of loop electrical excision procedure (LEEP) History of salpingectomy History of endometrial ablation Hx laparoscopic cholecystectomy H/O tubal ligation Previous section History of Problems with Anesthesia: No Social History Social History Household Members: Children Housing: Apartment Do you presently have visiting nurse or other home services: No Alcohol intake: never Comment: counts correct Patient Tobacco Use Status: Never used Tobacco Use of substances other than those prescribed or required for medical reasons: No Are you DNR?: No Advance Directives: No Advance Directives Information Provided: Yes service: No Current occupational status: unemployed Meds Allergies Allergy/AdvReac Type Severity Reaction Status Date / Time No Known Allergies (No Known Allergy Verified 10/05/24 10:51 Allergies*) Home Medications ?Medication ?Instructions ?Recorded ?Confirmed ?Last Taken ?Type bupropion HCl 300 mg 24 hr tablet, 300 mg PO QAM 12/11/19 10/05/24 08/30/22 History extended release cholecalciferol (vitamin D3) 50 50 mcg PO DAILY 12/11/19 10/05/24 Unknown History mcg (2,000 unit) tablet (Vitamin D3) fluticasone propionate 50 2 spray intranasal DAILY PRN 12/11/19 10/05/24 Unknown History mcg/actuation nasal Congestion spray,suspension hydrochlorothiazide 25 mg tablet 25 mg PO DAILY 12/11/19 10/05/24 08/30/22 History loratadine 10 mg tablet 10 mg PO DAILY PRN Allergy Symptoms 12/11/19 10/05/24 Unknown History zolpidem 10 mg tablet (Ambien) 10 mg PO BEDTIME PRN Sleep 12/11/19 10/05/24 Unknown History atorvastatin 10 mg tablet 10 mg PO DAILY 05/12/20 10/05/24 Unknown History sertraline 100 mg tablet 200 mg PO DAILY 03/13/24 10/05/24 Unknown History buspirone 5 mg tablet 5 mg PO BID anxiety 04/13/24 10/05/24 Unknown History lorazepam 0.5 mg tablet 0.5 mg PO DAILY PRN Anxiety 09/18/24 10/05/24 Unknown History tirzepatide (weight loss) 2.5 2.5 mg subcut QWEEK 09/18/24 10/05/24 09/28/24 History mg/0.5 mL subcutaneous pen injector (Zepbound) Exam Height,Weight and Vital Signs: Height 5 ft 2 in Weight 100.244 kg Assessment and Plan Assessment Anesthesia Assessment: Chart Reviewed Final Anesthetic Review Family History of Problems with Anesthesia: No History of Problems with Anesthesia: No Documented by User: Gabriel Toney MD 10/05/24 11:43 PMFSH Past Medical History Medical History (Updated 10/05/24 @ 10:45 by Priya Matthews, RN) Elevated cholesterol HTN (hypertension) Spasm of muscle of lower back Fatty liver GERD (gastroesophageal reflux disease) Personal history of COVID-19 Cervical intraepithelial neoplasia grade 1 Morbid obesity with BMI of 40.0-44.9, adult NAFL (nonalcoholic fatty liver) Depression Transaminitis Family History Family History Maternal Grandmother Bone cancer Surgical History Surgical History (Updated 10/05/24 @ 10:51 by Priya Matthews, RN) Hx of hand surgery History of esophagogastroduodenoscopy (EGD) Hx of colonoscopy History of loop electrical excision procedure (LEEP) History of salpingectomy History of endometrial ablation Hx laparoscopic cholecystectomy H/O tubal ligation Previous section Social History Social History Household Members: Children Housing: Apartment Do you presently have visiting nurse or other home services: No Alcohol intake: never Comment: counts correct Patient Tobacco Use Status: Never used Tobacco Use of substances other than those prescribed or required for medical reasons: No Are you DNR?: No Advance Directives: No Advance Directives Information Provided: Yes service: No Current occupational status: unemployed Meds Allergies Allergy/AdvReac Type Severity Reaction Status Date / Time No Known Allergies (No Known Allergy Verified 10/05/24 10:51 Allergies*) Home Medications ?Medication ?Instructions ?Recorded ?Confirmed ?Last Taken ?Type bupropion HCl 300 mg 24 hr tablet, 300 mg PO QAM 12/11/19 10/05/24 08/30/22 History extended release cholecalciferol (vitamin D3) 50 50 mcg PO DAILY 12/11/19 10/05/24 Unknown History mcg (2,000 unit) tablet (Vitamin D3) fluticasone propionate 50 2 spray intranasal DAILY PRN 12/11/19 10/05/24 Unknown History mcg/actuation nasal Congestion spray,suspension hydrochlorothiazide 25 mg tablet 25 mg PO DAILY 12/11/19 10/05/24 08/30/22 History loratadine 10 mg tablet 10 mg PO DAILY PRN Allergy Symptoms 12/11/19 10/05/24 Unknown History zolpidem 10 mg tablet (Ambien) 10 mg PO BEDTIME PRN Sleep 12/11/19 10/05/24 Unknown History atorvastatin 10 mg tablet 10 mg PO DAILY 05/12/20 10/05/24 Unknown History sertraline 100 mg tablet 200 mg PO DAILY 03/13/24 10/05/24 Unknown History buspirone 5 mg tablet 5 mg PO BID anxiety 04/13/24 10/05/24 Unknown History lorazepam 0.5 mg tablet 0.5 mg PO DAILY PRN Anxiety 09/18/24 10/05/24 Unknown History tirzepatide (weight loss) 2.5 2.5 mg subcut QWEEK 09/18/24 10/05/24 09/28/24 History mg/0.5 mL subcutaneous pen injector (Zepbound) Exam Airway Mallampati Class: II TM Dist: <=3cm Neck ROM: Full Loose/Missing/Broken Teeth: No Heart: ok Lungs: ok Assessment and Plan Assessment Anesthesia Assessment: Anesthesia Plan Discussed Final Anesthetic Review NPO: Yes ASA Class: III Final Preanesthetic Review: No Changes in Pt Med Stat, Meds/Allgs Chart Reviewed, Consent Obtained/Reviewed and Anes Risks/Benef Reviewed Patient Risk: Intermediate Procedure Risk: Low Anesthetic Plan Anesthetic Plan: MAC: and Agree w/ Assess. and Plan Disposition: Standard PACU
--- NOTE | 2024-10-05 10:38 | MHC.SHP ---
Pre-Procedural Eval Section A - 24 Hr Update-Section A only Date of Service: 10/05/24 The patient is an INPATIENT: No The patient has been examined within 24 hours of the surgical procedure. The History & Physical has been completed within 30 days and I have reviewed it.: No Section B - Complete if H&P > 30 days Chief Complaint: Surveillance for colon polyps Relevant Family History (Specify if Yes): No Relevant Social History: None Present Medications: see Short Stay Collaborative assessment Medical History: Significant History (Spasm of muscle of lower back Fatty liver GERD (gastroesophageal reflux disease) Personal history of COVID-19 Cervical intraepithelial neoplasia grade 1 Morbid obesity with BMI of 40.0-44.9, adult NAFL (nonalcoholic fatty liver) Depression Transaminitis) History of Previous Operations: Relevant previous surgery/procedure and date(s) (History of esophagogastroduodenoscopy (EGD) Hx of colonoscopy History of loop electrical excision procedure (LEEP) History of salpingectomy History of endometrial ablation Hx laparoscopic cholecystectomy H/O tubal ligation Previous section) Allergies: Allergies Allergy/AdvReac Type Severity Reaction Status Date / Time No Known Allergies (No Known Allergy Verified 09/18/24 14:03 Allergies*) Review of Systems Sugical H&P ROS: Negative: Constitution, Cardiovascular, Respiratory and Gastrointestinal Exam Surgical H&P Exam: Normal: Heart, Normal: Lungs, Normal: Extremities and Normal: Abdomen Plan Diagnosis/Plan: Unchanged I have reviewed the history and physical and performed a pertinent physical examination on my patient. No changes have occurred unless specified. Time Spent With Patient Time: Total time managing care of this patient today ____ minutes.
[2024-10-05 10:53] VITALS: BMI 38.8
[2024-10-05 10:54] VITALS: BP 127/71; PULSE 70; RESP 16; TEMP 36.3; O2SAT 98
[2024-10-05] MEDS: Lactated Ringers 1,000 ML 100 ML IVCONT (11:11)
--- NOTE | 2024-10-05 12:46 | P.OPN-COLO_ITS ---
Colonoscopy Operative Note Operative Note Date of Service: 10/05/24 Narrative: COLONOSCOPY TILL CECUM WITH SNARE POLYPECTOMY Pre-op diagnosis: Surveillance for colon polyps. Post-op diagnosis:? Colon polyps, melanosis coli, Diverticulosis, hemorrhoids Endoscopist:? Aurelio Fox MD Anesthesia:?MAC Consent: Indications for the procedure and potential complications of bleeding, perforation, reaction to medications and missed diagnosis were discussed with the patient and informed consent was obtained. Instrument: Olympus PCF H 190 L variable stiffness pediatric colonoscope Monitoring: Vital signs and clinical assessment, intermittent blood pressure monitoring, continuous EKG monitoring, Pulse oximetry and Carbon Dioxide monitoring were done throughout the procedure. Please see anesthesia flowsheet. Colon withdrawl time was 22 minutes. Procedure: The patient was placed in the left lateral decubitis position and pre-procedure medications were administered. After a digital rectal examination of the ano-rectum, the video colonoscope was inserted into the rectum and advanced through the colon to the cecum. The colonoscope was slowly withdrawn in a retrograde panoramic fashion and the colon mucosa was carefully examined including a retroflexed view of the rectum. Findings and interventions are described below. Procedure Difficulty: without difficulty Findings: Terminal Ileum: Not evaluated Cecum: Normal Ascending Colon: A 10 mm sessile polyp at past polypectomy site at 80 cms - removed with a hot snare Transverse Colon: A 10-12 mm sessile polyp - removed with a hot snare. Descending Colon: Moderate diverticulosis Sigmoid Colon: Moderate diverticulosis Rectum: Normal Ano-rectum: Moderate internal hemorrhoids Colon preparation: Good after copious irrigation (pt ate a sandwich at 11 am yesterday) [place] Bowel Preparation Scale Right colon; 2 Transverse colon: 2 Left colon; 2 (0 = Unprepared colon segment with mucosa not seen due to solid stool that cannot be cleared. 1 = Portion of mucosa of the colon segment seen, but other areas of the colon segment not well seen due to staining, residual stool and/or opaque liquid. 2 = Minor amount of residual staining, small fragments of stool and/or opaque liquid, but mucosa of colon segment seen well. 3 = Entire mucosa of colon segment seen well with no residual staining, small fragments of stool or opaque liquid) Impression and Post Procedure Diagnosis: Colonoscopy Findings: Two medium sized polyps were removed Mild melanosis coli throughout the entire colon. Moderate diverticulosis seen in the left colon Moderate hemorrhoids on retroflexed exam. Plan: I will send a letter with biopsy results Repeat Colonoscopy in 3 years if polyps are adenomatous and due to history of adenomatous colon polyps. Above findings were reviewed with the patient and relevant handouts were given and the discharge area.
[2024-10-05 12:50] VITALS: BP 97/61; PULSE 71; RESP 16; TEMP 36.5; O2SAT 99
[2024-10-05 13:05] VITALS: BP 104/60; PULSE 70; RESP 18; TEMP 36.9; O2SAT 99
== END 2024-10-05 13:36 | disposition home or self-care (01) ==
PROVIDERS: PCP Family Medicine; Visit Provider Internal Medicine Gastroenterology
PROC: 0DJD8ZZ Inspection of Lower Intestinal Tract, Via Natural or Artificial Opening Endoscopic (ICD-10-PCS; CPT 45378; principal; 2024-10-05 12:00)
DX: Z12.11 Encounter for screening for malignant neoplasm of colon (principal); Z86.0101 Personal history of adenomatous and serrated colon polyps; D12.3 Benign neoplasm of transverse colon; K63.5 Polyp of colon; K57.30 Diverticulosis of large intestine without perforation or abscess without bleeding; K64.8 Other hemorrhoids; K63.89 Other specified diseases of intestine; K59.00 Constipation, unspecified; K21.9 Gastro-esophageal reflux disease without esophagitis; K76.0 Fatty (change of) liver, not elsewhere classified; E55.9 Vitamin D deficiency, unspecified; I10 Essential (primary) hypertension; E78.00 Pure hypercholesterolemia, unspecified; M79.7 Fibromyalgia; F32.A Depression, unspecified; E66.01 Morbid (severe) obesity due to excess calories; Z68.41 Body mass index [BMI] 40.0-44.9, adult; Z79.85 Long-term (current) use of injectable non-insulin antidiabetic drugs; Z79.51 Long term (current) use of inhaled steroids; Z79.899 Other long term (current) drug therapy; Z90.49 Acquired absence of other specified parts of digestive tract; Z98.890 Other specified postprocedural states; Z56.0 Unemployment, unspecified
CPT/HCPCS: 45385; 88305; J2003; J2704

== ENCOUNTER → 2024-10-05 09:46 | Outpatient (BNV) | payer MEDICAID, SELFPAY | PROVIDERS: PCP Family Medicine; Visit Provider Internal Medicine Gastroenterology | DX: Z12.11 Encounter for screening for malignant neoplasm of colon (principal); D12.2 Benign neoplasm of ascending colon; D12.3 Benign neoplasm of transverse colon; K57.90 Diverticulosis of intestine, part unspecified, without perforation or abscess without bleeding; K64.8 Other hemorrhoids | CPT/HCPCS: 45385 ==

== ENCOUNTER 2024-10-25 10:01 | Outpatient (REF) | payer MEDICAID, SELFPAY ==
--- NOTE | ~2024-10-25 | MR_ITS ---
EXAMINATION: MR LUMBAR SPINE WITHOUT CONTRAST CLINICAL INFORMATION: Low back pain radiating to left lower extremity; left lumbosacral radiculopathy on EMG. COMPARISON: No prior MRI. Lumbar plane films 04/23/2024. TECHNIQUE: Multiplanar multisequence MR imaging of the lumbar spine was done without IV contrast. Examination was performed on a 1.5 Rianna Siemens magnet, utilizing standard sequences. FINDINGS: CORONAL ALIGNMENT: -Normal. No scoliosis. SAGITTAL ALIGNMENT: - There is a normal lordosis. -There is a 3 mm anterolisthesis of L3 on L4, likely degenerative. -Sagittal alignment otherwise anatomic. LUMBOSACRAL JUNCTION: -Normal. There are 5 [id number] lumbar-type vertebral bodies. VERTEBRAL BODIES/BONE MARROW: -There is no gross bone marrow edema identified. There are no compression deformities. -No abnormal infiltrating bone marrow signal. -Fatty type endplate changes L5-S1, and to a lesser degree T12-L1. DISCS: -Severe loss of disc height and signal L5-S1. -Mild to moderate loss of height and signal L4-5 and T12-L1. -Mild generalized loss of signal. SPINAL CANAL: -No abnormal developmental findings. CONUS MEDULLARIS: -Terminates at L1. Morphology and signal is normal. INTRADURAL NERVE ROOTS: - Within normal limits. No abnormal clumping or nerve root mass is identified. Axial Disc Space Images: T12-L1: There is a shallow concentric disc bulge present. There is minimal hypertrophic degenerative facet change bilaterally. There is no central canal stenosis or neural foraminal narrowing. L1-L2: Mild hypertrophic degenerative facet changes bilaterally. No central canal or neural foraminal narrowing evident. L2-L3: There is a shallow diffuse concentric disc. There are mild to moderate hypertrophic degenerative facet changes with mild posterior ligamentous infolding/thickening. There is mild central canal narrowing. The subarticular recesses are patent. Mild bilateral neural foraminal narrowing is evident. L3-L4: There is disc uncovering secondary to anterolisthesis. There is a concentric diffuse disc bulge. There is a 4 mm synovial cyst arising from the right facet joint encroaching upon the right subarticular recess (series 10, image 18). There is severe bilateral hypertrophic facet degenerative change, with severe posterior ligamentous thickening/infolding. Combination of findings is resulting in severe central canal stenosis with central nerve root crowding and loss of CSF space. There is severe right lateral recess stenosis, and moderate left. There is mild right and [id number] left neural foraminal narrowing. L4-L5: There is a shallow concentric disc bulge with central annular fissuring. There are mild to moderate degenerative hypertrophic facet changes. There is mild central canal stenosis. Subarticular recesses are patent. There is mild bilateral neural foraminal narrowing. L5-S1: There is a concentric disc osteophytic bulge extending into both foraminal zones. Mild hypertrophic degenerative facet changes bilaterally. There is no central canal narrowing, no subarticular recess narrowing, although there is moderate bilateral neural foraminal narrowing. PARAVERTEBRAL AND INCLUDED EXTRASPINAL SOFT TISSUES: -There is no paravertebral or paraspinous edema or abnormal fluid collection. -There is incidental note of a 3.3 cm right ovarian simple appearing cysts. -Aorta is nonaneurysmal. MR/MR lumbar spine wo con IMPRESSION: 1. Moderate spondylosis of the lumbar spine most significant at L3-4 where there is severe central canal stenosis, severe right and moderate left subarticular recess stenosis. Refer to the above for details. 2. Ancillary findings as discussed in the body of the report. Electronically signed by: Keny Herring MD 10/25/2024 10:50 AM EDT
--- OUTSIDE RECORDS SUMMARY | 2024-10-25 11:22 | XMS_ITS | Encounter Summary ---
Author Organization [employer] Address [address] [place] [address] [address] [place] [address] Care Team Providers Care Corporate Wellness Coordinator Name Role Phone RekhaVera Primary Care Provider [phone] Reason for Visit * Reason Comments Med Refill Encounter Details Date Type Department Care Team (Late st Contact Info) Description 09/09/2022 Refill [facility] [address] [place], [place] [phone] Akilah Brannon ANP [address] [place] [address] Acute left-sided low back pain with left-sided [...] documented as of this encounter Care Teams Corporate Wellness Coordinator Relationship Specialty Start Date End Date Vera Da Silva DO [address] [place] [address] PCP - General Family Medicine 02/28/18 documented as of this encounter
--- OUTSIDE RECORDS SUMMARY | 2024-10-25 11:22 | XMS_ITS | Encounter Summary ---
Author Organization [employer] Address [address] [place] [address] 7 [place] [address] Care Team Providers Care Coordinator Of Rehabilitation Services Name Role Phone Vera Da Silva DO Primary Care Provider Encounter Details Date Type Department Care Team (Latest Contact Info) Description 05/16/2018 Abstract [facility] CONVERSION[facility] Dental, Provider, DDS Social History Tobacco [...] on filedocumented in this encounter Care Teams Coordinator Of Rehabilitation Services Relationship Specialty Start Date End Date Vera Da Silva DO [address] [place] [id number] PCP - General Family Medicine 02/28/18 documented as of this encounter
--- OUTSIDE RECORDS SUMMARY | 2024-10-25 11:22 | XMS_ITS | Encounter Summary ---
Author Organization [employer] Address [address] [place] [address] [address] [place] [address] Care Team Providers Care Stain Sprayer Name Role Phone Vera Da Silva DO Primary Care Provider + [phone] Reason for Visit * Reason Comments Med Refill Encounter Details Date Type Department Care Team ([facility] st Contact Info) Description 10/23/2024 Refill [facility] [address] [place], [place] [phone] Vera Da Silva DO [address] [place], [place] [phone] Acute left-sided low back pain with left-sided sciatica Social History Tobacco Use Types Packs/Day Years Used Date Smoking Tobacco: Never Passive Smoke Exposure: Never Smokeless Tobacco: Never Alcohol Use Standard Drinks/Week Comments Not Currently 0 (1 standard drink = 0.6 oz pur e alcohol) Depression Answer Date Recorded Patient Health Questionnaire-9 Score 13 10/08/2024 Patient Health Questionnaire-9 Score 13 10/08/2024 Last PHQ-9: Questionnaire Data Not on file 0 10/08/2024 Housing Stability Answer Date Recorded What is your housing situation today? I have [place] 09/27/[address] you li ve. Do you have problems with any of the following? None of the above 09/27/2024 Food Insecurity Answer Date Recorded Within the past 12 months, y ou worried that your food would run out before you got money to buy more: Never True 09/27/2024 Within the past 12 months,th e food you bought just didn't last and you didn't have enough money to get more: Never True Transportation Answer Date Recorded In the past 12 months, has l ack of transportation kept you from medical appts, meetings, work or from getting things needed for daily living? No 09/27/2024 Utilities Answer Date Recorded In the past 12 months, has t he electric, gas, oil or water company threatened to shut off services in your home? No 09/27/2024 Depression Answer Date Recorded Patient Health Questionnaire-2 Score 3 10/08/2024 Internet Access Answer Date Recorded Internet Access [...] Noted Time PHQ-9 Depression Total Score: 13 025 1:11 PM EDT documented as of this encounter Care Teams Stain Sprayer Relationship Specialty Start Date End Date Vera Da Silva DO [address] [place] [id number] PCP - General Family Medicine 02/28/18 documented as of this encounter
--- OUTSIDE RECORDS SUMMARY | 2024-10-25 11:22 | XMS_ITS | Encounter Summary ---
Author Organization [employer] Address [address] [place] [address] [address] [place] [address] Care Team Providers Care Showcase Maker Name Role Phone Vera Da Silva DO Primary Care Provider [phone] Encounter Details Date Type Department Care Team ([facility] st Contact Info) Description 03/19/2022 Orders Only [facility] [address] [place] [address] Vera Spangler LPN Social History Tobacco Use [...] on filedocumented in this encounter Care Teams Showcase Maker Relationship Specialty Start Date End Date Vera Da Silva DO [address] [place] [phone] PCP - General Family Medicine 02/28/18 documented as of this encounter
--- OUTSIDE RECORDS SUMMARY | 2024-10-25 11:22 | XMS_ITS | Encounter Summary ---
Author Organization [employer] Address [address] [place] [address] [address] [place] [address] Care Team Providers Care Consulting Services Associate Name Role Phone AlexandruVera parsons Primary Care Provider [phone] Encounter Details Date Type Department Care Team ([facility] st Contact Info) Description 12/03/2022 Abstract [facility] [address] [place] [address] Jinny Grullon Social History Tobacco Use Types [...] Results * Biopsy cervix (07/10/2021) Historical Provider MD IN CLINIC/BEDSIDE ORDERAB LES Final Result * Colposcopy (04/30/2021) Historical Provider MD IN CLINIC/BEDSIDE ORDERAB LES Final Result * (ABNORMAL) Hm Pap Smear (03/23/2021) Pap Epithelial cell abnormality(A ) Negative for intraephithelial lesion or malignancy, Other Comment:LSIL HPV Detected Historical Provider HEALTH MAINTENANCE Final Result * Colposcopy (04/09/2020) Historical Provider MD IN CLINIC/BEDSIDE ORDERAB LES Final Result documented in this encounter Visit Diagnoses Not on filedocumented in this encounter Additional Health Concerns Assessment Noted Time PHQ-9 Depression Total Score: 13 023 11:13 AM EDT documented as of this encounter Care Teams Consulting Services Associate Relationship Specialty Start Date End Date Vera Da Silva DO [address] [place] [id number] PCP - General Family Medicine 02/28/18 documented as of this encounter
--- OUTSIDE RECORDS SUMMARY | 2024-10-25 11:22 | XMS_ITS | Encounter Summary ---
Author Organization [employer] Address [address] [place] [address] 7 [place] [address] Care Team Providers Care Transit Bus Operator Name Role Phone Vera Da Silva DO Primary Care Provider Reason for Referral * Consultation (Urgent) - Authorized Specialty Diagnoses / Procedures Referred By Richard cagle Referred To Contact Podiatry Diagnoses Skin nodule Vera Da Silva DO [address] [place] [address] Phone: tel: fax: [facility] [address] [place] [address] Phone: tel: fax: Referral ID Status Reason Start Date Expiration Date Visits Requested Visits Authorized [id number] Authorized Specialty Services Required 10/23/2024 10/23/2025 6 6 Encounter Details Date Type Department Care Team (Late st Contact Info) Description 10/22/2024 Orders Only [facility] [address] [place], [place] [phone] Vera Da Silva DO [address] [place], [place] [phone] Skin nodule (Primary Dx) Social History Tobacco Use Types Packs/Day Years [...] AM EDT documented as of this encounter Progress Notes * Vera Da Silva DO - 10/22/2024 1:58 AM EDT Podiatry referral placed. documented in this encounter Plan of Treatment Scheduled Referrals Name Type Priority Associated Diagnoses Orde r Schedule Referral to Podiatry Outpatient Referral Urgent Skin nodule Expected: 10/22/2024 (Approximate), Expires: 10/22/2025 documented as of this encounter Visit Diagnoses Diagnosis Skin nodule- Primary Localized superficial swelling, mass, or lump documented in this encounter Additional Health Concerns Assessment Noted Time PHQ-9 Depression Total Score: 13 025 1:11 PM EDT documented as of this encounter Care Teams Transit Bus Operator Relationship Specialty Start Date End Date Vera Da Silva DO [address] [place] [address] PCP - General Family Medicine 02/28/18 documented as of this encounter
--- OUTSIDE RECORDS SUMMARY | 2024-10-25 11:22 | XMS_ITS | Clinical Summary ---
Author Organization [employer] Address [address] [place] [address] [address] [place] [address] Care Team Providers Care Talent Acquisition Specialist Name Role Phone RekhaVera Primary Care Provider [phone] Allergies No known active allergies Medications buPROPion XL (Wellbutrin XL) 300 MG 24 hr tablet Take 300 mg by mouth in the morning. 023 Active sertraline (Zoloft) 100 MG tablet Take 200 mg by mouth in the morning. 023 Active zolpidem (Ambien) 10 MG tablet Take 10 mg by mouth if needed at bedtime. 023 Active cholecalciferol (Vitamin D-3) 50 MCG (1999 UT) tablet TAKE 1 TABLET BY MOUTH EVERY DAY 90 tablet 1 024 Active atorvastatin (Lipitor) 20 MG tablet TAKE 1 TABLET BY MOUTH EVERY DAY 90 tablet 3 025 Active LORazepam (Ativan) 0.5 MG tablet /2-1 TABLET BY MOUTH TWICE A DAY NEEDED FOR ANXIETY 025 Active naproxen (Naprosyn) 500 MG tabletIndicatio ns:Acute left-sided low back pain with left-sided sciatica Take 1 tablet (500 mg) by mouth if needed in the morning and at bedtime for mild pain. 40 tablet 1 025 Active Diclofenac Sodium 1 % gel Apply 2 g topically if needed in the morning, at noon, in the evening, and at bedtime (pain). 150 g 3 025 Active fluticasone (Flonase) 50 MCG/ACT nasal sprayIndication s:Seasonal allergic rhinitis, unspecified trigger SPRAY 2 SPRAYS INTO EACH NOSTRIL EVERY DAY 48 mL 1 Active Senna-Time 8.6 MG tablet TAKE 2 TABLETS BY MOUTH EVERY DAY NEEDED FOR CONSTIPATION 180 tablet 1 Active gabapentin (Neurontin) 300 MG capsule Take 300 mg by mouth at bedtime. Active clotrimazole (Lotrimin) 1 % cream Apply topically if needed in the morning and at bedtime (toenail fungus). 60 g 2 Active Tirzepatide-Stevo ght Management (Zepbound) 5 MG/0.5ML solution auto-injector Inject 0.5 mL (5 mg) under the skin 1 (one) time per week. 2 mL 3 Active Salicylic Acid (Wart Remover Medicated) 40 % pads Apply 1 Pad topically every other day. 12 each Active hydroCHLOROthia zide (HYDRODiuril) 25 MG tabletIndicatio ns:Essential hypertension Take 1 tablet (25 mg) by mouth in the morning. 90 tablet 3 Active omeprazole (PriLOSEC) [address] capsule TAKE 1 CAPSULE BY MOUTH BEFORE BREAKFAST AND BEFORE EVENING MEAL 180 capsule 3 Active hydroCHLOROthia zide (HYDRODiuril) 25 MG tabletIndicatio ns:Essential hypertension TAKE 1 TABLET BY MOUTH EVERY DAY IN THE MORNING 90 tablet 1 024 2024 Discontinued(R eorder (will not trigger notification to Pharmacy)) Senna-Time 8.6 MG tablet TAKE 2 TABLETS BY MOUTH EVERY DAY NEEDED FOR CONSTIPATION 180 tablet 1 025 2024 Discontinued Tirzepatide-Stevo ght Management (Zepbound) 2.5 MG/0.5ML solution auto-injector Inject 0.5 mL (2.5 mg) under the skin 1 (one) time per week. 2 mL 3 025 2024 Discontinued(D ose adjustment) baclofen (Lioresal) 10 MG tablet Take 1 tablet (10 mg) by mouth if needed in the morning, at noon, and at bedtime for muscle spasms. 60 tablet 1 025 2024 Discontinued omeprazole (PriLOSEC) [address] capsule TAKE 1 CAPSULE BY MOUTH BEFORE BREAKFAST AND BEFORE EVENING MEAL 180 capsule 1 025 2024 Discontinued(R eorder (will not trigger notification to Pharmacy)) clotrimazole (Lotrimin) 1 % cream apply to affected area twice a day for 14 days 025 2024 Discontinued(R eorder (will not trigger notification [...] Encounters Date Type Department Care Team Description 10/23/2024 Refill [facility] [address] [place] [id number] Vera Da Silva DO Acute left-sided low back pain with left-sided sciatica 10/22/2024 Orders Only [address] [address] Vera Da Silva DO Skin nodule (Primary Dx) 10/08/2024 11:15 AM EDT Office Visit [address] [address] Vera Da Silva DO Essential hypertension (Primary Dx); Other hyperlipidemia; Fatty liver; Depressive disorder; Polyarthralgia; Chronic bilateral low back pain with bilateral sciatica; Obesity, morbid, BMI 40.0-49.9 (CMS/HCC); Skin nodule; Healthcare maintenance 10/08/[address] [address] Vera Da Silva DO 10/07/2024 Travel 10/05/2024 Orders Only GENERIC EXTERNAL DATA DEPARTMENT Provider, Generic External Data 10/04/[address] [address] Vera Da Silva DO Chart Prep 09/27/2024 Patient Outreach [address] [address] Vera Da Silva DO Pre-visit Planning (SDOH screening negative and tobacco screening negative) 09/24/2024 Travel 09/21/[address] [address] Vera Da Silva DO Appointment Request 09/13/[address] [address] Vera Da Silva DO Seasonal allergic rhinitis, unspecified trigger 08/27/2024 1:30 PM EDT Office Visit [address] [address] Name, MD Fernando Subacute maxillary sinusitis (Primary Dx); Cough in adult; Malaise and fatigue 08/27/2024 Travel 08/27/[address] [address] Vera Da Silva DO Nurse Triage from Last 3 Months Immunizations Immunization Administration [...] Sign Reading Time Taken Comments Blood Pressure 126/80 10/08/2024 11:36 AM EDT Pulse 80 10/08/2024 11:36 AM EDT Temperature 36.6 C (97.9 F) 10/08/2024 11:36 AM EDT Respiratory Rate 20 10/08/2024 11:36 AM EDT Oxygen Saturation 97% 08/27/2024 1:25 PM EDT Inhaled Oxygen Concentration - - Weight 100 kg (221 lb 3.2 oz) 10/08/2024 11:36 A M EDT Height 156.2 cm (5' 1.5 ) 10/08/2024 11:36 AM ED T Body Mass Index 41.12 10/08/2024 11:36 AM EDT Plan of Treatment Health Maintenance Due Date Last Done Comments CT Colonography 1972 FIT DNA/Cologuard 1972 FIT 1972 FOBT 1972 Sigmoidoscopy 1972 Disability Screening 1972 Family Planning (PISQ) 1987 Cervical Cancer Screening 05/26/2023 HPV/Cotest 05/26/2023 05/25/2022, 03/01, 03/23/2021, Additional history exists Pap Smear 05/26/2023 05/25/2022, 03/23/2021 Colonoscopy 08/30/2024 08/30/2022 Colorectal Cancer Screening 08/30/2024 Influenza Vaccine (#1) 2024 , 12/10/2022, 11/20/2021, Additional history exists Depression Monitoring 04/10/2025 10/08/2024, 025 Alcohol/Substance Use Screening 06/26/2025 06/26/2024 Mammogram 06/27/2025 06/27/2024, 04/28, 05/07/2022, Additional history exists SDOH Screening 09/27/2025 09/27/2024 Tobacco Screening 10/08/2025 10/08/2024 Lipid Panel 01/01/2029 01/02/2024, 12/29, 11/20/2021, Additional [...] Completed 11/25/2023, , 12/31/2021, Additional history exists HIV Screening Completed 07/05/2024, [...] Procedure Name Priority Date/Time Associated Diagnosis Comments MR LUMBAR SPINE WO CONTRAST Routine 10/25/2024 10:05 AM EDT Chronic bilateral low back pain with bilateral sciatica HEMATOXYLIN AND EOSIN STAIN Routine 10/05/2024 12:21 PM EDT POCT COVID-19 AG MCLEAN ID NOW Routine 08/27/2024 1:38 PM EDT Cough in adult POCT INFLUENZA B Routine 08/27/2024 1:33 PM EDT Cough in adult POCT INFLUENZA A Routine 08/27/2024 1:33 PM EDT Cough in adult US ABDOMEN COMPLETE WITH ELASTOGRAPHY Routine 08/14/2024 10:33 AM EDT Fatty liver HEPATITIS EXPOSURE SOURCE Routine 07/05/2024 2:58 PM EDT HIV AB/AG EXPOSURE SOURCE Routine 07/05/2024 2:58 PM EDT BI MAMMOGRAM SCREENING TOMOSYNTHESIS BILATERAL Routine 06/27/2024 1:15 PM EDT LIPID PANEL, STANDARD Routine 01/02/2024 12:15 PM EST Essential hypertension Other hyperlipidemia Fatty liver Depressive disorder Polyarthralgia Bilateral hand numbness Healthcare maintenance HM COLONOSCOPY Routine 08/30/2022 HPV MRNA E6/E7 REFLEX TO HPV 16, 18/45 Routine 05/25/2022 11:12 AM EDT PAP SMEAR Routine 05/25/2022 11:12 AM EDT from Last 3 Months or Most Recently Relevant to Health Maintenance Results * MR Lumbar Spine w/o Contrast (10/25/2024 10:05 AM EDT) Anatomical Region Laterality Modality Spine, L-spine Magnetic Resonan ce 10/25/2024 10:0 5 AM EDT Narrative 10/25/2024 10:52 AM EDT [place] [address] Magnetic Resonance Report Signed Patient: Nelly Paredes MR#: [id number] : 1970 Acct:[id number] Age/Sex: 54 / F ADM Date: 10/25/24 Loc: HO.MRI Attending Dr: Vera Da Silva DO Ordering Physician: Vera Da Silva DO Date of Service: 10/25/24 Procedure(s): MR lumbar spine wo con Accession Number(s): [id number] cc: Vera Da Silva DO EXAMINATION: MR LUMBAR SPINE WITHOUT CONTRAST CLINICAL INFORMATION: Low back pain radiating to left lower extremity; left lumbosacral radiculopathy on EMG. COMPARISON: No prior MRI. Lumbar plane films 04/23/2024. TECHNIQUE: Multiplanar multisequence MR imaging of the lumbar spine was done without IV contrast. Examination was performed on a 1.5 Rianna Siemens magnet, utilizing standard sequences. FINDINGS: CORONAL ALIGNMENT: -Normal. No scoliosis. SAGITTAL ALIGNMENT: - There is a normal lordosis. -There is a 3 mm anterolisthesis of L3 on L4, likely degenerative. -Sagittal alignment otherwise anatomic. LUMBOSACRAL JUNCTION: -Normal. There are 5 joy-qvr-vlicbxm lumbar-type vertebral bodies. VERTEBRAL BODIES/BONE MARROW: -There is no gross bone marrow edema identified. There are no compression deformities. -No abnormal infiltrating bone marrow signal. -Fatty type endplate changes L5-S1, and to a lesser degree T12-L1. DISCS: -Severe loss of disc height and signal L5-S1. -Mild to moderate loss of height and signal L4-5 and T12-L1. -Mild generalized loss of signal. SPINAL CANAL: -No abnormal developmental findings. CONUS MEDULLARIS: -Terminates at L1. Morphology and signal is normal. INTRADURAL NERVE ROOTS: - Within normal limits. No abnormal clumping or nerve root mass is identified. Axial Disc Space Images: T12-L1: There is a shallow concentric disc bulge present. There is minimal hypertrophic degenerative facet change bilaterally. There is no central canal stenosis or neural foraminal narrowing. L1-L2: Mild hypertrophic degenerative facet changes bilaterally. No central canal or neural foraminal narrowing evident. L2-L3: There is a shallow diffuse concentric disc. There are mild to moderate hypertrophic degenerative facet changes with mild posterior ligamentous infolding/thickening. There is mild central canal narrowing. The subarticular recesses are patent. Mild bilateral neural foraminal narrowing is evident. L3-L4: There is disc uncovering secondary to anterolisthesis. There is a concentric diffuse disc bulge. There is a 4 mm synovial cyst arising from the right facet joint encroaching upon the right subarticular recess (series 10, image 18). There is severe bilateral hypertrophic facet degenerative change, with severe posterior ligamentous thickening/infolding. Combination of findings is resulting in severe central canal stenosis with central nerve root crowding and loss of CSF space. There is severe right lateral recess stenosis, and moderate left. There is mild right and wvah-yx-sudydvcj left neural foraminal narrowing. L4-L5: There is a shallow concentric disc bulge with central annular fissuring. There are mild to moderate degenerative hypertrophic facet changes. There is mild central canal stenosis. Subarticular recesses are patent. There is mild bilateral neural foraminal narrowing. L5-S1: There is a concentric disc osteophytic bulge extending into both foraminal zones. Mild hypertrophic degenerative facet changes bilaterally. There is no central canal narrowing, no subarticular recess narrowing, although there is moderate bilateral neural foraminal narrowing. PARAVERTEBRAL AND INCLUDED EXTRASPINAL SOFT TISSUES: -There is no paravertebral or paraspinous edema or abnormal fluid collection. -There is incidental note of a 3.3 cm right ovarian simple appearing cysts. -Aorta is nonaneurysmal. MR/MR lumbar spine wo con IMPRESSION: 1. Moderate spondylosis of the lumbar spine most significant at L3-4 where there is severe central canal stenosis, severe right and moderate left subarticular recess stenosis. Refer to the above for details. 2. Ancillary findings as discussed in the body of the report. Electronically signed by: Keny Herring MD 10/25/2024 10:50 AM EDT Dictated By: eKny Herring MD Signed By: <Electronically signed by Keny Herring MD in [place]> 10/25/24 1050 DD/ 1005 TD/TT: 10/25/24 1027 Cruise Director: Procedure Note Donotuseinterpreter, Image - 10/25/2024 [place] [address] Magnetic Resonance Report Signed Patient: Nelly Paredes#: [id number] : 1970Acct:[id number] Age/Sex: 54 / FADM Date: 10/25/24 Loc: HO.MRI Attending Dr: Vera Da Silva DO Ordering Physician: Vera Da Silva DO Date of Service: 10/25/24 Procedure(s): MR lumbar spine wo con Accession Number(s): [id number] cc: Vera Da Silva DO EXAMINATION: MR LUMBAR SPINE WITHOUT CONTRAST CLINICAL INFORMATION: Low back pain radiating to left lower extremity; left lumbosacral radiculopathy on EMG. COMPARISON: No prior MRI. Lumbar plane films 04/23/2024. TECHNIQUE: Multiplanar multisequence MR imaging of the lumbar spine was done without IV contrast. Examination was performed on a 1.5 Rianna Siemens magnet, utilizing standard sequences. FINDINGS: CORONAL ALIGNMENT: -Normal. No scoliosis. SAGITTAL ALIGNMENT: - There is a normal lordosis. -There is a 3 mm anterolisthesis of L3 on L4, likely degenerative. -Sagittal alignment otherwise anatomic. LUMBOSACRAL JUNCTION: -Normal. There are 5 zaq-rms-vedpkfh lumbar-type vertebral bodies. VERTEBRAL BODIES/BONE MARROW: -There is no gross bone marrow edema identified. There are no compression deformities. -No abnormal infiltrating bone marrow signal. -Fatty type endplate changes L5-S1, and to a lesser degree T12-L1. DISCS: -Severe loss of disc height and signal L5-S1. -Mild to moderate loss of height and signal L4-5 and T12-L1. -Mild generalized loss of signal. SPINAL CANAL: -No abnormal developmental findings. CONUS MEDULLARIS: -Terminates at L1. Morphology and signal is normal. INTRADURAL NERVE ROOTS: - Within normal limits. No abnormal clumping or nerve root mass is identified. Axial Disc Space Images: T12-L1: There is a shallow concentric disc bulge present. There is minimal hypertrophic degenerative facet change bilaterally. There is no central canal stenosis or neural foraminal narrowing. L1-L2: Mild hypertrophic degenerative facet changes bilaterally. No central canal or neural foraminal narrowing evident. L2-L3: There is a shallow diffuse concentric disc. There are mild to moderate hypertrophic degenerative facet changes with mild posterior ligamentous infolding/thickening. There is mild central canal narrowing. The subarticular recesses are patent. Mild bilateral neural foraminal narrowing is evident. L3-L4: There is disc uncovering secondary to anterolisthesis. There is a concentric diffuse disc bulge. There is a 4 mm synovial cyst arising from the right facet joint encroaching upon the right subarticular recess (series 10, image 18). There is severe bilateral hypertrophic facet degenerative change, with severe posterior ligamentous thickening/infolding. Combination of findings is resulting in severe central canal stenosis with central nerve root crowding and loss of CSF space. There is severe right lateral recess stenosis, and moderate left. There is mild right and qwqr-ua-befzdbwb left neural foraminal narrowing. L4-L5: There is a shallow concentric disc bulge with central annular fissuring. There are mild to moderate degenerative hypertrophic facet changes. There is mild central canal stenosis. Subarticular recesses are patent. There is mild bilateral neural foraminal narrowing. L5-S1: There is a concentric disc osteophytic bulge extending into both foraminal zones. Mild hypertrophic degenerative facet changes bilaterally. There is no central canal narrowing, no subarticular recess narrowing, although there is moderate bilateral neural foraminal narrowing. PARAVERTEBRAL AND INCLUDED EXTRASPINAL SOFT TISSUES: -There is no paravertebral or paraspinous edema or abnormal fluid collection. -There is incidental note of a 3.3 cm right ovarian simple appearing cysts. -Aorta is nonaneurysmal. MR/MR lumbar spine wo con IMPRESSION: 1. Moderate spondylosis of the lumbar spine most significant at L3-4 where there is severe central canal stenosis, severe right and moderate left subarticular recess stenosis. Refer to the above for details. 2. Ancillary findings as discussed in the body of the report. Electronically signed by: Keny Herring MD 10/25/2024 10:50 AM EDT Dictated By: Keny Herring MD Signed By: <Electronically signed by Keny Herring MD in OV> 10/25/24 1050 DD/ 1005 TD/TT: 10/25/24 1027 Cruise Director: us Vera Da Silva DO IMG MRI PROCEDURES Final Res ult * Hematoxylin and Eosin Stain (10/05/2024 12:21 PM EDT) 10/05/2024 12:2 1 PM EDT 10/05/2024 1:55 PM EDT [facility] - 10/10/2024 9:02 AM EDT ----- ------- Name: Nelly Paredes Age/Sex: 54/F : 1970 Unit#: [id number] Attend Dr: Aurelio Fox MD Re10/05/24 Status: [facility] Location: [facility] Disch: ----- ------- SPEC : [id number] RECD: 10/05/24-5651 STATUS: JAMES RYDER NUM: [id number] KEKE: 10/05/24-1221 [facility] DR: Aurelio Fox MD ENTERED: 10/05/246453 SP TYPE: Surgical OTHR DR: Vera Da Silva DO ORDERED: HE Stain/6, Gross Micro L4/2 Addendum Addendum 1 Entered: 10/10/24 (B): Multiple additional tissue levels show colonic mucosa with no specific change; no adenomatous dysplasia seen. Addendum Signed (signature on file) Lucie Carballo 10/10/249[address] ----- ------- Diagnosis A. Colon, transverse, polyp: Tubular adenoma with serrated features; negative for high- grade dysplasia and carcinoma. B. Colon, ascending, polyp: Colonic mucosa with no specific change on initial levels. Comment: (B): Additional tissue levels pending; addendum to follow. Clinical History Pre-Op Dx: Surveillance for colon polyps Post-Op Dx: Colon polyp, diverticulosis, hemorrhoids Microscopic Description Microscopic sections reviewed. Material Received A. Transverse colon polyp B. Ascending colon polyp Gross Description Received in 2 parts. A. Received in formalin labeled transverse colon polyp are 3 fragments of horowitz-white soft tissue measuring 0.2-0.3 cm in greatest dimension which are wrapped in lens paper and entirely submitted for microscopic examination, 3 pieces in cassette A. CONTINUED ON NEXT PAGE ----- ------- Name: Nelly Paredes Age/Sex: 54/F : 1970 Unit#: [id number] Attend Dr: Aurelio Fox MD Re10/05/24 Status: [facility] Location: [facility] Disch: ----- ------- SPEC : [id number] RECD: 10/05/24745 STATUS: JAMES RYDER NUM: [id number] KEKE: 10/05/24-1221 [facility] DR: Aurelio Fox MD ENTERED: 10/05/24-1387 SP TYPE: Surgical OTHR DR: Vera Da Silva DO ORDERED: HE Stain/6, Gross Micro L4/2 Gross Description (Continued) B. Received in formalin labeled ascending colon polyp are 2 fragments of pink white soft tissue measuring 0.2 and 0.3 cm in greatest dimension which are wrapped in lens paper and entirely submitted for microscopic examination, 2 pieces in cassette B. ([facility]) IHC S/NG Disclaimer NOTE: Unless otherwise stated, all tissue is formalin-fixed and paraffin-embedded. Some or all of the immunohistochemical tests reported herein may have been developed and their performance characteristics determined by [facility]. They have not been cleared or approved by the U.S. Food and Drug Administration (FDA). However, the FDA has determined that such clearance or approval is not necessary. This laboratory is certified under the Clinical Laboratory Improvement Amendments of 1988 (CLIA) as qualified to perform high complexity clinical laboratory testing. Copies To: Vera Da Silva DO [address] [address] [facility] [address] [place] [id number] ----- ------- Signed (signature on file) Lucie Camargo 10/08/24 1529 ----- ------- END OF REPORT us Generic External Data Provider LAB BLOOD ORDERAB LES Final Result [facility] [address] [place] [address] [phone] * POCT Rapid Covid-19 MCLEAN ID NOW (08/27/2024 1:38 PM EDT) Coronavirus Antigen PCR Negative Negative, Indeterminate, None Detected, Invalid, Specimen unsatisfactory for evaluation, Weakly Positive, 2+ QC Media Lot # [id number] Lot# Expiration Date [id number] Swab 08/27/2024 1:38 PM EDT Fernando Braeden KEITA POINT OF CARE TEST ENTER/EDIT OR DERABLES Final Result * POCT Rapid Influenza B OSOM (08/27/2024 1:33 PM EDT) [facility] Rapid Influenza B Ag Negative Negative, Indeterminate QC Media Lot # [id number] Lot# Expiration Date 100,826 Swab 08/27/2024 1:33 PM EDT Fernando Braeden KEITA POINT OF CARE TEST ENTER/EDIT OR DERABLES Final Result * POCT Rapid Influenza A OSOM (08/27/2024 1:33 PM EDT) [facility] Rapid Influenza A Ag Negative Negative, Indeterminate QC Media Lot # [id number] Lot# Expiration Date 100,826 Swab Nasopharyngeal structure / Unknown 08/27/2024 1:33 PM EDT Fernando Braeden KEITA POINT OF CARE TEST ENTER/EDIT OR DERABLES Final Result * US Abdomen Comp w elastography (08/14/2024 10:33 AM EDT) Anatomical Region Laterality Modality Abdomen Ultrasound 08/14/2024 10:3 3 AM EDT Narrative 08/14/2024 11:16 AM EDT [place] [address] Ultrasound Report Signed Patient: Nelly Paredes MR#: [id number] : 1970 Acct:[id number] Age/Sex: 54 / F ADM Date: 08/14/24 Loc: HO.US Attending Dr: Vera Da Silva DO Ordering Physician: Vera Da Silva DO Date of Service: 08/14/24 Procedure(s): US abdomen comp w elastography Accession Number(s): [id number] cc: Vera Da Silva DO EXAMINATION: US COMPLETE ABDOMEN WITH LIVER ELASTOGRAPHY CLINICAL INFORMATION: Follow-up fatty liver. COMPARISON: Abdomen US 03/05/2021. TECHNIQUE: Real-time imaging of the abdominal viscera. Noninvasive ultrasound liver fibrosis assessment is performed using [employer]omara ElastPQ point quantification shear wave elastography (pSWE) with a C5-2 MHz transducer. Multiple elastography samples are obtained. FINDINGS: PANCREAS: The visualized pancreatic head and body are normal in appearance. The remainder of the pancreas is obscured from visualization by the overlying bowel gas. ABDOMINAL AORTA: No aortic aneurysm is seen. INFERIOR VENA CAVA: Visualized portions are normal. LIVER: Liver is normal in size, contour, with mildly increased parenchymal echogenicity. No focal lesion or intrahepatic biliary dilatation. The right lobe measures 13.8 cm in length. The left lobe measures 9.5 cm in length. Portal flow is towards the liver (hepatopetal). Shear wave liver elastography median stiffness is 1.96 m/s (reference: normal median stiffness is 1.3 m/s or less). IQR/median stiffness to assess sampling precision is 0.11 (reference: good quality data set is IQR/median stiffness of 0.15 or less). GALLBLADDER: The gallbladder is surgically absent. COMMON BILE DUCT: Normal in caliber measuring 0.3 cm in diameter. RIGHT KIDNEY: No hydronephrosis. No renal calculi or focal parenchymal lesions. The kidney measures 9.7 cm in maximum dimension. LEFT KIDNEY: No hydronephrosis. No renal calculi or focal parenchymal lesions. The kidney measures 10.1 cm in maximum dimension. SPLEEN: Unremarkable. The spleen measures 10.2 cm in maximum dimension. FREE FLUID: None seen. US/US abdomen comp w elastography IMPRESSION: 1. Mildly increased hepatic echogenicity. No focal lesion or intrahepatic biliary dilatation. 2. Liver elastography: Measurements are suggestive of compensated advanced chroniic liver disease but need further test for confirmation. 3. Cholecystectomy. 4. No biliary dilatation. REFERENCE: Society of Radiologists in Ultrasound Liver Stiffness Thresholds (2020): LIVER STIFFNESS THRESHOLDS: *Liver Stiffness equal or less than 1.3 m/s: High probability of being normal. *Liver Stiffness less than 1.7 m/s: In the absence of other known clinical signs, rules out compensated advanced chronic liver disease. *Liver Stiffness 1.7-2.1 m/s: Suggestive of compensated advanced chronic liver disease but need further test for confirmation. *Liver Stiffness over 2.1 m/s: Rules in compensated advanced chronic liver disease. *Liver Stiffness over 2.4 m/s: Suggestive of clinically significant portal hypertension. QUALITY OF DATA SET: *IQR/Median value equal or less than 0.15 implies a quality data set. *IQR/Median value over 0.15 implies a poor quality data set. SIGNIFICANT CHANGE FROM PRIOR EXAM: Significant change if liver stiffness measurement is 10% or greater from prior exam. OTHER CONSIDERATIONS: The stage of liver fibrosis may be overestimated in the setting of acute hepatitis, liver inflammation, elevated liver function tests, hepatic vascular congestion, obstructive cholestasis, non-fasting state, and infiltrative diseases such as amyloidosis and lymphoma. In some patients with NAFLD, the liver stiffness thresholds for compensated advanced chronic liver disease may be lower. In causes other than viral hepatitis and NAFLD, liver stiffness thresholds are not well established. Electronically signed by: Keny Herring MD 08/14/2024 11:13 AM EDT Dictated By: Keyn Herring MD Signed By: <Electronically signed by Keny Herring MD in OV> 08/14/24 1113 DD/ 1033 TD/TT: 08/14/24 1047 Cruise Director: Procedure Note Donotuseinterpreter, Image - 08/14/[address] [address] Ultrasound Report Signed Patient: Olga Paredes#: [id number] : 1970Acct:[id number] Age/Sex: 54 / FADM Date: 08/14/24 Loc: HO.US Attending Dr: Vera Da Silva DO Ordering Physician: Vera Da Silva DO Date of Service: 08/14/24 Procedure(s): US abdomen comp w elastography Accession Number(s): [id number] cc: Vera Da Silva DO EXAMINATION: US COMPLETE ABDOMEN WITH LIVER ELASTOGRAPHY CLINICAL INFORMATION: Follow-up fatty liver. COMPARISON: Abdomen US 03/05/2021. TECHNIQUE: Real-time imaging of the abdominal viscera. Noninvasive ultrasound liver fibrosis assessment is performed using Xiomara ElastPQ point quantification shear wave elastography (pSWE) with a C5-2 MHz transducer. Multiple elastography samples are obtained. FINDINGS: PANCREAS: The visualized pancreatic head and body are normal in appearance. The remainder of the pancreas is obscured from visualization by the overlying bowel gas. ABDOMINAL AORTA: No aortic aneurysm is seen. INFERIOR VENA CAVA: Visualized portions are normal. LIVER: Liver is normal in size, contour, with mildly increased parenchymal echogenicity. No focal lesion or intrahepatic biliary dilatation. The right lobe measures 13.8 cm in length. The left lobe measures 9.5 cm in length. Portal flow is towards the liver (hepatopetal). Shear wave liver elastography median stiffness is 1.96 m/s (reference: normal median stiffness is 1.3 m/s or less). IQR/median stiffness to assess sampling precision is 0.11 (reference: good quality data set is IQR/median stiffness of 0.15 or less). GALLBLADDER: The gallbladder is surgically absent. COMMON BILE DUCT: Normal in caliber measuring 0.3 cm in diameter. RIGHT KIDNEY: No hydronephrosis. No renal calculi or focal parenchymal lesions. The kidney measures 9.7 cm in maximum dimension. LEFT KIDNEY: No hydronephrosis. No renal calculi or focal parenchymal lesions. The kidney measures 10.1 cm in maximum dimension. SPLEEN: Unremarkable. The spleen measures 10.2 cm in maximum dimension. FREE FLUID: None seen. US/US abdomen comp w elastography IMPRESSION: 1. Mildly increased hepatic echogenicity. No focal lesion or intrahepatic biliary dilatation. 2. Liver elastography: Measurements are suggestive of compensated advanced chroniic liver disease but need further test for confirmation. 3. Cholecystectomy. 4. No biliary dilatation. REFERENCE: Society of Radiologists in Ultrasound Liver Stiffness Thresholds (2020): LIVER STIFFNESS THRESHOLDS: *Liver Stiffness equal or less than 1.3 m/s: High probability of being normal. *Liver Stiffness less than 1.7 m/s: In the absence of other known clinical signs, rules out compensated advanced chronic liver disease. *Liver Stiffness 1.7-2.1 m/s: Suggestive of compensated advanced chronic liver disease but need further test for confirmation. *Liver Stiffness over 2.1 m/s: Rules in compensated advanced chronic liver disease. *Liver Stiffness over 2.4 m/s: Suggestive of clinically significant portal hypertension. QUALITY OF DATA SET: *IQR/Median value equal or less than 0.15 implies a quality data set. *IQR/Median value over 0.15 implies a poor quality data set. SIGNIFICANT CHANGE FROM PRIOR EXAM: Significant change if liver stiffness measurement is 10% or greater from prior exam. OTHER CONSIDERATIONS: The stage of liver fibrosis may be overestimated in the setting of acute hepatitis, liver inflammation, elevated liver function tests, hepatic vascular congestion, obstructive cholestasis, non-fasting state, and infiltrative diseases such as amyloidosis and lymphoma. In some patients with NAFLD, the liver stiffness thresholds for compensated advanced chronic liver disease may be lower. In causes other than viral hepatitis and NAFLD, liver stiffness thresholds are not well established. Electronically signed by: Keny Herring MD 08/14/2024 11:13 AM EDT Dictated By: Keny Herring MD Signed By: <Electronically signed by Keny Herring MD in OV> 08/14/24 1113 DD/ 1033 TD/TT: 08/14/24 1047 Cruise Director: us Vera Da Silva DO IMG US PROCEDURES Final Resu lt * Hepatitis Exposure Source (07/05/2024 2:58 PM EDT) ~Hepatitis B Surface Antibody REACTIVE Nonreactive [facility] Comment:REACTIVE: > 11.99 mI U/mL Hepatitis B Core Antibody Nonreactive Nonreactive [facility] Hepatitis C Ab NonReactive Nonreactive [facility] Hepatitis B Surface Ag Negative Negative [facility] 07/05/2024 2:58 PM EDT 07/05/2024 3:12 PM EDT us Generic External Data Provider LAB BLOOD ORDERAB LES Final Result Performing Organization Address [facility] Co de Phone Number [facility] [address] [place] [address] [phone] * HIV Ab/Ag Exposure Source (07/05/2024 2:58 PM EDT) HIV AB/AG Nonreactive Nonreactive [facility] Comment:HIV-1 p24 Ag and/or HIV-1/HIV-2 Ab not detected.A test result that is nonreactive does not exclude thepossibility of exposure to or infection with HIV-1 and/orHIV-2. Nonreactive results in this assay for individualswith prior exposure to HIV-1 and/or HIV-2 may be due toantigen and antibody levels that are below the limit ofdetection of this assay.The [employer] HIV Ag/Ab Combo assay result andsupplemental assay results should be interpreted inconjunction with the patient's clinical presentation,history and other laboratory results. If the results areinconsistent with clinical evidence, additional testing issuggested to confirm the result. 07/05/2024 2:58 PM EDT 07/05/2024 3:12 PM EDT us Generic External Data Provider LAB BLOOD ORDERAB LES Final Result Performing Organization Address [facility] Co de Phone Number [facility] [address] [place] [phone] * BI Mammogram Screening Tomosynthesis Bilateral (06/27/2024 1:15 PM EDT) Anatomical Region Laterality Modality Breast Bilateral Mammography 06/27/2024 1:15 PM EDT Narrative 07/02/2024 5:39 PM EDT [facility] [address] [place] [address] Mammography Report Signed Patient: Nelly Paredes MR#: [id number] : 1970 Acct:[id number] Age/Sex: 54 / F ADM Date: 06/27/24 Loc: HO.MAMMO Attending Dr: Vera Da Silva DO Ordering Physician: Yaron Das MD Results: 1Negativ e Date of Service: 06/27/24 Follow Up: 1 Year From Orig inal Mammogram Procedure(s): MM tomosynthesis screening BI Accession Number(s): [id number] cc: Vera Da Silva DO; Yaron Das [...] Tahira Villareal DO 07/02/2024 05:36 PM EDT Dictated By: Tahira Villareal DO Signed By: <Electronically signed by Tahira Villareal DO in OV> 07/02/24 1736 DD/ 1315 TD/TT: 06/27/24 1340 Cruise Director: Procedure Note Donotuseinterpreter, Image - 07/02/2024 [facility] [address] [place] [address] Dr[place], [place] [address] Mammography Report Signed Patient: Olga Paredes#: [id number] : 1970Acct:[id number] Age/Sex: 54 / FADM Date: 06/27/24 Loc: HO.MAMMO Attending Dr: Vera Da Silva DO Ordering Physician: Yaron Das MDResults: 1Negativ e Date of Service: 06/27/24Follow Up: 1 Year From Orig inal Mammogram Procedure(s): MM tomosynthesis screening BI Accession Number(s): [id number] cc: Vera Da Silva DO; Yaron Das [...] Tahira Villareal DO 07/02/2024 05:36 PM EDT Dictated By: Tahira Villareal DO Signed By: <Electronically signed by Tahira Villareal DO in OV> 07/02/24 1736 DD/ 1315 TD/TT: 06/27/24 1340 Cruise Director: us [facility] External Provider IMG BI PROCEDURES Final Result * (ABNORMAL) Lipid Panel, Standard (01/02/2024 12:15 PM EST) Triglycerides 90 <150 mg/dL [facility] Comment:Desirable Triglyceri de: less than 150 mg/dLBorderline High Triglyceride 150-199 mg/dLHigh Triglyceride: 200-499 mg/dLVery High Triglyceride: greater than or equal to 5OO mg/dL Cholesterol 188 <200 mg/dL [facility] Comment:Desirable Cholestero l: less than 200 mg/dLBorderline High Cholesterol: 200-239 mg/dLHigh Cholesterol: greater than 239 mg/dL LDL Cholesterol Calculated 110(H) <100 mg/dL [facility] Comment:Desirable LDL: less than 100 mg/dLNear Optimal/Above Optimal LDL: 110- 129 mg/dLBorderline High LDL: 130-159 mg/dLHigh LDL: 160-189 mg/dLVery High LDL: greater than or equal to 190 mg/dL HDL Cholesterol 60 >40 mg/dL [facility] Comment:Desirable HDL: great er than 40 mg/dL Note: This HDL assay may give artificially low results in patients with liver disease. Blood Venous blood specimen / Unknown 01/02/2024 12:15 PM EST 01/02/2024 1:31 PM EST Vera Da Silva DO LAB BLOOD ORDERABLES Final R esult [facility] [address] [place] [phone] * Hm Colonoscopy (08/30/2022) Colonoscopy Normal Normal Narrative Jinny Grullon - 08/30/2022 Recommended a 2 year follow up ( [facility] ) Historical Provider HEALTH MAINTENANCE Final Result * HPV mRNA E6/E7 w/Reflex to HPV Genotypes 16, 18/45 (05/25/2022 11:12 AM EDT) HPV nRNA E6/E7 Not Detected Not Detected [facility] Comment:Methodology: Transcr iption-Mediated AmplificationThis assay detects E6/E7 viral messenger RNA (mRNA) from 14high-risk HPV types (16,18,31,33,35,39,45,51,52,56,58,59,66,68).Cervical sources are required for HPV testing.If a vaginal source from a patient who has had atotal hysterectomy with removal of cervix wassubmitted, please contact the testing laboratoryfor alternative testing options.For additional information, please refer tohttp://education.Lettuce Eat/faq/NAT315s8(This link if provided for information/educational purposes only.)THIS TEST WAS PERFORMED AT:[facility] [place] [phone] NG MD HPV mRNA E6/E7 TNP [facility] HPV 16 RNA TNP [facility] HPV 18/45 RNA TNP [facility] 05/25/2022 11:1 2 AM EDT 05/25/2022 4:30 PM EDT [facility] External Provider LAB CYT OLOGY ORDERABLES Final Result [facility] [address] [place] [phone] * Pap Smear (05/25/2022 11:12 AM EDT) 05/25/2022 11:1 2 AM EDT 05/25/2022 4:30 PM EDT Narrative [facility] - 06/07/2022 7:16 AM EDT ----- ------- Name: Nelly Paredes Age/Sex: 52/F : 1970 Unit#: [id number] Attend Dr: Yaron Das MD Re05/25/22 Status: DEP REF Location: HO.LNP Disch: ----- ------- SPEC : [id number] RECD: 05/25/22 STATUS: JAMES RYDER NUM: [id number] KEKE: 05/25/22 [facility] DR: Yaron Das MD ENTERED: 05/25/22 SP TYPE: Pap Smr OTHR DR: Vera Da Silva DO ORDERED: Pap Smear Interpretation Satisfactory for evaluation. Negative for intraepithelial lesion or malignancy. HPV mRNA E6/E7: NOT DETECTED This assay detects E6/E7 viral messenger RNA (mRNA) from 14 high-risk HPV types (16, 18, 31, 33, 35, 39, 45, 51, 52, 56, 58, 59, 66, 68) HPV testing performed by [employer], [place], [place]. See reference laboratory portion of the EMR for entire report. Clinical Information LMP: PM Previous PAP test: 2021, Abnormal Other history: CIN1, HPV+ Material Received ThinPrep-Cervical Copies To: Vera Da Silva DO [address] [place], [place] [phone] Yaron Das MD [address] [place] [phone] ----- ------- Signed (signature on file) Caroline A Dariela 06/07/22 0716 ----- ------- END OF REPORT [facility] External Provider LAB CYT OLOGY ORDERABLES Final Result [facility] [address] [facility] [place] [address] [phone] from Last 3 Months or Most Recently Relevant to Health Maintenance Insurance [employer] Care Teams Talent Acquisition Specialist Relationship Specialty Start Date End Date Vera Da Silva DO [address] [place] [address] PCP - General Family Medicine 02/28/18
--- OUTSIDE RECORDS SUMMARY | 2024-10-25 11:22 | XMS_ITS | Encounter Summary ---
Author Organization [employer] Address [address] [place] [address] 7 [place] [address] Care Team Providers Care Records Analysis Manager Name Role Phone Vera Da Silva DO Primary Care Provider [phone] Reason for Visit * Reason Onset Date Comments Appointment Request 04/22/2023 Encounter Details Date Type Department Care Team ([facility] Contact Info) Description 04/22/[address] [facility] MEDICINE [address] [place], [place] [phone] Vera Da Silva DO [address] [place], [place] [phone] Appointment Request Social History Tobacco Use Types [...] encounter Miscellaneous Notes * Telephone Encounter - Meagandavidkumar Jose G Noonan - 04/22/2023 2:24 PM EST Tc from pt requesting an appt with PCP. Market Developer tried booking due to recall but Dr. Da Silva Scheduled not available. Please contact pt @ [phone] documented in this encounter Plan of Treatment Not on file documented as of this encounter Visit Diagnoses Not on filedocumented in this encounter Additional Health Concerns Assessment Noted Time PHQ-9 Depression Total Score: 13 023 11:13 AM EDT documented as of this encounter Care Teams Records Analysis Manager Relationship Specialty Start Date End Date Vera Da Silva DO [address] [place] [address] PCP - General Family Medicine 02/28/18 documented as of this encounter
--- OUTSIDE RECORDS SUMMARY | 2024-10-25 11:22 | XMS_ITS | Encounter Summary ---
Author Organization [employer] Address [address] [place] [address] [address] [place] [address] Care Team Providers Care Head Mixer Name Role Phone Vera Da Silva DO Primary Care Provider [phone] Encounter Details Date Type Department Care Team ([facility] st Contact Info) Description 09/21/2022 Abstract [facility] MEDICINE [address] [place], [place] [phone] Vera Da Silva DO [address] [place], [place] [phone] Social History Tobacco Use Types Packs/Day Years [...] up ( [facility] ) us Historical Provider HEALTH MAINTENANCE Final Result documented in this encounter Visit Diagnoses Not on filedocumented in this encounter Additional Health Concerns Assessment Noted Time PHQ-9 Depression Total Score: 13 023 11:13 AM EDT documented as of this encounter Care Teams Head Mixer Relationship Specialty Start Date End Date Vera Da Silva DO [address] [place] [address] PCP - General Family Medicine 02/28/18 documented as of this encounter
== END 2024-10-25 10:02 | disposition home or self-care (01) ==
LOC: HO.MRI 10:01
PROVIDERS: PCP Family Medicine; Visit Provider Family Medicine
DX: M54.42 Lumbago with sciatica, left side (principal); M54.41 Lumbago with sciatica, right side; G89.29 Other chronic pain
CPT/HCPCS: 72148

== ENCOUNTER → 2024-10-25 10:08 | Outpatient (BNV) | payer MEDICAID, SELFPAY | PROVIDERS: PCP Family Medicine; Visit Provider Radiology Diagnostic Radiology | DX: M47.816 Spondylosis without myelopathy or radiculopathy, lumbar region (principal); M48.061 Spinal stenosis, lumbar region without neurogenic claudication | CPT/HCPCS: 72148 ==